=== PATIENT | male | born 1935 | race Caucasian/White ===

== ENCOUNTER 2016-09-21 16:00 | Inpatient (IN) | payer MEDICARE, OTHER ==
[~2016-09-21] VITALS: Ht 172.7 cm; Wt 87.0 kg
[~2016-09-21 16:00] MED LIST: AMIO100T4 PO; APIX5TAB PO; BENA20TA48 PO; CLON-379 PO; CYAN500T46 PO; DOCU-159 PO; ERGO500014 PO; FER325 PO; GLIM1TAB PO; GLIM1TAB2 PO; ISOS120T15 PO; LEVO50TA71 PO; LORA0.5T PO; ROSU20TA PO; TAMS0.4C2 PO
[2016-09-21] MEDS ORDERED: CLON-412 PO (16:37)
[2016-09-21] MEDS ORDERED: TRAM-40 PO (16:37)
[2016-09-21] MEDS ORDERED: CARV6.25 PO (16:38)
[2016-09-21] MEDS ORDERED: AMLO5TAB4 PO (16:38)
[2016-09-21] MEDS ORDERED: NIT4 SL (16:38)
[2016-09-21] MEDS ORDERED: APR50 PO (16:39)
[2016-09-21] MEDS ORDERED: ALBU18HF INHALATION (16:39)
[2016-09-21] MEDS ORDERED: LIPA1CAP6 PO (16:40)
[2016-09-21] MEDS ORDERED: SERT25TA PO (16:40)
[2016-09-21] MEDS ORDERED: FLUT9.9S NASAL (16:40)
[2016-09-21] MEDS ORDERED: MEMA10TA16 PO (16:41)
[2016-09-21] MEDS ORDERED: DEXL60CA2 PO (16:41)
--- NOTE | 2016-09-21 16:47 | RADRPT ---
PROCEDURE: XR Chest. CLINICAL INDICATION: Cough. Sepsis. TECHNIQUE: Single frontal view. COMPARISON: 06/22/2016. FINDINGS: The lungs are clear. The heart is enlarged. There is calcification in the aorta consistent with atherosclerosis. There is no pleural effusion. There is no pneumothorax. IMPRESSION: 1. Cardiomegaly and atherosclerosis. 2. Otherwise unremarkable chest radiograph. RPTAT: QQ .Bradford Morse MD, MD Date Time Electronically viewed and signed by .Bradford Morse MD, on 09/21/2016 16:46 .R/
[2016-09-21 17:00] LABS: BASOPHILS % 0.4 % (0.0-2.0); EOSINOPHILS # 0.1 10^3/ul (0.0-0.5); EOSINOPHILS % 0.9 % (0.0-7.0); HEMATOCRIT 31.1 % (42.0-52.0); HEMOGLOBIN 10.3 g/dl (14.0-18.0); LYMPHOCYTES # 1.6 10^3/ul (0.8-2.9); LYMPHOCYTES % 29.5 % (15.0-51.0); MEAN CORPUSCULAR HEMOGLOBIN 29.2 pg (29.0-33.0); MEAN CORPUSCULAR VOLUME 88.4 fl (82.0-101.0); MEAN PLATELET VOLUME 7.1 fl (7.4-10.4); MONOCYTE # 0.6 10^3/ul (0.3-0.9); MONOCYTES % 11.9 % (0.0-11.0); NEUTROPHIL # 3.1 10^3/ul (1.6-7.5); NEUTROPHILS % 57.3 % (39.0-77.0); PLATELET COUNT 272 10^3/UL (140-440); RED BLOOD COUNT 3.52 10^6/ul (4.70-6.10); RED CELL DISTRIBUTION WIDTH 14.7 % (11.5-14.5); UNCORRECTED WBC 5.4 10^3/ul (4.8-10.8); WHITE BLOOD COUNT 5.4 10^3/ul (4.8-10.8)
[2016-09-21 17:01] LABS: CONDITION 1; LH ANALYZER COMMENTS 1
[2016-09-21 17:15] LABS: ALBUMIN 3.6 g/dl (3.3-4.9)
[2016-09-21 17:16] LABS: CHLORIDE 109 mmol/L (97-110); POTASSIUM 3.5 mmol/L (3.5-5.1); SODIUM 145 mmol/L (135-144)
[2016-09-21 17:18] LABS: ALBUMIN/GLOBULIN RATIO 1.05; ANION GAP 15 (8-16); ASPARTATE AMINO TRANSFERASE 26 IU/L (15-46); BILIRUBIN,INDIRECT 0.5 mg/dl (0-1.1); BILIRUBIN,TOTAL 0.5 mg/dl (0.2-1.3); CARBON DIOXIDE 25 mmol/L (21-31); CREATININE 1.57 mg/dl (0.61-1.24); INR 1.16; PROTIME 14.8 Sec (12.2-14.2); PT RATIO 1.2
[2016-09-21 17:19] LABS: ALANINE AMINOTRANSFERASE 46 IU/L (13-69); ALKALINE PHOSPHATASE 55 IU/L (42-121); BLOOD UREA NITROGEN 18 mg/dl (7-20); CALCIUM 8.6 mg/dl (8.4-10.2); GLUCOSE 104 mg/dl (70-220); PARTIAL THROMBOPLASTIN TIME 32.7 Sec (25.0-35.0)
[2016-09-21 17:27] LABS: B-TYPE NATRIURETIC PEPTIDE 3580 PG/ML (0-450)
[2016-09-21 17:34] LABS: TROPONIN-I < 0.010 ng/ml (0.00-0.12)
[2016-09-21] MEDS ORDERED: FUROSEMIDE 40 MG INJ IV ONE (18:00)
--- NOTE | 2016-09-21 18:19 | HP ---
Date/Time of Note Date/Time of Note DATE: 09/21/16 TIME: 18:17 Assessment/Plan VTE Prophylaxis VTE Prophylaxis Intervention: ambulation, anti-embolic stocking VTE Contraindication Reason: peripheral vascular disease Lines/Catheters IV Catheter Type (from Nrsg): Peripheral IV Central line still needed: No Urinary Cath still in place: No Reason Cath still needed: urinary retention Assessment/Plan Chief Complaint/Hosp Course 1. CHF exacerbation. Problems: HPI/ROS Admit Date/Time Admit Date/Time PMH/Family/Social Social History Smoking Status: Never smoker Exam/Review of Systems Vital Signs Vitals Vital Signs Date Time Temp Pulse Resp B/P Pulse Ox O2 Delivery O2 Flow Rate FiO2 09/21/16 17:28 65 18 150/72 96 Room Air 09/21/16 16:13 98.2 Labs Result Diagram: 09/21/16 1636 09/21/16 1636 ANA LAI MD Sep 21, 2016 18:19
[2016-09-21] MEDS ORDERED: POTASSIUM CHLORIDE 20 MEQ in SOD CHLORIDE 0.9% 100 ML IVPB ONE (18:30)
[2016-09-21] MEDS ORDERED: ONDANSETRON 4 MG INJ IV PRN ×2 (18:30)
[2016-09-21] MEDS ORDERED: ACETAMINOPHEN 325 MG TAB PO PRN ×2 (18:30)
--- NOTE | 2016-09-21 18:33 | ERA ---
ER Documentation Chief Complaint Date/Time DATE: 09/21/16 TIME: 18:27 Chief Complaint BROUGHT IN VIA EMS FROM HOME DUE TO FLU LIKE SYMPTOMS HPI 81-year-old male who presents with cough and congestion. Fruit Stuffer use. He reports flulike symptoms however he states that the symptoms are consistent with cough that is dry nonproductive, shortness of breath and lower extremity swelling. He denies any chest pain. He denies nausea vomiting or diarrhea, subjective fevers at home. Symptoms for approximately 1 week. ROS All systems reviewed and are negative except as per history of present illness. Medications Home Meds Reported Medications Memantine* (Namenda*) 10 Mg Tablet, 10 MG PO BID, #60 TAB 09/21/16 Dexlansoprazole (Dexilant) 60 Mg Cap.mp, 60 MG PO DAILY, #30 CAP 09/21/16 Fluticasone Propionate (Flonase Allergy Relief) 9.9 Ml [place].susp, 1 SPRAY NASAL DAILY, #1 BOTTLE TO EACH NOSTRIL 09/21/16 Gwlggz-Vyttkpbf-Faxjihd* (Joanna GONZÁLES* 24,000) 24,000 L-76,000-120,000 Unit Capsule.dr, 1 CAP PO WITH MEALS, CAP 09/21/16 Sertraline Hcl* (Zoloft*) 25 Mg Tablet, 25 MG PO DAILY, #30 TAB 09/21/16 Albuterol Sulfate* (Ventolin HFA*) 18 Gm Hfa.aer.ad, 2 PUFF INHALATION Q6H, #1 INHALER 09/21/16 Hydralazine Hcl* (Hydralazine Hcl*) 50 Mg Tab, 50 MG PO BID, #120 TAB 09/21/16 Amlodipine Besylate* (Norvasc*) 5 Mg Tablet, 5 MG PO BID, TAB 09/21/16 Carvedilol* (Coreg*) 6.25 Mg Tablet, 6.25 MG PO BID, #60 TAB 09/21/16 Nitroglycerin* (Nitrostat*) 0.4 Mg Tab.subl, 0.4 MG SL Q5MIN Y for CHEST PAIN, BOTTLE 09/21/16 Clonazepam* (Klonopin*) 1 Mg Tablet, 1 MG PO QHS Y for SLEEP, TAB 09/21/16 Tramadol Hcl* (Ultram*) 50 Mg Tablet, 50 MG PO QHS Y for PAIN, TAB 1/4/17 Cyanocobalamin* (Vitamin B12*) 500 Mcg Tab, 2500 MG PO DAILY, TAB 06/22/16 Docusate Sodium* (Docusate Sodium*) 100 Mg Capsule, 100 MG PO BID, #60 CAP 06/22/16 Ergocalciferol* (Drisdol* (Vitamin D2)) 50,000 Unit Capsule, 77438 UNIT PO Q7D, CAP ON Mondays06/22/16 Levothyroxine Sodium* (Levoxyl*) 50 Mcg Tablet, 50 MCG PO BEFORE BREAKFAST, #30 TAB 06/22/16 Tamsulosin Hcl* (Tamsulosin Hcl*) 0.4 Mg Cap.er.24h, 0.4 MG PO HS, CAP 06/22/16 Apixaban* (Eliquis*) 5 Mg Tablet, 5 MG PO BID, TAB 06/22/16 Glimepiride* (Glimepiride*) 1 Mg Tablet, 1 MG PO BID WITH MEALS, TAB 06/22/16 Benazepril Hcl* (Benazepril Hcl*) 20 Mg Tablet, 20 MG PO DAILY, #30 TAB 06/22/16 Ferrous Sulfate* (Ferrous Sulfate*) 325 Mg Tabec, 325 MG PO DAILY, TAB 06/22/16 Amiodarone Hcl* (Amiodarone Hcl*) 100 Mg Tablet, 100 MG PO BID, #30 TAB 06/22/16 Isosorbide Mononitrate* (Isosorbide Mononitrate*) 120 Mg Tab.sr.24h, 120 MG PO DAILY, TAB.SA 06/22/16 Rosuvastatin Calcium* (Crestor*) 20 Mg Tablet, 20 MG PO QHS, #30 TAB 06/22/16 Clonidine Hcl* (Clonidine Hcl*) 0.1 Mg Tab, 1 TAB PO DAILY, #30 06/22/16 Discontinued Reported Medications Glimepiride* (Amaryl*) 1 Mg Tablet, 1 MG PO WITH BREAKFAST, TAB 06/22/16 Lorazepam* (Lorazepam*) 0.5 Mg Tablet, 0.5 MG PO HS Y for SLEEP, TAB 06/22/16 Allergies Allergies: Coded Allergies: No Known Allergy (Unverified , 09/21/16) PMhx/Soc History of Surgery: No Anesthesia Reaction: No Hx Neurological Disorder: No Hx Respiratory Disorders: No Hx Cardiac Disorders: Yes (CAD,HTN,HYPERCHOLESTEROLEMIA,AFIB) Hx Psychiatric Problems: No Hx Miscellaneous Medical Probl: Yes (DM,BPH) Hx Alcohol Use: Yes (OCCASIONAL) Hx Substance Use: No Hx Tobacco Use: No Smoking Status: Never smoker FmHx Family History: No diabetes Physical Exam Vitals Vital Signs Date Time Temp Pulse Resp B/P Pulse Ox O2 Delivery O2 Flow Rate FiO2 09/21/16 17:28 65 18 150/72 96 Room Air 09/21/16 16:13 98.2 75 18 103/66 95 Physical Exam General: Well developed, well nourished, no acute distress Head: Normocephalic, atraumatic. Eyes: Pupils equally reactive, EOM intact ENT: Moist mucous membranes Neck: Supple, no lymphadenopathy Respiratory: Rales at the bases bilaterally Cardiovascular: RRR, no murmurs, rubs, or gallops Abdominal: Soft, non-tender, non-distended, no peritoneal signs : Deferred MSK: Bilateral lower extremity pitting edema, no unilateral swelling, 5/5 strength Neurologic: Alert and oriented, moving all extremities, normal speech, no focal weakness, no cerebellar signs Skin: No rash Psych: Normal mood Result Diagram: 09/21/16 1636 09/21/16 1636 Results 24 hrs Laboratory Tests Test 09/21/16 16:36 Activated Partial Thromboplast Time 32.7Sec Alanine Aminotransferase (ALT/SGPT) 46IU/L Albumin 3.6g/dl Albumin/Globulin Ratio 1.05 Alkaline Phosphatase 55IU/L Anion Gap 15 Aspartate Amino Transf (AST/SGOT) 26IU/L B-Type Natriuretic Peptide 3580PG/ML Basophils # 0.010^3/ul Basophils % 0.4% Blood Morphology Comment Blood Urea Nitrogen 18mg/dl Calcium Level 8.6mg/dl Carbon Dioxide Level 25mmol/L Chloride Level 109mmol/L Creatinine 1.57mg/dl Direct Bilirubin 0.00mg/dl Eosinophils # 0.110^3/ul Eosinophils % 0.9% Globulin 3.40g/dl Glucose Level 104mg/dl Hematocrit 31.1% Hemoglobin 10.3g/dl INR International Normalized Ratio 1.16 Indirect Bilirubin 0.5mg/dl Lactic Acid Level 0.9mmol/L Lymphocytes # 1.610^3/ul Lymphocytes % 29.5% Mean Corpuscular Hemoglobin 29.2pg Mean Corpuscular Hemoglobin Concent 33.0g/dl Mean Corpuscular Volume 88.4fl Mean Platelet Volume 7.1fl Monocytes # 0.610^3/ul Monocytes % 11.9% Neutrophils # 3.110^3/ul Neutrophils % 57.3% Nucleated Red Blood Cells # 0.010^3/ul Nucleated Red Blood Cells % 0.0/100WBC Platelet Count 70798^3/UL Potassium Level 3.5mmol/L Prothrombin Time 14.8Sec Prothrombin Time Ratio 1.2 Red Blood Count 3.5210^6/ul Red Cell Distribution Width 14.7% Sodium Level 145mmol/L Total Bilirubin 0.5mg/dl Total Protein 7.0g/dl Troponin I < 0.010ng/ml White Blood Count 5.410^3/ul Current Medications Medications (Trade) Dose Ordered Sig/Carole Route PRN Reason Start Time Stop Time Status Last Admin Dose Admin Furosemide (Lasix) 40 mg ONCE ONCE IV 09/21/16 18:00 09/21/16 18:01 DC 09/21/16 17:43 Ondansetron HCl (Zofran Inj) 4 mg ER BRIDGE PRN IV NAUSEA AND/OR VOMITING 09/21/16 18:30 09/22/16 18:29 Acetaminophen (Tylenol Tab) 650 mg ER BRIDGE PRN PO MILD PAIN/FEVER 09/21/16 18:30 09/22/16 18:29 Amlodipine Besylate (Norvasc) 5 mg BID PO 09/21/16 21:00 UNV Hydralazine HCl (Apresoline) 50 mg BID PO 09/21/16 21:00 UNV Levothyroxine Sodium (Synthroid) 50 mcg BEFORE BREAKFAST PO 09/22/16 07:00 UNV Albuterol (Proventil 0.083% (Neb)) 2.5 mg Q8HWA RESP THERAPY [facility] 09/22/16 08:00 UNV Ipratropium [place] (Atrovent 0.02% (Neb)) 0.5 mg Q8H RESP THERAPY [facility] 09/22/16 00:00 UNV Ondansetron HCl (Zofran Inj) 4 mg Q8 PRN IV NAUSEA 09/21/16 18:30 UNV Acetaminophen 650 mg 650 mg Q6 PRN PO PAIN LEVEL 4-6 09/21/16 18:30 UNV Potassium Chloride/Sodium Chloride (KCl/NS) 110 ml @ 55 mls/hr ONCE ONCE IVPB 09/21/16 18:30 09/21/16 20:29 UNV Pantoprazole (Protonix Iv) 40 mg DAILY IV 09/21/16 18:30 UNV Aspirin (Aspirin) 81 mg DAILY PO 09/21/16 18:30 UNV Procedures/MDM EKG, MONITORS, & DIAGNOSTIC IMAGING: EKG: I reviewed and interpreted a 12-lead EKG. Rhythm: Normal sinus rhythm Ectopy: None Intervals: No abnormalities ST segments: No elevations or depressions T waves: No contiguous inversions Chest x-ray: I reviewed and interpreted a 1 view of the chest Mediastinum: No enlargement Cardiac silhouette: cardiomegaly Airspace: Pulmonary edema Bones: No evidence of fracture LAB INTERPRETATION: Elevated BNP, normal white count MEDICAL DECISION MAKING: I believe that the patient's symptoms are more consistent with heart failure rather than flulike symptoms. He has no fever, no white count. The patient has cough and lower extremity swelling. This is consistent with pulmonary edema and likely CHF that is a new diagnosis. The patient has had a left heart catheter showed no evidence of cardiac disease but he has hypertension hyperlipidemia and diabetes. ER COURSE: The patient was given Lasix with improved symptoms. No indication for BiPAP. The patient has greater than 72 hours of symptoms, low concern for influenza, no indication for Tamiflu. No indication for antibiotics. I kept the patient and/or family informed of laboratory and diagnostic imaging results throughout the emergency room course. DISPOSITION PLAN: Telemetry admission for management of CHF CONSULTATION: Accepting care team and consultations: I discussed the current laboratory data, diagnostic imaging and emergency care provided. Admitting team: Dr. Roldan Admitting team indication: Insurance directed Departure Diagnosis: Primary Impression: CHF (congestive heart failure) Qualified Code: I50.9 - Acute congestive heart failure, unspecified congestive heart failure type Additional Impressions: Pulmonary edema Qualified Code: J81.0 - Acute pulmonary edema Acute renal insufficiency Condition: Stable MARY SANTANA MD Sep 21, 2016 18:33
[2016-09-21 18:46] LABS: IRON 33 ug/dl (35-150)
[2016-09-21 18:49] LABS: ADD UMIC YES; URINE BILIRUBIN (Dip) NEGATIVE (NEGATIVE); URINE BLOOD (Dip) NEGATIVE (NEGATIVE); URINE COLOR LT. YELLOW (YELLOW); URINE GLUCOSE (Dip) NEGATIVE (NEGATIVE); URINE KETONES (Dip) NEGATIVE (NEGATIVE); URINE LEUKOCYTE ESTERASE (Dip) NEGATIVE (NEGATIVE); URINE NITRITE (Dip) NEGATIVE (NEGATIVE); URINE TOTAL PROTEIN (Dip) TRACE (NEGATIVE); URINE UROBILINOGEN (Dip) 0.2 E.U./dL (0.1-1.0)
[2016-09-21 18:55] LABS: TOTAL IRON BINDING CAPACITY 261 ug/dl (241-421)
[2016-09-21] MEDS: PANTOPRAZOLE 40 MG INJ IV SCH (19:02)
[2016-09-21] MEDS: ASPIRIN 81 MG TAB PO SCH (19:02)
[2016-09-21 19:10] LABS: MUCUS,URINE RARE
[2016-09-21 19:11] LABS: URINE RBCS NONE SEEN /HPF (0)
[2016-09-21] MEDS: SPIRONOLACTONE 25 MG TAB PO SCH (19:19)
[2016-09-21 19:28] LABS: CHOL/HDL RATIO 3.2 RATIO; MAGNESIUM 1.7 mg/dl (1.7-2.5)
[2016-09-21 20:00] LABS: THYROID STIMULATING HORMONE 3.2 MIU/L (0.465-4.680)
[2016-09-21 20:35] LABS: FOLATE 18.2 ng/ml (2.8-20.0)
[2016-09-21] MEDS: ENALAPRIL 5 MG TAB PO SCH (20:57)
[2016-09-21] MEDS: METOPROLOL 25 MG TAB PO SCH (20:57)
[2016-09-21] MEDS ORDERED: AMLODIPINE 5 MG TAB PO SCH (21:00)
[2016-09-21] MEDS: FUROSEMIDE 20 MG INJ IV SCH (22:24)
[2016-09-21 23:15] VITALS: TEMP 98.1
[2016-09-21 23:47] VITALS: PULSE 62
[2016-09-22] VITALS (12 sets, daily range): BP systolic 112–155; BP diastolic 58–76; PULSE 64–70; RESP 15–21; Ht 172.7 cm; Wt 87.0 kg
[2016-09-22] MEDS: IPRATROPIUM (NEB) 0.5 MG/2.5 ML AMP HHN SCH ×3 (00:46→16:09)
[2016-09-22] MEDS ORDERED: METHYLPREDNISOLONE 125 MG INJ IV ONE ×2 (00:52→14:30)
[2016-09-22] MEDS ORDERED: DEXTROSE 50% 50 ML SYRINGE IV PRN ×2 (01:00)
[2016-09-22] MEDS ORDERED: GLUCAGON 1 MG INJ IM PRN (01:00)
[2016-09-22] MEDS ORDERED: GLUCOSE GEL 15 GRAM TUBE BUCCAL PRN (01:00)
[2016-09-22] MEDS ORDERED: GLUCOSE GEL 15 GRAM TUBE PO PRN ×2 (01:00)
[2016-09-22] MEDS: GUAIFENESIN/CODEINE 5ML CUP PO PRN ×2 (01:16→10:46)
[2016-09-22] MEDS: ACCUCHECK XX SCH (02:00)
[2016-09-22] MEDS: LEVOTHYROXINE 50 MCG TAB PO SCH (06:05)
[2016-09-22] MEDS: FUROSEMIDE 20 MG INJ IV SCH ×3 (06:07→21:30)
[2016-09-22] MEDS: INSULIN ASPART [NOVOLOG] 3 ML PEN SC SCH ×4 (08:34→21:31)
[2016-09-22] MEDS: ALBUTEROL 0.083% (NEB) 2.5 MG/3 ML AMP HHN SCH ×2 (09:11→16:09)
[2016-09-22] MEDS: SPIRONOLACTONE 25 MG TAB PO SCH (09:38)
[2016-09-22] MEDS: ENALAPRIL 5 MG TAB PO SCH (09:38)
[2016-09-22] MEDS: PANTOPRAZOLE 40 MG INJ IV SCH (09:38)
[2016-09-22] MEDS: METOPROLOL 25 MG TAB PO SCH ×2 (09:39→21:29)
[2016-09-22] MEDS: ASPIRIN 81 MG TAB PO SCH (09:39)
--- NOTE | 2016-09-22 12:03 | CONS ---
Date/Time of Note Date/Time of Note DATE: 09/22/16 TIME: 12:02 Consultation Date/Type/Reason Admit Date/Time Sep 21, 2016 at 18:04 Initial Consult Date Exam/Review of Systems Vital Signs Vitals Vital Signs Date Time Temp Pulse Resp B/P Pulse Ox O2 Delivery O2 Flow Rate FiO2 09/22/16 11:44 98.0 68 18 132/70 96 09/22/16 08:55 21 09/21/16 23:15 Room Air Intake and Output 09/21/16 09/21/16 09/22/16 15:00 23:00 07:00 Intake Total 400 ml Output Total 1660 ml 1425 ml Balance -1660 ml -1025 ml Results Result Diagram: 09/21/16 1636 09/21/16 1636 Results 24 hrs Laboratory Tests Test 09/21/16 16:36 09/21/16 18:15 09/21/16 18:25 09/21/16 20:00 Activated Partial Thromboplast Time 32.7 Alanine Aminotransferase (ALT/SGPT) 46 Albumin 3.6 Albumin/Globulin Ratio 1.05 Alkaline Phosphatase 55 Anion Gap 15 Aspartate Amino Transf (AST/SGOT) 26 B-Type Natriuretic Peptide 3580 H Basophils # 0.0 Basophils % 0.4 Blood Morphology Comment Blood Urea Nitrogen 18 Calcium Level 8.6 Carbon Dioxide Level 25 Chloride Level 109 Creatinine 1.57 H Direct Bilirubin 0.00 Eosinophils # 0.1 Eosinophils % 0.9 Globulin 3.40 H Glucose Level 104 Hematocrit 31.1 L Hemoglobin 10.3 L INR International Normalized Ratio 1.16 Indirect Bilirubin 0.5 Lactic Acid Level 0.9 0.6 0.8 Lymphocytes # 1.6 Lymphocytes % 29.5 Mean Corpuscular Hemoglobin 29.2 Mean Corpuscular Hemoglobin Concent 33.0 Mean Corpuscular Volume 88.4 Mean Platelet Volume 7.1 L Monocytes # 0.6 Monocytes % 11.9 H Neutrophils # 3.1 Neutrophils % 57.3 Nucleated Red Blood Cells # 0.0 Nucleated Red Blood Cells % 0.0 Platelet Count 272 Potassium Level 3.5 Prothrombin Time 14.8 H Prothrombin Time Ratio 1.2 Red Blood Count 3.52 L Red Cell Distribution Width 14.7 H Sodium Level 145 H Total Bilirubin 0.5 Total Protein 7.0 Troponin I < 0.010 White Blood Count 5.4 # Cholesterol Level 81 L Cholesterol/HDL Ratio 3.2 Folate 18.2 HDL Cholesterol 25 L LDL Cholesterol, Calculated 38 Magnesium Level 1.7 Thyroid Stimulating Hormone (TSH) 3.200 Triglycerides Level 91 Vitamin B12 Level 991 H Iron Level 33 L Percent Iron Saturation 13 L Total Iron Binding Capacity 261 Urine Bilirubin NEGATIVE Urine Clarity CLEAR Urine Color LT. YELLOW Urine Glucose NEGATIVE Urine Hemoglobin NEGATIVE Urine Ketones NEGATIVE Urine Leukocyte Esterase NEGATIVE Urine Microscopic RBC NONE SEEN Urine Microscopic WBC 0-2 Urine Mucus RARE Urine Nitrite NEGATIVE Urine Specific [place] >=1.030 H Urine Total Protein TRACE Urine Urobilinogen 0.2 E.U./dL Urine pH 5.5 Test 09/21/16 23:44 09/22/16 08:18 Bedside Glucose 116 187 Medications Medications Current Medications Hydralazine HCl (Apresoline) 50 mg BID PO Last administered on 09/22/16 09:39; Admin Dose 50 MG; Start 09/21/16 at 21:00 Ondansetron HCl (Zofran Inj) 4 mg Q8 PRN IV NAUSEA; Start 09/21/16 at 18:30 Acetaminophen (Tylenol Tab) 650 mg Q6 PRN PO PAIN LEVEL 4-6; Start 09/21/16 at 18:30 Pantoprazole (Protonix Iv) 40 mg DAILY IV Last administered on 09/22/16 09:38; Admin Dose 40 MG; Start 09/21/16 at 18:30 Aspirin (Aspirin) 81 mg DAILY PO Last administered on 09/22/16 09:39; Admin Dose 81 MG; Start 09/21/16 at 18:30 Furosemide (Lasix) 20 mg Q8 IV Last administered on 09/22/16 06:07; Admin Dose 20 MG; Start 09/21/16 at 22:00 Spironolactone (Aldactone) 25 mg DAILY PO Last administered on 09/22/16 09:38; Admin Dose 25 MG; Start 09/21/16 at 18:30 Metoprolol Tartrate (Lopressor) 25 mg BID PO Last administered on 09/22/16 09: 39; Admin Dose 25 MG; Start 09/21/16 at 21:00 Enalapril Maleate (Vasotec) 5 mg BID PO Last administered on 09/22/16 09:38; Admin Dose 5 MG; Start 09/21/16 at 21:00 Diagnostic Test (Pha) (Accucheck) 1 ea 02 XX ; Start 09/22/16 at 02:00 Guaifenesin/ Codeine Phosphate (Robitussin Ac Liquid Cup) 10 ml Q8H PRN PO COUGH Last administered on 09/22/16t 10:46; Admin Dose 10 ML; Start 09/22/16 at 00 :30 Clonidine (Catapres) 0.1 mg Q8H PRN PO ELEVATED SYSTOLIC BP; Start 09/22/16 at 00:30 Methylprednisolone Sodium Succinate (Solu-Medrol) 60 mg ONCE ONCE IV ; Start at 09:00; Stop 09/23/16 at 09:01 Methylprednisolone Sodium Succinate (Solu-Medrol) 30 mg ONCE ONCE IV ; Start at 09:00; Stop 09/24/16 at 09:01 Miscellaneous Information 1 ea NOTE XX ; Start 09/22/16 at 01:00 Glucose (Glutose) 15 gm Q15M PRN PO DECREASED GLUCOSE; Start 09/22/16 at 01:00 Glucose (Glutose) 22.5 gm Q15M PRN PO DECREASED GLUCOSE; Start 09/22/16 at 01:00 Dextrose (D50w Syringe) 25 ml Q15M PRN IV DECREASED GLUCOSE; Start 09/22/16 at 01:00 Dextrose (D50w Syringe) 50 ml Q15M PRN IV DECREASED GLUCOSE; Start 09/22/16 at 01:00 Glucagon (Glucagen) 1 mg Q15M PRN IM DECREASED GLUCOSE; Start 09/22/16 at 01:00 Glucose (Glutose) 15 gm Q15M PRN BUCCAL DECREASED GLUCOSE; Start 09/22/16 at 01: 00 GRETEL GARCIA MD Sep 22, 2016 12:02
--- NOTE | 2016-09-22 12:11 | HP ---
Date/Time of Note Date/Time of Note DATE: 09/22/16 TIME: 11:49 Assessment/Plan VTE Prophylaxis VTE Prophylaxis Intervention: ambulation, anti-embolic stocking VTE Contraindication Reason: peripheral vascular disease Lines/Catheters IV Catheter Type (from Nrsg): [place] Lock Central line still needed: No Urinary Cath still in place: No Assessment/Plan Chief Complaint/Hosp Course 1. CHF exacerbation. 2.Chrinic cough without control more than one month 3.IHD angina s/p catheterization by dr. Alonzo without significant narrowing of the vessels. 4.COPD exacerbation 5.PTSD 6.DM type 2-with complications 7.HTN with chf 8.LBP 9.RAVI of knees and hips and shoulders. 10.Anemia of chronic disease 11.Obesity with snoring and apnea 12.BPH with episodes of overflow incontinens 13.dyslipidemia 14.GERD Problems: Assessment/Plan HEM-onc GI Pulm. Cardiology consult Cont'd Hospitalization Reason: sob,chf,htn,dm,PTSD and intractable cough. HPI/ROS Admit Date/Time Admit Date/Time Persistent cough more than month now with worsening of sob and chills. Took too many medications for cough and sod without help. Now severe weakness with feelings of hotness. ROS Subjective hx not possible: pt critical (seen in er. Poor communication skills due to of hearing impairment, memory impairment and sob mainly.) Constitutional: chills, diaphoresis, fatigue, nausea, poor po, weight change, No disoriented, No febrile, No improved, No no complaints, No other Eyes: discharge, visual change, No no complaints, No other, No pain, No redness ENT: congestion, dysphagia, pain, sore throat (occasional mild amont of sputum production.), No bleeding, No discharge, No no complaints, No other Respiratory: cough, pain, pleuritic pain, shortness of breath, wheezing, No no complaints, No other, No sputum Cardiovascular: chest pain, edema, lightheadedness, orthopenea, palpitations, paroxysmal nocturnal dyspnea, No no complaints, No other Gastrointestinal: constipation, decreased appetite, flatus, nausea, passing stool, No blood, No diarrhea, No no complaints, No other, No pain, No vomiting Genitourinary: dysuria, No bleeding, No discharge, No flank pain, No hematuria, No no complaints, No other Musculoskeletal: back pain, bone/joint pain, neck pain, restricted range of motion, No no complaints, No other, No swelling Skin: pruritis, rash, skin lesions Neurologic: confusion, dizziness, headache, No focal-weakness, No no complaints, No other, No seizure, No syncope Endocrine: polydypsia, polyuria, temp intolerance, weight change (gained 3-4 lb during last 2 weeks.), No dry skin, No no complaints, No other Lymphatic: No adenopathy, No lymphadema, No no complaints, No other, No tender nodes Psychological: anxiety, depression, other (ptsd ; refugee from [place]; Close his home in [place], keeps kees with him..) Immunologic: pruritis, urticaria PMH/Family/Social Past Medical History Medical History: angina, colitis, congestive heart failure, coronary artery disease, diabetes, diverticulitis, GERD, GI bleed, high cholesterol, hypertension, hypothyroid, irritable bowel syndrome, urinary tract infection Past Surgical History Past Surgical Hx: no surgical history Family History Significant Family History: no pertinent family hx, heart disease, COPD, diabetes, hypertension Social History Alcohol Use: none Smoking Status: Never smoker Drug Use: none Exam/Review of Systems Vital Signs Vitals Vital Signs Date Time Temp Pulse Resp B/P Pulse Ox O2 Delivery O2 Flow Rate FiO2 09/22/16 11:44 98.0 68 18 132/70 96 09/22/16 08:55 21 09/21/16 23:15 Room Air Intake and Output 09/21/16 09/21/16 09/22/16 15:00 23:00 07:00 Intake Total 400 ml Output Total 1660 ml 1425 ml Balance -1660 ml -1025 ml Exam Constitutional: alert, distress, oriented (not in time.), well developed, No frail, No non-verbal, No other Psych: anxiety, depression, No confusion, No nl mood/affect, No no complaints, No other, No suicidal Head: atraumatic, No hematomas, No lacerations, No normocephalic, No other Eyes: EOMI, PERRL (s/p cataractectomy changes.), nl lids, nl sclera ( paleness.) ENMT: mucosa pink and moist, nl external ears & nose, nl lips & teeth (dendures , not feeting well.), tympanic membranes Neck: bruits, jvd, nuchal rigidity Respiratory: congested cough, crackles/rales, diminished breath sounds Cardiovascular: bruits, edema, jugular venous distention (JVD), systolic murmur Gastrointestinal: bowel sounds, distended, non-tender, soft Genitourinary - Male: CVA tenderness, nl penis, nl scrotum Neurological: BALLET PROFESSOR II-XII intact (valery and visual impairment.), DTR's symmetric, confused (forgetfull, tense, emotional, exhausted.), lethargic, numbness Skin: ecchymosis, rash or lesions Lymph: nl lymph nodes Labs Result Diagram: 09/21/16 1636 09/21/16 1636 Medications Medications Current Medications Hydralazine HCl (Apresoline) 50 mg BID PO Last administered on 09/22/16 09:39; Admin Dose 50 MG; Start 09/21/16 at 21:00 Ondansetron HCl (Zofran Inj) 4 mg Q8 PRN IV NAUSEA; Start 09/21/16 at 18:30 Acetaminophen (Tylenol Tab) 650 mg Q6 PRN PO PAIN LEVEL 4-6; Start 09/21/16 at 18:30 Pantoprazole (Protonix Iv) 40 mg DAILY IV Last administered on 09/22/16 09:38; Admin Dose 40 MG; Start 09/21/16 at 18:30 Aspirin (Aspirin) 81 mg DAILY PO Last administered on 09/22/16 09:39; Admin Dose 81 MG; Start 09/21/16 at 18:30 Furosemide (Lasix) 20 mg Q8 IV Last administered on 09/22/16 06:07; Admin Dose 20 MG; Start 09/21/16 at 22:00 Spironolactone (Aldactone) 25 mg DAILY PO Last administered on 09/22/16 09:38; Admin Dose 25 MG; Start 09/21/16 at 18:30 Metoprolol Tartrate (Lopressor) 25 mg BID PO Last administered on 09/22/16 09: 39; Admin Dose 25 MG; Start 09/21/16 at 21:00 Enalapril Maleate (Vasotec) 5 mg BID PO Last administered on 09/22/16 09:38; Admin Dose 5 MG; Start 09/21/16 at 21:00 Diagnostic Test (Pha) (Accucheck) 1 ea 02 XX ; Start 09/22/16 at 02:00 Guaifenesin/ Codeine Phosphate (Robitussin Ac Liquid Cup) 10 ml Q8H PRN PO COUGH Last administered on 09/22/16t 10:46; Admin Dose 10 ML; Start 09/22/16 at 00 :30 Clonidine (Catapres) 0.1 mg Q8H PRN PO ELEVATED SYSTOLIC BP; Start 09/22/16 at 00:30 Methylprednisolone Sodium Succinate (Solu-Medrol) 60 mg ONCE ONCE IV ; Start at 09:00; Stop 09/23/16 at 09:01 Methylprednisolone Sodium Succinate (Solu-Medrol) 30 mg ONCE ONCE IV ; Start at 09:00; Stop 09/24/16 at 09:01 Miscellaneous Information 1 ea NOTE XX ; Start 09/22/16 at 01:00 Glucose (Glutose) 15 gm Q15M PRN PO DECREASED GLUCOSE; Start 09/22/16 at 01:00 Glucose (Glutose) 22.5 gm Q15M PRN PO DECREASED GLUCOSE; Start 09/22/16 at 01:00 Dextrose (D50w Syringe) 25 ml Q15M PRN IV DECREASED GLUCOSE; Start 09/22/16 at 01:00 Dextrose (D50w Syringe) 50 ml Q15M PRN IV DECREASED GLUCOSE; Start 09/22/16 at 01:00 Glucagon (Glucagen) 1 mg Q15M PRN IM DECREASED GLUCOSE; Start 09/22/16 at 01:00 Glucose (Glutose) 15 gm Q15M PRN BUCCAL DECREASED GLUCOSE; Start 09/22/16 at 01: 00 ANA LAI MD Sep 22, 2016 12:00
[2016-09-22] MEDS ORDERED: BENA20TA48 PO (12:14)
[2016-09-22 13:12] LABS: IRON 33 ug/dl (35-150)
[2016-09-22 13:21] LABS: TOTAL IRON BINDING CAPACITY 264 ug/dl (241-421)
[2016-09-22] MEDS ORDERED: METOPROLOL 5 MG INJ IV PRN (13:30)
[2016-09-22 14:06] LABS: THYROID STIMULATING HORMONE 1.34 MIU/L (0.465-4.680)
--- NOTE | 2016-09-22 14:09 | CONS ---
DATE OF ADMISSION: 09/21/2016 DATE OF CONSULTATION: 09/22/2016 REASON FOR CONSULTATION: Congestive heart failure, shortness of breath. REQUESTING PHYSICIAN: Dr. Lai. HISTORY OF PRESENT ILLNESS: Mr. Santillan is an 81-year-old male with history of hypertension, dysli pidemia, diabetes mellitus, nonobstructive coronary artery disease by left heart catheterization in June 2016, who presents with cough and shortness of breath. Upon arrival in the emergency depart ment, temperature 98.2, blood pressure 103/66, pulse 75, respiratory rate 18, saturating 95%. [facility] a white count of 5.4, hemoglobin 10.3, platelet count 272, a sodium of 145, potassium 3.5, creatinine 1.57, BUN 18. BNP of 3580. TSH of 3.2, LDL 38, HDL 25. INR 1.1. UA neg ative. The patient underwent a chest x-ray revealing cardiomegaly, atherosclerosis, otherwise unrem arkable chest x-ray. PAST MEDICAL HISTORY: As above in HPI. MEDICATIONS CURRENTLY IN HOSPITAL: 1. Solu-Medrol. 2. IV ____. 3. Lasix 20 mg IV q.8h. 4. Hydralazine 50 mg p.o. b.i.d. 5. Metoprolol 25 mg b.i.d. 6. Enalapril 5 mg p.o. b.i.d. 7. Zofran p.r.n. 8. Tylenol p.r.n. 9. Protonix 40 mg IV daily. 10. Aspirin 81 mg daily. 11. Aldactone 25 mg daily. ALLERGIES: NO KNOWN DRUG ALLERGIES. SOCIAL HISTORY: No current tobacco, social ETOH, no illicit drug use. FAMILY HISTORY: No history of sudden cardiac or early CAD. REVIEW OF SYSTEMS: As above in HPI. CONSTITUTIONAL: No fevers, chills. PULMONARY: Shortness of breath, cough. CARDIOVASCULAR: No current chest pain. GASTROINTESTINAL: No vomiting. GENITOURINARY: No hematuria. MUSCULOSKELETAL: Degenerative joint disease. PSYCHIATRIC: The patient denies depression. NEUROLOGIC: No documented history of CVA. PHYSICAL EXAMINATION VITAL SIGNS: Temperature 98.1, blood pressure 132/70, pulse 68, respirations 18, saturating 93%. GENERAL: The patient is alert, awake, complaining of cough, shortness of breath. NECK: JVP approximately 9 cm water. CHEST: Fair movement throughout, with mild decreased breath sounds at bases bilaterally. HEART: Regular rate and rhythm. Normal S1, S2, I/ systolic murmur, nondisplaced PMI. ABDOMEN: Positive bowel sounds, soft. EXTREMITIES: There is pitting edema, 1+ pulses bilaterally, posterior tibial. LABORATORIES: As above in HPI, with most recent on 09/21/2016 LDL 38, HDL 25. TSH 3.2 within layla l limits. IMAGING STUDIES: As above in HPI. No further imaging studies for my review at this time. ECG: Reveals atrial fibrillation, rate of 72, right axis deviation, anteroseptal Q's. IMPRESSION: 1. Congestive heart failure exacerbation, question systolic versus diastolic, but acute on chronic likely. 2. Atrial fibrillation by EKG, on baseline apixaban and home amiodarone. 3. Hypertension, under reasonable control. 4. Possible upper respiratory infection/cough. 5. Dyslipidemia. 6. Renal failure. 7. Anemia. RECOMMENDATIONS: 1. At this time, would maintain the patient on telemetry monitoring to follow rhythm and rate contr ol closely. 2. Would continue the patient's afterload reduction at this time with hydralazine with up titration as necessary to improve overall systolic blood pressure control, as you have talked about holding p atient's AMANDA inhibitors as possible cause of the patient's cough. 3. Continue the patient's Lasix diuresis, following strict I's and O's to grade diuresis closely. 4. Continue the patient's baseline beta stefan, beta 1 selective. 5. Continue the patient's steroids and bronchodilators. 6. Follow the patient's volume status closely. We will consider additional troponins, although the patient had a recent catheterization without any significant obstructive disease. 7. Will additionally check a fasting lipid panel for general risk stratification and initiate lipid -lowering medication as necessary. 8. Continue the patient's aspirin and will likely resume the patient's apixaban for prevention of t hrombolic complications in the setting of atrial fibrillation. Thank you for allowing me to take part in the care of this patient. I will continue to follow along very closely with you. Further recommendations will be made as the patient progresses through his inpatient hospital clinical course. Dictated By: XIMENA BARNES/JOCELINE Conf#: [id number] DID#: [id number] CC: ANA LAI MD;*EndCC*
[2016-09-22 15:14] LABS: CARCINOEMBRYONIC ANTIGEN 0.7 ng/ml (0.0-5.0)
[2016-09-22] MEDS: AZITHROMYCIN 500 MG in SOD CHLORIDE 0.9% 250 ML IVPB SCH (15:36)
[2016-09-22 20:32] LABS: CREATINE KINASE 89 IU/L (23-200)
[2016-09-22 20:39] LABS: CK-MB 1.43 ng/ml (0.0-2.4)
[2016-09-22 20:43] LABS: TROPONIN-I < 0.010 ng/ml (0.00-0.12)
[2016-09-22] MEDS: SALMETEROL/FLUTICASONE 250/50 INHA INH SCH (21:30)
[2016-09-23] VITALS (14 sets, daily range): BP systolic 110–141; BP diastolic 57–70; PULSE 60–75; RESP 15–20
[2016-09-23] MEDS: IPRATROPIUM (NEB) 0.5 MG/2.5 ML AMP HHN SCH ×3 (00:35→16:12)
[2016-09-23 01:33] LABS: TROPONIN-I < 0.012 ng/ml (0.00-0.12)
[2016-09-23] MEDS: ACCUCHECK XX SCH (02:00)
[2016-09-23 02:09] LABS: CREATINE KINASE 82 IU/L (23-200)
[2016-09-23] MEDS: FUROSEMIDE 20 MG INJ IV SCH ×3 (05:53→21:10)
[2016-09-23 06:19] LABS: CHOL/HDL RATIO 3.3 RATIO
[2016-09-23] MEDS: LEVOTHYROXINE 50 MCG TAB PO SCH (07:20)
[2016-09-23] MEDS: INSULIN ASPART [NOVOLOG] 3 ML PEN SC SCH ×4 (07:30→21:12)
[2016-09-23] MEDS: ALBUTEROL 0.083% (NEB) 2.5 MG/3 ML AMP HHN SCH ×2 (08:06→16:13)
[2016-09-23] MEDS: PANTOPRAZOLE 40 MG INJ IV SCH (08:22)
[2016-09-23] MEDS: SPIRONOLACTONE 25 MG TAB PO SCH (08:23)
[2016-09-23] MEDS: SALMETEROL/FLUTICASONE 250/50 INHA INH SCH ×2 (08:23→21:09)
[2016-09-23] MEDS: METOPROLOL 25 MG TAB PO SCH ×2 (08:23→21:08)
[2016-09-23] MEDS: ASPIRIN 81 MG TAB PO SCH (08:23)
[2016-09-23] MEDS: ENOXAPARIN 80 MG/0.8 ML SYG SC SCH (08:28)
[2016-09-23] MEDS ORDERED: METHYLPREDNISOLONE 40 MG INJ IV ONE (09:00)
[2016-09-23] MEDS ORDERED: METHYLPREDNISOLONE 125 MG INJ IV ONE (09:00)
--- NOTE | 2016-09-23 09:47 | CONS ---
Date/Time of Note Date/Time of Note DATE: 09/23/16 TIME: 09:47 Consultation Date/Type/Reason Admit Date/Time Sep 21, 2016 at 18:04 Exam/Review of Systems Vital Signs Vitals Vital Signs Date Time Temp Pulse Resp B/P Pulse Ox O2 Delivery O2 Flow Rate FiO2 09/23/16 08:24 60 09/23/16 08:08 20 97 21 09/23/16 07:28 97.5 117/61 09/23/16 00:00 Nasal Cannula 2.0 Intake and Output 09/22/16 09/22/16 09/23/16 15:00 23:00 07:00 Intake Total 700 ml 650 ml Output Total 1000 ml Balance 700 ml -350 ml Results Result Diagram: 09/21/16 1636 09/21/16 1636 Results 24 hrs Laboratory Tests Test 09/22/16 12:33 09/22/16 12:40 09/22/16 17:30 09/22/16 19:35 Bedside Glucose 223 H 154 Absolute Reticulocyte Count 0.037 Carcinoembryonic Antigen 0.7 Erythrocyte Sedimentation Rate 46 H Ferritin 215.0 Iron Level 33 L Lactate Dehydrogenase 485 Percent Iron Saturation 13 L Percent Reticulocyte Count 1.0 Thyroid Stimulating Hormone (TSH) 1.340 Total Iron Binding Capacity 264 Vitamin B12 Level 928 Creatine Kinase 89 Creatine Kinase Index 1.6 Creatinine Kinase MB (Mass) 1.43 Troponin I < 0.010 Test 09/22/16 20:58 09/23/16 00:20 09/23/16 01:32 09/23/16 05:27 Bedside Glucose 238 H 218 Creatine Kinase 82 Creatine Kinase Index 1.6 Creatinine Kinase MB (Mass) 1.30 Troponin I < 0.012 Cholesterol Level 96 L Cholesterol/HDL Ratio 3.3 HDL Cholesterol 29 L LDL Cholesterol, Calculated 48 Triglycerides Level 96 Test 09/23/16 07:22 Bedside Glucose 183 Medications Medications Current Medications Ondansetron HCl (Zofran Inj) 4 mg Q8 PRN IV NAUSEA; Start 09/21/16 at 18:30 Acetaminophen (Tylenol Tab) 650 mg Q6 PRN PO PAIN LEVEL 4-6; Start 09/21/16 at 18:30 Pantoprazole (Protonix Iv) 40 mg DAILY IV Last administered on 09/23/16t 08:22; Admin Dose 40 MG; Start 09/21/16 at 18:30 Aspirin (Aspirin) 81 mg DAILY PO Last administered on 09/23/16 08:23; Admin Dose 81 MG; Start 09/21/16 at 18:30 Furosemide (Lasix) 20 mg Q8 IV Last administered on 09/23/16 05:53; Admin Dose 20 MG; Start 09/21/16 at 22:00 Spironolactone (Aldactone) 25 mg DAILY PO Last administered on 09/23/16 08:23; Admin Dose 25 MG; Start 09/21/16 at 18:30 Metoprolol Tartrate (Lopressor) 25 mg BID PO Last administered on 09/23/16 08: 23; Admin Dose 25 MG; Start 09/21/16 at 21:00 Enalapril Maleate (Vasotec) 5 mg BID PO Last administered on 09/22/16 09:38; Admin Dose 5 MG; Start 09/21/16 at 21:00; Status Future Hold Diagnostic Test (Pha) (Accucheck) 1 ea 02 XX ; Start 09/22/16 at 02:00 Guaifenesin/ Codeine Phosphate (Robitussin Ac Liquid Cup) 10 ml Q8H PRN PO COUGH Last administered on 09/22/16 10:46; Admin Dose 10 ML; Start 09/22/16 at 00 :30 Clonidine (Catapres) 0.1 mg Q8H PRN PO ELEVATED SYSTOLIC BP; Start 09/22/16 at 00:30 Miscellaneous Information 1 ea NOTE XX ; Start 09/22/16 at 01:00 Glucose (Glutose) 15 gm Q15M PRN PO DECREASED GLUCOSE; Start 09/22/16 at 01:00 Glucose (Glutose) 22.5 gm Q15M PRN PO DECREASED GLUCOSE; Start 09/22/16 at 01:00 Dextrose (D50w Syringe) 25 ml Q15M PRN IV DECREASED GLUCOSE; Start 09/22/16 at 01:00 Dextrose (D50w Syringe) 50 ml Q15M PRN IV DECREASED GLUCOSE; Start 09/22/16 at 01:00 Glucagon (Glucagen) 1 mg Q15M PRN IM DECREASED GLUCOSE; Start 09/22/16 at 01:00 Glucose (Glutose) 15 gm Q15M PRN BUCCAL DECREASED GLUCOSE; Start 09/22/16 at 01: 00 Hydralazine HCl (Apresoline) 50 mg Q8 PO Last administered on 09/23/16 05:53; Admin Dose 50 MG; Start 09/22/16 at 14:00 Metoprolol Tartrate (Lopressor) 5 mg Q4H PRN IV HR>110 Hold SBP<100; Start 09/22 at 13:30 Enoxaparin Sodium (Lovenox) 70 mg DAILY SC Last administered on 09/23/16 08:28 ; Admin Dose 70 MG; Start 09/23/16 at 09:00 Salmeterol Xinafoate/ Fluticasone 1 inh 1 inh BID INH Last administered on 08:23; Admin Dose 1 INH; Start 09/22/16 at 21:00 Azithromycin/ Sodium Chloride (Zithromax/NS) 250 ml @ 250 mls/hr Q24H IVPB Last administered on 09/22/16 15:36; Admin Dose 250 MLS/HR; Start 09/22/16 at 15: 00; Stop 09/23/16 at 15:59 GRETEL GARCIA MD Sep 23, 2016 09:47
--- NOTE | 2016-09-23 11:25 | CONS ---
Date/Time of Note Date/Time of Note DATE: 09/23/16 TIME: 11:18 Assessment/Plan Assessment/Plan Chief Complaint/Hosp Course IMPRESSION: 1. Congestive heart failure exacerbation, question systolic versus diastolic, but acute on chronic likely.-negative troponin x 3 2. Atrial fibrillation by EKG, on baseline apixaban and home amiodarone. 3. Hypertension, under reasonable control. 4. Possible upper respiratory infection/cough. 5. Dyslipidemia. 6. Renal failure. 7. Anemia. Rec: -tele -serial ecg's -Continue hydralazine/BB -Continue lovenox with transition back maricel eliquis at D/C -Will f/u echo -Continue abx's/bronchodilators Problems: Consultation Date/Type/Reason Admit Date/Time Sep 21, 2016 at 18:04 Initial Consult Date 09/22/16 Type of Consultation: Cardiology Reason for Consultation CHF Referring Provider: ANA LAI MD Exam/Review of Systems Vital Signs Vitals Vital Signs Date Time Temp Pulse Resp B/P Pulse Ox O2 Delivery O2 Flow Rate FiO2 09/23/16 08:24 60 09/23/16 08:08 20 97 21 09/23/16 07:28 97.5 117/61 09/23/16 00:00 Nasal Cannula 2.0 Intake and Output 09/22/16 09/22/16 09/23/16 15:00 23:00 07:00 Intake Total 700 ml 650 ml Output Total 1000 ml Balance 700 ml -350 ml Exam Review of Systems: CONSTITUTIONAL: No fevers, chills. PULMONARY: Mild sob-improving CARDIOVASCULAR: No chest pain/palpitations GASTROINTESTINAL: No nausea/vomiting. GENITOURINARY: No hematuria/dysuria. MUSCULOSKELETAL: No myagias/arthalgias. PSYCHIATRIC: The patient denies depression. NEUROLOGIC: No weakness Constitutional: alert, well developed Psych: no complaints Head: normocephalic ENMT: mucosa pink and moist Neck: jvd (9 cm water), supple Respiratory: diminished breath sounds (at bases/B) Cardiovascular: regular rate and rhythm Gastrointestinal: non-tender, soft Musculoskeletal: muscle tone (normal) Extremities: edema (none) Neurological: other (No focal deficits) Results Result Diagram: 09/21/16 1636 09/21/16 1636 Results 24 hrs Laboratory Tests Test 09/22/16 12:33 1/5/17 12:40 09/22/16 17:30 09/22/16 19:35 Bedside Glucose 223 H 154 Absolute Reticulocyte Count 0.037 Carcinoembryonic Antigen 0.7 Erythrocyte Sedimentation Rate 46 H Ferritin 215.0 Iron Level 33 L Lactate Dehydrogenase 485 Percent Iron Saturation 13 L Percent Reticulocyte Count 1.0 Thyroid Stimulating Hormone (TSH) 1.340 Total Iron Binding Capacity 264 Vitamin B12 Level 928 Creatine Kinase 89 Creatine Kinase Index 1.6 Creatinine Kinase MB (Mass) 1.43 Troponin I < 0.010 Test 09/22/16 20:58 09/23/16 00:20 09/23/16 01:32 09/23/16 05:27 Bedside Glucose 238 H 218 Creatine Kinase 82 Creatine Kinase Index 1.6 Creatinine Kinase MB (Mass) 1.30 Troponin I < 0.012 Cholesterol Level 96 L Cholesterol/HDL Ratio 3.3 HDL Cholesterol 29 L LDL Cholesterol, Calculated 48 Triglycerides Level 96 Test 09/23/16 07:22 Bedside Glucose 183 Medications Medications Current Medications Ondansetron HCl (Zofran Inj) 4 mg Q8 PRN IV NAUSEA; Start 09/21/16 at 18:30 Acetaminophen (Tylenol Tab) 650 mg Q6 PRN PO PAIN LEVEL 4-6; Start 09/21/16 at 18:30 Pantoprazole (Protonix Iv) 40 mg DAILY IV Last administered on 09/23/16 08:22; Admin Dose 40 MG; Start 09/21/16 at 18:30 Aspirin (Aspirin) 81 mg DAILY PO Last administered on 09/23/16 08:23; Admin Dose 81 MG; Start 09/21/16 at 18:30 Furosemide (Lasix) 20 mg Q8 IV Last administered on 09/23/16 05:53; Admin Dose 20 MG; Start 09/21/16 at 22:00 Spironolactone (Aldactone) 25 mg DAILY PO Last administered on 09/23/16 08:23; Admin Dose 25 MG; Start 09/21/16 at 18:30 Metoprolol Tartrate (Lopressor) 25 mg BID PO Last administered on 09/23/16 08: 23; Admin Dose 25 MG; Start 09/21/16 at 21:00 Enalapril Maleate (Vasotec) 5 mg BID PO Last administered on 09/22/16 09:38; Admin Dose 5 MG; Start 09/21/16 at 21:00; Status Future Hold Diagnostic Test (Pha) (Accucheck) 1 ea 02 XX ; Start 09/22/16 at 02:00 Guaifenesin/ Codeine Phosphate (Robitussin Ac Liquid Cup) 10 ml Q8H PRN PO COUGH Last administered on 09/22/16 10:46; Admin Dose 10 ML; Start 09/22/16 at 00 :30 Clonidine (Catapres) 0.1 mg Q8H PRN PO ELEVATED SYSTOLIC BP; Start 09/22/16 at 00:30 Miscellaneous Information 1 ea NOTE XX ; Start 09/22/16 at 01:00 Glucose (Glutose) 15 gm Q15M PRN PO DECREASED GLUCOSE; Start 09/22/16 at 01:00 Glucose (Glutose) 22.5 gm Q15M PRN PO DECREASED GLUCOSE; Start 09/22/16 at 01:00 Dextrose (D50w Syringe) 25 ml Q15M PRN IV DECREASED GLUCOSE; Start 09/22/16 at 01:00 Dextrose (D50w Syringe) 50 ml Q15M PRN IV DECREASED GLUCOSE; Start 09/22/16 at 01:00 Glucagon (Glucagen) 1 mg Q15M PRN IM DECREASED GLUCOSE; Start 09/22/16 at 01:00 Glucose (Glutose) 15 gm Q15M PRN BUCCAL DECREASED GLUCOSE; Start 09/22/16 at 01: 00 Hydralazine HCl (Apresoline) 50 mg Q8 PO Last administered on 09/23/16 05:53; Admin Dose 50 MG; Start 09/22/16 at 14:00 Metoprolol Tartrate (Lopressor) 5 mg Q4H PRN IV HR>110 Hold SBP<100; Start 09/22 at 13:30 Enoxaparin Sodium (Lovenox) 70 mg DAILY SC Last administered on 09/23/16 08:28 ; Admin Dose 70 MG; Start 09/23/16 at 09:00 Salmeterol Xinafoate/ Fluticasone 1 inh 1 inh BID INH Last administered on 08:23; Admin Dose 1 INH; Start 09/22/16 at 21:00 Azithromycin/ Sodium Chloride (Zithromax/NS) 250 ml @ 250 mls/hr Q24H IVPB Last administered on 09/22/16t 15:36; Admin Dose 250 MLS/HR; Start 09/22/16 at 15: 00; Stop 09/23/16 at 15:59 XIMENA PATINO Sep 23, 2016 11:25
[2016-09-23] MEDS: GUAIFENESIN/CODEINE 5ML CUP PO PRN (11:43)
--- NOTE | 2016-09-23 12:11 | RADRPT ---
Echocardiogram Report Patient Name: TORIN EUGENE Gender: Male Date: 1935 Study Date: 22-Sep-2016 African Studies Professor: Melanie Navarro [facility] Location: [id number] Ref. Physician: XIMENA PATINO Quality: Good Procedures: Transthoracic echocardiogram with complete 2D, M-Mode, and doppler examination. Indications: Congestive Heart Failure. 2D/M Mode Doppler Measurement Value Normal Ranges Measurement Value Normal Ranges LVIDd 2D 5.6 3.5 - 5.6 cm CAMERON Vmax 1.1 cm2 LVIDs 2D 2.9 2.1 - 4.1 cm CAMERON VTI 1.1 cm2 LVPWd 2D 0.9 0.6 - 1.1 cm AV Mean Jarad 2.3 m/sec IVSd 2D 0.8 0.6 - 1.1 cm AV Mean PG 23.9 mmHg AoR Diam 2D 3.1 2.0 - 3.7 cm AV Peak Jarad 3.2 m/sec EDV 2D 153.7 cm3 AV Peak PG 42.1 mmHg ESV 2D 23.2 cm3 AV VTI 69.6 cm LA Dimen 2D 4.9 2.3 - 4.0 cm LVOT Mean Jarad 0.8 m/sec LVOT Diam 2.0 cm LVOT Mean PG 2.8 mmHg LVOT Peak Jarad 1.1 m/sec LVOT Peak PG 5.1 mmHg LVOT VTI 22.8 cm TR Peak Jarad 2.7 m/sec TR Peak PG 29.3 mmHg RVSP 37.0 mmHg Findings Left Ventricle: Normal left ventricular systolic function. Normal left ventricular cavity size. Normal left ventricular wall thickness. Ejection fraction is visually estimated at 5560 %. Right Ventricle: Normal right ventricular size. Normal right ventricular systolic function. Left Atrium: There is moderate enlargement of left atrium. Right Atrium: There is mild enlargement of right atrium. Mitral Valve: Mitral valve leaflets appear mildly thickened. Mild mitral annular calcification. Mild mitral valve regurgitation. Aortic Valve: Moderate aortic stenosis. Aortic valve Max velocity 3.24 m/sec. Max PG 42.10 mmHg. Mean PG 23.90 mmHg. Aortic valve area 1.10 cm2. Aortic cusps appear moderately calcified. Tricuspid Valve: Normal appearance of the tricuspid valve. Estimated peak PA systolic pressure 37 mmHg. There is mild tricuspid regurgitation. Pulmonic Valve: There is mild pulmonic regurgitation. Pericardium: Normal pericardium with no significant pericardial effusion. Aorta: Normal aortic root. IVC: Dilated IVC with respiratory collapse consistent with elevated right atrial pressure. Conclusions 1.Normal left ventricular systolic function. Normal left ventricular cavity size. Normal left ventricular wall thickness. Ejection fraction is visually estimated at 55-60 %. 2.There is moderate enlargement of left atrium. 3.There is mild enlargement of right atrium. 4.Mitral valve leaflets appear mildly thickened. Mild mitral annular calcification. Mild mitral valve regurgitation. 5.Moderate aortic stenosis. Mean PG 23.90 mmHg. Aortic valve area 1.10 cm2. Aortic cusps appear moderately calcified. 6.Estimated peak PA systolic pressure 37 mmHg. 7.There is mild tricuspid regurgitation. 8.There is mild pulmonic regurgitation. Electronically Signed By: Ximena Patino 23-Sep-2016 12:10: Patient Name: TORIN EUGENE Study Date: 22-Sep-2016 [id number]
[2016-09-23] MEDS: AZITHROMYCIN 500 MG in SOD CHLORIDE 0.9% 250 ML IVPB SCH (15:52)
--- NOTE | 2016-09-23 20:29 | PN ---
Date/Time of Note Date/Time of Note DATE: 09/23/16 TIME: 20:25 Assessment/Plan VTE Prophylaxis VTE Prophylaxis Intervention: ambulation, anti-embolic stocking VTE Contraindication Reason: peripheral vascular disease Lines/Catheters IV Catheter Type (from Nrsg): Sal[place] [employer] line still needed: No Urinary Cath still in place: No Assessment/Plan Chief Complaint/Hosp Course 1. CHF exacerbation. 2.Chrinic cough without control more than one month 3.IHD angina s/p catheterization by dr. Alonzo without significant narrowing of the vessels. 4.COPD exacerbation 5.PTSD 6.DM type 2-with complications 7.HTN with chf 8.LBP 9.RAVI of knees and hips and shoulders. 10.Anemia of chronic disease 11.Obesity with snoring and apnea 12.BPH with episodes of overflow incontinens 13.dyslipidemia 14.GERD Problems: Cont'd Hospitalization Reason: still with cough and chills. Subjective 24 Hr Interval Summary Free Text/Dictation Persistent cough with loss of voice. Constitutional: chills, diaphoresis, disoriented, poor po, requiring O2, No febrile, No improved, No no complaints, No other, No requiring IVF Eyes: redness, No discharge, No no complaints, No other, No pain, No visual change ENT: discharge, dysphagia, pain, sore throat, No bleeding, No congestion, No no complaints, No other Respiratory: cough, pain, shortness of breath, No no complaints, No other, No pleuritic pain, No sputum, No wheezing Cardiovascular: chest pain, lightheadedness, paroxysmal nocturnal dyspnea Gastrointestinal: constipation, pain, passing stool, No blood, No decreased appetite, No diarrhea, No flatus, No nausea, No no complaints, No other, No vomiting Genitourinary: flank pain, No bleeding, No discharge, No dysuria, No hematuria, No no complaints, No other Musculoskeletal: back pain, bone/joint pain, No neck pain, No no complaints, No other, No restricted range of motion, No swelling Psychological: anxiety, confusion, depression, other (impaired memory.) Exam/Review of Systems Vital Signs Vitals Vital Signs Date Time Temp Pulse Resp B/P Pulse Ox O2 Delivery O2 Flow Rate FiO2 09/23/16 20:10 72 09/23/16 18:53 98.0 15 122/64 94 09/23/16 16:16 21 09/23/16 00:00 Nasal Cannula 2.0 Intake and Output 09/22/16 09/22/16 09/23/16 15:00 23:00 07:00 Intake Total 700 ml 650 ml Output Total 1000 ml Balance 700 ml -350 ml Exam Constitutional: alert, distress, frail, oriented, well developed, No non-verbal, No obese, No other Psych: anxiety, No confusion, No depression, No nl mood/affect, No no complaints, No other, No suicidal Head: atraumatic, No hematomas, No lacerations, No normocephalic, No other Eyes: EOMI, PERRL, nl lids, No fundi, disc, No icteric, No nl conjunctiva, No nl sclera, No other ENMT: mucosa pink and moist, nl lips & teeth, No intubated, No nl external ears & nose, No nl nasal mucosa & septum, No other, No tympanic membranes Neck: bruits, jvd, nuchal rigidity Respiratory: congested cough, crackles/rales, diminished breath sounds, labored breathing, No clear to auscultation, No intercostal retraction, No normal air movement, No other, No respirations, No tactile fremitus, No wheezing Cardiovascular: bruits, jugular venous distention (JVD), systolic murmur, No S3, No S4, No diastolic murmur, No edema, No gallop, No irregular rhythm, No murmurs/extra sounds, No nl pulses, No other, No regular rate and rhythm, No rub Gastrointestinal: bowel sounds, distended, tender, No ascites, No firm, No hepatomegaly, No mass, No nl liver, spleen, No non- tender, No other, No rebound or guarding, No soft, No splenomegaly, No surgical scars Musculoskeletal: joint tenderness, muscle tone, muscle weakness, No nl extremities to inspection, No nl gait and stance, No other, No range of motion, No spine non-tender, No swelling Extremities: No calf tenderness, No clubbing, No cyanosis, No edema, No normal pulses, No other, No palpable cord, No pitting pedal edema, No tenderness Neurological: nl strength Skin: diaphoresis Results Result Diagram: 09/21/16 1636 09/21/16 1636 Results 24 hrs Laboratory Tests Test 09/22/16 20:58 09/23/16 00:20 09/23/16 01:32 09/23/16 05:27 Bedside Glucose 238 H 218 Creatine Kinase 82 Creatine Kinase Index 1.6 Creatinine Kinase MB (Mass) 1.30 Troponin I < 0.012 Cholesterol Level 96 L Cholesterol/HDL Ratio 3.3 HDL Cholesterol 29 L LDL Cholesterol, Calculated 48 Triglycerides Level 96 Test 09/23/16 07:22 09/23/16 11:56 09/23/16 17:08 09/23/16 20:18 Bedside Glucose 183 280 H 192 277 H Medications Medications Current Medications Ondansetron HCl (Zofran Inj) 4 mg Q8 PRN IV NAUSEA; Start 09/21/16 at 18:30 Acetaminophen (Tylenol Tab) 650 mg Q6 PRN PO PAIN LEVEL 4-6; Start 09/21/16 at 18:30 Pantoprazole (Protonix Iv) 40 mg DAILY IV Last administered on 09/23/16 08:22; Admin Dose 40 MG; Start 09/21/16 at 18:30 Aspirin (Aspirin) 81 mg DAILY PO Last administered on 09/23/16 08:23; Admin Dose 81 MG; Start 09/21/16 at 18:30 Furosemide (Lasix) 20 mg Q8 IV Last administered on 09/23/16 13:49; Admin Dose 20 MG; Start 09/21/16 at 22:00 Spironolactone (Aldactone) 25 mg DAILY PO Last administered on 09/23/16 08:23; Admin Dose 25 MG; Start 09/21/16 at 18:30 Metoprolol Tartrate (Lopressor) 25 mg BID PO Last administered on 09/23/16 08: 23; Admin Dose 25 MG; Start 09/21/16 at 21:00 Enalapril Maleate (Vasotec) 5 mg BID PO Last administered on 09/22/16 09:38; Admin Dose 5 MG; Start 09/21/16 at 21:00; Status Future Hold Diagnostic Test (Pha) (Accucheck) ea XX ; Start 09/22/16 at 02:00 Guaifenesin/ Codeine Phosphate (Robitussin Ac Liquid Cup) 10 ml Q8H PRN PO COUGH Last administered on 09/23/16 11:43; Admin Dose 10 ML; Start 09/22/16 at 00 :30 Clonidine (Catapres) 0.1 mg Q8H PRN PO ELEVATED SYSTOLIC BP; Start 09/22/16 at 00:30 Miscellaneous Information 1 ea NOTE XX ; Start 09/22/16 at 01:00 Glucose (Glutose) 15 gm Q15M PRN PO DECREASED GLUCOSE; Start 09/22/16 at 01:00 Glucose (Glutose) 22.5 gm Q15M PRN PO DECREASED GLUCOSE; Start 09/22/16 at 01:00 Dextrose (D50w Syringe) 25 ml Q15M PRN IV DECREASED GLUCOSE; Start 09/22/16 at 01:00 Dextrose (D50w Syringe) 50 ml Q15M PRN IV DECREASED GLUCOSE; Start 09/22/16 at 01:00 Glucagon (Glucagen) 1 mg Q15M PRN IM DECREASED GLUCOSE; Start 09/22/16 at 01:00 Glucose (Glutose) 15 gm Q15M PRN BUCCAL DECREASED GLUCOSE; Start 09/22/16 at 01: 00 Hydralazine HCl (Apresoline) 50 mg Q8 PO Last administered on 09/23/16 13:48; Admin Dose 50 MG; Start 09/22/16 at 14:00 Metoprolol Tartrate (Lopressor) 5 mg Q4H PRN IV HR>110 Hold SBP<100; Start 09/22 at 13:30 Enoxaparin Sodium (Lovenox) 70 mg DAILY SC Last administered on 09/23/16 08:28 ; Admin Dose 70 MG; Start 09/23/16 at 09:00 Salmeterol Xinafoate/ Fluticasone 1 inh 1 inh BID INH Last administered on 08:23; Admin Dose 1 INH; Start 09/22/16 at 21:00 Ferric Sodium Gluconate Complex/ Sodium Chloride (Ferrlecit/NS) 110 ml @ 100 mls/hr Q24H IVPB ; Start 09/23/16 at 20:30; Stop 09/25/16 at 21:35; Status UNV Ascorbic Acid (Vitamin C) 500 mg BID PO ; Start 09/23/16 at 21:00; Status UNV Polyethylene Glycol (Miralax) 17 gm BID NGT ; Start 09/23/16 at 21:00; Status UNV Methylprednisolone Sodium Succinate (Solu-Medrol) 30 mg Q12 IV ; Start 09/23/16 at 21:00; Stop 09/26/16 at 09:00; Status UNV ANA LAI MD Sep 23, 2016 20:29
[2016-09-23] MEDS: METHYLPREDNISOLONE 40 MG INJ IV SCH (21:09)
[2016-09-23] MEDS: ASCORBIC ACID 500 MG TAB PO SCH (21:09)
[2016-09-23] MEDS: POLYETHYLENE GLYCOL 17 GM PACKET NGT SCH (21:10)
[2016-09-23] MEDS: SOD FERRIC GLUC COMPLX 125 MG in SOD CHLORIDE 0.9% 100 ML IVPB SCH (21:37)
[2016-09-24] VITALS (11 sets, daily range): BP systolic 126–166; BP diastolic 59–88; PULSE 62–69; RESP 15–20
[2016-09-24] MEDS: ACCUCHECK XX SCH (02:00)
[2016-09-24] MEDS: FUROSEMIDE 20 MG INJ IV SCH ×3 (06:02→21:25)
[2016-09-24 06:56] LABS: ALBUMIN 3.8 g/dl (3.3-4.9); POTASSIUM 3.6 mmol/L (3.5-5.1)
[2016-09-24 06:58] LABS: BILIRUBIN,INDIRECT 0.2 mg/dl (0-1.1); BILIRUBIN,TOTAL 0.2 mg/dl (0.2-1.3); CREATININE 2.17 mg/dl (0.61-1.24); HEMATOCRIT 32.4 % (42.0-52.0); HEMOGLOBIN 10.9 g/dl (14.0-18.0); LYMPHOCYTES # 1.5 10^3/ul (0.8-2.9); LYMPHOCYTES % 12.8 % (15.0-51.0); MEAN CORPUSCULAR HEMOGLOBIN 29.4 pg (29.0-33.0); MEAN CORPUSCULAR HGB CONC 33.5 g/dl (32.0-37.0); MEAN CORPUSCULAR VOLUME 87.8 fl (82.0-101.0); MEAN PLATELET VOLUME 7.4 fl (7.4-10.4); MONOCYTE # 0.2 10^3/ul (0.3-0.9); MONOCYTES % 1.8 % (0.0-11.0); NEUTROPHIL # 9.7 10^3/ul (1.6-7.5); NEUTROPHILS % 85.4 % (39.0-77.0); PLATELET COUNT 357 10^3/UL (140-440); RED BLOOD COUNT 3.69 10^6/ul (4.70-6.10); RED CELL DISTRIBUTION WIDTH 14.4 % (11.5-14.5); UNCORRECTED WBC 11.4 10^3/ul (4.8-10.8); WHITE BLOOD COUNT 11.4 10^3/ul (4.8-10.8)
[2016-09-24 06:59] LABS: ALBUMIN/GLOBULIN RATIO 1.18; CALCIUM 8.3 mg/dl (8.4-10.2); CONDITION 1; MAGNESIUM 1.7 mg/dl (1.7-2.5)
[2016-09-24] MEDS: INSULIN ASPART [NOVOLOG] 3 ML PEN SC SCH ×4 (07:55→21:46)
[2016-09-24 08:24] LABS: PROTEIN, TOTAL 6.5 g/dL (6.1-8.1)
[2016-09-24] MEDS ORDERED: METHYLPREDNISOLONE 40 MG INJ IV ONE (09:00)
[2016-09-24] MEDS: PANTOPRAZOLE 40 MG INJ IV SCH (09:23)
[2016-09-24] MEDS: POLYETHYLENE GLYCOL 17 GM PACKET NGT SCH ×2 (09:23→21:25)
[2016-09-24] MEDS: ASCORBIC ACID 500 MG TAB PO SCH ×2 (09:24→21:24)
[2016-09-24] MEDS: LEVOTHYROXINE 50 MCG TAB PO SCH (09:24)
[2016-09-24] MEDS: METHYLPREDNISOLONE 40 MG INJ IV SCH ×2 (09:24→21:25)
[2016-09-24] MEDS: ASPIRIN 81 MG TAB PO SCH (09:24)
[2016-09-24] MEDS: METOPROLOL 25 MG TAB PO SCH ×2 (09:25→21:24)
[2016-09-24] MEDS: SPIRONOLACTONE 25 MG TAB PO SCH (09:25)
[2016-09-24] MEDS: SALMETEROL/FLUTICASONE 250/50 INHA INH SCH ×2 (09:26→21:24)
[2016-09-24] MEDS: ENOXAPARIN 80 MG/0.8 ML SYG SC SCH (09:28)
[2016-09-24] MEDS: ALBUTEROL 0.083% (NEB) 2.5 MG/3 ML AMP HHN SCH ×2 (09:31→15:09)
[2016-09-24] MEDS: IPRATROPIUM (NEB) 0.5 MG/2.5 ML AMP HHN SCH ×3 (09:31→15:08)
--- NOTE | 2016-09-24 13:10 | CONS ---
Date/Time of Note Date/Time of Note DATE: 09/24/16 TIME: 13:09 Consultation Date/Type/Reason Admit Date/Time Sep 23, 2016 at 11:46 Type of Consultation: [facility] Referring Provider: ANA LAI MD Exam/Review of Systems Vital Signs Vitals Vital Signs Date Time Temp Pulse Resp B/P Pulse Ox O2 Delivery O2 Flow Rate FiO2 09/24/16 12:05 63 09/24/16 11:54 97.8 18 147/67 93 09/24/16 09:32 21 09/23/16 00:00 Nasal Cannula 2.0 Intake and Output 09/23/16 09/23/16 09/24/16 15:00 23:00 07:00 Intake Total 1150 ml 700 ml Output Total 450 ml 800 ml Balance 700 ml -100 ml Results Result Diagram: 09/24/16 0534 09/24/16 0534 Results 24 hrs Laboratory Tests Test 09/23/16 17:08 09/23/16 20:18 09/24/16 02:12 09/24/16 05:34 Bedside Glucose 192 277 H 237 H Alanine Aminotransferase (ALT/SGPT) 36 Albumin 3.8 Albumin/Globulin Ratio 1.18 Alkaline Phosphatase 49 Anion Gap 22 H Aspartate Amino Transf (AST/SGOT) 20 Basophils # 0.0 Basophils % 0.0 Blood Urea Nitrogen 53 H Calcium Level 8.3 L Carbon Dioxide Level 27 Chloride Level 98 Creatinine 2.17 H Direct Bilirubin 0.00 Eosinophils # 0.0 Eosinophils % 0.0 Globulin 3.20 Glucose Level 213 Hematocrit 32.4 L Hemoglobin 10.9 L Indirect Bilirubin 0.2 Lymphocytes # 1.5 Lymphocytes % 12.8 L Magnesium Level 1.7 Mean Corpuscular Hemoglobin 29.4 Mean Corpuscular Hemoglobin Concent 33.5 Mean Corpuscular Volume 87.8 Mean Platelet Volume 7.4 Monocytes # 0.2 L Monocytes % 1.8 Neutrophils # 9.7 H Neutrophils % 85.4 H Nucleated Red Blood Cells # 0.0 Nucleated Red Blood Cells % 0.0 Platelet Count 357 # Potassium Level 3.6 Red Blood Count 3.69 L Red Cell Distribution Width 14.4 Sodium Level 143 Total Bilirubin 0.2 Total Protein 7.0 White Blood Count 11.4 #H Test 09/24/16 08:46 Bedside Glucose 248 H Medications Medications Current Medications Ondansetron HCl (Zofran Inj) 4 mg Q8 PRN IV NAUSEA; Start 09/21/16 at 18:30 Acetaminophen (Tylenol Tab) 650 mg Q6 PRN PO PAIN LEVEL 4-6; Start 09/21/16 at 18:30 Pantoprazole (Protonix Iv) 40 mg DAILY IV Last administered on 09/24/16 09:23; Admin Dose 40 MG; Start 09/21/16 at 18:30 Aspirin (Aspirin) 81 mg DAILY PO Last administered on 09/24/16 09:24; Admin Dose 81 MG; Start 09/21/16 at 18:30 Furosemide (Lasix) 20 mg Q8 IV Last administered on 09/24/16 06:02; Admin Dose 20 MG; Start 09/21/16 at 22:00 Spironolactone (Aldactone) 25 mg DAILY PO Last administered on 09/24/16 09:25; Admin Dose 25 MG; Start 09/21/16 at 18:30 Metoprolol Tartrate (Lopressor) 25 mg BID PO Last administered on 09/24/16 09: 25; Admin Dose 25 MG; Start 09/21/16 at 21:00 Enalapril Maleate (Vasotec) 5 mg BID PO Last administered on 09/22/16 09:38; Admin Dose 5 MG; Start 09/21/16 at 21:00; Status Future Hold Diagnostic Test (Pha) (Accucheck) 1 ea 02 XX ; Start 09/22/16 at 02:00 Guaifenesin/ Codeine Phosphate (Robitussin Ac Liquid Cup) 10 ml Q8H PRN PO COUGH Last administered on 09/23/16 11:43; Admin Dose 10 ML; Start 09/22/16 at 00 :30 Clonidine (Catapres) 0.1 mg Q8H PRN PO ELEVATED SYSTOLIC BP; Start 09/22/16 at 00:30 Miscellaneous Information 1 ea NOTE XX ; Start 09/22/16 at 01:00 Glucose (Glutose) 15 gm Q15M PRN PO DECREASED GLUCOSE; Start 09/22/16 at 01:00 Glucose (Glutose) 22.5 gm Q15M PRN PO DECREASED GLUCOSE; Start 09/22/16 at 01:00 Dextrose (D50w Syringe) 25 ml Q15M PRN IV DECREASED GLUCOSE; Start 09/22/16 at 01:00 Dextrose (D50w Syringe) 50 ml Q15M PRN IV DECREASED GLUCOSE; Start 09/22/16 at 01:00 Glucagon (Glucagen) 1 mg Q15M PRN IM DECREASED GLUCOSE; Start 09/22/16 at 01:00 Glucose (Glutose) 15 gm Q15M PRN BUCCAL DECREASED GLUCOSE; Start 09/22/16 at 01: 00 Hydralazine HCl (Apresoline) 50 mg Q8 PO Last administered on 09/24/16 06:01; Admin Dose 50 MG; Start 09/22/16 at 14:00 Metoprolol Tartrate (Lopressor) 5 mg Q4H PRN IV HR>110 Hold SBP<100; Start 09/22 at 13:30 Enoxaparin Sodium (Lovenox) 70 mg DAILY SC Last administered on 09/24/16 09:28 ; Admin Dose 70 MG; Start 09/23/16 at 09:00 Salmeterol Xinafoate/ Fluticasone 1 inh 1 inh BID INH Last administered on 09:26; Admin Dose 1 INH; Start 09/22/16 at 21:00 Ferric Sodium Gluconate Complex/ Sodium Chloride (Ferrlecit/NS) 110 ml @ 100 mls/hr Q24H IVPB Last administered on 09/23/16 21:37; Admin Dose 100 MLS/HR; Start 09/23/16 at 22:00; Stop 09/25/16 at 23:05 Ascorbic Acid (Vitamin C) 500 mg BID PO Last administered on 09/24/16 09:24; Admin Dose 500 MG; Start 09/23/16 at 21:00 Polyethylene Glycol (Miralax) 17 gm BID NGT Last administered on 09/24/16 09:23 ; Admin Dose 17 GM; Start 09/23/16 at 21:00 Methylprednisolone Sodium Succinate (Solu-Medrol) 30 mg Q12 IV Last administered on 09/24/16 09:24; Admin Dose 30 MG; Start 09/23/16 at 21:00; Stop 09/26/16 at 09:00 GRETEL GARCIA MD Sep 24, 2016 13:10
--- NOTE | 2016-09-24 13:58 | CONS ---
Date/Time of Note Date/Time of Note DATE: 09/24/16 TIME: 13:55 Assessment/Plan Assessment/Plan Additional Assessment/Plan 1. Congestive heart failure exacerbation, question systolic versus diastolic, but acute on chronic likely.-negative troponin x 3- no CP now 2. Atrial fibrillation by EKG, on baseline apixaban and home amiodarone- rate controlled. Will monitor clinically. 3. Hypertension, under reasonable control- well Rx, con't to adjust Rx. 4. Possible upper respiratory infection/cough- on anti-bx, will monitor closely. 5. Dyslipidemia. 6. Renal failure- good urine output now. 7. Anemia. Consultation Date/Type/Reason Admit Date/Time Sep 23, 2016 at 11:46 Initial Consult Date Type of Consultation: [facility] Referring Provider: ANA LAI MD 24 HR Interval Summary Free Text/Dictation NO acute events. BP in good range - feels better today. Mediations reviewed. ROS: No fever, no chills, no nausea, no vomiting, no diarrhea/constipation No recent weight changes No chest pain, no PND, no orthopnea No dizziness, blurred vision No thirst, no heat or cold intolerance Exam/Review of Systems Vital Signs Vitals Vital Signs Date Time Temp Pulse Resp B/P Pulse Ox O2 Delivery O2 Flow Rate FiO2 09/24/16 12:05 63 09/24/16 11:54 97.8 18 147/67 93 09/24/16 09:32 21 09/23/16 00:00 Nasal Cannula 2.0 Intake and Output 09/23/16 09/23/16 09/24/16 15:00 23:00 07:00 Intake Total 1150 ml 700 ml Output Total 450 ml 800 ml Balance 700 ml -100 ml Exam General: WN/WD/NAD, AOx 3 HEENT: Unicetric/atraumatic/EOMI (follows commands) NECK: JVD elevated, no thyromegaly Lymph: no lymphadenopathy HEART: regular with no S3, II/ systolic murmur at apex LUNGS: Coarse sounds ABD: soft, NT, ND, +BS : Intact Neuro: non focal SKIN: chronic changes EXT: trace edema Results Result Diagram: 09/24/16 0534 09/24/16 0534 Results 24 hrs Laboratory Tests Test 09/23/16 17:08 09/23/16 20:18 09/24/16 02:12 09/24/16 05:34 Bedside Glucose 192 277 H 237 H Alanine Aminotransferase (ALT/SGPT) 36 Albumin 3.8 Albumin/Globulin Ratio 1.18 Alkaline Phosphatase 49 Anion Gap 22 H Aspartate Amino Transf (AST/SGOT) 20 Basophils # 0.0 Basophils % 0.0 Blood Urea Nitrogen 53 H Calcium Level 8.3 L Carbon Dioxide Level 27 Chloride Level 98 Creatinine 2.17 H Direct Bilirubin 0.00 Eosinophils # 0.0 Eosinophils % 0.0 Globulin 3.20 Glucose Level 213 Hematocrit 32.4 L Hemoglobin 10.9 L Indirect Bilirubin 0.2 Lymphocytes # 1.5 Lymphocytes % 12.8 L Magnesium Level 1.7 Mean Corpuscular Hemoglobin 29.4 Mean Corpuscular Hemoglobin Concent 33.5 Mean Corpuscular Volume 87.8 Mean Platelet Volume 7.4 Monocytes # 0.2 L Monocytes % 1.8 Neutrophils # 9.7 H Neutrophils % 85.4 H Nucleated Red Blood Cells # 0.0 Nucleated Red Blood Cells % 0.0 Platelet Count 357 # Potassium Level 3.6 Red Blood Count 3.69 L Red Cell Distribution Width 14.4 Sodium Level 143 Total Bilirubin 0.2 Total Protein 7.0 White Blood Count 11.4 #H Test 09/24/16 08:46 09/24/16 12:56 Bedside Glucose 248 H 266 H Medications Medications Current Medications Ondansetron HCl (Zofran Inj) 4 mg Q8 PRN IV NAUSEA; Start 09/21/16 at 18:30 Acetaminophen (Tylenol Tab) 650 mg Q6 PRN PO PAIN LEVEL 4-6; Start 09/21/16 at 18:30 Pantoprazole (Protonix Iv) 40 mg DAILY IV Last administered on 09/24/16 09:23; Admin Dose 40 MG; Start 09/21/16 at 18:30 Aspirin (Aspirin) 81 mg DAILY PO Last administered on 09/24/16 09:24; Admin Dose 81 MG; Start 09/21/16 at 18:30 Furosemide (Lasix) 20 mg Q8 IV Last administered on 09/24/16 06:02; Admin Dose 20 MG; Start 09/21/16 at 22:00 Spironolactone (Aldactone) 25 mg DAILY PO Last administered on 09/24/16 09:25; Admin Dose 25 MG; Start 09/21/16 at 18:30 Metoprolol Tartrate (Lopressor) 25 mg BID PO Last administered on 09/24/16 09: 25; Admin Dose 25 MG; Start 09/21/16 at 21:00 Enalapril Maleate (Vasotec) 5 mg BID PO Last administered on 09/22/16 09:38; Admin Dose 5 MG; Start 09/21/16 at 21:00; Status Future Hold Diagnostic Test (Pha) (Accucheck) 1 ea 02 XX ; Start 09/22/16 at 02:00 Guaifenesin/ Codeine Phosphate (Robitussin Ac Liquid Cup) 10 ml Q8H PRN PO COUGH Last administered on 09/23/16 11:43; Admin Dose 10 ML; Start 09/22/16 at 00 :30 Clonidine (Catapres) 0.1 mg Q8H PRN PO ELEVATED SYSTOLIC BP; Start 09/22/16 at 00:30 Miscellaneous Information 1 ea NOTE XX ; Start 09/22/16 at 01:00 Glucose (Glutose) 15 gm Q15M PRN PO DECREASED GLUCOSE; Start 09/22/16 at 01:00 Glucose (Glutose) 22.5 gm Q15M PRN PO DECREASED GLUCOSE; Start 09/22/16 at 01:00 Dextrose (D50w Syringe) 25 ml Q15M PRN IV DECREASED GLUCOSE; Start 09/22/16 at 01:00 Dextrose (D50w Syringe) 50 ml Q15M PRN IV DECREASED GLUCOSE; Start 09/22/16 at 01:00 Glucagon (Glucagen) 1 mg Q15M PRN IM DECREASED GLUCOSE; Start 09/22/16 at 01:00 Glucose (Glutose) 15 gm Q15M PRN BUCCAL DECREASED GLUCOSE; Start 09/22/16 at 01: 00 Hydralazine HCl (Apresoline) 50 mg Q8 PO Last administered on 09/24/16 06:01; Admin Dose 50 MG; Start 09/22/16 at 14:00 Metoprolol Tartrate (Lopressor) 5 mg Q4H PRN IV HR>110 Hold SBP<100; Start 09/22 at 13:30 Enoxaparin Sodium (Lovenox) 70 mg DAILY SC Last administered on 09/24/16 09:28 ; Admin Dose 70 MG; Start 09/23/16 at 09:00 Salmeterol Xinafoate/ Fluticasone 1 inh 1 inh BID INH Last administered on 09:26; Admin Dose 1 INH; Start 09/22/16 at 21:00 Ferric Sodium Gluconate Complex/ Sodium Chloride (Ferrlecit/NS) 110 ml @ 100 mls/hr Q24H IVPB Last administered on 09/23/16 21:37; Admin Dose 100 MLS/HR; Start 09/23/16 at 22:00; Stop 09/25/16 at 23:05 Ascorbic Acid (Vitamin C) 500 mg BID PO Last administered on 09/24/16 09:24; Admin Dose 500 MG; Start 09/23/16 at 21:00 Polyethylene Glycol (Miralax) 17 gm BID NGT Last administered on 09/24/16 09:23 ; Admin Dose 17 GM; Start 09/23/16 at 21:00 Methylprednisolone Sodium Succinate (Solu-Medrol) 30 mg Q12 IV Last administered on 09/24/16 09:24; Admin Dose 30 MG; Start 09/23/16 at 21:00; Stop 09/26/16 at 09:00 BRETT ESTEBAN MD Sep 24, 2016 13:58
--- NOTE | 2016-09-24 18:44 | PN ---
Date/Time of Note Date/Time of Note DATE: 09/24/16 TIME: 18:39 Assessment/Plan VTE Prophylaxis VTE Prophylaxis Intervention: ambulation, anti-embolic stocking VTE Contraindication Reason: peripheral vascular disease Lines/Catheters IV Catheter Type (from Nrsg): [place] [employer] Central line still needed: No Urinary Cath still in place: No Assessment/Plan Chief Complaint/Hosp Course 1. CHF exacerbation. 2.Chrinic cough without control more than one month 3.IHD angina s/p catheterization by dr. Alonzo without significant narrowing of the vessels. 4.COPD exacerbation 5.PTSD 6.DM type 2-with complications 7.HTN with chf 8.LBP 9.RAVI of knees and hips and shoulders. 10.Anemia of chronic disease 11.Obesity with snoring and apnea 12.BPH with episodes of overflow incontinens 13.dyslipidemia 14.GERD 15.Low magnesium. 16.UTI-u/a Problems: Subjective 24 Hr Interval Summary Free Text/Dictation Change of a VOICE. mILD DECREASEof the inensity of cough. Today I had a chills. Burning sensation during urination. Constitutional: chills, diaphoresis, disoriented, poor po, requiring O2, No febrile, No improved, No no complaints, No other, No requiring IVF Eyes: discharge, No no complaints, No other, No pain, No redness, No visual change ENT: congestion, discharge, dysphagia, other, pain, No bleeding, No no complaints, No sore throat Respiratory: cough, pleuritic pain, shortness of breath, No no complaints, No other, No pain, No sputum, No wheezing Cardiovascular: chest pain, lightheadedness, paroxysmal nocturnal dyspnea, No edema, No no complaints, No orthopenea, No other, No palpitations Gastrointestinal: nausea, pain, vomiting, No blood, No constipation, No decreased appetite, No diarrhea, No flatus, No no complaints, No other, No passing stool Genitourinary: dysuria, No bleeding, No discharge, No flank pain, No hematuria, No no complaints, No other Musculoskeletal: back pain, bone/joint pain, neck pain, No no complaints, No other, No restricted range of motion, No swelling Skin: pruritis, No bruising, No erythema, No laceration, No no complaints, No other, No rash , No skin lesions Neurologic: dizziness Exam/Review of Systems Vital Signs Vitals Vital Signs Date Time Temp Pulse Resp B/P Pulse Ox O2 Delivery O2 Flow Rate FiO2 09/24/16 16:04 67 09/24/16 15:42 97.9 20 144/88 94 09/24/16 15:10 21 09/23/16 00:00 Nasal Cannula 2.0 Intake and Output 09/23/16 09/23/16 09/24/16 15:00 23:00 07:00 Intake Total 1150 ml 700 ml Output Total 450 ml 800 ml Balance 700 ml -100 ml Exam Constitutional: alert, frail, oriented, No distress, No non-verbal, No obese, No other, No well developed Psych: anxiety, depression, No confusion, No nl mood/affect, No no complaints, No other, No suicidal Head: No atraumatic, No hematomas, No lacerations, No normocephalic, No other Eyes: EOMI, PERRL, No fundi, disc, No icteric, No nl conjunctiva, No nl lids, No nl sclera, No other ENMT: mucosa pink and moist, nl nasal mucosa & septum, No intubated, No nl external ears & nose, No nl lips & teeth, No other, No tympanic membranes Neck: bruits, nuchal rigidity, supple Respiratory: congested cough, diminished breath sounds, intercostal retraction , normal air movement, wheezing (lll zone.), No clear to auscultation, No crackles/rales, No labored breathing, No other, No respirations, No tactile fremitus Cardiovascular: bruits, systolic murmur, No S3, No S4, No diastolic murmur, No edema, No gallop, No irregular rhythm, No jugular venous distention (JVD), No murmurs/extra sounds, No nl pulses, No other, No regular rate and rhythm, No rub Gastrointestinal: nl liver, spleen Genitourinary - Male: nl penis Musculoskeletal: joint tenderness, muscle tone, muscle weakness Results Result Diagram: 09/24/16 0534 09/24/16 0534 Results 24 hrs Laboratory Tests Test 09/23/16 20:18 09/24/16 02:12 09/24/16 05:34 09/24/16 08:46 Bedside Glucose 277 H 237 H 248 H Alanine Aminotransferase (ALT/SGPT) 36 Albumin 3.8 Albumin/Globulin Ratio 1.18 Alkaline Phosphatase 49 Anion Gap 22 H Aspartate Amino Transf (AST/SGOT) 20 Basophils # 0.0 Basophils % 0.0 Blood Urea Nitrogen 53 H Calcium Level 8.3 L Carbon Dioxide Level 27 Chloride Level 98 Creatinine 2.17 H Direct Bilirubin 0.00 Eosinophils # 0.0 Eosinophils % 0.0 Globulin 3.20 Glucose Level 213 Hematocrit 32.4 L Hemoglobin 10.9 L Indirect Bilirubin 0.2 Lymphocytes # 1.5 Lymphocytes % 12.8 L Magnesium Level 1.7 Mean Corpuscular Hemoglobin 29.4 Mean Corpuscular Hemoglobin Concent 33.5 Mean Corpuscular Volume 87.8 Mean Platelet Volume 7.4 Monocytes # 0.2 L Monocytes % 1.8 Neutrophils # 9.7 H Neutrophils % 85.4 H Nucleated Red Blood Cells # 0.0 Nucleated Red Blood Cells % 0.0 Platelet Count 357 # Potassium Level 3.6 Red Blood Count 3.69 L Red Cell Distribution Width 14.4 Sodium Level 143 Total Bilirubin 0.2 Total Protein 7.0 White Blood Count 11.4 #H Test 09/24/16 12:56 09/24/16 17:57 Bedside Glucose 266 H 255 H Medications Medications Current Medications Ondansetron HCl (Zofran Inj) 4 mg Q8 PRN IV NAUSEA; Start 09/21/16 at 18:30 Acetaminophen (Tylenol Tab) 650 mg Q6 PRN PO PAIN LEVEL 4-6; Start 09/21/16 at 18:30 Pantoprazole (Protonix Iv) 40 mg DAILY IV Last administered on 09/24/16 09:23; Admin Dose 40 MG; Start 09/21/16 at 18:30 Aspirin (Aspirin) 81 mg DAILY PO Last administered on 09/24/16 09:24; Admin Dose 81 MG; Start 09/21/16 at 18:30 Furosemide (Lasix) 20 mg Q8 IV Last administered on 09/24/16 14:42; Admin Dose 20 MG; Start 09/21/16 at 22:00 Spironolactone (Aldactone) 25 mg DAILY PO Last administered on 09/24/16 09:25; Admin Dose 25 MG; Start 09/21/16 at 18:30 Metoprolol Tartrate (Lopressor) 25 mg BID PO Last administered on 09/24/16 09: 25; Admin Dose 25 MG; Start 09/21/16 at 21:00 Enalapril Maleate (Vasotec) 5 mg BID PO Last administered on 09/22/16 09:38; Admin Dose 5 MG; Start 09/21/16 at 21:00; Status Future Hold Diagnostic Test (Pha) (Accucheck) 1 ea 02 XX ; Start 09/22/16 at 02:00 Guaifenesin/ Codeine Phosphate (Robitussin Ac Liquid Cup) 10 ml Q8H PRN PO COUGH Last administered on 09/23/16 11:43; Admin Dose 10 ML; Start 09/22/16 at 00 :30 Clonidine (Catapres) 0.1 mg Q8H PRN PO ELEVATED SYSTOLIC BP; Start 09/22/16 at 00:30 Miscellaneous Information 1 ea NOTE XX ; Start 09/22/16 at 01:00 Glucose (Glutose) 15 gm Q15M PRN PO DECREASED GLUCOSE; Start 09/22/16 at 01:00 Glucose (Glutose) 22.5 gm Q15M PRN PO DECREASED GLUCOSE; Start 09/22/16 at 01:00 Dextrose (D50w Syringe) 25 ml Q15M PRN IV DECREASED GLUCOSE; Start 09/22/16 at 01:00 Dextrose (D50w Syringe) 50 ml Q15M PRN IV DECREASED GLUCOSE; Start 09/22/16 at 01:00 Glucagon (Glucagen) 1 mg Q15M PRN IM DECREASED GLUCOSE; Start 09/22/16 at 01:00 Glucose (Glutose) 15 gm Q15M PRN BUCCAL DECREASED GLUCOSE; Start 09/22/16 at 01: 00 Hydralazine HCl (Apresoline) 50 mg Q8 PO Last administered on 09/24/16 14:42; Admin Dose 50 MG; Start 09/22/16 at 14:00 Metoprolol Tartrate (Lopressor) 5 mg Q4H PRN IV HR>110 Hold SBP<100; Start 09/22 at 13:30 Enoxaparin Sodium (Lovenox) 70 mg DAILY SC Last administered on 09/24/16 09:28 ; Admin Dose 70 MG; Start 09/23/16 at 09:00 Salmeterol Xinafoate/ Fluticasone 1 inh 1 inh BID INH Last administered on 09:26; Admin Dose 1 INH; Start 09/22/16 at 21:00 Ferric Sodium Gluconate Complex/ Sodium Chloride (Ferrlecit/NS) 110 ml @ 100 mls/hr Q24H IVPB Last administered on 09/23/16 21:37; Admin Dose 100 MLS/HR; Start 09/23/16 at 22:00; Stop 09/25/16 at 23:05 Ascorbic Acid (Vitamin C) 500 mg BID PO Last administered on 09/24/16 09:24; Admin Dose 500 MG; Start 09/23/16 at 21:00 Polyethylene Glycol (Miralax) 17 gm BID NGT Last administered on 09/24/16 09:23 ; Admin Dose 17 GM; Start 09/23/16 at 21:00 Methylprednisolone Sodium Succinate (Solu-Medrol) 30 mg Q12 IV Last administered on 09/24/16 09:24; Admin Dose 30 MG; Start 09/23/16 at 21:00; Stop 09/26/16 at 09:00 ANA LAI MD Sep 24, 2016 18:44
[2016-09-24] MEDS ORDERED: LEVOFLOXACIN 750MG/D5W (PMX) 150 ML IVPB SCH ×2 (19:00)
[2016-09-24] MEDS: SOD FERRIC GLUC COMPLX 125 MG in SOD CHLORIDE 0.9% 100 ML IVPB SCH (21:36)
[2016-09-24 22:44] LABS: ALBUMIN 3.5 g/dL (3.8-4.8)
[2016-09-25] VITALS (9 sets, daily range): BP systolic 139–148; BP diastolic 67–73; PULSE 56–79; RESP 16–20
[2016-09-25] MEDS: MAGNESIUM SULFATE 2 GM/50 ML 50 ML IVPB SCH ×2 (02:07→10:22)
[2016-09-25] MEDS: ACCUCHECK XX SCH (02:12)
[2016-09-25] MEDS: FUROSEMIDE 20 MG INJ IV SCH ×3 (05:48→22:39)
[2016-09-25] MEDS: ALBUTEROL 0.083% (NEB) 2.5 MG/3 ML AMP HHN SCH ×2 (07:27→16:00)
[2016-09-25] MEDS: IPRATROPIUM (NEB) 0.5 MG/2.5 ML AMP HHN SCH ×3 (07:27→16:00)
[2016-09-25] MEDS: INSULIN ASPART [NOVOLOG] 3 ML PEN SC SCH ×4 (08:32→21:00)
[2016-09-25] MEDS: POLYETHYLENE GLYCOL 17 GM PACKET NGT SCH ×2 (09:37→21:36)
[2016-09-25] MEDS: METHYLPREDNISOLONE 40 MG INJ IV SCH ×2 (09:38→21:35)
[2016-09-25] MEDS: SPIRONOLACTONE 25 MG TAB PO SCH (09:38)
[2016-09-25] MEDS: PANTOPRAZOLE 40 MG INJ IV SCH (09:38)
[2016-09-25] MEDS: LEVOTHYROXINE 50 MCG TAB PO SCH (09:38)
[2016-09-25] MEDS: METOPROLOL 25 MG TAB PO SCH ×2 (09:39→21:35)
[2016-09-25] MEDS: ASPIRIN 81 MG TAB PO SCH (09:40)
[2016-09-25] MEDS: ASCORBIC ACID 500 MG TAB PO SCH ×2 (09:40→21:35)
[2016-09-25] MEDS: SALMETEROL/FLUTICASONE 250/50 INHA INH SCH ×2 (09:40→21:37)
[2016-09-25] MEDS: ENOXAPARIN 80 MG/0.8 ML SYG SC SCH (09:43)
[2016-09-25] MEDS: GUAIFENESIN/CODEINE 5ML CUP PO PRN (12:50)
--- NOTE | 2016-09-25 13:13 | CONS ---
Date/Time of Note Date/Time of Note DATE: 09/25/16 TIME: 13:13 Consultation Date/Type/Reason Admit Date/Time Sep 23, 2016 at 11:46 Type of Consultation: [facility] Referring Provider: ANA LAI MD Exam/Review of Systems Vital Signs Vitals Vital Signs Date Time Temp Pulse Resp B/P Pulse Ox O2 Delivery O2 Flow Rate FiO2 09/25/16 12:24 65 09/25/16 07:27 16 96 21 09/25/16 03:48 97.9 143/70 09/23/16 00:00 Nasal Cannula 2.0 Intake and Output 09/24/16 09/24/16 09/25/16 15:00 23:00 07:00 Intake Total 800 ml Balance 800 ml Results Result Diagram: 09/24/16 0534 09/24/16 0534 Results 24 hrs Laboratory Tests Test 09/24/16 17:57 09/24/16 21:42 09/25/16 02:05 09/25/16 08:25 Bedside Glucose 255 H 231 H 270 H 158 Test 09/25/16 12:12 Bedside Glucose 196 Medications Medications Current Medications Ondansetron HCl (Zofran Inj) 4 mg Q8 PRN IV NAUSEA; Start 09/21/16 at 18:30 Acetaminophen (Tylenol Tab) 650 mg Q6 PRN PO PAIN LEVEL 4-6 Last administered on 09/25/16 07:00; Admin Dose 650 MG; Start 09/21/16 at 18:30 Pantoprazole (Protonix Iv) 40 mg DAILY IV Last administered on 09/25/16 09:38; Admin Dose 40 MG; Start 09/21/16 at 18:30 Aspirin (Aspirin) 81 mg DAILY PO Last administered on 09/25/16 09:40; Admin Dose 81 MG; Start 09/21/16 at 18:30 Furosemide (Lasix) 20 mg Q8 IV Last administered on 09/25/16 05:48; Admin Dose 20 MG; Start 09/21/16 at 22:00 Spironolactone (Aldactone) 25 mg DAILY PO Last administered on 09/25/16 09:38; Admin Dose 25 MG; Start 09/21/16 at 18:30 Metoprolol Tartrate (Lopressor) 25 mg BID PO Last administered on 09/25/16 09: 39; Admin Dose 25 MG; Start 09/21/16 at 21:00 Enalapril Maleate (Vasotec) 5 mg BID PO Last administered on 09/22/16 09:38; Admin Dose 5 MG; Start 09/21/16 at 21:00; Status Future Hold Diagnostic Test (Pha) (Accucheck) 1 ea 02 XX Last administered on 09/25/16 02: 12; Admin Dose 1 EA; Start 09/22/16 at 02:00 Guaifenesin/ Codeine Phosphate (Robitussin Ac Liquid Cup) 10 ml Q8H PRN PO COUGH Last administered on 09/25/16 12:50; Admin Dose 10 ML; Start 09/22/16 at 00 :30 Clonidine (Catapres) 0.1 mg Q8H PRN PO ELEVATED SYSTOLIC BP; Start 09/22/16 at 00:30 Miscellaneous Information 1 ea NOTE XX ; Start 09/22/16 at 01:00 Glucose (Glutose) 15 gm Q15M PRN PO DECREASED GLUCOSE; Start 09/22/16 at 01:00 Glucose (Glutose) 22.5 gm Q15M PRN PO DECREASED GLUCOSE; Start 09/22/16 at 01:00 Dextrose (D50w Syringe) 25 ml Q15M PRN IV DECREASED GLUCOSE; Start 09/22/16 at 01:00 Dextrose (D50w Syringe) 50 ml Q15M PRN IV DECREASED GLUCOSE; Start 09/22/16 at 01:00 Glucagon (Glucagen) 1 mg Q15M PRN IM DECREASED GLUCOSE; Start 09/22/16 at 01:00 Glucose (Glutose) 15 gm Q15M PRN BUCCAL DECREASED GLUCOSE; Start 09/22/16 at 01: 00 Hydralazine HCl (Apresoline) 50 mg Q8 PO Last administered on 09/25/16 05:49; Admin Dose 50 MG; Start 09/22/16 at 14:00 Metoprolol Tartrate (Lopressor) 5 mg Q4H PRN IV HR>110 Hold SBP<100; Start 09/22 at 13:30 Enoxaparin Sodium (Lovenox) 70 mg DAILY SC Last administered on 09/25/16 09:43 ; Admin Dose 70 MG; Start 09/23/16 at 09:00 Salmeterol Xinafoate/ Fluticasone 1 inh 1 inh BID INH Last administered on 09:40; Admin Dose 1 INH; Start 09/22/16 at 21:00 Ferric Sodium Gluconate Complex/ Sodium Chloride (Ferrlecit/NS) 110 ml @ 100 mls/hr Q24H IVPB Last administered on 09/24/16 21:36; Admin Dose 100 MLS/HR; Start 09/23/16 at 22:00; Stop 09/25/16 at 23:05 Ascorbic Acid (Vitamin C) 500 mg BID PO Last administered on 09/25/16 09:40; Admin Dose 500 MG; Start 09/23/16 at 21:00 Polyethylene Glycol (Miralax) 17 gm BID NGT Last administered on 09/25/16 09:37 ; Admin Dose 17 GM; Start 09/23/16 at 21:00 Methylprednisolone Sodium Succinate 30 mg 30 mg Q12 IV Last administered on 09/25 09:38; Admin Dose 30 MG; Start 09/23/16 at 21:00; Stop 09/26/16 at 09:00 Magnesium Sulfate 50 ml @ 25 mls/hr DAILY IVPB Last administered on 09/25/16 10 :22; Admin Dose 25 MLS/HR; Start 09/24/16 at 19:00; Stop 09/26/16 at 09:00 Levofloxacin/ Dextrose (Levaquin 750 Mg/ D5W 150 ml (Pmx)) 150 ml @ 100 mls/hr Q48H IVPB Last administered on 09/24/16 23:42; Admin Dose 100 MLS/HR; Start 09/24/16 at 19:00 GRETEL GARCIA MD Sep 25, 2016 13:13
--- NOTE | 2016-09-25 14:06 | CONS ---
Date/Time of Note Date/Time of Note DATE: 09/25/16 TIME: 14:04 Assessment/Plan Assessment/Plan Additional Assessment/Plan 1. Congestive heart failure exacerbation, question systolic versus diastolic, but acute on chronic likely.-negative troponin x 3- no CP now - BETTER NOW. 2. Atrial fibrillation by EKG, on baseline apixaban and home amiodarone- rate controlled. Will monitor clinically. RATE CONTROLLED in 60s 3. Hypertension, under reasonable control- well Rx, con't to adjust Rx. BETTER now. 4. Possible upper respiratory infection/cough- on anti-bx, will monitor closely. 5. Dyslipidemia. 6. Renal failure- good urine output now. Stable. 7. Anemia- Dr. Sanz follows. Consultation Date/Type/Reason Admit Date/Time Sep 23, 2016 at 11:46 Type of Consultation: [facility] Referring Provider: ANA LAI MD 24 HR Interval Summary Free Text/Dictation No acute change - feels well now. ROS: No fever, no chills, no nausea, no vomiting, no diarrhea/constipation No recent weight changes No chest pain, no PND, no orthopnea No dizziness, blurred vision No thirst, no heat or cold intolerance Exam/Review of Systems Vital Signs Vitals Vital Signs Date Time Temp Pulse Resp B/P Pulse Ox O2 Delivery O2 Flow Rate FiO2 09/25/16 12:24 65 09/25/16 07:27 16 96 21 09/25/16 03:48 97.9 143/70 09/23/16 00:00 Nasal Cannula 2.0 Intake and Output 09/24/16 09/24/16 09/25/16 15:00 23:00 07:00 Intake Total 800 ml Balance 800 ml Exam General: WN/WD/NAD, AOx 3 HEENT: Unicetric/atraumatic/EOMI (follow commands) NECK: JVD elevated, no thyromegaly Lymph: no lymphadenopathy HEART: regular with no S3, II/ systolic murmur at apex LUNGS: Coarse sounds ABD: soft, NT, ND, +BS : Intact Neuro: non focal SKIN: chronic changes EXT: trace edema Results Result Diagram: 09/24/16 0534 09/24/16 0534 Results 24 hrs Laboratory Tests Test 09/24/16 17:57 09/24/16 21:42 09/25/16 02:05 09/25/16 08:25 Bedside Glucose 255 H 231 H 270 H 158 Test 09/25/16 12:12 Bedside Glucose 196 Medications Medications Current Medications Ondansetron HCl (Zofran Inj) 4 mg Q8 PRN IV NAUSEA; Start 09/21/16 at 18:30 Acetaminophen (Tylenol Tab) 650 mg Q6 PRN PO PAIN LEVEL 4-6 Last administered on 09/25/16 07:00; Admin Dose 650 MG; Start 09/21/16 at 18:30 Pantoprazole (Protonix Iv) 40 mg DAILY IV Last administered on 09/25/16 09:38; Admin Dose 40 MG; Start 09/21/16 at 18:30 Aspirin (Aspirin) 81 mg DAILY PO Last administered on 09/25/16 09:40; Admin Dose 81 MG; Start 09/21/16 at 18:30 Furosemide (Lasix) 20 mg Q8 IV Last administered on 09/25/16 05:48; Admin Dose 20 MG; Start 09/21/16 at 22:00 Spironolactone (Aldactone) 25 mg DAILY PO Last administered on 09/25/16 09:38; Admin Dose 25 MG; Start 09/21/16 at 18:30 Metoprolol Tartrate (Lopressor) 25 mg BID PO Last administered on 09/25/16 09: 39; Admin Dose 25 MG; Start 09/21/16 at 21:00 Enalapril Maleate (Vasotec) 5 mg BID PO Last administered on 09/22/16 09:38; Admin Dose 5 MG; Start 09/21/16 at 21:00; Status Future Hold Diagnostic Test (Pha) (Accucheck) 1 ea 02 XX Last administered on 09/25/16 02: 12; Admin Dose 1 EA; Start 09/22/16 at 02:00 Guaifenesin/ Codeine Phosphate (Robitussin Ac Liquid Cup) 10 ml Q8H PRN PO COUGH Last administered on 09/25/16 12:50; Admin Dose 10 ML; Start 09/22/16 at 00 :30 Clonidine (Catapres) 0.1 mg Q8H PRN PO ELEVATED SYSTOLIC BP; Start 09/22/16 at 00:30 Miscellaneous Information 1 ea NOTE XX ; Start 09/22/16 at 01:00 Glucose (Glutose) 15 gm Q15M PRN PO DECREASED GLUCOSE; Start 09/22/16 at 01:00 Glucose (Glutose) 22.5 gm Q15M PRN PO DECREASED GLUCOSE; Start 09/22/16 at 01:00 Dextrose (D50w Syringe) 25 ml Q15M PRN IV DECREASED GLUCOSE; Start 09/22/16 at 01:00 Dextrose (D50w Syringe) 50 ml Q15M PRN IV DECREASED GLUCOSE; Start 09/22/16 at 01:00 Glucagon (Glucagen) 1 mg Q15M PRN IM DECREASED GLUCOSE; Start 09/22/16 at 01:00 Glucose (Glutose) 15 gm Q15M PRN BUCCAL DECREASED GLUCOSE; Start 09/22/16 at 01: 00 Hydralazine HCl (Apresoline) 50 mg Q8 PO Last administered on 09/25/16 05:49; Admin Dose 50 MG; Start 09/22/16 at 14:00 Metoprolol Tartrate (Lopressor) 5 mg Q4H PRN IV HR>110 Hold SBP<100; Start 09/22 at 13:30 Enoxaparin Sodium (Lovenox) 70 mg DAILY SC Last administered on 09/25/16 09:43 ; Admin Dose 70 MG; Start 09/23/16 at 09:00 Salmeterol Xinafoate/ Fluticasone 1 inh 1 inh BID INH Last administered on 09:40; Admin Dose 1 INH; Start 09/22/16 at 21:00 Ferric Sodium Gluconate Complex/ Sodium Chloride (Ferrlecit/NS) 110 ml @ 100 mls/hr Q24H IVPB Last administered on 09/24/16 21:36; Admin Dose 100 MLS/HR; Start 09/23/16 at 22:00; Stop 09/25/16 at 23:05 Ascorbic Acid (Vitamin C) 500 mg BID PO Last administered on 09/25/16 09:40; Admin Dose 500 MG; Start 09/23/16 at 21:00 Polyethylene Glycol (Miralax) 17 gm BID NGT Last administered on 09/25/16 09:37 ; Admin Dose 17 GM; Start 09/23/16 at 21:00 Methylprednisolone Sodium Succinate 30 mg 30 mg Q12 IV Last administered on 09/25 09:38; Admin Dose 30 MG; Start 09/23/16 at 21:00; Stop 09/26/16 at 09:00 Magnesium Sulfate 50 ml @ 25 mls/hr DAILY IVPB Last administered on 09/25/16 10 :22; Admin Dose 25 MLS/HR; Start 09/24/16 at 19:00; Stop 09/26/16 at 09:00 Levofloxacin/ Dextrose (Levaquin 750 Mg/ D5W 150 ml (Pmx)) 150 ml @ 100 mls/hr Q48H IVPB Last administered on 09/24/16 23:42; Admin Dose 100 MLS/HR; Start 09/24/16 at 19:00 BRETT ESTEBAN MD Sep 25, 2016 14:06
--- NOTE | 2016-09-25 21:07 | PN ---
Date/Time of Note Date/Time of Note DATE: 09/25/16 TIME: 21:02 Assessment/Plan VTE Prophylaxis VTE Prophylaxis Intervention: ambulation, anti-embolic stocking VTE Contraindication Reason: peripheral vascular disease Lines/Catheters IV Catheter Type (from Nrsg): [place] [employer] line still needed: No Urinary Cath still in place: No Reason Cath still needed: urinary retention Assessment/Plan Chief Complaint/Hosp Course 1. CHF exacerbation. 2.Chrinic cough without control more than one month 3.IHD angina s/p catheterization by dr. Alonzo without significant narrowing of the vessels. 4.COPD exacerbation 5.PTSD 6.DM type 2-with complications 7.HTN with chf 8.LBP 9.RAVI of knees and hips and shoulders. 10.Anemia of chronic disease 11.Obesity with snoring and apnea 12.BPH with episodes of overflow incontinens 13.dyslipidemia 14.GERD 15.Low magnesium. 16.UTI-u/a Problems: Subjective 24 Hr Interval Summary Free Text/Dictation Decreased cough, decreased frequency and burning sensation during urination. Constitutional: disoriented, poor po, requiring O2, No chills, No diaphoresis, No febrile, No improved, No no complaints, No other, No requiring IVF Eyes: No discharge, No no complaints, No other, No pain, No redness, No visual change ENT: congestion, other (decreased hearing.), sore throat, No bleeding, No discharge, No dysphagia, No no complaints, No pain Respiratory: cough, shortness of breath, wheezing, No no complaints, No other, No pain, No pleuritic pain, No sputum Cardiovascular: chest pain, lightheadedness, orthopenea, palpitations, No edema, No no complaints, No other, No paroxysmal nocturnal dyspnea Gastrointestinal: constipation, flatus, nausea, pain, passing stool, No blood, No decreased appetite, No diarrhea, No no complaints, No other, No vomiting Genitourinary: dysuria, flank pain, No bleeding, No discharge, No hematuria, No no complaints, No other Musculoskeletal: back pain, neck pain, No bone/joint pain, No no complaints, No other, No restricted range of motion , No swelling Skin: erythema, No bruising, No laceration, No no complaints, No other, No pruritis, No rash , No skin lesions Neurologic: dizziness, headache Psychological: anxiety, other (neuroseness. Feels sad when remembrs the days in [place] where he lost his home.) Exam/Review of Systems Vital Signs Vitals Vital Signs Date Time Temp Pulse Resp B/P Pulse Ox O2 Delivery O2 Flow Rate FiO2 09/25/16 20:33 79 09/25/16 18:43 98.2 18 139/73 96 09/25/16 07:27 21 09/23/16 00:00 Nasal Cannula 2.0 Intake and Output 09/24/16 09/24/16 09/25/16 15:00 23:00 07:00 Intake Total 800 ml Balance 800 ml Exam Constitutional: distress, frail, obese, oriented, well developed, No alert, No non-verbal, No other Psych: anxiety, depression, No confusion, No nl mood/affect, No no complaints, No other, No suicidal Head: atraumatic, No hematomas, No lacerations, No normocephalic, No other Eyes: EOMI, PERRL, nl lids, No fundi, disc, No icteric, No nl conjunctiva, No nl sclera, No other ENMT: nl nasal mucosa & septum, tympanic membranes, No intubated, No mucosa pink and moist, No nl external ears & nose, No nl lips & teeth, No other Neck: bruits, jvd, nuchal rigidity, No masses, No non-tender, No other, No supple, No thyromegaly Respiratory: congested cough, diminished breath sounds, No clear to auscultation, No crackles/rales, No intercostal retraction, No labored breathing, No normal air movement, No other, No respirations, No tactile fremitus, No wheezing Cardiovascular: bruits, jugular venous distention (JVD), nl pulses, regular rate and rhythm, systolic murmur, No S3, No S4, No diastolic murmur, No edema, No gallop, No irregular rhythm, No murmurs/extra sounds, No other, No rub Gastrointestinal: distended, non-tender, soft, No ascites, No bowel sounds, No firm, No hepatomegaly, No mass, No nl liver, spleen, No other, No rebound or guarding, No splenomegaly, No surgical scars, No tender Musculoskeletal: joint tenderness, muscle tone, muscle weakness, No nl extremities to inspection, No nl gait and stance, No other, No range of motion, No spine non-tender, No swelling Extremities: No calf tenderness, No clubbing, No cyanosis, No edema, No normal pulses, No other, No palpable cord, No pitting pedal edema, No tenderness Neurological: LEVEL DESIGNER II-XII intact (except cn 8;), confused, lethargic, other ( memory impairment.), reflexes Skin: rash or lesions Results Result Diagram: 09/24/16 0534 09/24/16 0534 Results 24 hrs Laboratory Tests Test 09/24/16 21:42 09/25/16 02:05 09/25/16 08:25 09/25/16 12:12 Bedside Glucose 231 H 270 H 158 196 Test 09/25/16 17:42 Bedside Glucose 351 H Medications Medications Current Medications Ondansetron HCl (Zofran Inj) 4 mg Q8 PRN IV NAUSEA; Start 09/21/16 at 18:30 Acetaminophen (Tylenol Tab) 650 mg Q6 PRN PO PAIN LEVEL 4-6 Last administered on 09/25/16 07:00; Admin Dose 650 MG; Start 09/21/16 at 18:30 Pantoprazole (Protonix Iv) 40 mg DAILY IV Last administered on 09/25/16 09:38; Admin Dose 40 MG; Start 09/21/16 at 18:30 Aspirin (Aspirin) 81 mg DAILY PO Last administered on 09/25/16 09:40; Admin Dose 81 MG; Start 09/21/16 at 18:30 Furosemide (Lasix) 20 mg Q8 IV Last administered on 09/25/16 14:46; Admin Dose 20 MG; Start 09/21/16 at 22:00 Spironolactone (Aldactone) 25 mg DAILY PO Last administered on 09/25/16 09:38; Admin Dose 25 MG; Start 09/21/16 at 18:30 Metoprolol Tartrate (Lopressor) 25 mg BID PO Last administered on 09/25/16 09: 39; Admin Dose 25 MG; Start 09/21/16 at 21:00 Enalapril Maleate (Vasotec) 5 mg BID PO Last administered on 09/22/16 09:38; Admin Dose 5 MG; Start 09/21/16 at 21:00; Status Future Hold Diagnostic Test (Pha) (Accucheck) XX Last administered on 09/25/16 02: 12; Admin Dose 1 EA; Start 09/22/16 at 02:00 Guaifenesin/ Codeine Phosphate (Robitussin Ac Liquid Cup) 10 ml Q8H PRN PO COUGH Last administered on 09/25/16 12:50; Admin Dose 10 ML; Start 09/22/16 at 00 :30 Clonidine (Catapres) 0.1 mg Q8H PRN PO ELEVATED SYSTOLIC BP; Start 09/22/16 at 00:30 Miscellaneous Information 1 ea NOTE XX ; Start 09/22/16 at 01:00 Glucose (Glutose) 15 gm Q15M PRN PO DECREASED GLUCOSE; Start 09/22/16 at 01:00 Glucose (Glutose) 22.5 gm Q15M PRN PO DECREASED GLUCOSE; Start 09/22/16 at 01:00 Dextrose (D50w Syringe) 25 ml Q15M PRN IV DECREASED GLUCOSE; Start 09/22/16 at 01:00 Dextrose (D50w Syringe) 50 ml Q15M PRN IV DECREASED GLUCOSE; Start 09/22/16 at 01:00 Glucagon (Glucagen) 1 mg Q15M PRN IM DECREASED GLUCOSE; Start 09/22/16 at 01:00 Glucose (Glutose) 15 gm Q15M PRN BUCCAL DECREASED GLUCOSE; Start 09/22/16 at 01: 00 Hydralazine HCl (Apresoline) 50 mg Q8 PO Last administered on 09/25/16 14:47; Admin Dose 50 MG; Start 09/22/16 at 14:00 Metoprolol Tartrate (Lopressor) 5 mg Q4H PRN IV HR>110 Hold SBP<100; Start 09/22 at 13:30 Enoxaparin Sodium (Lovenox) 70 mg DAILY SC Last administered on 09/25/16 09:43 ; Admin Dose 70 MG; Start 09/23/16 at 09:00 Salmeterol Xinafoate/ Fluticasone 1 inh 1 inh BID INH Last administered on 09:40; Admin Dose 1 INH; Start 09/22/16 at 21:00 Ferric Sodium Gluconate Complex/ Sodium Chloride (Ferrlecit/NS) 110 ml @ 100 mls/hr Q24H IVPB Last administered on 09/24/16 21:36; Admin Dose 100 MLS/HR; Start 09/23/16 at 22:00; Stop 09/25/16 at 23:05 Ascorbic Acid (Vitamin C) 500 mg BID PO Last administered on 09/25/16 09:40; Admin Dose 500 MG; Start 09/23/16 at 21:00 Polyethylene Glycol (Miralax) 17 gm BID NGT Last administered on 09/25/16 09:37 ; Admin Dose 17 GM; Start 09/23/16 at 21:00 Methylprednisolone Sodium Succinate 30 mg 30 mg Q12 IV Last administered on 09/25 09:38; Admin Dose 30 MG; Start 09/23/16 at 21:00; Stop 09/26/16 at 09:00 Magnesium Sulfate 50 ml @ 25 mls/hr DAILY IVPB Last administered on 09/25/16 10 :22; Admin Dose 25 MLS/HR; Start 09/24/16 at 19:00; Stop 09/26/16 at 09:00 Levofloxacin/ Dextrose (Levaquin 750 Mg/ D5W 150 ml (Pmx)) 150 ml @ 100 mls/hr Q48H IVPB Last administered on 09/24/16 23:42; Admin Dose 100 MLS/HR; Start 09/24/16 at 19:00 ANA LAI MD Sep 25, 2016 21:07
[2016-09-25] MEDS: SOD FERRIC GLUC COMPLX 125 MG in SOD CHLORIDE 0.9% 100 ML IVPB SCH (22:39)
[2016-09-26] VITALS (7 sets, daily range): BP systolic 121–143; BP diastolic 64–70; PULSE 62–79; RESP 16–17
[2016-09-26] MEDS: IPRATROPIUM (NEB) 0.5 MG/2.5 ML AMP HHN SCH ×2 (00:37→07:40)
[2016-09-26] MEDS: ACCUCHECK XX SCH (02:00)
[2016-09-26] MEDS: FUROSEMIDE 20 MG INJ IV SCH ×2 (05:44→14:00)
[2016-09-26] MEDS: ALBUTEROL 0.083% (NEB) 2.5 MG/3 ML AMP HHN SCH (07:40)
[2016-09-26] MEDS: POLYETHYLENE GLYCOL 17 GM PACKET NGT SCH (08:07)
[2016-09-26] MEDS: PANTOPRAZOLE 40 MG INJ IV SCH (08:08)
[2016-09-26] MEDS: METHYLPREDNISOLONE 40 MG INJ IV SCH (08:08)
[2016-09-26] MEDS: LEVOTHYROXINE 50 MCG TAB PO SCH (08:09)
[2016-09-26] MEDS: METOPROLOL 25 MG TAB PO SCH (08:09)
[2016-09-26] MEDS: SPIRONOLACTONE 25 MG TAB PO SCH (08:10)
[2016-09-26] MEDS: ASCORBIC ACID 500 MG TAB PO SCH (08:10)
[2016-09-26] MEDS: ASPIRIN 81 MG TAB PO SCH (08:10)
[2016-09-26] MEDS: SALMETEROL/FLUTICASONE 250/50 INHA INH SCH (08:10)
[2016-09-26] MEDS: INSULIN ASPART [NOVOLOG] 3 ML PEN SC SCH ×2 (08:12→11:42)
[2016-09-26] MEDS: MAGNESIUM SULFATE 2 GM/50 ML 50 ML IVPB SCH (08:19)
[2016-09-26] MEDS: ENOXAPARIN 80 MG/0.8 ML SYG SC SCH (08:26)
--- NOTE | 2016-09-26 10:25 | PDOCDIS ---
Discharge Instructions CONDITION Patient Condition: Fair HOME CARE INSTRUCTIONS: Diet Instructions: Reduced SodiumSpecial Diet: 2000 CAROLYN ADA ACTIVITY: Activity Restrictions: Slowly Increase Activity Avoid heavy lifting Avoid Heavy Housework No Weight Bearing Bathing Restrictions: Tub Bath FOLLOW UP/APPOINTMENTS Appointments F/U to Dr. Lai in 5 days. ANA LAI MD Sep 26, 2016 10:25
[2016-09-26] MEDS ORDERED: LOSA50TA6 PO (10:28)
[2016-09-26] MEDS ORDERED: ASC500 PO (10:28)
[2016-09-26] MEDS ORDERED: METHYLPREDNISOLONE 40 MG INJ IV ONE (10:30)
--- NOTE | 2016-09-26 10:31 | DS ---
Date/Time of Note Date/Time of Note DATE: 09/26/16 TIME: 10:31 Discharge Summary Admission/Discharge Info Admit Date/Time Sep 23, 2016 at 11:46 Discharge Date/Time Final Diagnosis 1. CHF exacerbation. 2.Chronic cough without control more than one month 3.IHD angina s/p catheterization by dr. Alonzo without significant narrowing of the vessels. 4.COPD exacerbation 5.PTSD 6.DM type 2-with complications 7.HTN with chf 8.LBP 9.RAVI of knees and hips and shoulders. 10.Anemia of chronic disease 11.Obesity with snoring and apnea 12.BPH with episodes of overflow incontinence 13.dyslipidemia 14.GERD 15.Low magnesium. 16.UTI-u/a Patient Condition: Fair Hospital Course 1. CHF exacerbation. 2.Chrinic cough without control more than one month 3.IHD angina s/p catheterization by dr. Alonzo without significant narrowing of the vessels. 4.COPD exacerbation 5.PTSD 6.DM type 2-with complications 7.HTN with chf 8.LBP 9.RAVI of knees and hips and shoulders. 10.Anemia of chronic disease 11.Obesity with snoring and apnea 12.BPH with episodes of overflow incontinens 13.dyslipidemia 14.GERD 15.Low magnesium. 16.UTI-u/a Home Meds Active Scripts Benazepril Hcl* (Benazepril Hcl*) 20 Mg Tablet, 20 MG PO DAILY, #30 TAB Prov:ANA LAI MD 09/22/16 Reported Medications Memantine* (Namenda*) 10 Mg Tablet, 10 MG PO BID, #60 TAB 09/21/16 Dexlansoprazole (Dexilant) 60 Mg Cap.mp, 60 MG PO DAILY, #30 CAP 09/21/16 Fluticasone Propionate (Flonase Allergy Relief) 9.9 Ml [employer].susp, 1 SPRAY NASAL DAILY, #1 BOTTLE TO EACH NOSTRIL 09/21/16 Qymirt-Obhglbko-Fwbbpyx* (Joanna GONZÁLES* 24,000) 24,000 L-76,000-120,000 Unit Capsule.dr, 1 CAP PO WITH MEALS, CAP 09/21/16 Sertraline Hcl* (Zoloft*) 25 Mg Tablet, 25 MG PO DAILY, #30 TAB 09/21/16 Albuterol Sulfate* (Ventolin HFA*) 18 Gm Hfa.aer.ad, 2 PUFF INHALATION Q6H, #1 INHALER 09/21/16 Hydralazine Hcl* (Hydralazine Hcl*) 50 Mg Tab, 50 MG PO BID, #120 TAB 09/21/16 Amlodipine Besylate* (Norvasc*) 5 Mg Tablet, 5 MG PO BID, TAB 09/21/16 Carvedilol* (Coreg*) 6.25 Mg Tablet, 6.25 MG PO BID, #60 TAB 09/21/16 Nitroglycerin* (Nitrostat*) 0.4 Mg Tab.subl, 0.4 MG SL Q5MIN Y for CHEST PAIN, BOTTLE 09/21/16 Clonazepam* (Klonopin*) 1 Mg Tablet, 1 MG PO QHS Y for SLEEP, TAB 09/21/16 Tramadol Hcl* (Ultram*) 50 Mg Tablet, 50 MG PO QHS Y for PAIN, TAB 09/21/16 Cyanocobalamin* (Vitamin B12*) 500 Mcg Tab, 2500 MG PO DAILY, TAB 06/22/16 Docusate Sodium* (Docusate Sodium*) 100 Mg Capsule, 100 MG PO BID, #60 CAP 06/22/16 Ergocalciferol* (Drisdol* (Vitamin D2)) 50,000 Unit Capsule, 67854 UNIT PO Q7D, CAP ON Mondays06/22/16 Levothyroxine Sodium* (Levoxyl*) 50 Mcg Tablet, 50 MCG PO BEFORE BREAKFAST, #30 TAB 06/22/16 Tamsulosin Hcl* (Tamsulosin Hcl*) 0.4 Mg Cap.er.24h, 0.4 MG PO HS, CAP 06/22/16 Apixaban* (Eliquis*) 5 Mg Tablet, 5 MG PO BID, TAB 06/22/16 Glimepiride* (Glimepiride*) 1 Mg Tablet, 1 MG PO BID WITH MEALS, TAB 06/22/16 Ferrous Sulfate* (Ferrous Sulfate*) 325 Mg Tabec, 325 MG PO DAILY, TAB 06/22/16 Amiodarone Hcl* (Amiodarone Hcl*) 100 Mg Tablet, 100 MG PO BID, #30 TAB 06/22/16 Isosorbide Mononitrate* (Isosorbide Mononitrate*) 120 Mg Tab.sr.24h, 120 MG PO DAILY, TAB.SA 06/22/16 Rosuvastatin Calcium* (Crestor*) 20 Mg Tablet, 20 MG PO QHS, #30 TAB 06/22/16 Clonidine Hcl* (Clonidine Hcl*) 0.1 Mg Tab, 1 TAB PO DAILY, #30 06/22/16 Discontinued Reported Medications Glimepiride* (Amaryl*) 1 Mg Tablet, 1 MG PO WITH BREAKFAST, TAB 06/22/16 Lorazepam* (Lorazepam*) 0.5 Mg Tablet, 0.5 MG PO HS Y for SLEEP, TAB 06/22/16 Follow-up Plan Discharge after infusion of solumedrol, magnesium and iron. F/U to in 5 days. Pending Labs Laboratory Tests Test 09/25/16 12:12 09/25/16 17:42 09/25/16 21:43 09/26/16 07:28 Bedside Glucose 196mg/dL (70-220) 351mg/dL (70-220) 88mg/dL (70-220) 260mg/dL (70-220) ANA LAI MD Sep 26, 2016 10:31
--- NOTE | 2016-09-26 10:44 | CONS ---
Date/Time of Note Date/Time of Note DATE: 09/26/16 TIME: 10:44 Consultation Date/Type/Reason Admit Date/Time Sep 23, 2016 at 11:46 Type of Consultation: [facility] Referring Provider: ANA LAI MD Exam/Review of Systems Vital Signs Vitals Vital Signs Date Time Temp Pulse Resp B/P Pulse Ox O2 Delivery O2 Flow Rate FiO2 09/26/16 08:16 66 09/26/16 07:42 16 99 21 09/26/16 07:38 98.2 121/64 09/23/16 00:00 Nasal Cannula 2.0 Intake and Output 09/25/16 09/25/16 09/26/16 15:00 23:00 07:00 Intake Total 800 ml Balance 800 ml Results Result Diagram: 09/24/16 0534 09/24/16 0534 Results 24 hrs Laboratory Tests Test 09/25/16 12:12 09/25/16 17:42 09/25/16 21:43 09/26/16 07:28 Bedside Glucose 196 351 H 88 260 H Medications Medications Current Medications Ondansetron HCl (Zofran Inj) 4 mg Q8 PRN IV NAUSEA; Start 09/21/16 at 18:30 Acetaminophen (Tylenol Tab) 650 mg Q6 PRN PO PAIN LEVEL 4-6 Last administered on 09/25/16 07:00; Admin Dose 650 MG; Start 09/21/16 at 18:30 Pantoprazole (Protonix Iv) 40 mg DAILY IV Last administered on 09/26/16 08:08; Admin Dose 40 MG; Start 09/21/16 at 18:30 Aspirin (Aspirin) 81 mg DAILY PO Last administered on 09/26/16 08:10; Admin Dose 81 MG; Start 09/21/16 at 18:30 Furosemide (Lasix) 20 mg Q8 IV Last administered on 09/26/16 05:44; Admin Dose 20 MG; Start 09/21/16 at 22:00 Spironolactone (Aldactone) 25 mg DAILY PO Last administered on 09/26/16 08:10; Admin Dose 25 MG; Start 09/21/16 at 18:30 Metoprolol Tartrate (Lopressor) 25 mg BID PO Last administered on 09/26/16 08: 09; Admin Dose 25 MG; Start 09/21/16 at 21:00 Enalapril Maleate (Vasotec) 5 mg BID PO Last administered on 09/22/16 09:38; Admin Dose 5 MG; Start 09/21/16 at 21:00; Status Future Hold Diagnostic Test (Pha) (Accucheck) 1 ea 02 XX Last administered on 09/25/16 02: 12; Admin Dose 1 EA; Start 09/22/16 at 02:00 Guaifenesin/ Codeine Phosphate (Robitussin Ac Liquid Cup) 10 ml Q8H PRN PO COUGH Last administered on 09/25/16 12:50; Admin Dose 10 ML; Start 09/22/16 at 00 :30 Clonidine (Catapres) 0.1 mg Q8H PRN PO ELEVATED SYSTOLIC BP; Start 09/22/16 at 00:30 Miscellaneous Information 1 ea NOTE XX ; Start 09/22/16 at 01:00 Glucose (Glutose) 15 gm Q15M PRN PO DECREASED GLUCOSE; Start 09/22/16 at 01:00 Glucose (Glutose) 22.5 gm Q15M PRN PO DECREASED GLUCOSE; Start 09/22/16 at 01:00 Dextrose (D50w Syringe) 25 ml Q15M PRN IV DECREASED GLUCOSE; Start 09/22/16 at 01:00 Dextrose (D50w Syringe) 50 ml Q15M PRN IV DECREASED GLUCOSE; Start 09/22/16 at 01:00 Glucagon (Glucagen) 1 mg Q15M PRN IM DECREASED GLUCOSE; Start 09/22/16 at 01:00 Glucose (Glutose) 15 gm Q15M PRN BUCCAL DECREASED GLUCOSE; Start 09/22/16 at 01: 00 Hydralazine HCl (Apresoline) 50 mg Q8 PO Last administered on 09/26/16 05:44; Admin Dose 50 MG; Start 09/22/16 at 14:00 Metoprolol Tartrate (Lopressor) 5 mg Q4H PRN IV HR>110 Hold SBP<100; Start 09/22 at 13:30 Enoxaparin Sodium (Lovenox) 70 mg DAILY SC Last administered on 09/26/16 08:26 ; Admin Dose 70 MG; Start 09/23/16 at 09:00 Salmeterol Xinafoate/ Fluticasone (Advair 250/50 Diskus) 1 inh BID INH Last administered on 09/26/16 08:10; Admin Dose 1 INH; Start 09/22/16 at 21:00 Ascorbic Acid (Vitamin C) 500 mg BID PO Last administered on 09/26/16 08:10; Admin Dose 500 MG; Start 09/23/16 at 21:00 Polyethylene Glycol 17 gm 17 gm BID NGT Last administered on 09/26/16 08:07; Admin Dose 17 GM; Start 09/23/16 at 21:00 Levofloxacin/ Dextrose (Levaquin 750 Mg/ D5W 150 ml (Pmx)) 150 ml @ 100 mls/hr Q48H IVPB Last administered on 09/24/16 23:42; Admin Dose 100 MLS/HR; Start 09/24/16 at 19:00 Methylprednisolone Sodium Succinate (Solu-Medrol) 30 mg ONCE ONCE IV ; Start at 10:30; Stop 09/26/16 at 10:31; Status UNGRETEL ROSS MD Sep 26, 2016 10:44
--- NOTE | 2016-09-26 12:01 | CONS ---
Date/Time of Note Date/Time of Note DATE: 09/26/16 TIME: 11:59 Assessment/Plan Assessment/Plan Chief Complaint/Hosp Course IMPRESSION: 1. Congestive heart failure exacerbation, question systolic versus diastolic, but acute on chronic likely.-negative troponin x 3 2. Atrial fibrillation by EKG, on baseline apixaban and home amiodarone.-well controlled 3. Hypertension, under reasonable control. 4. Possible upper respiratory infection/cough. 5. Dyslipidemia. 6. Renal failure. 7. Anemia. Rec: -tele -serial ecg's -Continue hydralazine/BB -Continue lovenox with transition back to eliquis at D/C -Continue abx's/bronchodilators -D/C planning Problems: Consultation Date/Type/Reason Admit Date/Time Sep 23, 2016 at 11:46 Initial Consult Date 09/22/16 Type of Consultation: Cardiology Reason for Consultation CHF/AF Referring Provider: ANA LAI MD Exam/Review of Systems Vital Signs Vitals Vital Signs Date Time Temp Pulse Resp B/P Pulse Ox O2 Delivery O2 Flow Rate FiO2 09/26/16 11:54 97.9 78 17 143/70 96 09/26/16 07:42 21 09/23/16 00:00 Nasal Cannula 2.0 Intake and Output 09/25/16 09/25/16 09/26/16 15:00 23:00 07:00 Intake Total 800 ml Balance 800 ml Exam Review of Systems: CONSTITUTIONAL: No fevers, chills. PULMONARY: No sob CARDIOVASCULAR: No chest pain/palpitations GASTROINTESTINAL: No nausea/vomiting. GENITOURINARY: No hematuria/dysuria. MUSCULOSKELETAL: No myagias/arthalgias. PSYCHIATRIC: The patient denies depression. NEUROLOGIC: No weakness Constitutional: alert, oriented Psych: no complaints Head: normocephalic ENMT: mucosa pink and moist Neck: jvd, supple Respiratory: clear to auscultation Cardiovascular: irregular rhythm Gastrointestinal: non-tender, soft Musculoskeletal: muscle tone (normal) Extremities: edema (none) Neurological: other (No focal deficits) Results Result Diagram: 09/24/16 0534 09/24/16 0534 Results 24 hrs Laboratory Tests Test 09/25/16 12:12 09/25/16 17:42 09/25/16 21:43 09/26/16 07:28 Bedside Glucose 196 351 H 88 260 H Test 09/26/16 11:40 Bedside Glucose 258 H Medications Medications Current Medications Ondansetron HCl (Zofran Inj) 4 mg Q8 PRN IV NAUSEA; Start 09/21/16 at 18:30 Acetaminophen (Tylenol Tab) 650 mg Q6 PRN PO PAIN LEVEL 4-6 Last administered on 09/25/16 07:00; Admin Dose 650 MG; Start 09/21/16 at 18:30 Pantoprazole (Protonix Iv) 40 mg DAILY IV Last administered on 09/26/16 08:08; Admin Dose 40 MG; Start 09/21/16 at 18:30 Aspirin (Aspirin) 81 mg DAILY PO Last administered on 09/26/16 08:10; Admin Dose 81 MG; Start 09/21/16 at 18:30 Furosemide (Lasix) 20 mg Q8 IV Last administered on 09/26/16 05:44; Admin Dose 20 MG; Start 09/21/16 at 22:00 Spironolactone (Aldactone) 25 mg DAILY PO Last administered on 09/26/16 08:10; Admin Dose 25 MG; Start 09/21/16 at 18:30 Metoprolol Tartrate (Lopressor) 25 mg BID PO Last administered on 09/26/16 08: 09; Admin Dose 25 MG; Start 09/21/16 at 21:00 Enalapril Maleate (Vasotec) 5 mg BID PO Last administered on 09/22/16 09:38; Admin Dose 5 MG; Start 09/21/16 at 21:00; Status Future Hold Diagnostic Test (Pha) (Accucheck) 1 ea 02 XX Last administered on 09/25/16 02: 12; Admin Dose 1 EA; Start 09/22/16 at 02:00 Guaifenesin/ Codeine Phosphate (Robitussin Ac Liquid Cup) 10 ml Q8H PRN PO COUGH Last administered on 09/25/16 12:50; Admin Dose 10 ML; Start 09/22/16 at 00 :30 Clonidine (Catapres) 0.1 mg Q8H PRN PO ELEVATED SYSTOLIC BP; Start 09/22/16 at 00:30 Miscellaneous Information 1 ea NOTE XX ; Start 09/22/16 at 01:00 Glucose (Glutose) 15 gm Q15M PRN PO DECREASED GLUCOSE; Start 09/22/16 at 01:00 Glucose (Glutose) 22.5 gm Q15M PRN PO DECREASED GLUCOSE; Start 09/22/16 at 01:00 Dextrose (D50w Syringe) 25 ml Q15M PRN IV DECREASED GLUCOSE; Start 09/22/16 at 01:00 Dextrose (D50w Syringe) 50 ml Q15M PRN IV DECREASED GLUCOSE; Start 09/22/16 at 01:00 Glucagon (Glucagen) 1 mg Q15M PRN IM DECREASED GLUCOSE; Start 09/22/16 at 01:00 Glucose (Glutose) 15 gm Q15M PRN BUCCAL DECREASED GLUCOSE; Start 09/22/16 at 01: 00 Hydralazine HCl (Apresoline) 50 mg Q8 PO Last administered on 09/26/16 05:44; Admin Dose 50 MG; Start 09/22/16 at 14:00 Metoprolol Tartrate (Lopressor) 5 mg Q4H PRN IV HR>110 Hold SBP<100; Start 09/22 at 13:30 Enoxaparin Sodium (Lovenox) 70 mg DAILY SC Last administered on 09/26/16 08:26 ; Admin Dose 70 MG; Start 09/23/16 at 09:00 Salmeterol Xinafoate/ Fluticasone (Advair 250/50 Diskus) 1 inh BID INH Last administered on 09/26/16 08:10; Admin Dose 1 INH; Start 09/22/16 at 21:00 Ascorbic Acid (Vitamin C) 500 mg BID PO Last administered on 09/26/16 08:10; Admin Dose 500 MG; Start 09/23/16 at 21:00 Polyethylene Glycol 17 gm 17 gm BID NGT Last administered on 09/26/16 08:07; Admin Dose 17 GM; Start 09/23/16 at 21:00 Levofloxacin/ Dextrose (Levaquin 750 Mg/ D5W 150 ml (Pmx)) 150 ml @ 100 mls/hr Q48H IVPB Last administered on 09/24/16 23:42; Admin Dose 100 MLS/HR; Start 09/24/16 at 19:00 XIMENA PATINO Sep 26, 2016 12:01
[2016-09-26 19:35] LABS: PSA, FREE 0.1 ng/mL
--- NOTE | 2016-09-30 12:40 | PQ ---
Date/Time of Note Date/Time of Note DATE: 09/30/16 TIME: 12:30 Physician Query Documentation Clarification Dear Dr. Waggoner, A review of the medical record found a need for documentation clarification. progress note - "Congestive heart failure exacerbation, question systolic versus diastolic, but acute on chronic likely." ECHO -Conclusions 1. Normal left ventricular systolic function. Normal left ventricular cavity size. Normal left ventricular wall thickness. Ejection fraction is visually estimated at 55-60 %. BNP = 3580. Tx : Furosemide 20 mg IV "Renal failure" Creatinine = 1.57---> 2.17 Please clarify the specificity of the above diagnosis ( if known) being treated. To facilitate accurate and complete coding, please bucky ( x ) the suspected diagnosis that apply: 1 ( ) Acute Systolic (Reduced EF) Heart Failure ( ICD10 I50.21 ) ( ) Acute Diastolic (Preserved EF) Heart Failure ( ICD10 I50.31 ) ( )Acute Combined Systolic & Diastolic Heart Failure ( ICD10 I50.41 ) ( ) Chronic Systolic (Reduced EF) Heart Failure ( ICD10 I50.22 ) ( ) Chronic Diastolic (Preserved EF) Heart Failure ( ICD10 I50.32 ) ( ) Chronic Combined Systolic & Diastolic Heart Failure ( ICD10 I50.42 ) ( ) Acute on Chronic Systolic (Reduced EF) Heart Failure ( ICD10 I50.23 ) ( ) Acute on Chronic Diastolic (Preserved EF) Heart Failure ( ICD10 I50.33 ) ( ) Acute on Chronic Combined Systolic & Diastolic Heart Failure ( ICD10 I50.43 ) ( ) Clinically undetermined ------- 2 ------ ( ) Acute renal failure ( ) Chronic renal failure ( ) Clinically undetermined Please provide your response by clicking edit document, making your choice ( x ), click ok and finally click sign. You may also document your response on your progress notes. We do appreciate your response. Thank you for your time. Richmond Tovar RN, BSN, CCS, CCDS [facility], [facility] and Coding Services [phone] Room # [id number] - [address]~ [id number] RICHMOND TOVAR Sep 30, 2016 12:40
== END 2016-09-26 14:00 | disposition home or self-care (01) | DRG 190 ==
LOC: E/R 16:00 → INTOOBSV 18:04 → TEL 18:04 → OBSVTOIN 09-23 11:46
PROVIDERS: ADMIT Family Medicine; ATTEND Family Medicine
DX: J44.1 Chronic obstructive pulmonary disease with (acute) exacerbation (principal); I50.33 Acute on chronic diastolic (congestive) heart failure; N39.0 Urinary tract infection, site not specified; N19 Unspecified kidney failure; E83.42 Hypomagnesemia; R06.81 Apnea, not elsewhere classified; E11.9 Type 2 diabetes mellitus without complications; D63.8 Anemia in other chronic diseases classified elsewhere; I11.0 Hypertensive heart disease with heart failure; F43.10 Post-traumatic stress disorder, unspecified; E66.9 Obesity, unspecified; N40.1 Benign prostatic hyperplasia with lower urinary tract symptoms; N39.490 Overflow incontinence; K21.9 Gastro-esophageal reflux disease without esophagitis; E78.5 Hyperlipidemia, unspecified; R06.83 Snoring; M17.0 Bilateral primary osteoarthritis of knee; M16.0 Bilateral primary osteoarthritis of hip; M19.012 Primary osteoarthritis, left shoulder; M19.011 Primary osteoarthritis, right shoulder; Z68.29 Body mass index [BMI] 29.0-29.9, adult
CPT/HCPCS: 36415; 71010; 80053; 80061; 81001; 81003; 82378; 82550; 82553; 82607; 82668; 82728; 82746; 82962; 83010; 83540; 83605; 83615; 83735; 83880; 84153; 84154; 84155; 84165; 84443; 84484; 85025; 85045; 85610; 85651; 85730; 87040; 87086; 93005; 93306; 94640; 94664; 96374; 96375; 96376; 99217; G0378; J1940; C9113; J0456; J1815; J1956; J2916; J2920; J2930; J3475; J3480; J7050

== ENCOUNTER 2018-05-04 16:07 | Inpatient (IN) | END 2018-05-06 15:53 | disposition home or self-care (01) | DRG 305 ==

== ENCOUNTER 2018-12-10 07:44 | Inpatient (IN) | payer MEDICARE, OTHER ==
[~2018-12-10] VITALS: Ht 170.2 cm; Wt 86.3 kg
[~2018-12-10 07:44] MED LIST changes: +ALBU18HF INHALATION; +AMLO5TAB4 PO; +ASC500 PO; -BENA20TA48 PO; +CARV6.25 PO; +CLON-412 PO; -CYAN500T46 PO; -ERGO500014 PO; -GLIM1TAB PO; -GLIM1TAB2 PO; +HYDR-3671 PO; +LEVO75TA5 PO; -LORA0.5T PO; +LOSA50TA14 PO; +NITR0.4T39 SL; -ROSU20TA PO; +SERT25TA PO
--- NOTE | 2018-12-10 07:51 | ERD ---
ER Documentation Chief Complaint Chief Complaint Weakness HPI 83-year-old male history of hypertension, diabetes, atrial fibrillation anticoagulated on apixaban, hypothyroidism, BPH, COPD, CKD and anxiety presents to the ED via rescue ambulance complaining of awakening this morning with generalized weakness and difficulty walking. Symptoms are worse with standing but there are no relieving factors. Denies chest pain, palpitations or shortness of breath. No headache, visual changes, focal weakness or numbness. Denies abdominal pain, nausea, vomiting, diarrhea or constipation. No URI symptoms, cough or hemoptysis. No leg pain or swelling. No skin rash. No fevers or chills. ROS All systems reviewed and are negative except as per history of present illness. Medications Home Meds Active Scripts Losartan Potassium* (Losartan Potassium*) 50 Mg Tablet, 50 MG PO DAILY for 30 Days, TAB Prov:ANA LAI MD 09/26/16 Reported Medications Carvedilol* (Coreg*) 3.125 Mg Tablet, 3.125 MG PO BID, #60 TAB 12/10/18 Atorvastatin* (Atorvastatin*) 80 Mg Tablet, 80 MG PO QHS, #30 TAB 12/10/18 Ergocalciferol (Vitamin D2) (VITAMIN D2) 50,000 Unit Capsule, 1 CAP ORAL WEEKLY 12/10/18 Amiodarone Hcl* (Amiodarone Hcl*) 200 Mg Tablet, 200 MG PO BID, #60 TAB 12/10/18 Apixaban* (Eliquis*) 2.5 Mg Tablet, 2.5 MG PO BID, TAB 12/10/18 Glimepiride* (Glimepiride*) 1 Mg Tablet, 1 MG PO WITH BREAKFAST DINNE, TAB 12/10/18 Amlodipine Besylate* (Amlodipine Besylate*) 2.5 Mg Tablet, 1 TAB ORAL BID 12/10/18 Benazepril Hcl* (Benazepril Hcl*) 20 Mg Tablet, 1 TAB ORAL BID 12/10/18 Memantine* (Namenda*) 10 Mg Tablet, 1 TAB ORAL DAILY 12/10/18 Ranolazine* (Ranexa*) 1,000 Mg Tab.sr.12h, 1 TAB ORAL Q12H 12/10/18 Levothyroxine Sodium* (Levothyroxine Sodium*) 75 Mcg Tablet, 75 MCG PO BEFORE BREAKFAST, #30 TAB 05/03/18 Hydralazine Hcl* (Hydralazine Hcl*) 25 Mg Tab, 25 MG PO Q6, #120 TAB 05/03/18 Nitroglycerin* (Nitrostat*) 0.4 Mg Tab.subl, 0.4 MG SL Q5MIN PRN for CHEST PAIN, BOTTLE 09/21/16 Clonazepam* (Klonopin*) 1 Mg Tablet, 1 MG PO QHS PRN for SLEEP, TAB 09/21/16 Docusate Sodium* (Docusate Sodium*) 100 Mg Capsule, 100 MG PO DAILY, #60 CAP 06/22/16 Levothyroxine Sodium* (Levoxyl*) 50 Mcg Tablet, 50 MCG PO BEFORE BREAKFAST, #30 TAB 06/22/16 Tamsulosin Hcl* (Tamsulosin Hcl*) 0.4 Mg Cap.er.24h, 0.4 MG PO HS, CAP 06/22/16 Ferrous Sulfate* (Ferrous Sulfate*) 325 Mg Tabec, 325 MG PO DAILY, TAB 06/22/16 Isosorbide Mononitrate* (Isosorbide Mononitrate*) 120 Mg Tab.sr.24h, 120 MG PO DAILY, TAB.SA 06/22/16 Allergies Allergies: Coded Allergies: No Known Allergy (Unverified , 12/10/18) PMhx/Soc Reviewed in chart. As per HPI. History of Surgery: Yes (Cataract surgery) Anesthesia Reaction: No Hx Neurological Disorder: No Hx Respiratory Disorders: No Hx Cardiac Disorders: Yes (HTN) Hx Psychiatric Problems: No Hx Miscellaneous Medical Probl: No Hx Alcohol Use: No Hx Substance Use: No Hx Tobacco Use: No FmHx No cancer or stroke Physical Exam Vitals Temperature: 98.9. Pulse: 66. Respirations: 18. Blood pressure 216/100. O2 saturation 100%. Physical Exam Const: Alert, anxious but in no acute distress Head: Right parietal ecchymosis, swelling and tenderness. Eyes: Normal Conjunctiva. Pupils equal reactive to light, extraocular movements are intact. No subconjunctival hemorrhage. No periorbital ecchymosis . ENT: Normal External Ears, Nose and Mouth. Negative glynn sign. No hemotympanum. Neck: Full range of motion. No midline bony tenderness or paraspinal muscle spasm. No JVD. Carotids are 2+ bilaterally without bruits. Resp: Breath sounds decreased at the right greater than left base but no rales, rhonchi or wheezes. Cardio: Irregular rate and rhythm, 3/6 systolic murmur. Abd: Soft, non tender, non distended. No masses or abnormal pulsations. No rebound or guarding. Normal bowel sounds Skin: No petechiae or rashes Back: No midline or flank tenderness Ext: No cyanosis, or edema. Pulses 4+ in all extremities. Neur: Awake and alert. Cranial nerves II through XII are grossly intact. Motor and sensory equal bilaterally. DTRs are symmetrical. Plantar reflexes are downgoing. Patient is unable to ambulate even a few steps without assistance. Psych: Anxious but not depressed. Result Diagram: 12/17/18 0710 12/17/18 0710 Results 24 hrs Laboratory Tests Test 12/10/18 08:03 White Blood Count 8.5 10^3/ul Red Blood Count 3.73 10^6/ul Hemoglobin 11.4 g/dl Hematocrit 34.8 % Mean Corpuscular Volume 93.3 fl Mean Corpuscular Hemoglobin 30.6 pg Mean Corpuscular Hemoglobin Concent 32.8 g/dl Red Cell Distribution Width 13.2 % Platelet Count 214 10^3/UL Mean Platelet Volume 9.2 fl Immature Granulocytes % 0.200 % Neutrophils % 54.1 % Lymphocytes % 36.3 % Monocytes % 7.8 % Eosinophils % 1.2 % Basophils % 0.4 % Nucleated Red Blood Cells % 0.0 /100WBC Immature Granulocytes # 0.020 10^3/ul Neutrophils # 4.6 10^3/ul Lymphocytes # 3.1 10^3/ul Monocytes # 0.7 10^3/ul Eosinophils # 0.1 10^3/ul Basophils # 0.0 10^3/ul Nucleated Red Blood Cells # 0.0 10^3/ul Prothrombin Time 16.3 Sec Prothrombin Time Ratio 1.3 INR International Normalized Ratio 1.30 Activated Partial Thromboplast Time 35.6 Sec Sodium Level 142 mmol/L Potassium Level 4.1 mmol/L Chloride Level 103 mmol/L Carbon Dioxide Level 25 mmol/L Anion Gap 14 Blood Urea Nitrogen 36 mg/dl Creatinine 1.85 mg/dl Est Glomerular Filtrat Rate mL/min mL/min Glucose Level 125 mg/dl Calcium Level 9.6 mg/dl Total Bilirubin 0.5 mg/dl Direct Bilirubin 0.00 mg/dl Indirect Bilirubin 0.5 mg/dl Aspartate Amino Transf (AST/SGOT) 17 IU/L Alanine Aminotransferase (ALT/SGPT) 23 IU/L Alkaline Phosphatase 45 IU/L Troponin I 0.024 ng/ml Total Protein 7.0 g/dl Albumin 4.1 g/dl Globulin 2.90 g/dl Albumin/Globulin Ratio 1.41 Triglycerides Level 108 mg/dl Cholesterol Level 150 mg/dl LDL Cholesterol, Calculated 85 mg/dl HDL Cholesterol 43 mg/dl Cholesterol/HDL Ratio 3.4 RATIO Thyroid Stimulating Hormone (TSH) 1.740 MIU/L Free Thyroxine Index 3.66 ug/ml Thyroxine (T4) 9.5 ug/dl Triiodothyronine (T3) Uptake 38.5 % Current Medications Medications Dose Sig/Carole Start Time Status Last (Trade) Ordered Route PRN Stop Time Admin Dose Reason Admin Benazepril 20 mg ONCE ONCE 12/10/18 DC 12/10/18 HCl PO 10:00 10:17 (Lotensin) 12/10/18 10:01 Carvedilol 3.125 mg ONCE ONCE 12/10/18 DC 12/10/18 (Coreg) PO 10:00 10:18 12/10/18 10:01 Amlodipine 2.5 mg ONCE ONCE 12/10/18 DC 12/10/18 Besylate PO 10:00 10:17 (Norvasc) 12/10/18 10:01 Apixaban 2.5 mg ONCE ONCE 12/10/18 DC 12/10/18 (Eliquis) PO 10:00 10:18 12/10/18 10:01 Hydralazine 25 mg ONCE ONCE 12/10/18 DC 12/10/18 HCl PO 10:00 10:18 (Apresoline) 12/10/18 10:01 Losartan 50 mg ONCE ONCE 12/10/18 DC 12/10/18 Potassium PO 10:00 10:19 (Cozaar) 12/10/18 10:01 Procedures/MDM DOCUMENTS REVIEWED: ED nurse, prior ED, prior records EKG: Time: 08:06. Atrial fibrillation. Ventricular rate 62. Normal QRS. Septal Q waves. No acute ST segment elevation or depression. My Interpretation IMAGING: PROCEDURE: XR Chest CLINICAL INDICATION: Weakness . TECHNIQUE: Frontal view of the chest COMPARISON: CR CHEST 05/24/2018; CR CHEST 09/21/2016; CR CHEST 06/22/2016 FINDINGS: There are low lung volumes, which accentuates the cardiac silhouette and crowding of the pulmonary vascular markings. The cardiomediastinal silhouette remains enlarged. There are atherosclerotic calcifications of the aorta. Mild increased opacity in the medial right lung base. There is no evidence of significant pleural effusion or pneumothorax. There are degenerative changes of the spine. IMPRESSION: Right lung base opacity may represent atelectasis versus pulmonary infiltrate. RPTAT: JJ Physician Perfecto Date Time Electronically viewed and signed by David Hunt Physician on 12/10/2018 08:54 HtN/ PROCEDURE: CT Brain without contrast. CLINICAL INDICATION: Fall, weakness, injury. TECHNIQUE: A CT of the brain without contrast was performed utilizing axial sections from the skull base through the vertex. One or more the following does reduction techniques were utilized: Automated exposure control, adjustment of the mA/ or kV according to patient's size, or use of iterative reconstruction technique. Total exam CTDIvol is 39 MGy and DLP is 555 mGy-cm. DICOM images are available. COMPARISON: Brain CT 05/24/2018. Brain MRI 05/25/2018. FINDINGS: The ventricles and sulci are mildly prominent indicative of volume loss. There is no intracranial hemorrhage, mass effect or midline shift. No abnormal intra- axial or extra-axial fluid collections are seen. The machado/white matter di fferentiation is preserved. 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 There are mild foci of hypoattenuation in the white matter, which are nons pecific in etiology but likely reflect chronic small vessel ischemic changes. There are mild intracranial vascular calcifications consistent with atherosclerosis. The visualized paranasal sinuses are essentially clear. IMPRESSION: 1. No acute intracranial hemorrhage, transcortical infarction or mass effect. 2. Mild intracranial atherosclerosis and chronic small vessel ischemic changes. 3. 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 4. Mild generalized cerebral volume loss. RPTAT: HFN .Augusto Archuleta MD, MD Date Time Electronically viewed and signed by .Augusto Archuleta MD, MD on 12/10/2018 08:53 .N/ MEDICAL DECISION MAKIN-year-old male history of hypertension, diabetes, atrial fibrillation anticoagulated on apixaban, hypothyroidism, BPH, COPD, CKD and anxiety presents to the ED via rescue ambulance complaining of generalized weakness and difficulty walking since this morning. CBC to evaluate for anemia, leukocytosis and thrombocytopenia reveals borderline anemia. Chemistry to ev aluate for electrolyte abnormalities, hyper/hypoglycemia and renal insufficiency is significant for elevated BUN/creatinine consistent with previously diagnosed chronic kidney disease. Troponin is 0.024 which is in the reference range and not elevated. EKG reveals atrial fibrillation with a controlled ventricular rate but no acute ischemic changes. Chest x-ray significant for right basilar atelectasis versus infiltrate; patient has no fever, cough, leukocytosis or other signs of any acute infectious process or pneumonia. CT of the brain to evaluate for acute bleed, stroke, mass or hydrocephalus reveals chronic changes but is otherwise negative patient presents with acute generalized weakness and difficulty ambulating but no focal deficit or signs of acute CVA or TIA. No syncope. Closed head injury with scalp hematoma but no evidence of intracranial injury. Thyroid function tests are unremarkable. Normal reflexes and other etiologies including Guillain-Enriquez are unlikely. Transverse myelitis is unlikely. Patient require further evaluation by neurology, neurosurgery and imaging including MRI of the brain and spine. Hypertension poorly controlled and patient is given his regular morning medications and repeat BP is 186/96. Admit to telemetry for further evaluation and management. PATIENT CARE TRANSITIONED: Time: 10:08, Dr. Laurent. Counseled patient and family regarding diagnosis, diagnostic results and plan for admission. Departure Diagnosis: Primary Impression: Acute weakness Additional Impressions: Accelerated hypertension Chronic atrial fibrillation Anticoagulated by anticoagulation treatment Closed head injury Encounter type: initial encounter Qualified Codes: S09.90XA - Unspecified injury of head, initial encounter Condition: Serious MELANY,TAMMY B. MD Dec 10, 2018 07:51
[2018-12-10] MEDS ORDERED: MEMA10TA ORAL (08:17)
[2018-12-10] MEDS ORDERED: RANO10002 ORAL (08:17)
[2018-12-10] MEDS ORDERED: BENA20TA4 ORAL (09:03)
[2018-12-10] MEDS ORDERED: GLIM1TAB2 PO (09:05)
[2018-12-10] MEDS ORDERED: AMLO2.5T78 ORAL (09:05)
[2018-12-10] MEDS ORDERED: APIX2.5T PO (09:06)
[2018-12-10] MEDS ORDERED: AMIO200T4 PO (09:09)
[2018-12-10] MEDS ORDERED: ERGO500013 ORAL (09:11)
[2018-12-10] MEDS ORDERED: ATOR-2 PO (09:11)
[2018-12-10] MEDS ORDERED: CARV3.12 PO (09:13)
[2018-12-10] MEDS ORDERED: BENAZEPRIL 20 MG TAB PO ONE (10:00)
[2018-12-10] MEDS ORDERED: AMLODIPINE 2.5 MG TAB PO ONE (10:00)
[2018-12-10] MEDS ORDERED: APIXABAN 5 MG TABLET PO ONE (10:00)
[2018-12-10] MEDS ORDERED: LOSARTAN 50 MG TAB PO ONE (10:00)
[2018-12-10] MEDS ORDERED: LABETALOL HCL 20MG INJ IV PRN (10:30)
[2018-12-10] MEDS ORDERED: DEXTROSE 50% 50 ML SYRINGE IV PRN ×2 (10:30)
[2018-12-10] MEDS ORDERED: ACETAMINOPHEN 325 MG TAB PO PRN ×2 (10:30)
[2018-12-10] MEDS ORDERED: GLUCOSE GEL 15 GRAM TUBE BUCCAL PRN (10:30)
[2018-12-10] MEDS ORDERED: NACL 0.9% 3 ML SYG IV SCH (10:30)
[2018-12-10] MEDS ORDERED: ONDANSETRON 4 MG INJ IV PRN (10:30)
[2018-12-10] MEDS ORDERED: GLUCAGON 1 MG INJ IM PRN (10:30)
[2018-12-10] MEDS ORDERED: GLUCOSE GEL 15 GRAM TUBE PO PRN ×2 (10:30)
[2018-12-10] MEDS ORDERED: HYDROCODONE/APAP (5/325) TAB PO PRN (10:30)
--- NOTE | 2018-12-10 10:59 | HP ---
Date/Time of Note Date/Time of Note DATE: 12/10/18 TIME: 10:59 Assessment/Plan VTE Prophylaxis Pharmacological prophylaxis: other Lines/Catheters IV Catheter Type (from Nrsg): Saline Lock Assessment/Plan Hospital Course Patient is a elderly male with past medical history significant for hypertension, COPD, anxiety, CKD, diabetes mellitus, hypothyroidism, A. fib on Eliquis who presents to [facility] for sudden onset lower extremity weakness subsequently having a fall on his head. Currently patient has minimal to no complaints except for inability to stand and ambulate well. Patient denies any chest pain, shortness of breath, headache, abdominal pain, issues with bowel or bladder. He also denies any nausea, vomiting, leg pain, denies any sensory or muscle disturbances in his upper extremity and also denies any sensory disturbances in his lower extremity. Patient states that he has some mild discomfort in the area of his head where he hit his head but denies headache. Patient has a history of cataract surgery and neck surgery with no metal implanted per patient and patient's son. Objective Physical exam General: Patient is laying in bed and answers questions appropriately Mentation: Patient is alert and oriented 4, Head: Normocephalic atraumatic Eyes: EOMI, pupils reactive to light Neck: Supple, nontender, midline Respiratory: Clear to auscultation bilaterally Cardiovascular: regular rate, no obvious murmurs Gastrointestinal: non-tender to palpation, bowel sounds heard. Neurological: Moves all extremities spontaneously, upper extremity has full sensation and muscle strength, lower extremity has 4-5 muscle strength, full sensation Skin: No new skin lesions Assessment and plan Hypertensive emergency -Patient has a history of hypertension and hypertensive emergency admission, patient's medications were reviewed at bedside were very confusing as patient has multiple bottles of the same medication as well as medications that were not consistent with the current med reconciliation. After speaking to son it is possible that patient may have been taking too much or too little of his medication leading to this issue -Will need to restart patient's medication that are more appropriate dose and ad just as needed, it will be very important for patient and patient's family to do a proper med reconciliation at discharge in order to make sure he is on the right medications Bilateral mild lower extremity weakness and gait deficiency -May be secondary to hypertensive emergency at this time, patient has no symptoms to suggest CVA as the very mild weakness in his lower extremity has bilateral, no complaints of focal neuro logical issues in the upper extremity or face. 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 -We will hold off on Eliquis for now given his acute hematoma, will restart once patient's hematoma begins to resolve Chronic kidney disease -Likely stable, nephrology consulted Diabetes mellitus -Insulin 1 house Hypothyroidism -Patient's medication bottles were duplicated at different doses, upon further deduction it can be assumed patient was on increased dose, restart as able, TSH pending Atrial fibrillation -Continue amiodarone and beta-stefan -Holding Eliquis for now as the risks of acute bleed due to acute superficial hematoma is fairly high risk given the acuity, will restart as soon as possible once hematoma is ensured stability. 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 Disposition -We will await nephrology and neurology consultation, will need to control patient's blood pressure before other etiologies of leg weakness are pursued, MRI pending Result Diagram: 12/10/18 0803 12/10/18 0803 Results 24hrs Laboratory Tests Test 12/10/18 08:03 White Blood Count 8.5 # Red Blood Count 3.73 L Hemoglobin 11.4 L Hematocrit 34.8 L Mean Corpuscular Volume 93.3 Mean Corpuscular Hemoglobin 30.6 Mean Corpuscular Hemoglobin Concent 32.8 Red Cell Distribution Width 13.2 Platelet Count 214 Mean Platelet Volume 9.2 Immature Granulocytes % 0.200 Neutrophils % 54.1 Lymphocytes % 36.3 Monocytes % 7.8 Eosinophils % 1.2 Basophils % 0.4 Nucleated Red Blood Cells % 0.0 Immature Granulocytes # 0.020 Neutrophils # 4.6 Lymphocytes # 3.1 H Monocytes # 0.7 Eosinophils # 0.1 Basophils # 0.0 Nucleated Red Blood Cells # 0.0 Prothrombin Time 16.3 H Prothrombin Time Ratio 1.3 INR International Normalized Ratio 1.30 Activated Partial Thromboplast Time 35.6 H Sodium Level 142 Potassium Level 4.1 Chloride Level 103 Carbon Dioxide Level 25 Anion Gap 14 H Blood Urea Nitrogen 36 H Creatinine 1.85 H Est Glomerular Filtrat Rate mL/min Glucose Level 125 Calcium Level 9.6 Total Bilirubin 0.5 Direct Bilirubin 0.00 Indirect Bilirubin 0.5 Aspartate Amino Transf (AST/SGOT) 17 Alanine Aminotransferase (ALT/SGPT) 23 Alkaline Phosphatase 45 Troponin I 0.024 Total Protein 7.0 Albumin 4.1 Globulin 2.90 Albumin/Globulin Ratio 1.41 Free Thyroxine Index 3.66 Thyroxine (T4) 9.5 Triiodothyronine (T3) Uptake 38.5 HPI/ROS Admit Date/Time Admit Date/Time PMH/Family/Social Past Medical History Medications Current Medications Ondansetron HCl (Zofran Inj) 4 mg ER BRIDGE PRN IV NAUSEA/VOMITING; Start 12/10/18 at 10:30; Stop 12/11/18 at 10:29 Acetaminophen (Tylenol Tab) 650 mg ER BRIDGE PRN PO .MILD PAIN 1-3 OR TEMP; Start 12/10/18 at 10:30; Stop 12/11/18 at 10:29 IV Flush (NS 3 ml) 3 ml PER PROTOCOL IV ; Start 12/10/18 at 10:30 Ondansetron HCl (Zofran Inj) 4 mg Q6H PRN IV NAUSEA/VOMITING; Start 12/10/18 at 10:30 Acetaminophen (Tylenol Tab) 650 mg Q6H PRN PO .PAIN 1-3 OR TEMP; Start 12/10/18 at 10:30 Acetaminophen/ Hydrocodone Bitart ([place] (5/325)) 1 tab Q6H PRN PO .PAIN 4-6; Start 12/10/18 at 10:30 Hydralazine HCl (Apresoline) 10 mg Q4H PRN IV sbp >160; Start 12/10/18 at 10:30 Labetalol HCl (Labetalol) 10 mg Q4H PRN IV sbp >160; Start 12/10/18 at 10:30 Diagnostic Test (Pha) (Accu-Chek) 1 ea 02 XX ; Start 12/11/18 at 02:00 Insulin Aspart (Novolog Insulin Pen) NOVOLOG *MILD* ALGORITHM WITH MEALS BEDTIME SC ; Start 12/10/18 at 12:00 Miscellaneous Information 1 ea NOTE XX ; Start 12/10/18 at 10:30 Glucose (Glutose) 15 gm Q15M PRN PO DECREASED GLUCOSE; Start 12/10/18 at 10:30 Glucose (Glutose) 22.5 gm Q15M PRN PO DECREASED GLUCOSE; Start 12/10/18 at 10:30 Dextrose (D50w Syringe) 25 ml Q15M PRN IV DECREASED GLUCOSE; Start 12/10/18 at 10:30 Dextrose (D50w Syringe) 50 ml Q15M PRN IV DECREASED GLUCOSE; Start 12/10/18 at 10:30 Glucagon (Glucagen) 1 mg Q15M PRN IM DECREASED GLUCOSE; Start 12/10/18 at 10:30 Glucose (Glutose) 15 gm Q15M PRN BUCCAL DECREASED GLUCOSE; Start 12/10/18 at 10:30 Amiodarone HCl (Cordarone) 200 mg BID PO ; Start 12/10/18 at 21:00; Status UNV Atorvastatin Calcium (Lipitor) 80 mg QHS PO ; Start 12/10/18 at 21:00; Status UNV Benazepril HCl (Lotensin) 20 mg BID PO ; Start 12/10/18 at 21:00; Status UNV Carvedilol (Coreg) 3.125 mg BID PO ; Start 12/10/18 at 21:00; Status UNV Clonazepam (Klonopin) 1 mg QHS PRN PO SLEEP; Start 12/10/18 at 11:00; Status UNV Docusate Sodium (Colace) 100 mg DAILY PO ; Start 12/11/18 at 09:00; Status UNV Ferrous Sulfate (Ferrous Sulfate (Ec)) 325 mg DAILY PO ; Start 12/11/18 at 09:00; Status UNV Levothyroxine Sodium (Synthroid) 75 mcg BEFORE BREAKFAST PO ; Start 12/11/18 at 07:00; Status UNV Tamsulosin HCl (Flomax) 0.4 mg HS PO ; Start 12/10/18 at 21:00; Status UNV Hydralazine HCl (Apresoline) 25 mg TID PO ; Start 12/10/18 at 12:00; Status UNV Ranolazine (Ranexa) 1,000 mg Q12H PO ; Start 12/10/18 at 11:00; Status UNV Coded Allergies: No Known Allergy (Unverified , 12/10/18) Past Surgical History Past Surgical Hx: no surgical history Family History Significant Family History: no pertinent family hx Social History Smoking Status: Never smoker Exam/Review of Systems Vital Signs Vitals Vital Signs Date Temp Pulse Resp B/P (MAP) Pulse Ox O2 O2 Flow FiO2 Time Delivery Rate 12/10/18 65 20 204/94 100 Room Air 08:33 (130) 12/10/18 98.9 08:12 ABEBA CASTANEDA Dec 10, 2018 10:59
[2018-12-10] MEDS ORDERED: RANOLAZINE (SR) 500 MG TAB PO SCH (11:00)
--- NOTE | 2018-12-10 12:24 | CONS ---
Assessment/Plan Assessment/Plan Hospital Course 83 yo M c/ multiple comorbidities, who presents for evaluation of bilateral lower limb weakness c/b falls. Notable is renal insufficiency, which could exacerbate gait instability.. As well, he has severely elevated blood pressures, which raises concern for an acute cerebrovascular process.. Head CT is notable for chronic lacunes...but is without obvious acute intracranial pathology. LDL 85 P: Await MRI brain to exclude acute ischemia OK to continue eliquis for now Continue lipitor daily for stroke prevention for now Await UA, Add UDS PT/OT/ST as necessary [place] OK Other management per primary Will follow clinically Consultation Date/Type/Reason Admit Date/Time Type of Consult Neurology Reason for Consultation weakness, falls Requesting Provider: ABEBA CASTANEDA Date/Time of Note DATE: 12/10/18 TIME: 12:24 Hx of Present Illness 83 yo M with hx of HTN, anxiety, afib, and other comorbidities who presents for evaluation of BLE weakness, fall, and head injury. History was obtained from pt and chart review. The pt did not lose consciousness. He also denies dizziness, lightheadedness, numbness/tingling, vision/speech changes, recent illness. He endorses compliance with all medications. He confirms the story below: Patient is a elderly male with past medical history significant for hypertension, COPD, anxiety, CKD, diabetes mellitus, hypothyroidism, A. fib on Eliquis who presents to [facility] for sudden onset lower extr emity weakness subsequently having a fall on his head. Currently patient has minimal to no complaints except for inability to stand and ambulate well. Patient denies any chest pain, shortness of breath, headache, abdominal pain, issues with bowel or bladder. He also denies any nausea, vomiting, leg pain, denies any sensory or muscle disturbances in his upper extremity and also denies any sensory disturbances in his lower extremity. Patient states that he has some mild discomfort in the area of his head where he hit his head but denies headache. Patient has a history of cataract surgery and neck surgery with no metal implanted per patient and patient's son. negative unless noted otherwise in HPI Exam/Review of Systems Exam Vitals Vital Signs Date Temp Pulse Resp B/P (MAP) Pulse Ox O2 O2 Flow FiO2 Time Delivery Rate 12/10/18 63 17 177/88 99 Room Air 11:52 (117) 12/10/18 98.9 08:12 Exam PE: Gen Appearance: No Apparent Distress HEENT: Normocephalic Cardiovascular: Regular rate Lungs: Clear bilaterally Abdomen: Soft Extremities: Dry NE: The patient was alert and oriented. Language was normal. Fund of knowledge was normal. Pupils were equal and reactive to light. There was no afferent pupillary defect. Visual murphy were normal. Funduscopic examination was limited. Extra-ocular movements were full. Ptosis was absent. There was no nystagmus. Facial sensation was normal. Face was symmetric with normal strength. Hearing was intact. Palate movements were normal. Neck strength was normal. There was normal tongue bulk and speed of movement. Tone was normal. Muscle bulk was normal. I did not see fasciculations. Arms and legs were strong to confrontation. Vibration sensation was normal. Temperature and pinprick sensation was normal. Rapid alternating movements were normal. There was no dysmetria. There was no intention tremor. Gait was deferred due to bedrest. Arm and leg reflexes were 2+ and symmetric. Saldana's sign was absent. Plantar responses were flexor. Results Result Diagram: 12/10/18 0803 12/10/18 0803 Results 24hrs Laboratory Tests Test 12/10/18 08:03 White Blood Count 8.5 # Red Blood Count 3.73 L Hemoglobin 11.4 L Hematocrit 34.8 L Mean Corpuscular Volume 93.3 Mean Corpuscular Hemoglobin 30.6 Mean Corpuscular Hemoglobin Concent 32.8 Red Cell Distribution Width 13.2 Platelet Count 214 Mean Platelet Volume 9.2 Immature Granulocytes % 0.200 Neutrophils % 54.1 Lymphocytes % 36.3 Monocytes % 7.8 Eosinophils % 1.2 Basophils % 0.4 Nucleated Red Blood Cells % 0.0 Immature Granulocytes # 0.020 Neutrophils # 4.6 Lymphocytes # 3.1 H Monocytes # 0.7 Eosinophils # 0.1 Basophils # 0.0 Nucleated Red Blood Cells # 0.0 Prothrombin Time 16.3 H Prothrombin Time Ratio 1.3 INR International Normalized Ratio 1.30 Activated Partial Thromboplast Time 35.6 H Sodium Level 142 Potassium Level 4.1 Chloride Level 103 Carbon Dioxide Level 25 Anion Gap 14 H Blood Urea Nitrogen 36 H Creatinine 1.85 H Est Glomerular Filtrat Rate mL/min Glucose Level 125 Calcium Level 9.6 Total Bilirubin 0.5 Direct Bilirubin 0.00 Indirect Bilirubin 0.5 Aspartate Amino Transf (AST/SGOT) 17 Alanine Aminotransferase (ALT/SGPT) 23 Alkaline Phosphatase 45 Troponin I 0.024 Total Protein 7.0 Albumin 4.1 Globulin 2.90 Albumin/Globulin Ratio 1.41 Triglycerides Level 108 Cholesterol Level 150 LDL Cholesterol, Calculated 85 HDL Cholesterol 43 Cholesterol/HDL Ratio 3.4 Free Thyroxine Index 3.66 Thyroxine (T4) 9.5 Triiodothyronine (T3) Uptake 38.5 Medications Medication Current Medications Ondansetron HCl (Zofran Inj) 4 mg ER BRIDGE PRN IV NAUSEA/VOMITING; Start 12/10/18 at 10:30; Stop 12/11/18 at 10:29 Acetaminophen (Tylenol Tab) 650 mg ER BRIDGE PRN PO .MILD PAIN 1-3 OR TEMP; Start 12/10/18 at 10:30; Stop 12/11/18 at 10:29 IV Flush (NS 3 ml) 3 ml PER PROTOCOL IV ; Start 12/10/18 at 10:30 Ondansetron HCl (Zofran Inj) 4 mg Q6H PRN IV NAUSEA/VOMITING; Start 12/10/18 at 10:30 Acetaminophen (Tylenol Tab) 650 mg Q6H PRN PO .PAIN 1-3 OR TEMP; Start 12/10/18 at 10:30 Acetaminophen/ Hydrocodone Bitart ([place] (5/325)) 1 tab Q6H PRN PO .PAIN 4-6; Start 12/10/18 at 10:30 Hydralazine HCl (Apresoline) 10 mg Q4H PRN IV sbp >160; Start 12/10/18 at 10:30 Labetalol HCl (Labetalol) 10 mg Q4H PRN IV sbp >160; Start 12/10/18 at 10:30 Diagnostic Test (Pha) (Accu-Chek) 1 ea 02 XX ; Start 12/11/18 at 02:00 Insulin Aspart (Novolog Insulin Pen) NOVOLOG *MILD* ALGORITHM WITH MEALS BEDTIME SC ; Start 12/10/18 at 12:00 Miscellaneous Information 1 ea NOTE XX ; Start 12/10/18 at 10:30 Glucose (Glutose) 15 gm Q15M PRN PO DECREASED GLUCOSE; Start 12/10/18 at 10:30 Glucose (Glutose) 22.5 gm Q15M PRN PO DECREASED GLUCOSE; Start 12/10/18 at 10:30 Dextrose (D50w Syringe) 25 ml Q15M PRN IV DECREASED GLUCOSE; Start 12/10/18 at 10:30 Dextrose (D50w Syringe) 50 ml Q15M PRN IV DECREASED GLUCOSE; Start 12/10/18 at 10:30 Glucagon (Glucagen) 1 mg Q15M PRN IM DECREASED GLUCOSE; Start 12/10/18 at 10:30 Glucose (Glutose) 15 gm Q15M PRN BUCCAL DECREASED GLUCOSE; Start 12/10/18 at 10:30 Amiodarone HCl (Cordarone) 200 mg BID PO ; Start 12/10/18 at 21:00 Atorvastatin Calcium (Lipitor) 80 mg QHS PO ; Start 12/10/18 at 21:00 Benazepril HCl (Lotensin) 20 mg BID PO ; Start 12/10/18 at 21:00 Carvedilol (Coreg) 3.125 mg BID PO ; Start 12/10/18 at 21:00 Clonazepam (Klonopin) 1 mg QHS PRN PO SLEEP; Start 12/10/18 at 11:00 Docusate Sodium (Colace) 100 mg DAILY PO ; Start 12/11/18 at 09:00 Ferrous Sulfate (Ferrous Sulfate (Ec)) 325 mg DAILY PO ; Start 12/11/18 at 09:00 Levothyroxine Sodium (Synthroid) 75 mcg BEFORE BREAKFAST PO ; Start 12/11/18 at 07:00 Tamsulosin HCl (Flomax) 0.4 mg HS PO ; Start 12/10/18 at 21:00 Hydralazine HCl (Apresoline) 25 mg TID PO ; Start 12/10/18 at 12:00 Ranolazine (Ranexa) 1,000 mg Q12H PO ; Start 12/10/18 at 11:00 Past Medical History reviewed Home Meds Active Scripts Losartan Potassium* (Losartan Potassium*) 50 Mg Tablet, 50 MG PO DAILY for 30 Days, TAB Prov:ANA LAI MD 09/26/16 Reported Medications Carvedilol* (Coreg*) 3.125 Mg Tablet, 3.125 MG PO BID, #60 TAB 12/10/18 Atorvastatin* (Atorvastatin*) 80 Mg Tablet, 80 MG PO QHS, #30 TAB 12/10/18 Ergocalciferol (Vitamin D2) (VITAMIN D2) 50,000 Unit Capsule, 1 CAP ORAL WEEKLY 12/10/18 Amiodarone Hcl* (Amiodarone Hcl*) 200 Mg Tablet, 200 MG PO BID, #60 TAB 12/10/18 Apixaban* (Eliquis*) 2.5 Mg Tablet, 2.5 MG PO BID, TAB 12/10/18 Glimepiride* (Glimepiride*) 1 Mg Tablet, 1 MG PO WITH BREAKFAST DINNE, TAB 12/10/18 Amlodipine Besylate* (Amlodipine Besylate*) 2.5 Mg Tablet, 1 TAB ORAL BID 12/10/18 Benazepril Hcl* (Benazepril Hcl*) 20 Mg Tablet, 1 TAB ORAL BID 12/10/18 Memantine* (Namenda*) 10 Mg Tablet, 1 TAB ORAL DAILY 12/10/18 Ranolazine* (Ranexa*) 1,000 Mg Tab.sr.12h, 1 TAB ORAL Q12H 12/10/18 Levothyroxine Sodium* (Levothyroxine Sodium*) 75 Mcg Tablet, 75 MCG PO BEFORE BREAKFAST, #30 TAB 05/03/18 Hydralazine Hcl* (Hydralazine Hcl*) 25 Mg Tab, 25 MG PO Q6, #120 TAB 05/03/18 Nitroglycerin* (Nitrostat*) 0.4 Mg Tab.subl, 0.4 MG SL Q5MIN PRN for CHEST PAIN, BOTTLE 09/21/16 Clonazepam* (Klonopin*) 1 Mg Tablet, 1 MG PO QHS PRN for SLEEP, TAB 09/21/16 Docusate Sodium* (Docusate Sodium*) 100 Mg Capsule, 100 MG PO DAILY, #60 CAP 06/22/16 Levothyroxine Sodium* (Levoxyl*) 50 Mcg Tablet, 50 MCG PO BEFORE BREAKFAST, #30 TAB 06/22/16 Tamsulosin Hcl* (Tamsulosin Hcl*) 0.4 Mg Cap.er.24h, 0.4 MG PO HS, CAP 06/22/16 Ferrous Sulfate* (Ferrous Sulfate*) 325 Mg Tabec, 325 MG PO DAILY, TAB 06/22/16 Isosorbide Mononitrate* (Isosorbide Mononitrate*) 120 Mg Tab.sr.24h, 120 MG PO DAILY, TAB.SA 06/22/16 Discontinued Reported Medications Sertraline Hcl* (Zoloft*) 25 Mg Tablet, 25 MG PO DAILY, #30 TAB 09/21/16 Albuterol Sulfate* (Ventolin HFA*) 18 Gm Hfa.aer.ad, 2 PUFF INHALATION Q6H, #1 INHALER 09/21/16 Amlodipine Besylate* (Norvasc*) 5 Mg Tablet, 5 MG PO BID, TAB 09/21/16 Carvedilol* (Coreg*) 6.25 Mg Tablet, 6.25 MG PO BID, #60 TAB 09/21/16 Apixaban* (Eliquis*) 5 Mg Tablet, 5 MG PO BID, TAB 06/22/16 Amiodarone Hcl* (Amiodarone Hcl*) 100 Mg Tablet, 100 MG PO BID, #30 TAB 06/22/16 Discontinued Scripts Clonidine Hcl* (Clonidine Hcl*) 0.1 Mg Tab, 1 TAB PO BID, #30 TAB Prov:TOOTIE MORFIN MD 05/06/18 Ascorbic Acid (Vitamin C) 500 Mg Tab, 500 MG PO BID for 30 Days, #60 TAB Prov:ANA LAI MD 09/26/16 Medications Current Medications Ondansetron HCl (Zofran Inj) 4 mg ER BRIDGE PRN IV NAUSEA/VOMITING; Start 12/10/18 at 10:30; Stop 12/11/18 at 10:29 Acetaminophen (Tylenol Tab) 650 mg ER BRIDGE PRN PO .MILD PAIN 1-3 OR TEMP; Start 12/10/18 at 10:30; Stop 12/11/18 at 10:29 IV Flush (NS 3 ml) 3 ml PER PROTOCOL IV ; Start 12/10/18 at 10:30 Ondansetron HCl (Zofran Inj) 4 mg Q6H PRN IV NAUSEA/VOMITING; Start 12/10/18 at 10:30 Acetaminophen (Tylenol Tab) 650 mg Q6H PRN PO .PAIN 1-3 OR TEMP; Start 12/10/18 at 10:30 Acetaminophen/ Hydrocodone Bitart ([place] (5/325)) 1 tab Q6H PRN PO .PAIN 4-6; Start 12/10/18 at 10:30 Hydralazine HCl (Apresoline) 10 mg Q4H PRN IV sbp >160; Start 12/10/18 at 10:30 Labetalol HCl (Labetalol) 10 mg Q4H PRN IV sbp >160; Start 12/10/18 at 10:30 Diagnostic Test (Pha) (Accu-Chek) 1 ea 02 XX ; Start 12/11/18 at 02:00 Insulin Aspart (Novolog Insulin Pen) NOVOLOG *MILD* ALGORITHM WITH MEALS BEDTIME SC ; Start 12/10/18 at 12:00 Miscellaneous Information 1 ea NOTE XX ; Start 12/10/18 at 10:30 Glucose (Glutose) 15 gm Q15M PRN PO DECREASED GLUCOSE; Start 12/10/18 at 10:30 Glucose (Glutose) 22.5 gm Q15M PRN PO DECREASED GLUCOSE; Start 12/10/18 at 10:30 Dextrose (D50w Syringe) 25 ml Q15M PRN IV DECREASED GLUCOSE; Start 12/10/18 at 10:30 Dextrose (D50w Syringe) 50 ml Q15M PRN IV DECREASED GLUCOSE; Start 12/10/18 at 10:30 Glucagon (Glucagen) 1 mg Q15M PRN IM DECREASED GLUCOSE; Start 12/10/18 at 10:30 Glucose (Glutose) 15 gm Q15M PRN BUCCAL DECREASED GLUCOSE; Start 12/10/18 at 10:30 Amiodarone HCl (Cordarone) 200 mg BID PO ; Start 12/10/18 at 21:00 Atorvastatin Calcium (Lipitor) 80 mg QHS PO ; Start 12/10/18 at 21:00 Benazepril HCl (Lotensin) 20 mg BID PO ; Start 12/10/18 at 21:00 Carvedilol (Coreg) 3.125 mg BID PO ; Start 12/10/18 at 21:00 Clonazepam (Klonopin) 1 mg QHS PRN PO SLEEP; Start 12/10/18 at 11:00 Docusate Sodium (Colace) 100 mg DAILY PO ; Start 12/11/18 at 09:00 Ferrous Sulfate (Ferrous Sulfate (Ec)) 325 mg DAILY PO ; Start 12/11/18 at 09:00 Levothyroxine Sodium (Synthroid) 75 mcg BEFORE BREAKFAST PO ; Start 12/11/18 at 07:00 Tamsulosin HCl (Flomax) 0.4 mg HS PO ; Start 12/10/18 at 21:00 Hydralazine HCl (Apresoline) 25 mg TID PO ; Start 12/10/18 at 12:00 Ranolazine (Ranexa) 1,000 mg Q12H PO ; Start 12/10/18 at 11:00 Allergies: Coded Allergies: No Known Allergy (Unverified , 12/10/18) Past Surgical History reviewed Past Surgical Hx: no surgical history Social History reviewed Smoking Status: Never smoker KEVIN MATHEWS NP Dec 10, 2018 12:24 ROMI ISAAC Dec 10, 2018 14:30
[2018-12-10] MEDS: RANOLAZINE (SR) 500 MG TAB PO SCH (14:10)
[2018-12-10] MEDS: INSULIN ASPART [NOVOLOG] 3 ML PEN SC SCH ×3 (14:11→21:00)
[2018-12-10 14:58] VITALS: Ht 170.2 cm; Wt 86.3 kg
[2018-12-10 15:30] VITALS: BP 190/92; PULSE 75; RESP 16
[2018-12-10] MEDS: ASPIRIN 81 MG TAB PO SCH (15:40)
[2018-12-10 16:02] VITALS: PULSE 79
--- NOTE | 2018-12-10 16:33 | CONS ---
DATE OF ADMISSION: 12/10/2018 DATE OF CONSULTATION: TYPE OF CONSULTATION: Nephrology. REASON FOR CONSULTATION: Acute kidney injury, chronic kidney disease. PHYSICIAN REQUESTING CONSULT: Abeba Laurent MD HISTORY OF PRESENT ILLNESS: This is an 83-year-old male with a past medical history of CKD with a ba seline creatinine of 1.4 to 1.6 mg/dL, history of hypertension, COPD, anxiety, diabetes, hypothyroidi sm, AFib, who presented to [facility] for sudden lower extremity weakness. The pat ient upon arrival to the emergency room was noted to be hypertensive with systolic pressures in the 2 00s. The patient was given antihypertensive medications and admitted to telemetry for evaluation. In terms of patient's renal history, the patient has underlying CKD. The patient states that he has a problem previously with his left kidney. The patient denies any hemoptysis, hematemesis. Denies a ny frothy urine, any rashes. PAST MEDICAL HISTORY: As stated above, history of hypertension, history of CKD, history of hypothyro idism, history of dementia, history of AFib, history of coronary artery disease, history of BPH. PAST SURGICAL HISTORY: None. FAMILY HISTORY: No family history of kidney disease. SOCIAL HISTORY: Does not drink, smoke or do drugs. MEDICATIONS: Have been reviewed. REVIEW OF SYSTEMS: A 14-point review of systems conducted. Pertinent positives stated in HPI, other clifford negative. PHYSICAL EXAMINATION: VITAL SIGNS: Blood pressure is 174/73, respirations 17, pulse 56, temperature 98.6. HEENT: Head is normocephalic. NECK: Supple. HEART: Regular rate. LUNGS: Show diminished breath sounds at the base. ABDOMEN: Soft, nontender to palpation. No rebound or guarding. EXTREMITIES: Negative for clubbing, cyanosis. No edema. DERMATOLOGIC: No rashes. MUSCULOSKELETAL: No joint effusion. NEUROLOGIC: No change in exam. LABORATORY DATA: From 12/10/2018 show sodium 142, potassium 4.1, BUN 36, creatinine 1.84. White cou nt 8.5, hemoglobin 11.4, platelet count is 214. IMAGING STUDIES: Reviewed. ASSESSMENT AND PLAN: This is an 83-year-old male who presents with: 1. Nonoliguric acute kidney injury with top of chronic kidney disease with previous baseline creatin ine around 1.4 to 1.6 mg/dL. Etiology of current acute kidney injury is likely due to hemodynamics, possible progression of chronic kidney disease. The possibility of tubular injury is consideration g iven patient's significant hypertension. Lower suspicion for acute glomerulonephritis or vasculitis. Plan is to do a full evaluation. We will check UA with microanalysis. We will check urine electro lytes, check a renal ultrasound. We would continue current blood pressure regimen and monitor closel y for any significant hemodynamic fluctuations. The patient currently is on AMANDA inhibitor. We will continue at this time; however, if renal function should further decline, we will consider holding or discontinuing AMANDA inhibitor. Otherwise, continue current treatment plan and renally dose all meds. 2. Anemia. Monitor hemoglobin and hematocrit levels. 3. Mineral bone disorder. Monitor calcium and phosphorus levels. 4. Hypertensive urgency, improving. Continue current blood pressure regimen. Avoid dropping blood pressure more than 25% in the first 24 hours. Monitor closely. 5. Bilateral lower extremity weakness. The patient's CT scan was negative for acute cerebrovascular accident. Continue to monitor. Follow up with neurology. MRI is pending. 6. Head hematoma. Continue to monitor. 7. Diabetes. Continue current insulin regimen. 8. Hypothyroidism. Continue Synthroid. 9. Atrial fibrillation. Continue medical management. 10. Dyslipidemia. Continue statin therapy. Thank you, Dr. Laurent, for this interesting consult. It will be a pleasure to follow the patient with césar hollingsworth throughout the hospital course. Dictated By: JULIETTE CHEEMA DO NR/NTS Conf#: [id number] DID#: [id number] CC: ABEBA LAURENT MD;*End*
[2018-12-10 20:00] VITALS: PULSE 76
[2018-12-10 20:13] VITALS: BP 151/70; PULSE 65; RESP 17
[2018-12-10] MEDS: AMIODARONE 200 MG TAB PO SCH (21:17)
[2018-12-10] MEDS: TAMSULOSIN (SR) 0.4 MG CAP PO SCH (21:18)
[2018-12-10] MEDS: BENAZEPRIL 20 MG TAB PO SCH (21:18)
[2018-12-11] VITALS (14 sets, daily range): BP systolic 69–202; BP diastolic 41–94; PULSE 56–97; RESP 16–19
[2018-12-11] MEDS: ATORVASTATIN 80 MG TAB PO SCH ×2 (00:29→20:00)
[2018-12-11] MEDS: RANOLAZINE (SR) 500 MG TAB PO SCH ×3 (00:49→22:44)
[2018-12-11] MEDS: ACCU-CHEK XX SCH (02:00)
[2018-12-11] MEDS: LEVOTHYROXINE 75 MCG TAB PO SCH (06:49)
[2018-12-11] MEDS: DOCUSATE SODIUM 100 MG CAP PO SCH (08:20)
[2018-12-11] MEDS: ASPIRIN 81 MG TAB PO SCH (08:20)
[2018-12-11] MEDS: FERROUS SULFATE (EC) 325 MG TAB PO SCH (08:21)
[2018-12-11] MEDS: BENAZEPRIL 20 MG TAB PO SCH ×2 (08:21→20:02)
[2018-12-11] MEDS: AMIODARONE 200 MG TAB PO SCH ×2 (08:21→20:02)
[2018-12-11] MEDS: INSULIN ASPART [NOVOLOG] 3 ML PEN SC SCH ×4 (08:29→20:02)
--- NOTE | 2018-12-11 10:43 | PN ---
DATE: 12/11/2018 SUBJECTIVE: The patient remains hypertensive, although slowly improving. No other events noted. No hemoptysis, hematemesis or hematochezia. OBJECTIVE: VITAL SIGNS: Blood pressure is 132/75, pulse 63, respirations 16, temperature 97.2. HEENT: Head is normocephalic. NECK: Supple. HEART: Regular rate. LUNGS: Show diminished breath sounds at the base. ABDOMEN: Soft, nontender to palpation without rebound or guarding. EXTREMITIES: Negative for clubbing, cyanosis, no edema. DERMATOLOGIC: No rashes. MUSCULOSKELETAL: No joint effusion. NEUROLOGIC: No change in exam. MEDICATIONS: Reviewed. LABORATORY DATA: Reviewed. IMAGING STUDIES: The patient's renal ultrasound has been reviewed, showed increased bilateral echoge nicity suggesting medical renal disease and mild bilateral renal cortical thinning, no obstructive ur opathy noted. ASSESSMENT AND PLAN: 1. Nonoliguric acute kidney injury on top of chronic kidney disease with previous baseline creatinin e of 1.4 to 1.6 mg/dL. Etiology of acute kidney injury is secondary to hemodynamics. The patient's renal ultrasound showed no evidence of obstruction. Increased echogenicity. The patient's urinalysi s is pending. Renal function has been fluctuating but overall stable. At this point, continue [facility] nt treatment plan, supportive care, and renally dose all medicines. 2. Chronic kidney disease etiology may be multifactorial secondary to age related nephron loss, long standing hypertension. Continue to treat acute kidney injury as stated above. Otherwise continue di sease factor modification. 3. Hypertension. Continue current blood pressure regimen. Defer any AMANDA inhibitor or ARB at this t mana, may be introduced once renal function is stable. 4. Anemia. Continue to monitor hemoglobin and hematocrit levels. 5. Mineral bone disorder, monitor calcium and phosphorus levels. 6. Lower extremity weakness, questionable TIA. Continue medical management. Follow up with neurolo gy. 7. Diabetes. Continue current insulin regimen. 8. Hypothyroidism. Continue Synthroid. 9. Atrial fibrillation. Continue medical management. 10. Dyslipidemia. Continue statin therapy. Dictated By: JULIETTE CHEEMA DO NR/NTS Conf#: [id number] DID#: [id number] CC: ABEBA CASTANEDA MD;*End*
--- NOTE | 2018-12-11 11:40 | CONS ---
Assessment/Plan Assessment/Plan Hospital Course 83 yo M c/ multiple comorbidities, who presents for evaluation of bilateral lower limb weakness c/b falls. Notable is renal insufficiency, which could exacerbate gait instability.. As well, he has severely elevated blood pressures, which raised concern for an acute cerebrovascular process..However, MRI brain is reassuringly negative for the same. UA/UDS neg P: PT/OT evaluations OK to resume angus [place] Other management per primary Will follow clinically Consultation Date/Type/Reason Admit Date/Time Dec 11, 2018 at 10:14 Type of Consult Neurology Reason for Consultation gait imbalance Requesting Provider: ABEBA CASTANEDA Date/Time of Note DATE: 12/11/18 TIME: 11:40 24 HR Interval Summary Free Text/Dictation Continues acute care. Pt continues to endorse weakness upon standing. Exam Vital Signs Vitals Vital Signs Date Temp Pulse Resp B/P (MAP) Pulse Ox O2 O2 Flow FiO2 Time Delivery Rate 12/11/18 74 08:01 12/11/18 97.2 16 132/75 96 07:21 (94) 12/10/18 Room Air 13:18 Intake and Output 12/10/18 12/10/18 12/11/18 1515:00 23:00 07:00 IntakeIntake Total 300 ml 200 ml OutputOutput Total 200 ml 400 ml BalanceBalance 100 ml -200 ml Exam PE: Gen Appearance: No Apparent Distress HEENT: Normocephalic Cardiovascular: Regular rate Lungs: Clear bilaterally Abdomen: Soft Extremities: Dry NE: The patient was alert and oriented. Language was normal. Fund of knowledge was normal. Pupils were equal and reactive to light. There was no afferent pupillary defect. Visual murphy were normal. Funduscopic examination was limited. Extra-ocular movements were full. Ptosis was absent. There was no nystagmus. Facial sensation was normal. Face was symmetric with normal strength. Hearing was intact. Palate movements were normal. Neck strength was normal. There was normal tongue bulk and speed of movement. Tone was normal. Muscle bulk was normal. I did not see fasciculations. Arms were strong to confrontation; Hip flexors, BLE flexion/extension, ankle flexion/dorsiflexion was strong and symmetric. Vibration sensation was normal. Temperature and pinprick sensation was normal. Rapid alternating movements were normal. There was no dysmetria. There was no intention tremor. Gait was deferred due to bedrest. Arm and leg reflexes were 2+ and symmetric. Saldana's sign was absent. Plantar responses were flexor. KEVIN MATHEWS NP Dec 11, 2018 11:40 ROMI ISAAC Dec 11, 2018 14:37
--- NOTE | 2018-12-11 14:38 | PN ---
Date/Time of Note Date/Time of Note DATE: 12/11/18 TIME: 14:35 Objective Vitals Vital Signs Date Temp Pulse Resp B/P (MAP) Pulse Ox O2 O2 Flow FiO2 Time Delivery Rate 12/11/18 66 12:01 12/11/18 97.5 16 127/67 95 11:55 (87) 12/10/18 Room Air 13:18 Intake and Output 12/10/18 12/10/18 12/11/18 1515:00 23:00 07:00 IntakeIntake Total 300 ml 200 ml OutputOutput Total 200 ml 400 ml BalanceBalance 100 ml -200 ml Results Result Diagram: 12/11/18 0550 12/11/18 0550 Medications Medications Current Medications IV Flush (NS 3 ml) 3 ml PER PROTOCOL IV ; Start 12/10/18 at 10:30 Ondansetron HCl (Zofran Inj) 4 mg Q6H PRN IV NAUSEA/VOMITING; Start 12/10/18 at 10:30 Acetaminophen (Tylenol Tab) 650 mg Q6H PRN PO .PAIN 1-3 OR TEMP; Start 12/10/18 at 10:30 Acetaminophen/ Hydrocodone Bitart (Odell (5/325)) 1 tab Q6H PRN PO .PAIN 4-6; Start 12/10/18 at 10:30 Hydralazine HCl (Apresoline) 10 mg Q4H PRN IV sbp >160; Start 12/10/18 at 10:30 Labetalol HCl (Labetalol) 10 mg Q4H PRN IV sbp >160; Start 12/10/18 at 10:30 Diagnostic Test (Pha) (Accu-Chek) 1 ea 02 XX ; Start 12/11/18 at 02:00 Insulin Aspart (Novolog Insulin Pen) NOVOLOG *MILD* ALGORITHM WITH MEALS BEDTIME SC Last administered on 12/11/18at 08:29; Admin Dose 1 UNIT; Start 12/10/18 at 12:00 Miscellaneous Information 1 ea NOTE XX ; Start 12/10/18 at 10:30 Glucose (Glutose) 15 gm Q15M PRN PO DECREASED GLUCOSE; Start 12/10/18 at 10:30 Glucose (Glutose) 22.5 gm Q15M PRN PO DECREASED GLUCOSE; Start 12/10/18 at 10:30 Dextrose (D50w Syringe) 25 ml Q15M PRN IV DECREASED GLUCOSE; Start 12/10/18 at 10:30 Dextrose (D50w Syringe) 50 ml Q15M PRN IV DECREASED GLUCOSE; Start 12/10/18 at 10:30 Glucagon (Glucagen) 1 mg Q15M PRN IM DECREASED GLUCOSE; Start 12/10/18 at 10:30 Glucose (Glutose) 15 gm Q15M PRN BUCCAL DECREASED GLUCOSE; Start 12/10/18 at 10:30 Amiodarone HCl (Cordarone) 200 mg BID PO Last administered on 12/11/18 08:21; Admin Dose 200 MG; Start 12/10/18 at 21:00 Atorvastatin Calcium (Lipitor) 80 mg QHS PO Last administered on 12/11/18 00:29; Admin Dose 80 MG; Start 12/10/18 at 21:00 Benazepril HCl (Lotensin) 20 mg BID PO Last administered on 12/11/18 08:21; Admin Dose 20 MG; Start 12/10/18 at 21:00 Carvedilol (Coreg) 3.125 mg BID PO Last administered on 12/11/18 08:21; Admin Dose 3.125 MG; Start 12/10/18 at 21:00 Clonazepam (Klonopin) 1 mg QHS PRN PO SLEEP; Start 12/10/18 at 11:00 Docusate Sodium (Colace) 100 mg DAILY PO Last administered on 12/11/18 08:20; Admin Dose 100 MG; Start 12/11/18 at 09:00 Ferrous Sulfate (Ferrous Sulfate (Ec)) 325 mg DAILY PO Last administered on 12/11/18 08:21; Admin Dose 325 MG; Start 12/11/18 at 09:00 Levothyroxine Sodium (Synthroid) 75 mcg BEFORE BREAKFAST PO Last administered on 12/11/18 06:49; Admin Dose 75 MCG; Start 12/11/18 at 07:00 Tamsulosin HCl (Flomax) 0.4 mg HS PO Last administered on 12/10/18 21:18; Admin Dose 0.4 MG; Start 12/10/18 at 21:00 Hydralazine HCl (Apresoline) 25 mg TID PO Last administered on 12/11/18 12:25; Admin Dose 25 MG; Start 12/10/18 at 12:00 Ranolazine (Ranexa) 1,000 mg Q12H PO Last administered on 12/11/18at 12:25; Admin Dose 1,000 MG; Start 12/10/18 at 11:00 Apixaban (Eliquis) 2.5 mg BID PO ; Start 12/12/18 at 09:00 VTE Prophylaxis Risk score (from Ns)>0 risk: 7 SCD applied (from [facility] [place]): Yes Lines/Catheters IV Catheter Type: Hdz in Place: No Assessment/Plan Hospital Course Subjective Patient has no new complaints still says that his legs are still weak but may be a little better. Objective Physical exam General: Patient is laying in bed and answers questions appropriately Mentation: Patient is alert and oriented 4, Head: Normocephalic atraumatic Eyes: EOMI, pupils reactive to light Neck: Supple, nontender, midline Respiratory: Clear to auscultation bilaterally Cardiovascular: regular rate, no obvious murmurs Gastrointestinal: non-tender to palpation, bowel sounds heard. Neurological: Moves all extremities spontaneously, upper extremity has full sensation and muscle strength, lower extremity has 4-5 muscle strength, full sensation Skin: No new skin lesions Assessment and plan Hypertensive emergency -Patient has a history of hypertension and hypertensive emergency admission, patient's medications were reviewed at bedside were very confusing as patient has multiple bottles of the same medication as well as medications that were not consistent with the current med reconciliation. After speaking to son it is possible that patient may have been taking too much or too little of his medication leading to this issue -Will need to restart patient's medication that are more appropriate dose and adjust as needed, it will be very important for patient and patient's family to do a proper med reconciliation at discharge in order to make sure he is on the right medications Bilateral mild lower extremity weakness and gait deficiency -Seems to be improving mildly, PT ordered -Neurology consulted, does not appear to be acute CVA after MRI returned -Neurology recommendations appreciated -MRI lumbar spine done, showing some severe stenosis, neurosurgeon has also been consulted to evaluate for possible surgery versus conservative treatment, will see patient later today -No emergency neurological symptoms of bowel or bladder dysfunction at this time, Head hematoma -Secondary to generalized lower extremity weakness and subsequent fall, CT negative for intracranial hemorrhage, however patient does have a palpable hematoma with no headache at this time. -Per neurology, okay to restart Eliquis, will restart tomorrow as patient received dose of aspirin today. 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 Disposition -PT OT, awaiting neurosurgical consultation. ABEBA CASTANEDA Dec 11, 2018 14:38
--- NOTE | 2018-12-11 17:58 | CONS ---
DATE OF ADMISSION: 12/11/2018 DATE OF CONSULTATION: 12/11/2018 TYPE OF CONSULTATION: Neurosurgical. REQUESTING PHYSICIAN: Nilesh Laurent MD INDICATION FOR CONSULTATION: Inability to walk and lumbar stenosis. HISTORY OF PRESENT ILLNESS: The patient is an 83-year-old right-handed male with history of hypertension, COPD, anxiety, chronic kidney disease, diabetes, hypothyroidism as well as atrial fibrillation on Eliquis, who came to [facility] with reports of sudden onset of weakness after falling on his head. The patient states that he has difficulty standing and walking since his fall. However, he does not report any radiating lower extremity pain, numbness, tingling or weakness. Denies any bowel or bladder issues and denies any saddle anesthesia. Also, denies any neck pain, upper extremity radiating pain, numbness, tingling or weakness. Again, he does not report any actual discomfort and states he can stand but feels difficulty in doing so. PAST MEDICAL HISTORY: Per HPI. PAST SURGICAL HISTORY: Significant for lipoma removed from his neck as well as cataract surgery. ALLERGIES: NO KNOWN DRUG ALLERGIES. PREADMISSION MEDICATIONS: Include: 1. Eliquis. 2. Lipitor. 3. Lotensin. 4. Coreg. 5. Synthroid. 6. . FAMILY HISTORY: No reported history of easy bruising or bleeding. SOCIAL HISTORY: The patient is a nonsmoker. PHYSICAL EXAMINATION: VITAL SIGNS: The patient's temperature is 98.1, pulse 66, respirations 16, blood pressure 152/73, saturating 99% on room air. GENERAL: The patient is an elderly, mildly obese male lying in the hospital bed in no acute distress. HEAD AND NECK: The patient is normocephalic and atraumatic. He has no Pitts sign, periorbital ecchymoses, otorrhea or rhinorrhea. NECK: Supple with no Spurling or Lhermitte's sign. MUSCULOSKELETAL: The patient has normal tone and bulk. He has no atrophy. Motor exam is 5/5 bilaterally in his upper and lower extremities including his biceps, triceps, wrist extension and shafting cleaner and in his lower extremity, iliopsoas, quadriceps, anterior tibialis, extensor hallucis longus and gastrocnemius. The patient has no palpable tenderness paraspinally or the midline from the base of the skull down to the sacrum. NEUROLOGIC: The patient is awake, alert and oriented x3, fluent speech, follows commands readily and appropriately. He has normal attention and concentration. Cranial nerves II through XII are serially tested and are intact. His deep tendon reflexes were 1+ throughout with no clonus, Babinski or Saldana sign. Sensation was grossly intact to light touch and proprioception. The patient was able to stand with assistance, appears to have poor balance. Although he is able to stand up on his own, he seemed so unsteady when attempting to take a step that he had to sit down again, though the patient did not express or endorse any significant weakness upon standing. He has a negative straight leg raise test bilaterally. LABORATORY DATA: The patient's white count is 7.3, hemoglobin 11.2, platelets were 219. His PT was 16.3, INR of 1.3, APTT of 35.6. The patient's sodium is 140, BUN and creatinine is 31 and 1.71 with a glucose of 111. REVIEW OF RADIOGRAPHIC RESULTS: I reviewed the patient's CT scan of the brain which showed no evidence of acute hemorrhage, transcortical infarction or mass effect and there are old lacunar infarcts and small vessel ischemic disease with mild cerebral volume loss. The patient's MRI of the brain showed similar findings of the CT scan with no acute compressive masses or lesions, no hydrocephalus or bleeding or brain edema. The patient's MRI of the lumbar spine shows age-related degenerative changes. There is a mild degenerative spondylolisthesis at L3 and L4 of 2 mm, a 6 mm anterolisthesis of L4 and L5 and 3 mm on L5 and S1. There are degenerative Modic type 2 changes of L3 to L4 through L5 to S1 with the most severe at L4 to L5. There is central canal stenosis and lateral recesses at L4 to L5 with the canal measuring approximately 6.8 mm. At L3 to L4 and L4 to L5, there is mild central and lateral recess stenosis and at L5 to S1, there is no central canal stenosis. There is facet arthropathy at all levels and neural foraminal stenosis, moderate at L3 to L4 and severe on the right at L4 to L5. ASSESSMENT AND PLAN: An 83-year-old male status post fall with difficulty walking. I discussed patient's signs, symptoms, physical examination and radiographic findings with him. It is not clear to me the etiology of the patient's complaints. He appears to have normal lower extremity strength on manual testing, though he appears to have significant difficulty with standing and maintaining balance. I do not see any weakness. The patient does not endorse any bowel or bladder issues or saddle anesthesia. The patient states that he 2 years ago he had some radiating pain down his left lower extremity, but received an epidural and his symptoms resolved and he has not had any symptoms since. Overall, he does not report any radicular symptoms nor does he had symptoms consistent with neurogenic claudication and does not report any back pain. I believe the patient's lumbar stenosis is likely asymptomatic and his presentation would not generally correspond with stenosis of this nature. It is possible the patient has some other etiology of his imbalance. He does not have any localizing thoracic signs nor signs of myelopathy on examination. I would not recommend surgical decompression of the patient's lumbar spine at this point in time. It is not clear to me that it would necessarily help in his unsteadiness. Again, the patient can clearly stand and appears to have normal lower extremity strength, but his balance appears to be the issue. One may consider an MRI of the cervical and thoracic spine, but in the absence of any signs of myelopathy and long tract signs, it will be difficult to explain the patient's difficulties purely based upon any stenosis seen. However, the patient is on Eliquis and it is possible the patient may be prone to bleeding and therefore, an MRI of the thoracic and cervical spine may be of benefit to rule out any cord signal change or compression. Therefore, this study should be performed, but in the absence of any significant findings, I do not see a target for any surgical intervention that may benefit the patient's current symptoms. Thank you for allowing me to participate in the care of this patient. Dictated By: SOLEDAD SIMPSON MD, LG/JOCELINE Conf#: [id number] DID#: [id number] CC: NILESH LAURENT MD;*EndCC* MTDD
[2018-12-11] MEDS: hydrALAzine 20 MG INJ IV PRN (19:57)
[2018-12-11] MEDS: TAMSULOSIN (SR) 0.4 MG CAP PO SCH (20:00)
[2018-12-12] VITALS (12 sets, daily range): BP systolic 99–178; BP diastolic 54–86; PULSE 57–71; RESP 16–18
[2018-12-12] MEDS: ACCU-CHEK XX SCH (02:00)
[2018-12-12] MEDS: LEVOTHYROXINE 75 MCG TAB PO SCH (06:02)
[2018-12-12] MEDS: ONDANSETRON 4 MG INJ IV PRN ×2 (06:33→10:51)
[2018-12-12] MEDS: INSULIN ASPART [NOVOLOG] 3 ML PEN SC SCH ×4 (07:41→20:15)
[2018-12-12] MEDS: BENAZEPRIL 20 MG TAB PO SCH ×2 (08:59→20:10)
[2018-12-12] MEDS: FERROUS SULFATE (EC) 325 MG TAB PO SCH (08:59)
[2018-12-12] MEDS: DOCUSATE SODIUM 100 MG CAP PO SCH (08:59)
[2018-12-12] MEDS: AMIODARONE 200 MG TAB PO SCH (09:00)
[2018-12-12] MEDS ORDERED: APIXABAN 5 MG TABLET PO SCH (09:00)
--- NOTE | 2018-12-12 09:43 | PN ---
DATE: 12/12/2018 SUBJECTIVE: The patient is stable. The patient continues to have orthostatic hypotension. No other acute events noted. OBJECTIVE: VITAL SIGNS: Blood pressure is 114/62, respirations 18, pulse 60, temperature 98.3. HEENT: Head is normocephalic. NECK: Supple. HEART: Regular rate. LUNGS: Show diminished breath sounds at the base. ABDOMEN: Soft, nontender to palpation. No rebound or guarding. EXTREMITIES: Negative for clubbing, cyanosis, no edema. DERMATOLOGIC: No rashes. MUSCULOSKELETAL: No joint effusion. NEUROLOGIC: No change in exam. MEDICATIONS: Reviewed. LABORATORY DATA: Reviewed. Creatinine 1.7, white count 7.4, hemoglobin 9.7. ASSESSMENT AND PLAN: 1. Nonoliguric acute kidney injury with previous baseline creatinine of around 1.4 to 1.6 mg/dL. Et iology of acute kidney injury is secondary to hemodynamics, possible AMANDA inhibitor effect. The patie nt's renal function has declined in the last 24 hours. At this point, we will continue to monitor cl osely. Continue AMANDA inhibitor for now. If renal function should further decline, consider discontin uing AMANDA inhibitor. Additionally, we would possibly consider obtaining a renal arterial ultrasound t o evaluate for renal artery stenosis. 2. Chronic kidney disease, etiology is multifactorial secondary to hypertensive nephrosclerosis and age-related nephron loss. The patient is currently in acute kidney injury as stated above. We would otherwise continue disease factor modification. 3. Hypertension. Blood pressure continues to fluctuate. Continue current blood pressure regimen. Monitor closely. 4. Anemia. Continue to monitor hemoglobin and hematocrit levels. 5. Mineral bone disorder, monitor calcium and phosphorus levels. 6. Lower extremity, questionable TIA. The patient is status post MRI, no evidence of acute cerebrov ascular accident. Continue to monitor. 7. Diabetes. Continue current insulin regimen. 8. Atrial fibrillation. Continue medical management. 9. Dyslipidemia. Continue statin therapy. 10. Lumbar spinal stenosis. The patient is evaluated by neurosurgery. No plan for intervention. Dictated By: JULIETTE MALDONADO/JOCELINE Conf#: [id number] DID#: [id number] CC: ABEBA CASTANEDA MD;*EndCC*
[2018-12-12] MEDS: RANOLAZINE (SR) 500 MG TAB PO SCH ×2 (10:51→23:31)
--- NOTE | 2018-12-12 11:39 | CONS ---
Assessment/Plan Assessment/Plan Hospital Course 83 yo M c/ multiple comorbidities, who presents for evaluation of bilateral lower limb weakness c/b falls. Notable is renal insufficiency, which could exacerbate gait instability.. Orthostatic vitals ++, a likely contributor.. MRI brain is reassuringly negative for acute ischemia.. UA/UDS neg P: PT/OT as necessary OK to resume eliquis for now; but may need to reconsider if PT is unable to rectify frequent falls.. Namenda OK Other management per primary Will follow clinically Consultation Date/Type/Reason Admit Date/Time Dec 11, 2018 at 10:14 Type of Consult Neurology Requesting Provider: ABEBA CASTANEDA Date/Time of Note DATE: 12/12/18 TIME: 11:39 24 HR Interval Summary Free Text/Dictation Continues acute care. Pt still endorses weakness. Seen by physical therapy yesterday. Exam Vital Signs Vitals Vital Signs Date Temp Pulse Resp B/P (MAP) Pulse Ox O2 O2 Flow FiO2 Time Delivery Rate 12/12/18 63 08:01 12/12/18 98.3 18 114/62 98 07:19 (79) 12/10/18 Room Air 13:18 Intake and Output 12/11/18 12/11/18 12/12/18 1515:00 23:00 07:00 IntakeIntake Total 850 ml 480 ml OutputOutput Total 500 ml BalanceBalance 850 ml -20 ml Exam PE: Gen Appearance: No Apparent Distress HEENT: Normocephalic Cardiovascular: Regular rate Lungs: Clear bilaterally Abdomen: Soft Extremities: Dry NE: The patient was alert and oriented. Language was normal. Impulsive. Fund of knowledge was normal. Pupils were equal and reactive to light. There was no afferent pupillary defect. Visual murphy were normal. Funduscopic examination was limited. Extra-ocular movements were full. Ptosis was absent. There was no nystagmus. Facial sensation was normal. Face was symmetric with normal strength. Hearing was intact. Palate movements were normal. Neck strength was normal. There was normal tongue bulk and speed of movement. Tone was normal. Muscle bulk was normal. I did not see fasciculations. Arms were strong to confrontation; Hip flexors, BLE flexion/extension, ankle flexion/dorsiflexion was strong and symmetric. Vibration sensation was normal. Temperature and pinprick sensation was normal. Rapid alternating movements were normal. There was no dysmetria. There was no intention tremor. Slight postural instability noted upon standing; gait was unsteady when ambulating with a 2 person assist. Arm and leg reflexes were 2+ and symmetric. Saldana's sign was absent. Plantar responses were flexor. KEVIN MATHEWS NP Dec 12, 2018 11:39 ROMI ISAAC Dec 12, 2018 14:28
--- NOTE | 2018-12-12 13:27 | CONS ---
Assessment/Plan Assessment/Plan Hospital Course (Demo Recall) Dizziness Hypertension with labile blood pressure Lower extremity weakness Atrial fibrillation on anticoagulation Preserved ejection fraction echocardiogram 2017 Diabetes Acute kidney injury -Patient presented with feeling dizzy and falling after getting up in the night to use the restroom. He also complains of lower extremity weakness. He is currently undergoing neurologic evaluation given the findings of his spinal MR imaging -Patient in atrial fibrillation on telemetry with heart rates currently in the upper 50s to low 60s. Patient also with labile blood pressure with episodes of hypertension and appears also episodes of hypotension with standing. -I would DC his hydralazine and continue his as needed medications. -Given his worsening creatinine, I will order IV fluids -Check echocardiogram -Patient is on amiodarone, he remains in atrial fibrillation, I would decrease the dose to daily. -If possible, consider DC Flomax Consultation Date/Type/Reason Admit Date/Time Dec 11, 2018 at 10:14 Type of Consult Cardiology Reason for Consultation Dizziness Date/Time of Note DATE: 12/12/18 TIME: 13:20 Hx of Present Illness This is an 83-year-old male with past medical history of atrial fibrillation, hypertension who presents with complaints of lower extremity weakness and fall. In discussion with son over the phone, patient got up in the morning to use the restroom. At that time, he became very weak in his legs and fell. It appears there was 2 episodes and there was head trauma. Unclear if any loss of consciousness. Patient was admitted for further evaluation and care. He was progressively feeling better with improved strength but did feel dizzy today. He tells me the symptoms of dizziness began after his MRI yesterday. He thinks possibly related to his insulin or his sugar. He tells me once he was given an injection today, he felt much better. Denies any current dizziness or lightheadedness, chest pain or shortness of breath. He denies exertional shortness of breath. He denies exertional chest pain. 12 point review of systems was performed with all pertinent positives and negatives mentioned above and all else is negative Past Medical History Atrial fibrillation Medical History: congestive heart failure, diabetes, hypertension Home Meds Active Scripts Losartan Potassium* (Losartan Potassium*) 50 Mg Tablet, 50 MG PO DAILY for 30 Days, TAB Prov:ANA LAI MD 09/26/16 Reported Medications Carvedilol* (Coreg*) 3.125 Mg Tablet, 3.125 MG PO BID, #60 TAB 12/10/18 Atorvastatin* (Atorvastatin*) 80 Mg Tablet, 80 MG PO QHS, #30 TAB 12/10/18 Ergocalciferol (Vitamin D2) (VITAMIN D2) 50,000 Unit Capsule, 1 CAP ORAL WEEKLY 12/10/18 Amiodarone Hcl* (Amiodarone Hcl*) 200 Mg Tablet, 200 MG PO BID, #60 TAB 12/10/18 Apixaban* (Eliquis*) 2.5 Mg Tablet, 2.5 MG PO BID, TAB 12/10/18 Glimepiride* (Glimepiride*) 1 Mg Tablet, 1 MG PO WITH BREAKFAST DINNE, TAB 12/10/18 Amlodipine Besylate* (Amlodipine Besylate*) 2.5 Mg Tablet, 1 TAB ORAL BID 12/10/18 Benazepril Hcl* (Benazepril Hcl*) 20 Mg Tablet, 1 TAB ORAL BID 12/10/18 Memantine* (Namenda*) 10 Mg Tablet, 1 TAB ORAL DAILY 12/10/18 Ranolazine* (Ranexa*) 1,000 Mg Tab.sr.12h, 1 TAB ORAL Q12H 12/10/18 Levothyroxine Sodium* (Levothyroxine Sodium*) 75 Mcg Tablet, 75 MCG PO BEFORE BREAKFAST, #30 TAB 05/03/18 Hydralazine Hcl* (Hydralazine Hcl*) 25 Mg Tab, 25 MG PO Q6, #120 TAB 05/03/18 Nitroglycerin* (Nitrostat*) 0.4 Mg Tab.subl, 0.4 MG SL Q5MIN PRN for CHEST PAIN, BOTTLE 09/21/16 Clonazepam* (Klonopin*) 1 Mg Tablet, 1 MG PO QHS PRN for SLEEP, TAB 09/21/16 Docusate Sodium* (Docusate Sodium*) 100 Mg Capsule, 100 MG PO DAILY, #60 CAP 06/22/16 Levothyroxine Sodium* (Levoxyl*) 50 Mcg Tablet, 50 MCG PO BEFORE BREAKFAST, #30 TAB 06/22/16 Tamsulosin Hcl* (Tamsulosin Hcl*) 0.4 Mg Cap.er.24h, 0.4 MG PO HS, CAP 06/22/16 Ferrous Sulfate* (Ferrous Sulfate*) 325 Mg Tabec, 325 MG PO DAILY, TAB 06/22/16 Isosorbide Mononitrate* (Isosorbide Mononitrate*) 120 Mg Tab.sr.24h, 120 MG PO DAILY, TAB.SA 06/22/16 Discontinued Reported Medications Sertraline Hcl* (Zoloft*) 25 Mg Tablet, 25 MG PO DAILY, #30 TAB 09/21/16 Albuterol Sulfate* (Ventolin HFA*) 18 Gm Hfa.aer.ad, 2 PUFF INHALATION Q6H, #1 INHALER 09/21/16 Amlodipine Besylate* (Norvasc*) 5 Mg Tablet, 5 MG PO BID, TAB 09/21/16 Carvedilol* (Coreg*) 6.25 Mg Tablet, 6.25 MG PO BID, #60 TAB 09/21/16 Apixaban* (Eliquis*) 5 Mg Tablet, 5 MG PO BID, TAB 06/22/16 Amiodarone Hcl* (Amiodarone Hcl*) 100 Mg Tablet, 100 MG PO BID, #30 TAB 06/22/16 Discontinued Scripts Clonidine Hcl* (Clonidine Hcl*) 0.1 Mg Tab, 1 TAB PO BID, #30 TAB Prov:TOOTIE MORFIN MD 05/06/18 Ascorbic Acid (Vitamin C) 500 Mg Tab, 500 MG PO BID for 30 Days, #60 TAB Prov:ANA LAI MD 09/26/16 Medications Current Medications IV Flush (NS 3 ml) 3 ml PER PROTOCOL IV ; Start 12/10/18 at 10:30 Ondansetron HCl (Zofran Inj) 4 mg Q6H PRN IV NAUSEA/VOMITING Last administered on 12/12/18at 10:51; Admin Dose 4 MG; Start 12/10/18 at 10:30 Acetaminophen (Tylenol Tab) 650 mg Q6H PRN PO .PAIN 1-3 OR TEMP; Start 12/10/18 at 10:30 Acetaminophen/ Hydrocodone Bitart ([place] (5/325)) 1 tab Q6H PRN PO .PAIN 4-6; Start 12/10/18 at 10:30 Hydralazine HCl (Apresoline) 10 mg Q4H PRN IV sbp >160 Last administered on 12/11/18at 19:57; Admin Dose 10 MG; Start 12/10/18 at 10:30 Labetalol HCl (Labetalol) 10 mg Q4H PRN IV sbp >160; Start 12/10/18 at 10:30 Diagnostic Test (Pha) (Accu-Chek) 1 ea 02 XX ; Start 12/11/18 at 02:00 Insulin Aspart (Novolog Insulin Pen) NOVOLOG *MILD* ALGORITHM WITH MEALS BEDTIME SC Last administered on 12/12/18at 11:04; Admin Dose 1 UNIT; Start 12/10/18 at 12:00 Miscellaneous Information 1 ea NOTE XX ; Start 12/10/18 at 10:30 Glucose (Glutose) 15 gm Q15M PRN PO DECREASED GLUCOSE; Start 12/10/18 at 10:30 Glucose (Glutose) 22.5 gm Q15M PRN PO DECREASED GLUCOSE; Start 12/10/18 at 10:30 Dextrose (D50w Syringe) 25 ml Q15M PRN IV DECREASED GLUCOSE; Start 12/10/18 at 10:30 Dextrose (D50w Syringe) 50 ml Q15M PRN IV DECREASED GLUCOSE; Start 12/10/18 at 10:30 Glucagon (Glucagen) 1 mg Q15M PRN IM DECREASED GLUCOSE; Start 12/10/18 at 10:30 Glucose (Glutose) 15 gm Q15M PRN BUCCAL DECREASED GLUCOSE; Start 12/10/18 at 10:30 Amiodarone HCl (Cordarone) 200 mg BID PO Last administered on 12/12/18at 09:00; Admin Dose 200 MG; Start 12/10/18 at 21:00 Atorvastatin Calcium (Lipitor) 80 mg QHS PO Last administered on 12/11/18at 20:00; Admin Dose 80 MG; Start 12/10/18 at 21:00 Benazepril HCl (Lotensin) 20 mg BID PO Last administered on 12/12/18at 08:59; Admin Dose 20 MG; Start 12/10/18 at 21:00 Carvedilol (Coreg) 3.125 mg BID PO Last administered on 12/12/18at 09:00; Admin Dose 3.125 MG; Start 12/10/18 at 21:00 Clonazepam (Klonopin) 1 mg QHS PRN PO SLEEP; Start 12/10/18 at 11:00 Docusate Sodium (Colace) 100 mg DAILY PO Last administered on 12/12/18 08:59; Admin Dose 100 MG; Start 12/11/18 at 09:00 Ferrous Sulfate (Ferrous Sulfate (Ec)) 325 mg DAILY PO Last administered on 12/12/18 08:59; Admin Dose 325 MG; Start 12/11/18 at 09:00 Levothyroxine Sodium (Synthroid) 75 mcg BEFORE BREAKFAST PO Last administered on 12/12/18 06:02; Admin Dose 75 MCG; Start 12/11/18 at 07:00 Tamsulosin HCl (Flomax) 0.4 mg HS PO Last administered on 12/11/18 20:00; Admin Dose 0.4 MG; Start 12/10/18 at 21:00 Ranolazine (Ranexa) 1,000 mg Q12H PO Last administered on 12/12/18 10:51; Admin Dose 1,000 MG; Start 12/10/18 at 11:00 Apixaban (Eliquis) 2.5 mg BID PO Last administered on 12/12/18 09:00; Admin Dose 2.5 MG; Start 12/12/18 at 09:00; Status Hold Hydralazine HCl (Apresoline) 10 mg TID PO ; Start 12/12/18 at 13:00 Allergies: Coded Allergies: No Known Allergy (Unverified , 12/10/18) Past Surgical History Past Surgical Hx: no surgical history Social History Smoking Status: Former smoker Exam/Review of Systems Vital Signs Vitals Vital Signs Date Temp Pulse Resp B/P (MAP) Pulse Ox O2 O2 Flow FiO2 Time Delivery Rate 12/12/18 62 12:01 12/12/18 98.1 18 99/54 (69) 100 11:58 12/10/18 Room Air 13:18 Intake and Output 12/11/18 12/11/18 12/12/18 1414:59 22:59 06:59 IntakeIntake Total 850 ml 480 ml OutputOutput Total 500 ml BalanceBalance 850 ml -20 ml Exam Constitutional: alert, oriented (No apparent distress) Neck: supple Respiratory: clear to auscultation, normal air movement Cardiovascular: irregular rhythm (S1-S2 heard) Gastrointestinal: soft, non-tender, bowel sounds Extremities: other (No significant edema) Labs Result Diagram: 12/12/18 0628 12/12/18 0628 Results 24hrs Laboratory Tests Test 12/11/18 17:41 12/11/18 19:50 12/12/18 06:28 12/12/18 07:38 Bedside Glucose 134 149 144 White Blood Count 7.4 Red Blood Count 3.87 L Hemoglobin 11.7 L Hematocrit 36.1 L Mean Corpuscular 93.3 Volume Mean Corpuscular 30.2 Hemoglobin Mean Corpuscular 32.4 Hemoglobin Concent Red Cell 13.3 Distribution Width Platelet Count 237 Mean Platelet Volume 9.6 Immature 0.300 Granulocytes % Neutrophils % 48.1 Lymphocytes % 44.2 Monocytes % 6.2 Eosinophils % 0.8 Basophils % 0.4 Nucleated Red Blood 0.0 Cells % Immature 0.020 Granulocytes # Neutrophils # 3.6 Lymphocytes # 3.3 H Monocytes # 0.5 Eosinophils # 0.1 Basophils # 0.0 Nucleated Red Blood 0.0 Cells # Sodium Level 139 Potassium Level 4.2 Chloride Level 100 Carbon Dioxide Level 26 Anion Gap 13 Blood Urea Nitrogen 36 H Creatinine 1.97 H Est Glomerular Filtrat Rate mL/min Glucose Level 139 Calcium Level 9.3 Phosphorus Level 4.4 Magnesium Level 1.8 Test 12/12/18 10:56 Bedside Glucose 145 Imaging Imaging ECG performed on the with atrial fibrillation at 62 bpm, anterior Q waves, QRS 116 ms, no significant ischemic ST abnormalities Medications Medications Current Medications IV Flush (NS 3 ml) 3 ml PER PROTOCOL IV ; Start 12/10/18 at 10:30 Ondansetron HCl (Zofran Inj) 4 mg Q6H PRN IV NAUSEA/VOMITING Last administered on 12/12/18at 10:51; Admin Dose 4 MG; Start 12/10/18 at 10:30 Acetaminophen (Tylenol Tab) 650 mg Q6H PRN PO .PAIN 1-3 OR TEMP; Start 12/10/18 at 10:30 Acetaminophen/ Hydrocodone Bitart ([place] (5/325)) 1 tab Q6H PRN PO .PAIN 4-6; Start 12/10/18 at 10:30 Hydralazine HCl (Apresoline) 10 mg Q4H PRN IV sbp >160 Last administered on 12/11/18at 19:57; Admin Dose 10 MG; Start 12/10/18 at 10:30 Labetalol HCl (Labetalol) 10 mg Q4H PRN IV sbp >160; Start 12/10/18 at 10:30 Diagnostic Test (Pha) (Accu-Chek) 1 ea 02 XX ; Start 12/11/18 at 02:00 Insulin Aspart (Novolog Insulin Pen) NOVOLOG *MILD* ALGORITHM WITH MEALS BEDTIME SC Last administered on 12/12/18at 11:04; Admin Dose 1 UNIT; Start 12/10/18 at 12:00 Miscellaneous Information 1 ea NOTE XX ; Start 12/10/18 at 10:30 Glucose (Glutose) 15 gm Q15M PRN PO DECREASED GLUCOSE; Start 12/10/18 at 10:30 Glucose (Glutose) 22.5 gm Q15M PRN PO DECREASED GLUCOSE; Start 12/10/18 at 10:30 Dextrose (D50w Syringe) 25 ml Q15M PRN IV DECREASED GLUCOSE; Start 12/10/18 at 10:30 Dextrose (D50w Syringe) 50 ml Q15M PRN IV DECREASED GLUCOSE; Start 12/10/18 at 10:30 Glucagon (Glucagen) 1 mg Q15M PRN IM DECREASED GLUCOSE; Start 12/10/18 at 10:30 Glucose (Glutose) 15 gm Q15M PRN BUCCAL DECREASED GLUCOSE; Start 12/10/18 at 10:30 Amiodarone HCl (Cordarone) 200 mg BID PO Last administered on 12/12/18at 09:00; Admin Dose 200 MG; Start 12/10/18 at 21:00 Atorvastatin Calcium (Lipitor) 80 mg QHS PO Last administered on 12/11/18at 20:00; Admin Dose 80 MG; Start 12/10/18 at 21:00 Benazepril HCl (Lotensin) 20 mg BID PO Last administered on 12/12/18at 08:59; Admin Dose 20 MG; Start 12/10/18 at 21:00 Carvedilol (Coreg) 3.125 mg BID PO Last administered on 12/12/18at 09:00; Admin Dose 3.125 MG; Start 12/10/18 at 21:00 Clonazepam (Klonopin) 1 mg QHS PRN PO SLEEP; Start 12/10/18 at 11:00 Docusate Sodium (Colace) 100 mg DAILY PO Last administered on 12/12/18at 08:59; Admin Dose 100 MG; Start 12/11/18 at 09:00 Ferrous Sulfate (Ferrous Sulfate (Ec)) 325 mg DAILY PO Last administered on 12/12/18 08:59; Admin Dose 325 MG; Start 12/11/18 at 09:00 Levothyroxine Sodium (Synthroid) 75 mcg BEFORE BREAKFAST PO Last administered on 12/12/18 06:02; Admin Dose 75 MCG; Start 12/11/18 at 07:00 Tamsulosin HCl (Flomax) 0.4 mg HS PO Last administered on 12/11/18at 20:00; Admin Dose 0.4 MG; Start 12/10/18 at 21:00 Ranolazine (Ranexa) 1,000 mg Q12H PO Last administered on 12/12/18at 10:51; Admin Dose 1,000 MG; Start 12/10/18 at 11:00 Apixaban (Eliquis) 2.5 mg BID PO Last administered on 12/12/18 09:00; Admin Dose 2.5 MG; Start 12/12/18 at 09:00; Status Hold Hydralazine HCl (Apresoline) 10 mg TID PO ; Start 12/12/18 at 13:00 Kody Morillo DO Dec 12, 2018 13:27
[2018-12-12] MEDS ORDERED: SOD CHLORIDE 0.9% 1,000 ML IV SCH (13:30)
--- NOTE | 2018-12-12 15:05 | PN ---
Date/Time of Note Date/Time of Note DATE: 12/12/18 TIME: 14:46 Objective Vitals Vital Signs Date Temp Pulse Resp B/P (MAP) Pulse Ox O2 O2 Flow FiO2 Time Delivery Rate 12/12/18 62 12:01 12/12/18 98.1 18 99/54 (69) 100 11:58 12/10/18 Room Air 13:18 Intake and Output 12/11/18 12/11/18 12/12/18 1515:00 23:00 07:00 IntakeIntake Total 850 ml 480 ml OutputOutput Total 500 ml BalanceBalance 850 ml -20 ml Results Result Diagram: 12/12/1828 12/12/18627 Medications Medications Current Medications IV Flush (NS 3 ml) 3 ml PER PROTOCOL IV ; Start 12/10/18 at 10:30 Ondansetron HCl (Zofran Inj) 4 mg Q6H PRN IV NAUSEA/VOMITING Last administered on 12/12/18at 10:51; Admin Dose 4 MG; Start 12/10/18 at 10:30 Acetaminophen (Tylenol Tab) 650 mg Q6H PRN PO .PAIN 1-3 OR TEMP; Start 12/10/18 at 10:30 Acetaminophen/ Hydrocodone Bitart ([place] (5/325)) 1 tab Q6H PRN PO .PAIN 4-6; Start 12/10/18 at 10:30 Hydralazine HCl (Apresoline) 10 mg Q4H PRN IV sbp >160 Last administered on 12/11/18at 19:57; Admin Dose 10 MG; Start 12/10/18 at 10:30 Labetalol HCl (Labetalol) 10 mg Q4H PRN IV sbp >160; Start 12/10/18 at 10:30 Diagnostic Test (Pha) (Accu-Chek) 1 ea 02 XX ; Start 12/11/18 at 02:00 Insulin Aspart (Novolog Insulin Pen) NOVOLOG *MILD* ALGORITHM WITH MEALS BEDTIME SC Last administered on 12/12/18at 11:04; Admin Dose 1 UNIT; Start 12/10/18 at 12:00 Miscellaneous Information 1 ea NOTE XX ; Start 12/10/18 at 10:30 Glucose (Glutose) 15 gm Q15M PRN PO DECREASED GLUCOSE; Start 12/10/18 at 10:30 Glucose (Glutose) 22.5 gm Q15M PRN PO DECREASED GLUCOSE; Start 12/10/18 at 10:30 Dextrose (D50w Syringe) 25 ml Q15M PRN IV DECREASED GLUCOSE; Start 12/10/18 at 10:30 Dextrose (D50w Syringe) 50 ml Q15M PRN IV DECREASED GLUCOSE; Start 12/10/18 at 10:30 Glucagon (Glucagen) 1 mg Q15M PRN IM DECREASED GLUCOSE; Start 12/10/18 at 10:30 Glucose (Glutose) 15 gm Q15M PRN BUCCAL DECREASED GLUCOSE; Start 12/10/18 at 10:30 Atorvastatin Calcium (Lipitor) 80 mg QHS PO Last administered on 12/11/18 20:00; Admin Dose 80 MG; Start 12/10/18 at 21:00 Benazepril HCl (Lotensin) 20 mg BID PO Last administered on 12/12/18 08:59; Admin Dose 20 MG; Start 12/10/18 at 21:00 Carvedilol (Coreg) 3.125 mg BID PO Last administered on 12/12/18 09:00; Admin Dose 3.125 MG; Start 12/10/18 at 21:00 Clonazepam (Klonopin) 1 mg QHS PRN PO SLEEP; Start 12/10/18 at 11:00 Docusate Sodium (Colace) 100 mg DAILY PO Last administered on 12/12/18 08:59; Admin Dose 100 MG; Start 12/11/18 at 09:00 Ferrous Sulfate (Ferrous Sulfate (Ec)) 325 mg DAILY PO Last administered on 12/12/18 08:59; Admin Dose 325 MG; Start 12/11/18 at 09:00 Levothyroxine Sodium (Synthroid) 75 mcg BEFORE BREAKFAST PO Last administered on 12/12/18 06:02; Admin Dose 75 MCG; Start 12/11/18 at 07:00 Tamsulosin HCl (Flomax) 0.4 mg HS PO Last administered on 12/11/18 20:00; Admin Dose 0.4 MG; Start 12/10/18 at 21:00 Ranolazine (Ranexa) 1,000 mg Q12H PO Last administered on 12/12/18 10:51; Admin Dose 1,000 MG; Start 12/10/18 at 11:00 Apixaban (Eliquis) 2.5 mg BID PO Last administered on 12/12/18at 09:00; Admin Dose 2.5 MG; Start 12/12/18 at 09:00; Status Hold Sodium Chloride 1,000 ml @ 50 mls/hr Q20H IV Last administered on 12/12/18at 14:34; Admin Dose 50 MLS/HR; Start 12/12/18 at 13:30; Stop 12/13/18 at 09:29 Amiodarone HCl (Cordarone) 200 mg DAILY PO ; Start 12/13/18 at 09:00 Sodium Chloride 1,000 ml @ 70 mls/hr [id number] IV ; Start 12/12/18 at 13:30; Stop 12/13/18 at 10:55 VTE Prophylaxis Risk score (from Ns)>0 risk: 4 [place] [facility] [place] Lines/Catheters IV Catheter Type: Hdz in Place: No Assessment/Plan Hospital Course Subjective Patient had episode of nausea and vomiting was standing up, orthostatic hypotension was observed. Objective Physical exam General: Patient is laying in bed and answers questions appropriately Mentation: Patient is alert and oriented 4, Head: Normocephalic atraumatic Eyes: EOMI, pupils reactive to light Neck: Supple, nontender, midline Respiratory: Clear to auscultation bilaterally Cardiovascular: regular rate, no obvious murmurs Gastrointestinal: non-tender to palpation, bowel sounds heard. Neurological: Moves all extremities spontaneously, upper extremity has full sensation and muscle strength, lower extremity has 4-5 muscle strength, full sensation Skin: No new skin lesions Assessment and plan Hypertensive emergency -Patient has a history of hypertension and hypertensive emergency admission, patient's medications were reviewed at bedside were very confusing as patient has multiple bottles of the same medication as well as medications that were not consistent with the current med reconciliation. After speaking to son it is po ssible that patient may have been taking too much or too little of his medication leading to this issue -Will need to restart patient's medication that are more appropriate dose and adjust as needed, it will be very important for patient and patient's family to do a proper med reconciliation at discharge in order to make sure he is on the right medications Orthostatic hypotension -This may be related to above hypertensive emergency as patient may have been taking more or less of his medications causing a rebound blood pressure issue. Will need to closely monitor and adjust medications as needed -Cardiology consulted, will stop hydralazine for now -Neurology also on board, -hopefully this is not a issue of chronic venous issues and resolves as patient was ambulatory before admission -PT to continue working with patient, patient is also very compulsive and is not following directions to take some time between transferring from supine, to sitting, to standing. Bilateral mild lower extremity gait deficiency -Appears to be more of a balancing issue more so than weakness, patient diagno sed with hypotensive orthostasis -Neurology consulted, does not appear to be acute CVA after MRI returned -Neurology recommendations appreciated -MRI lumbar spine done, showing some severe stenosis, neurosurgeon has also been consulted, also ordered MRI thoracic spine and cervical, I doubt there is any surgical correction needed however will defer to neurosurgeon recommendations with the multiple findings on the MRI of the spine. -No emergency neurological symptoms of bowel or bladder dysfunction at this time, Head hematoma -Secondary to generalized lower extremity weakness and subsequent fall, CT negative for intracranial hemorrhage, however patient does have a palpable hematoma with no headache at this time. -Per neurology, okay to restart Eliquis, however due to his acute gait instabil ity as well as his orthostatic hypotension, will hold off on Eliquis for now Chronic kidney disease -Likely stable, nephrology consulted, recommendations appreciated, will continue AMANDA inhibitor for now, with close monitoring Diabetes mellitus -Insulin while in house Hypothyroidism -Patient's medication bottles were duplicated at different doses, upon further deduction it can be assumed patient was on increased dose, restart as able Atrial fibrillation -Continue amiodarone and beta-stefan, adjust doses according to brooch and bracelet maker -Continue Eliquis once gait instability has been corrected Dyslipidemia -Continue atorvastatin Questionable history of TIA -Spoke to son, patient's may have had a symptoms of TIA versus another hypertensive emergency recently at another hospital, it is not confirmed patient had TIA, however 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 Questionable adrenal nodule -Likely incidental will need to workup, pheochromocytoma/adrenal insufficiency is a distant unlikely cause of orthostatic hypotension for this particular patient however with this finding will follow up with MRI if repeat abdominal MRI is appropriate, or if MRI thoracic would be the same picture, CT with adrenal protocol cannot be done due to patient's renal function. Patient's questionable liver and spleen pathologies found on MRI as well but will need to follow-up with the radiologist to see which scans are appropriate Disposition -workup for orthostatic hypotension and gait imbalances, medication non-co mpliance (associated with abrupt restart of some home medications he was taken off may be responsible), patient's unreliable history as he does have some dementia so cannot confirm nor deny appropriate medications. We will need to continue to observe and titrate medications as tolerated. ABEBA CASTANEDA Dec 12, 2018 15:00
--- NOTE | 2018-12-12 15:51 | RADRPT ---
Echocardiogram Report Patient Name: Karthik EUGENE ID: [id number] : 1935 (83y 9m)Study Date: 12/12/2018 2:07:09 PM Gender: MAccession #: [id number] Tech: Jimbo [facility] Location: [facility] Ref.Physician: KODY MORILLO Height(Cm): BSA: Weight(Kg): Quality: AdequateAccount #: Procedures: Echocardiographic Report: Transthoracic echocardiogram with complete 2D, M-Mode, and doppler examination. Indications: Hypertension, A.S. Measurements: 2D/M Mode Doppler Measurement Value Normal Range Measurement Value Normal Range LVIDd 2D 4.8 [ 4.2 - 5.8 ] cm CAMERON Vmax 0.8 [ 2.0 - 4.0 ] cm2 LVIDs 2D 3.0 [ 2.5 - 4.0 ] cm CAMERON VTI 0.9 [ 2.0 - 4.0 ] cm2 LVPWd 2D 1.3 [ 0.6 - 1.0 ] cm AV Mean Jarad 2.5 [ 70.0 - 90.0 ] cm/sec IVSd 2D 1.3 [ 0.6 - 1.0 ] cm AV Mean PG 30.0 [ 2.0 - 4.0 ] mmHg IVS/LVPW 2D 1.0 ratio AV Peak Jarad 3.6 [ 100.0 - 170.0 ] cm/sec AoR Diam 2D 3.3 [ 2.6 - 3.4 ] cm AV Peak PG 52.0 [ 2.0 - 9.0 ] mmHg LA/Ao 2D 1 ratio AV VTI 78.9 cm LA Dimen 2D 4.8 [ 3.0 - 4.0 ] cm LVOT Peak Jarad 0.9 [ 70.0 - 110.0 ] cm/sec LVOT Area 3.1 cm2 LVOT Peak PG 3.0 [ 2.0 - 6.0 ] mmHg MV E Peak Jarad 0.9 [ 60.0 - 130.0 ] cm/sec MV A Peak Jarad 0.3 [ 100.0 - 120.0 ] cm/sec MV E/A 3.4 [ 0.8 - 1.5 ] ratio MV Decel Time 250 [ 104 - 258 ] msec Lat E` Jarad 0.1 [ 10.0 - 15.0 ] cm/sec MV E/A 3.4 [ 0.8 - 1.5 ] ratio TR Peak Jarad 2.8 [ 100.0 - 280.0 ] cm/sec TR Peak PG 31.0 mmHg RVSP 34.0 [ 10.0 - 36.0 ] mmHg Findings: Left Ventricle: Normal left ventricular systolic function. Normal left ventricular cavity size. Mild concentric left ventricular hypertrophy. Ejection fraction is visually estimated at 65 %. Abnormal Diastolic Function. Right Ventricle: Normal right ventricular systolic function. Mild enlargement of right ventricle. Left Atrium: There is moderate enlargement of left atrium. Right Atrium: There is mild enlargement of right atrium. Mitral Valve: Mild mitral leaflet calcification. Mild mitral annular calcification. Mild mitral valve regurgitation. Aortic Valve: Moderate to severe aortic stenosis. Mean PG 29.00 mmHg. Aortic cusps appear moderately calcified. Mild aortic valve regurgitation. Tricuspid Valve: Normal appearance of the tricuspid valve. Estimated peak PA systolic pressure 34 mmHg. There is mild tricuspid regurgitation. Pulmonic Valve: Normal pulmonic valve appearance. There is mild pulmonic regurgitation. Pericardium: Normal pericardium with no significant pericardial effusion. Aorta: Normal aortic root. IVC: Normal size and normal respiratory collapse consistent with normal right atrial pressure. Conclusions: Normal left ventricular systolic function. Normal left ventricular cavity size. Mild concentric left ventricular hypertrophy. Ejection fraction is visually estimated at 65 %. Abnormal Diastolic Function. Normal right ventricular systolic function. Mild enlargement of right ventricle. There is moderate enlargement of left atrium. There is mild enlargement of right atrium. Moderate to severe aortic stenosis. Mild aortic valve regurgitation. Mild mitral valve regurgitation. There is mild tricuspid regurgitation. Normal pericardium with no significant pericardial effusion. Electronically Signed By: Kody Morillo 2018-12-12 15:50:13 PDT
[2018-12-12] MEDS: SOD CHLORIDE 0.9% 1,000 ML IV SCH (18:24)
[2018-12-12] MEDS: TAMSULOSIN (SR) 0.4 MG CAP PO SCH (20:08)
[2018-12-12] MEDS: ATORVASTATIN 80 MG TAB PO SCH (20:10)
--- NOTE | 2018-12-12 22:19 | CONS ---
DATE OF ADMISSION: 12/11/2018 DATE OF CONSULTATION: 12/12/2018 SUBJECTIVE: The patient remained stable. He denies any neck pain, numbness, tingling, bowel or bladder issues or low back pain or radiating pain down his upper or lower extremities. He still reports some generalized unsteadiness when standing and trying to walk. OBJECTIVE: VITAL SIGNS: The patient's temperature is 98.6, pulse 60, respirations 18, blood pressure 125/62, saturating 98% on room air. NEUROLOGIC: The patient's neurologic exam is unchanged. His lower extremity motor strength is grossly 5/5. Bimanual testing does not appear to have any long tract signs or hyperreflexia. REVIEW OF RADIOGRAPHIC RESULTS: The patient had an MRI of the cervical, thoracic spine present. I do not see any cord signal change or compression or significant stenosis of the thoracic spine, no evidence of any acute fracture or subluxation. The patient's MRI of the cervical spine shows degenerative changes appropriate for his age. There is some stenosis at the C4-C5, C6-C7, and C7-T1 levels, though I would characterize this stenosis as mild and not severe. The stenosis, appears to be between 8 and 9 mm. The radiologist reports he may see some cord signal change at the C7-T1 level, though I did not appreciate this and it appears difficult to state as there was some motion artifact from the patient. There is also slight subluxation that appears to be degenerative. I do not see evidence of any edema, swelling or blood to suggest ligamentous injury. ASSESSMENT AND PLAN: An 83-year-old male with lower extremity perceived weakness and imbalance. I discussed with the patient's signs, symptoms, physical examination and radiographic findings. I had a discussion with the patient's son explaining the nature of patient's symptoms and workup. I explained that it may be possible the patient did have a slight spinal cord injury or an irritated spinal cord with this fall, though I believe this probably did not happen is not the case with the patient's symptoms. He did not appear to have any long tract signs or other signs or symptoms of myelopathy. I do not have any neck pain to suggest ligamentous instability, nor does he have any radicular symptoms. Overall, he has mild stenosis. I do not believe the patient had a preexisting myelopathy. Given the multiple medical problems with fairly specific symptomatology without evidence or other symptoms that would generally be associated with myelopathy, I do not believe there is an indication for surgical decompression. Should the patient's symptoms progressed, and is not another alternative etiology then perhaps surgical decompression could be considered, but for the most part, I believe with such a clinical mild injury that occurred this should also improve with time. Again, I did not perceive any instability or ligamentous injury, though there is a slight spondylolisthesis. Flexion and extension x-rays could be performed at that level, though this level was very difficult to visualize, and the utility of such imaging is likely to be minimal though this will be ordered. I do not believe the patient's lumbar stenosis is likely the source of his acute difficulty with walking, but again should the patient's symptoms progress over time or develop other symptoms consistent with neurogenic claudication or radiculopathy then, a surgical decompression could be a consideration for treatment of such symptoms. In summary, I believe the etiology of the patient's symptoms is likely not related to his neck or his lumbar spine as an alternative etiology. Nevertheless, should the patient's symptoms progress or develop new symptoms that suggest myelopathy or neurogenic claudication or radiculopathy, then reevaluation for a surgical decompression may be reasonable. The patient's son expressed understanding and agreement with these recommendations. Dictated By: SOLEDAD SIMPSON MD, LG/JOCELINE Conf#: [id number] DID#: [id number] CC: ABEBA CASTANEDA MD;*EndCC* MTDD
[2018-12-12] MEDS: hydrALAzine 20 MG INJ IV PRN (23:25)
[2018-12-13] VITALS (13 sets, daily range): BP systolic 115–186; BP diastolic 65–86; PULSE 57–70; RESP 18–20
[2018-12-13] MEDS: ACCU-CHEK XX SCH (02:00)
[2018-12-13] MEDS: SOD CHLORIDE 0.9% 1,000 ML IV SCH (03:48)
[2018-12-13] MEDS: LEVOTHYROXINE 75 MCG TAB PO SCH (06:21)
[2018-12-13] MEDS: INSULIN ASPART [NOVOLOG] 3 ML PEN SC SCH ×4 (07:55→21:00)
[2018-12-13] MEDS: DOCUSATE SODIUM 100 MG CAP PO SCH (09:00)
--- NOTE | 2018-12-13 09:33 | PN ---
DATE: 12/13/2018 SUBJECTIVE: The patient continues to have hypotension with blood pressure fluctuations. No other ev ents noted. OBJECTIVE: VITAL SIGNS: Blood pressure is 175/81, respirations 20, pulse 60, temperature 98.8. HEENT: Head is normocephalic. NECK: Supple. HEART: Regular rate. LUNGS: Show diminished breath sounds at the base. ABDOMEN: Soft, nontender to palpation without rebound or guarding. EXTREMITIES: Negative for clubbing, cyanosis, no edema. DERMATOLOGIC: No rashes. MUSCULOSKELETAL: No joint effusion. NEUROLOGIC: No change in exam. MEDICATIONS: Reviewed. LABORATORY DATA: Shows sodium 140, BUN 36, creatinine 1.83. White count 8.3, hemoglobin 10.7, plate let count is 222. ASSESSMENT AND PLAN: 1. Nonoliguric acute kidney injury with previous baseline creatinine of 1.4 to 1.6 mg/dL. Etiology of acute kidney injury is multifactorial secondary to hemodynamics. The patient's renal function sanchez s improved in last 24 hours. The patient did receive a course of IV fluids. At this point, we would continue current treatment plan. Continue on AMANDA inhibitor for now, monitor renal function closely. Attempt to avoid significant hemodynamic fluctuations. 2. 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 The patient is currently in acute kidney injury as stated above. We would otherwise continue disease factor modification. 3. Hypertension. Blood pressure continues to be labile and fluctuate. Blood pressure regimen has b een adjusted per primary team and cardiology. We will continue to monitor. 4. Anemia. Continue to monitor hemoglobin and hematocrit levels. 5. Mineral bone disorder, monitor calcium and phosphorus levels. 6. Lower extremity weakness, questionable TIA. The patient is status post MRI, no evidence of acute CVA. Neurosurgery evaluated the patient. Wee will continue to monitor. 7. Diabetes. Continue current insulin regimen. 8. Atrial fibrillation. Continue medical management. 9. Dyslipidemia. Continue statin therapy. 10. Lumbar spinal stenosis. Continue to monitor. Dictated By: JULIETTE CHEEMA DO NR/NTS Conf#: [id number] DID#: [id number] CC: ABEBA CASTANEDA MD;*EndCC*
[2018-12-13] MEDS: FERROUS SULFATE (EC) 325 MG TAB PO SCH (09:45)
[2018-12-13] MEDS: BENAZEPRIL 20 MG TAB PO SCH ×2 (09:45→20:24)
[2018-12-13] MEDS: AMIODARONE 200 MG TAB PO SCH (09:45)
[2018-12-13] MEDS ORDERED: NIFEdipine (XL) 30 MG TAB PO SCH (12:00)
[2018-12-13] MEDS: RANOLAZINE (SR) 500 MG TAB PO SCH ×2 (12:04→21:33)
[2018-12-13] MEDS: ONDANSETRON 4 MG INJ IV PRN ×2 (12:04→20:27)
[2018-12-13] MEDS: PANTOPRAZOLE (EC) 40 MG TAB PO SCH (13:19)
[2018-12-13] MEDS: SUCRALFATE (100 MG/ML) 10ML CUP PO SCH ×3 (13:20→20:24)
--- NOTE | 2018-12-13 13:33 | PN ---
Date/Time of Note Date/Time of Note DATE: 12/13/18 TIME: 13:31 Objective Vitals Vital Signs Date Temp Pulse Resp B/P (MAP) Pulse Ox O2 O2 Flow FiO2 Time Delivery Rate 12/13/18 58 12:23 12/13/18 97.9 20 152/70 95 Room Air 10:53 (97) Intake and Output 12/12/18 12/12/18 12/13/18 1515:00 23:00 07:00 IntakeIntake Total 800 ml 300 ml OutputOutput Total 600 ml BalanceBalance 800 ml -300 ml Results Result Diagram: 12/13/18 0659 12/13/18 0659 Medications Medications Current Medications IV Flush (NS 3 ml) 3 ml PER PROTOCOL IV ; Start 12/10/18 at 10:30 Ondansetron HCl (Zofran Inj) 4 mg Q6H PRN IV NAUSEA/VOMITING Last administered on 12/13/18at 12:04; Admin Dose 4 MG; Start 12/10/18 at 10:30 Acetaminophen (Tylenol Tab) 650 mg Q6H PRN PO .PAIN 1-3 OR TEMP; Start 12/10/18 at 10:30 Acetaminophen/ Hydrocodone Bitart ([place] (5/325)) 1 tab Q6H PRN PO .PAIN 4-6; Start 12/10/18 at 10:30 Hydralazine HCl (Apresoline) 10 mg Q4H PRN IV sbp >160 Last administered on 12/12/18at 23:25; Admin Dose 10 MG; Start 12/10/18 at 10:30 Labetalol HCl (Labetalol) 10 mg Q4H PRN IV sbp >160; Start 12/10/18 at 10:30 Diagnostic Test (Pha) (Accu-Chek) 1 ea 02 XX ; Start 12/11/18 at 02:00 Insulin Aspart (Novolog Insulin Pen) NOVOLOG *MILD* ALGORITHM WITH MEALS BEDTIME SC Last administered on 12/12/18at 18:30; Admin Dose 1 UNIT; Start 12/10/18 at 12:00 Miscellaneous Information 1 ea NOTE XX ; Start 12/10/18 at 10:30 Glucose (Glutose) 15 gm Q15M PRN PO DECREASED GLUCOSE; Start 12/10/18 at 10:30 Glucose (Glutose) 22.5 gm Q15M PRN PO DECREASED GLUCOSE; Start 12/10/18 at 10:30 Dextrose (D50w Syringe) 25 ml Q15M PRN IV DECREASED GLUCOSE; Start 12/10/18 at 10:30 Dextrose (D50w Syringe) 50 ml Q15M PRN IV DECREASED GLUCOSE; Start 12/10/18 at 10:30 Glucagon (Glucagen) 1 mg Q15M PRN IM DECREASED GLUCOSE; Start 12/10/18 at 10:30 Glucose (Glutose) 15 gm Q15M PRN BUCCAL DECREASED GLUCOSE; Start 12/10/18 at 10:30 Atorvastatin Calcium (Lipitor) 80 mg QHS PO Last administered on 12/12/18 20:10; Admin Dose 80 MG; Start 12/10/18 at 21:00 Benazepril HCl (Lotensin) 20 mg BID PO Last administered on 12/13/18 09:45; Admin Dose 20 MG; Start 12/10/18 at 21:00 Carvedilol (Coreg) 3.125 mg BID PO Last administered on 12/13/18 09:46; Admin Dose 3.125 MG; Start 12/10/18 at 21:00 Clonazepam (Klonopin) 1 mg QHS PRN PO SLEEP; Start 12/10/18 at 11:00 Docusate Sodium (Colace) 100 mg DAILY PO Last administered on 12/12/18 08:59; Admin Dose 100 MG; Start 12/11/18 at 09:00 Ferrous Sulfate (Ferrous Sulfate (Ec)) 325 mg DAILY PO Last administered on 12/13/18 09:45; Admin Dose 325 MG; Start 12/11/18 at 09:00 Levothyroxine Sodium (Synthroid) 75 mcg BEFORE BREAKFAST PO Last administered on 12/13/18 06:21; Admin Dose 75 MCG; Start 12/11/18 at 07:00 Tamsulosin HCl (Flomax) 0.4 mg HS PO Last administered on 12/12/18 20:08; Admin Dose 0.4 MG; Start 12/10/18 at 21:00 Ranolazine (Ranexa) 1,000 mg Q12H PO Last administered on 12/13/18 12:04; Admin Dose 1,000 MG; Start 12/10/18 at 11:00 Apixaban (Eliquis) 2.5 mg BID PO Last administered on 12/12/18at 09:00; Admin Dose 2.5 MG; Start 12/12/18 at 09:00; Status Hold Amiodarone HCl (Cordarone) 200 mg DAILY PO Last administered on 12/13/18at 09:45; Admin Dose 200 MG; Start 12/13/18 at 09:00 Nifedipine (Procardia Xl) 30 mg DAILY PO ; Start 12/13/18 at 12:00 Pantoprazole (Protonix Tab) 40 mg DAILY@06 PO Last administered on 12/13/18at 13:19; Admin Dose 40 MG; Start 12/13/18 at 13:00 Sucralfate (Carafate Susp) 1 gm QID PO Last administered on 12/13/18at 13:20; Admin Dose 1 GM; Start 12/13/18 at 13:00 VTE Prophylaxis Risk score (from [facility] [place] risk: 7 SCD applied (from [facility]): Yes Lines/Catheters IV Catheter Type: Hdz in Place: No Assessment/Plan Hospital Course Subjective Patient doing much better with physical therapy, however patient still has orthostatic hypotension however significantly improved compared to yesterday, some reports of nausea vomiting overnight Objective Physical exam General: Patient is laying in bed and answers questions appropriately Mentation: Patient is alert and oriented 4, Head: Normocephalic atraumatic Eyes: EOMI, pupils reactive to light Neck: Supple, nontender, midline Respiratory: Clear to auscultation bilaterally Cardiovascular: regular rate, no obvious murmurs Gastrointestinal: non-tender to palpation, bowel sounds heard. Neurological: Moves all extremities spontaneously, upper extremity has full sensation and muscle strength, lower extremity has 4-5 muscle strength, full sensation Skin: No new skin lesions Assessment and plan Hypertensive emergency -Patient has a history of hypertension and hypertensive emergency admission, patient's medications were reviewed at bedside were very confusing as patient has multiple bottles of the same medication as well as medications that were not consistent with the current med reconciliation. After speaking to son it is possible that patient may have been taking too much or too little of his medication leading to this issue -Will need to restart patient's medication that are more appropriate dose and adjust as needed, it will be very important for patient and patient's family to do a proper med reconciliation at discharge in order to make sure he is on the right medications Orthostatic hypotension -This may be related to above hypertensive emergency as patient may have been taking more or less of his medications causing a rebound blood pressure issue. Will need to closely monitor and adjust medications as needed -Cardiology consulted, will stop hydralazine for now -Neurology also on board, -hopefully this is not a issue of chronic venous issues and resolves as patient was ambulatory before admission -PT to continue working with patient, patient is also very compulsive and is not following directions to take some time between transferring from supine, to sitting, to standing. Nausea vomiting -New onset, very mild may be secondary to new medications or orthostatic hypotension as above -We will attempt stomach relieving medications of Carafate and Protonix for now and will consult GI if this continues. Bilateral mild lower extremity gait deficiency -Appears to be more of a balancing issue more so than weakness, patient diagnosed with hypotensive orthostasis -Neurology consulted, does not appear to be acute CVA after MRI returned -Neurology recommendations appreciated -MRI lumbar spine done, showing some severe stenosis, neurosurgeon has also been consulted, also ordered MRI thoracic spine and cervical, I doubt there is any surgical correction needed however will defer to neurosurgeon recommendations with the multiple findings on the MRI of the spine. -Neurosurgery cannot rule out very small spinal cord injury however will get a flexed xray, unlikely surgery needed, findings relayed to patient and patient's son. -No emergency neurological symptoms of bowel or bladder dysfunction at this time, Head hematoma -Secondary to generalized lower extremity weakness and subsequent fall, CT negative for intracranial hemorrhage, however patient does have a palpable hematoma with no headache at this time. -Per neurology, okay to restart Eliquis, however due to his acute gait instability as well as his orthostatic hypotension, will hold off on Eliquis for now Chronic kidney disease -Likely stable, nephrology consulted, recommendations appreciated, will continue AMANDA inhibitor for now, with close monitoring Diabetes mellitus -Insulin while in house Hypothyroidism -Patient's medication bottles were duplicated at different doses, upon further deduction it can be assumed patient was on increased dose, restart as able Atrial fibrillation -Continue amiodarone and beta-stefan, adjust doses according to stone banker -Continue Eliquis once gait instability has been corrected Dyslipidemia -Continue atorvastatin Questionable history of TIA -Spoke to son, patient's may have had a symptoms of TIA versus another hypertensive emergency recently at another hospital, it is not confirmed patient had TIA, however 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 Questionable adrenal nodule -Likely incidental will need to workup, pheochromocytoma/adrenal insufficiency is a distant unlikely cause of orthostatic hypotension for this particular patient however with this finding will follow up with MRI abdomen as MRI of the lumbar spine is not complete. Disposition -workup for orthostatic hypotension and gait imbalances, medication non- compliance (associated with abrupt restart of some home medications he was taken off may be responsible), patient's unreliable history as he does have some dementia so cannot confirm nor deny appropriate medications. We will need to continue to observe and titrate medications as tolerated. ABEBA CASTANEDA Dec 13, 2018 13:33
--- NOTE | 2018-12-13 17:01 | CONS ---
Assessment/Plan Assessment/Plan Hospital Course 83 yo M c/ multiple comorbidities, who presents for evaluation of bilateral lower limb weakness c/b falls. Notable is renal insufficiency, which could exacerbate gait instability.. Orthostatic vitals ++, a likely contributor.. MRI brain is reassuringly negative for acute ischemia.. UA/UDS neg P: PT/OT as necessary OK to resume eliquis for now; but may need to reconsider if PT is unable to rectify frequent falls.. Namenda OK Other management per primary Will follow clinically Consultation Date/Type/Reason Admit Date/Time Dec 11, 2018 at 10:14 Type of Consult Neurology Requesting Provider: ABEBA CASTANEDA Date/Time of Note DATE: 12/13/18 TIME: 17:00 24 HR Interval Summary Free Text/Dictation Continues acute care. Pt reportedly worked with physical therapy. Nurse reports that his BP has improved today. Pt denies any sx currently. Exam Vital Signs Vitals Vital Signs Date Temp Pulse Resp B/P (MAP) Pulse Ox O2 O2 Flow FiO2 Time Delivery Rate 12/13/18 61 16:13 12/13/18 99.1 20 139/65 94 Room Air 15:06 (89) Intake and Output 12/12/18 12/12/18 12/13/18 1515:00 23:00 07:00 IntakeIntake Total 800 ml 300 ml OutputOutput Total 600 ml BalanceBalance 800 ml -300 ml Exam PE: Gen Appearance: No Apparent Distress HEENT: Normocephalic Cardiovascular: Regular rate Lungs: Clear bilaterally Abdomen: Soft Extremities: Dry NE: The patient was alert and oriented. Language was normal. Fund of knowledge was normal. Pupils were equal and reactive to light. There was no afferent pupillary defect. Visual murphy were normal. Funduscopic examination was limited. Extra-ocular movements were full. Ptosis was absent. There was no nystagmus. Facial sensation was normal. Face was symmetric with normal strength. Hearing was intact. Palate movements were normal. Neck strength was normal. There was normal tongue bulk and speed of movement. Tone was normal. Muscle bulk was normal. I did not see fasciculations. Arms were strong to confrontation; Hip flexors, BLE flexion/extension, ankle flexion/dorsiflexion was strong and symmetric. Vibration sensation was normal. Temperature and pinprick sensation was normal. Rapid alternating movements were normal. There was no dysmetria. There was no intention tremor. Gait was steady when ambulating with a walker. Arm and leg reflexes were 2+ and symmetric. Saldana's sign was absent. Plantar responses were flexor. KEVIN MATHEWS NP Dec 13, 2018 17:01
--- NOTE | 2018-12-13 17:40 | CONS ---
Assessment/Plan Assessment/Plan Hospital Course (Demo Recall) Dizziness Hypertension with labile blood pressure Orthostatic hypotension Lower extremity weakness Atrial fibrillation on anticoagulation Preserved ejection fraction echocardiogram Moderate to severe aortic valve stenosis Diabetes Acute kidney injury -Echocardiogram with preserved ejection fraction, aortic valve with moderate to severe stenosis. Gradients do not appear severe enough to cause his symptoms of dizziness. -Patient with orthostatic vitals today with standing. Creatinine has improved, would continue gentle IV hydration. I will DC his Flomax. Consultation Date/Type/Reason Admit Date/Time Dec 11, 2018 at 10:14 Initial Consult Date Type of Consult Cardiology Requesting Provider: BAEBA CASTANEDA Date/Time of Note DATE: 12/13/18 TIME: 17:37 24 HR Interval Summary Free Text/Dictation Overall feeling better. Less dizziness. Denies chest pain or shortness of breath Exam/Review of Systems Vital Signs Vitals Vital Signs Date Temp Pulse Resp B/P (MAP) Pulse Ox O2 O2 Flow FiO2 Time Delivery Rate 12/13/18 61 16:13 12/13/18 99.1 20 139/65 94 Room Air 15:06 (89) Intake and Output 12/12/18 12/12/18 12/13/18 1515:00 23:00 07:00 IntakeIntake Total 800 ml 300 ml OutputOutput Total 600 ml BalanceBalance 800 ml -300 ml Exam Constitutional: alert, oriented Head: normocephalic Respiratory: other (Coarse breath sounds bilaterally, no wheezing) Cardiovascular: irregular rhythm, systolic murmur Gastrointestinal: soft, non-tender, bowel sounds Extremities: edema (Trace) Labs Result Diagram: 12/13/18 0659 12/13/18 0659 Results 24hrs Laboratory Tests Test 12/12/18 18:22 12/12/18 20:14 12/13/18 06:59 12/13/18 08:27 Bedside Glucose 152 148 138 White Blood Count 8.3 Red Blood Count 3.54 L Hemoglobin 10.7 L Hematocrit 33.1 L Mean Corpuscular 93.5 Volume Mean Corpuscular 30.2 Hemoglobin Mean Corpuscular 32.3 Hemoglobin Concent Red Cell 13.1 Distribution Width Platelet Count 222 Mean Platelet Volume 9.6 Immature 0.200 Granulocytes % Neutrophils % 51.6 Lymphocytes % 38.5 Monocytes % 8.4 Eosinophils % 1.1 Basophils % 0.2 Nucleated Red Blood 0.0 Cells % Immature 0.020 Granulocytes # Neutrophils # 4.3 Lymphocytes # 3.2 H Monocytes # 0.7 Eosinophils # 0.1 Basophils # 0.0 Nucleated Red Blood 0.0 Cells # Sodium Level 140 Potassium Level 4.2 Chloride Level 103 Carbon Dioxide Level 26 Anion Gap 11 Blood Urea Nitrogen 36 H Creatinine 1.83 H Est Glomerular Filtrat Rate mL/min Glucose Level 125 Calcium Level 8.3 L Phosphorus Level 3.9 Magnesium Level 1.7 Test 12/13/18 12:14 Bedside Glucose 121 Medications Medications Current Medications IV Flush (NS 3 ml) 3 ml PER PROTOCOL IV ; Start 12/10/18 at 10:30 Ondansetron HCl (Zofran Inj) 4 mg Q6H PRN IV NAUSEA/VOMITING Last administered on 12/13/18at 12:04; Admin Dose 4 MG; Start 12/10/18 at 10:30 Acetaminophen (Tylenol Tab) 650 mg Q6H PRN PO .PAIN 1-3 OR TEMP; Start 12/10/18 at 10:30 Acetaminophen/ Hydrocodone Bitart ([place] (5/325)) 1 tab Q6H PRN PO .PAIN 4-6; Start 12/10/18 at 10:30 Hydralazine HCl (Apresoline) 10 mg Q4H PRN IV sbp >160 Last administered on 12/12/18at 23:25; Admin Dose 10 MG; Start 12/10/18 at 10:30 Labetalol HCl (Labetalol) 10 mg Q4H PRN IV sbp >160; Start 12/10/18 at 10:30 Diagnostic Test (Pha) (Accu-Chek) 1 ea 02 XX ; Start 12/11/18 at 02:00 Insulin Aspart (Novolog Insulin Pen) NOVOLOG *MILD* ALGORITHM WITH MEALS BEDTIME SC Last administered on 12/12/18at 18:30; Admin Dose 1 UNIT; Start 12/10/18 at 12:00 Miscellaneous Information 1 ea NOTE XX ; Start 12/10/18 at 10:30 Glucose (Glutose) 15 gm Q15M PRN PO DECREASED GLUCOSE; Start 12/10/18 at 10:30 Glucose (Glutose) 22.5 gm Q15M PRN PO DECREASED GLUCOSE; Start 12/10/18 at 10:30 Dextrose (D50w Syringe) 25 ml Q15M PRN IV DECREASED GLUCOSE; Start 12/10/18 at 10:30 Dextrose (D50w Syringe) 50 ml Q15M PRN IV DECREASED GLUCOSE; Start 12/10/18 at 10:30 Glucagon (Glucagen) 1 mg Q15M PRN IM DECREASED GLUCOSE; Start 12/10/18 at 10:30 Glucose (Glutose) 15 gm Q15M PRN BUCCAL DECREASED GLUCOSE; Start 12/10/18 at 10:30 Atorvastatin Calcium (Lipitor) 80 mg QHS PO Last administered on 12/12/18 20:10; Admin Dose 80 MG; Start 12/10/18 at 21:00 Benazepril HCl (Lotensin) 20 mg BID PO Last administered on 12/13/18 09:45; Admin Dose 20 MG; Start 12/10/18 at 21:00 Carvedilol (Coreg) 3.125 mg BID PO Last administered on 12/13/18 09:46; Admin Dose 3.125 MG; Start 12/10/18 at 21:00 Clonazepam (Klonopin) 1 mg QHS PRN PO SLEEP; Start 12/10/18 at 11:00 Docusate Sodium (Colace) 100 mg DAILY PO Last administered on 12/12/18 08:59; Admin Dose 100 MG; Start 12/11/18 at 09:00 Ferrous Sulfate (Ferrous Sulfate (Ec)) 325 mg DAILY PO Last administered on 12/13/18 09:45; Admin Dose 325 MG; Start 12/11/18 at 09:00 Levothyroxine Sodium (Synthroid) 75 mcg BEFORE BREAKFAST PO Last administered on 12/13/18 06:21; Admin Dose 75 MCG; Start 12/11/18 at 07:00 Tamsulosin HCl (Flomax) 0.4 mg HS PO Last administered on 12/12/18 20:08; Admin Dose 0.4 MG; Start 12/10/18 at 21:00 Ranolazine (Ranexa) 1,000 mg Q12H PO Last administered on 12/13/18 12:04; Admin Dose 1,000 MG; Start 12/10/18 at 11:00 Apixaban (Eliquis) 2.5 mg BID PO Last administered on 12/12/18 09:00; Admin Dose 2.5 MG; Start 3/27/19 at 09:00; Status Hold Amiodarone HCl (Cordarone) 200 mg DAILY PO Last administered on 12/13/18 09:45; Admin Dose 200 MG; Start 12/13/18 at 09:00 Nifedipine (Procardia Xl) 30 mg DAILY PO Last administered on 12/13/18at 12:00; Admin Dose 30 MG; Start 12/13/18 at 12:00 Pantoprazole (Protonix Tab) 40 mg DAILY@06 PO Last administered on 12/13/18 13:19; Admin Dose 40 MG; Start 12/13/18 at 13:00 Sucralfate (Carafate Susp) 1 gm QID PO Last administered on 12/13/18 13:20; Admin Dose 1 GM; Start 12/13/18 at 13:00 Kody Morillo DO Dec 13, 2018 17:40
[2018-12-13] MEDS ORDERED: SOD CHLORIDE 0.9% 1,000 ML IV SCH (18:00)
[2018-12-13] MEDS: ATORVASTATIN 80 MG TAB PO SCH (20:23)
[2018-12-13] MEDS: hydrALAzine 20 MG INJ IV PRN (22:59)
[2018-12-14] VITALS (13 sets, daily range): BP systolic 101–184; BP diastolic 54–80; PULSE 53–75; RESP 18–20
[2018-12-14] MEDS: ACCU-CHEK XX SCH (02:00)
[2018-12-14] MEDS: LEVOTHYROXINE 75 MCG TAB PO SCH (05:56)
[2018-12-14] MEDS: PANTOPRAZOLE (EC) 40 MG TAB PO SCH (05:56)
[2018-12-14] MEDS: hydrALAzine 20 MG INJ IV PRN (06:04)
[2018-12-14] MEDS: INSULIN ASPART [NOVOLOG] 3 ML PEN SC SCH ×4 (07:55→21:05)
[2018-12-14] MEDS: SUCRALFATE (100 MG/ML) 10ML CUP PO SCH ×4 (08:53→20:00)
[2018-12-14] MEDS: DOCUSATE SODIUM 100 MG CAP PO SCH (08:53)
[2018-12-14] MEDS: AMIODARONE 200 MG TAB PO SCH (08:54)
[2018-12-14] MEDS: BENAZEPRIL 20 MG TAB PO SCH ×2 (08:54→20:00)
[2018-12-14] MEDS: FERROUS SULFATE (EC) 325 MG TAB PO SCH (08:54)
[2018-12-14] MEDS: NIFEdipine (XL) 30 MG TAB PO SCH ×2 (08:55→20:01)
--- NOTE | 2018-12-14 09:23 | PN ---
DATE: 12/14/2018 SUBJECTIVE: The patient remains hypertensive, blood pressure is 177/80. No other events noted. No hemoptysis, hematemesis or hematochezia. Pt given fluid challenge for orthostatic hypotension OBJECTIVE: VITAL SIGNS: Blood pressure is 177/80, respirations 20, pulse 61, temperature 97.9. HEENT: Head is normocephalic. HEART: Regular rate. LUNGS: Show diminished breath sounds at the base. ABDOMEN: Soft, nontender to palpation without rebound or guarding. EXTREMITIES: Negative for clubbing, cyanosis, no edema. DERMATOLOGIC: No rashes. MUSCULOSKELETAL: No joint effusion. NEUROLOGIC: No change in exam. MEDICATIONS: The patient's medications have been reviewed. LABORATORY DATA: From 12/13/2018 was reviewed. Laboratory data from 12/14/2018 is pending. ASSESSMENT AND PLAN: 1. Nonoliguric acute kidney injury with previous baseline creatinine of 1.4 to 1.6 mg/dL. Etiology of acute kidney injury is secondary to hemodynamics, possible AMANDA inhibitor effect. The patient's renal function has been fluctuating, but improved within the previous 24 hours. We would continue current medical management. Continue AMANDA inhibitor. Follow up renal panel. 2. Hypertensive urgency. The patient's blood pressure remains markedly elevated despite multiple medications. Secondary workup will be initiated. We will check a renin aldosterone level, check a urine for metanephrines. Will order renal arterial ultrasound to evaluate for renal artery stenosis. Consider starting the patient on Aldactone. Up titrate Procardia to 30 mg b.i.d. Continue Coreg, Lisinopril. We will monitor closely. 3. Chronic kidney disease, etiology is multifactorial secondary to hypertensive nephrosclerosis, age-related nephron loss. The patient is currently in acute kidney injury as stated above. Continue disease factor modification. 4. Anemia. Monitor hemoglobin and hematocrit levels. 5. Mineral bone disorder. Monitor calcium and phosphorus levels. 6. Lower extremity weakness. The patient's MRI was reviewed. No evidence of cerebrovascular accident. The patient was seen by neurosurgery for possible lumbar stenosis. No plan for intervention. Continue physical therapy. 7. Diabetes. Continue current insulin regimen. 8. Atrial fibrillation. Continue medical management. 9. Dyslipidemia. Continue statin therapy. Dictated By: JULIETTE MALDONADO/JOCELINE Conf#: [id number] DID#: [id number] CC: ABEBA CASTANEDA MD;*EndCC* MTDD
[2018-12-14] MEDS: RANOLAZINE (SR) 500 MG TAB PO SCH ×2 (11:10→22:43)
--- NOTE | 2018-12-14 12:02 | CONS ---
Assessment/Plan Assessment/Plan Hospital Course 83 yo M c/ multiple comorbidities, who presents for evaluation of bilateral lower limb weakness c/b falls. Notable is renal insufficiency, which could exacerbate gait instability.. Orthostatic vitals ++, a likely contributor.. MRI brain is reassuringly negative for acute ischemia.. UA/UDS neg P: PT/OT as necessary OK to resume eliquis for now; but may need to reconsider if PT is unable to rectify frequent falls.. Namenda OK Other management per primary Will follow clinically Consultation Date/Type/Reason Admit Date/Time Dec 11, 2018 at 10:14 Type of Consult Neurology Requesting Provider: ABEBA CASTANEDA Date/Time of Note DATE: 12/14/18 TIME: 12:02 24 HR Interval Summary Free Text/Dictation Continues acute care. Pt reportedly still experiencing orthostatic hypotension. Exam Vital Signs Vitals Vital Signs Date Temp Pulse Resp B/P (MAP) Pulse Ox O2 O2 Flow FiO2 Time Delivery Rate 12/14/18 98.3 63 20 155/73 97 Room Air 11:10 (100) Intake and Output 12/13/18 12/13/18 12/14/18 1515:00 23:00 07:00 IntakeIntake Total 400 ml 400 ml OutputOutput Total 800 ml BalanceBalance 400 ml -400 ml Exam PE: Gen Appearance: No Apparent Distress HEENT: Normocephalic Cardiovascular: Regular rate Lungs: Clear bilaterally Abdomen: Soft Extremities: Dry NE: The patient was alert and oriented. Language was normal. Fund of knowledge was normal. Pupils were equal and reactive to light. There was no afferent pupillary defect. Visual murphy were normal. Funduscopic examination was limited. Extra-ocular movements were full. Ptosis was absent. There was no nystagmus. Facial sensation was normal. Face was symmetric with normal strength. Hearing was intact. Palate movements were normal. Neck strength was normal. There was normal tongue bulk and speed of movement. Tone was normal. Muscle bulk was normal. I did not see fasciculations. Arms were strong to confrontation; Hip flexors, BLE flexion/extension, ankle flexion/dorsiflexion was strong and symmetric. Vibration sensation was normal. Temperature and pinprick sensation was normal. Rapid alternating movements were normal. There was no dysmetria. There was no intention tremor. Gait was steady when ambulating with a walker. Arm and leg reflexes were 2+ and symmetric. Saldana's sign was absent. Plantar responses were flexor. KEVIN MATHEWS NP Dec 14, 2018 12:02
--- NOTE | 2018-12-14 14:03 | PN ---
Date/Time of Note Date/Time of Note DATE: 12/14/18 TIME: 14:01 Objective Vitals Vital Signs Date Temp Pulse Resp B/P (MAP) Pulse Ox O2 O2 Flow FiO2 Time Delivery Rate 12/14/18 57 13:41 12/14/18 98.3 20 155/73 97 Room Air 11:10 (100) Intake and Output 12/13/18 12/13/18 12/14/18 1515:00 23:00 07:00 IntakeIntake Total 400 ml 400 ml OutputOutput Total 800 ml BalanceBalance 400 ml -400 ml Results Result Diagram: 12/14/18 0751 12/14/18 0750 Medications Medications Current Medications IV Flush (NS 3 ml) 3 ml PER PROTOCOL IV ; Start 12/10/18 at 10:30 Ondansetron HCl (Zofran Inj) 4 mg Q6H PRN IV NAUSEA/VOMITING Last administered on 12/13/18at 20:27; Admin Dose 4 MG; Start 12/10/18 at 10:30 Acetaminophen (Tylenol Tab) 650 mg Q6H PRN PO .PAIN 1-3 OR TEMP; Start 12/10/18 at 10:30 Acetaminophen/ Hydrocodone Bitart ([place] (5/325)) 1 tab Q6H PRN PO .PAIN 4-6; Start 12/10/18 at 10:30 Hydralazine HCl (Apresoline) 10 mg Q4H PRN IV sbp >160 Last administered on 12/14/18at 06:04; Admin Dose 10 MG; Start 12/10/18 at 10:30 Labetalol HCl (Labetalol) 10 mg Q4H PRN IV sbp >160 Last administered on 11/17 05/06at 23:58; Admin Dose 10 MG; Start 12/10/18 at 10:30 Diagnostic Test (Pha) (Accu-Chek) 1 ea 02 XX ; Start 12/11/18 at 02:00 Insulin Aspart (Novolog Insulin Pen) NOVOLOG *MILD* ALGORITHM WITH MEALS BEDTIME SC Last administered on 12/14/18at 11:14; Admin Dose 1 UNIT; Start 12/10/18 at 12:00 Miscellaneous Information 1 ea NOTE XX ; Start 12/10/18 at 10:30 Glucose (Glutose) 15 gm Q15M PRN PO DECREASED GLUCOSE; Start 12/10/18 at 10:30 Glucose (Glutose) 22.5 gm Q15M PRN PO DECREASED GLUCOSE; Start 12/10/18 at 10:30 Dextrose (D50w Syringe) 25 ml Q15M PRN IV DECREASED GLUCOSE; Start 12/10/18 at 10:30 Dextrose (D50w Syringe) 50 ml Q15M PRN IV DECREASED GLUCOSE; Start 12/10/18 at 10:30 Glucagon (Glucagen) 1 mg Q15M PRN IM DECREASED GLUCOSE; Start 12/10/18 at 10:30 Glucose (Glutose) 15 gm Q15M PRN BUCCAL DECREASED GLUCOSE; Start 12/10/18 at 10:30 Atorvastatin Calcium (Lipitor) 80 mg QHS PO Last administered on 12/13/18 20:23; Admin Dose 80 MG; Start 12/10/18 at 21:00 Benazepril HCl (Lotensin) 20 mg BID PO Last administered on 12/14/18 08:54; Admin Dose 20 MG; Start 12/10/18 at 21:00 Carvedilol (Coreg) 3.125 mg BID PO Last administered on 12/14/18 08:54; Admin Dose 3.125 MG; Start 12/10/18 at 21:00 Clonazepam (Klonopin) 1 mg QHS PRN PO SLEEP; Start 12/10/18 at 11:00 Docusate Sodium (Colace) 100 mg DAILY PO Last administered on 12/14/18 08:53; Admin Dose 100 MG; Start 12/11/18 at 09:00 Ferrous Sulfate (Ferrous Sulfate (Ec)) 325 mg DAILY PO Last administered on 12/14/18 08:54; Admin Dose 325 MG; Start 12/11/18 at 09:00 Levothyroxine Sodium (Synthroid) 75 mcg BEFORE BREAKFAST PO Last administered on 12/14/18 05:56; Admin Dose 75 MCG; Start 12/11/18 at 07:00 Ranolazine (Ranexa) 1,000 mg Q12H PO Last administered on 12/14/18 11:10; Admin Dose 1,000 MG; Start 12/10/18 at 11:00 Apixaban (Eliquis) 2.5 mg BID PO Last administered on 12/12/18 09:00; Admin Dose 2.5 MG; Start 12/12/18 at 09:00; Status Hold Amiodarone HCl (Cordarone) 200 mg DAILY PO Last administered on 12/14/18at 08:54; Admin Dose 200 MG; Start 12/13/18 at 09:00 Pantoprazole (Protonix Tab) 40 mg DAILY@06 PO Last administered on 12/14/18at 05:56; Admin Dose 40 MG; Start 12/13/18 at 13:00 Sucralfate (Carafate Susp) 1 gm QID PO Last administered on 12/14/18at 13:15; Admin Dose 1 GM; Start 12/13/18 at 13:00 Nifedipine (Procardia Xl) 60 mg BID PO Last administered on 12/14/18 08:55; Admin Dose 60 MG; Start 12/14/18 at 09:00 VTE Prophylaxis [place] [facility] [place]: 5 SCD applied [place] [facility] Yes Lines/Catheters IV Catheter Type: Hdz in Place: No Assessment/Plan Hospital Course Subjective Patient overall feels a little better with improved dizziness however still has orthostatic hypotension per nursing staff. Objective Physical exam General: Patient is laying in bed and answers questions appropriately Mentation: Patient is alert and oriented 4, Head: Normocephalic atraumatic Eyes: EOMI, pupils reactive to light Neck: Supple, nontender, midline Respiratory: Clear to auscultation bilaterally Cardiovascular: regular rate, no obvious murmurs Gastrointestinal: non-tender to palpation, bowel sounds heard. Neurological: Moves all extremities spontaneously, upper extremity has full sensation and muscle strength, lower extremity has 4-5 muscle strength, full sensation Skin: No new skin lesions Assessment and plan Hypertensive emergency -Patient has a history of hypertension and hypertensive emergency admission, patient's medications were reviewed at bedside were very confusing as patient has multiple bottles of the same medication as well as medications that were not consistent with the current med reconciliation. After speaking to son it is possible that patient may have been taking too much or too little of his medication leading to this issue -Will need to restart patient's medication that are more appropriate dose and adjust as needed, it will be very important for patient and patient's family to do a proper med reconciliation at discharge in order to make sure he is on the right medications Orthostatic hypotension -This may be related to above hypertensive emergency as patient may have been taking more or less of his medications causing a rebound blood pressure issue. Will need to closely monitor and adjust medications as needed -Cardiology consulted, will stop hydralazine for now as well as Flomax -Neurology also on board, -hopefully this is not a issue of chronic venous issues and resolves as patient was ambulatory before admission -PT to continue working with patient, patient is also very compulsive and is not following directions to take some time between transferring from supine, to sitting, to standing. Nausea vomiting -New onset, very mild may be secondary to new medications or orthostatic hypotension as above -Patient doing well on Carafate and Protonix, nausea and vomiting has subsided significantly, will monitor, however if gets worse we will consult GI. Bilateral mild lower extremity gait deficiency-resolving or nearly resolved. -Appears to be more of a balancing issue more so than weakness, patient diagnosed with hypotensive orthostasis -Neurology consulted, does not appear to be acute CVA after MRI returned -Neurology recommendations appreciated -MRI lumbar spine done, showing some severe stenosis, neurosurgeon has also been consulted, also ordered MRI thoracic spine and cervical, I doubt there is any surgical correction needed however will defer to neurosurgeon recommendations wi th the multiple findings on the MRI of the spine. -Neurosurgery cannot rule out very small spinal cord injury however will get a flexed xray, unlikely surgery needed, findings relayed to patient and patient's son. -No emergency neurological symptoms of bowel or bladder dysfunction at this time, Head hematoma, stable -Secondary to generalized lower extremity weakness and subsequent fall, CT negative for intracranial hemorrhage, however patient does have a palpable hematoma with no headache at this time. -Per neurology, okay to restart Eliquis, however due to his acute gait instability as well as his orthostatic hypotension, will hold off on Eliquis for now Chronic kidney disease -Likely stable, nephrology consulted, recommendations appreciated, will continue AMANDA inhibitor for now, with close monitoring -Workup for renal issues causing hypertension. Diabetes mellitus -Insulin while in house Hypothyroidism -Patient's medication bottles were duplicated at different doses, upon further deduction it can be assumed patient was on increased dose, restart as able Atrial fibrillation -Continue amiodarone and beta-stefan, adjust doses according to merchandising execution manager -Continue Eliquis once gait instability has been corrected Dyslipidemia -Continue atorvastatin Questionable history of TIA -Spoke to son, patient's may have had a symptoms of TIA versus another hypertensive emergency recently at another hospital, it is not confirmed patient had TIA, however 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 Questionable adrenal nodule -Likely incidental will need to workup, pheochromocytoma/adrenal insufficiency i s a distant unlikely cause of orthostatic hypotension for this particular patient however with this finding will follow up with MRI abdomen as MRI of the lumbar spine is not a complete image of the abdomen. Disposition -workup for orthostatic hypotension and gait imbalances, medication non-complian ce (associated with abrupt restart of some home medications he was taken off may be responsible), patient's unreliable history as he does have some dementia so cannot confirm nor deny appropriate medications. We will need to continue to observe and titrate medications as tolerated. ABEBA CASTANEDA Dec 14, 2018 14:03
--- NOTE | 2018-12-14 15:05 | CONS ---
Assessment/Plan Assessment/Plan Hospital Course (Demo Recall) IMP: 1.Atrial fibrillation-rate controlled 2.orthostatic hypotension 3.-mod-sev by echo this admit 4.HTN 5.s/p fall 6. Renal failure 7. anemia 8. Lumbar stenosis Recc: -Tele -serial ecg's -Continue procardia/benazepril/coreg at current doses for now and will likely need to allow some permissive HTN -Not on syetemic anticoag due to fall risk -PT -Contineu statin -Continue PPI/sucralfate Consultation Date/Type/Reason Admit Date/Time Dec 11, 2018 at 10:14 Initial Consult Date 12/14/18 Type of Consult Cardiology Reason for Consultation AF/orthostasis Requesting Provider: ABEBA CASTANEDA Date/Time of Note DATE: 12/14/18 TIME: 14:50 Exam/Review of Systems Vital Signs Vitals Vital Signs Date Temp Pulse Resp B/P (MAP) Pulse Ox O2 O2 Flow FiO2 Time Delivery Rate 12/14/18 57 13:41 12/14/18 98.3 20 155/73 97 Room Air 11:10 (100) Intake and Output 12/13/18 12/13/18 12/14/18 1515:00 23:00 07:00 IntakeIntake Total 400 ml 400 ml OutputOutput Total 800 ml BalanceBalance 400 ml -400 ml Exam Exam Review of Systems: CONSTITUTIONAL: No fevers, chills. PULMONARY: No sob CARDIOVASCULAR: No chest pain/palpitations GASTROINTESTINAL: No nausea/vomiting. GENITOURINARY: No hematuria/dysuria. MUSCULOSKELETAL: No myagias/arthalgias. PSYCHIATRIC: The patient denies depression. NEUROLOGIC: mild generalized weakness Constitutional: alert Psych: no complaints Head: normocephalic ENMT: mucosa pink and moist Neck: supple, jvd (9 cm water) Respiratory: clear to auscultation Cardiovascular: irregular rhythm Gastrointestinal: soft, non-tender Musculoskeletal: muscle tone (normal) Extremities: edema (none) Neurological: other (No focal deficits) Labs Result Diagram: 12/14/18 0751 12/14/18 0750 Results 24hrs Laboratory Tests Test 12/13/18 17:46 12/13/18 20:22 12/14/18 07:50 12/14/18 07:51 Bedside Glucose 142 151 Sodium Level 141 Potassium Level 3.8 Chloride Level 102 Carbon Dioxide Level 26 Anion Gap 13 Blood Urea Nitrogen 25 #H Creatinine 1.55 H Est Glomerular Filtrat Rate mL/min Glucose Level 122 Calcium Level 8.6 Phosphorus Level 3.4 Magnesium Level 1.7 White Blood Count 7.1 Red Blood Count 3.51 L Hemoglobin 10.7 L Hematocrit 32.9 L Mean Corpuscular 93.7 Volume Mean Corpuscular 30.5 Hemoglobin Mean Corpuscular 32.5 Hemoglobin Concent Red Cell 13.2 Distribution Width Platelet Count 234 Mean Platelet Volume 9.8 Immature 0.300 Granulocytes % Neutrophils % 41.2 Lymphocytes % 47.9 Monocytes % 8.8 Eosinophils % 1.4 Basophils % 0.4 Nucleated Red Blood 0.0 Cells % Immature 0.020 Granulocytes # Neutrophils # 2.9 Lymphocytes # 3.4 H Monocytes # 0.6 Eosinophils # 0.1 Basophils # 0.0 Nucleated Red Blood 0.0 Cells # Test 12/14/18 08:03 12/14/18 11:09 Bedside Glucose 125 151 Medications Medications Current Medications IV Flush (NS 3 ml) 3 ml PER PROTOCOL IV ; Start 12/10/18 at 10:30 Ondansetron HCl (Zofran Inj) 4 mg Q6H PRN IV NAUSEA/VOMITING Last administered on 12/13/18at 20:27; Admin Dose 4 MG; Start 12/10/18 at 10:30 Acetaminophen (Tylenol Tab) 650 mg Q6H PRN PO .PAIN 1-3 OR TEMP; Start 12/10/18 at 10:30 Acetaminophen/ Hydrocodone Bitart ([place] (5/325)) 1 tab Q6H PRN PO .PAIN 4-6; Start 12/10/18 at 10:30 Hydralazine HCl (Apresoline) 10 mg Q4H PRN IV sbp >160 Last administered on 12/14/18at 06:04; Admin Dose 10 MG; Start 12/10/18 at 10:30 Labetalol HCl (Labetalol) 10 mg Q4H PRN IV sbp >160 Last administered on 12/13/18at 23:58; Admin Dose 10 MG; Start 12/10/18 at 10:30 Diagnostic Test (Pha) (Accu-Chek) 1 ea 02 XX ; Start 12/11/18 at 02:00 Insulin Aspart (Novolog Insulin Pen) NOVOLOG *MILD* ALGORITHM WITH MEALS BEDTIME SC Last administered on 12/14/18at 11:14; Admin Dose 1 UNIT; Start 12/10/18 at 12:00 Miscellaneous Information 1 ea NOTE XX ; Start 12/10/18 at 10:30 Glucose (Glutose) 15 gm Q15M PRN PO DECREASED GLUCOSE; Start 12/10/18 at 10:30 Glucose (Glutose) 22.5 gm Q15M PRN PO DECREASED GLUCOSE; Start 12/10/18 at 10:30 Dextrose (D50w Syringe) 25 ml Q15M PRN IV DECREASED GLUCOSE; Start 12/10/18 at 10:30 Dextrose (D50w Syringe) 50 ml Q15M PRN IV DECREASED GLUCOSE; Start 12/10/18 at 10:30 Glucagon (Glucagen) 1 mg Q15M PRN IM DECREASED GLUCOSE; Start 12/10/18 at 10:30 Glucose (Glutose) 15 gm Q15M PRN BUCCAL DECREASED GLUCOSE; Start 12/10/18 at 10:30 Atorvastatin Calcium (Lipitor) 80 mg QHS PO Last administered on 12/13/18at 20:23; Admin Dose 80 MG; Start 12/10/18 at 21:00 Benazepril HCl (Lotensin) 20 mg BID PO Last administered on 12/14/18at 08:54; Admin Dose 20 MG; Start 12/10/18 at 21:00 Carvedilol (Coreg) 3.125 mg BID PO Last administered on 12/14/18 08:54; Admin Dose 3.125 MG; Start 12/10/18 at 21:00 Clonazepam (Klonopin) 1 mg QHS PRN PO SLEEP; Start 12/10/18 at 11:00 Docusate Sodium (Colace) 100 mg DAILY PO Last administered on 12/14/18 08:53; Admin Dose 100 MG; Start 12/11/18 at 09:00 Ferrous Sulfate (Ferrous Sulfate (Ec)) 325 mg DAILY PO Last administered on 12/14/18 08:54; Admin Dose 325 MG; Start 12/11/18 at 09:00 Levothyroxine Sodium (Synthroid) 75 mcg BEFORE BREAKFAST PO Last administered on 12/14/18at 05:56; Admin Dose 75 MCG; Start 12/11/18 at 07:00 Ranolazine (Ranexa) 1,000 mg Q12H PO Last administered on 12/14/18 11:10; Admin Dose 1,000 MG; Start 12/10/18 at 11:00 Apixaban (Eliquis) 2.5 mg BID PO Last administered on 12/12/18 09:00; Admin Dose 2.5 MG; Start 12/12/18 at 09:00; Status Hold Amiodarone HCl (Cordarone) 200 mg DAILY PO Last administered on 12/14/18 08:54; Admin Dose 200 MG; Start 12/13/18 at 09:00 Pantoprazole (Protonix Tab) 40 mg DAILY@06 PO Last administered on 12/14/18 05:56; Admin Dose 40 MG; Start 12/13/18 at 13:00 Sucralfate (Carafate Susp) 1 gm QID PO Last administered on 12/14/18 13:15; Admin Dose 1 GM; Start 12/13/18 at 13:00 Nifedipine (Procardia Xl) 60 mg BID PO Last administered on 12/14/18 08:55; Admin Dose 60 MG; Start 12/14/18 at 09:00 XIMENA PATINO Dec 14, 2018 15:00
[2018-12-14] MEDS: ONDANSETRON 4 MG INJ IV PRN (17:52)
[2018-12-14] MEDS: ATORVASTATIN 80 MG TAB PO SCH (20:01)
[2018-12-14] MEDS ORDERED: ZOLPIDEM 5 MG TAB PO ONE (23:00)
[2018-12-15] VITALS (15 sets, daily range): BP systolic 18–139; BP diastolic 56–67; PULSE 51–74; RESP 16–18
[2018-12-15] MEDS: ACCU-CHEK XX SCH (02:00)
[2018-12-15] MEDS: LEVOTHYROXINE 75 MCG TAB PO SCH (06:18)
[2018-12-15] MEDS: PANTOPRAZOLE (EC) 40 MG TAB PO SCH (06:18)
--- NOTE | 2018-12-15 08:21 | PN ---
Date/Time of Note Date/Time of Note DATE: 12/15/18 TIME: 08:19 Assessment/Plan VTE Prophylaxis Risk score (from Nsg)>0 risk: 7 SCD applied (from Nsg): Yes Pharmacological prophylaxis: other Lines/Catheters IV Catheter Type (from Nrsg): Peripheral IV Urinary Cath still in place: No Assessment/Plan Hospital Course renal follow up SUBJECTIVE: no significant events noted. No hemoptysis, hematemesis or hematochezia. d/w Dr Cifuentes BP is at target with current meds OBJECTIVE: HEENT: Head is normocephalic. HEART: Regular rate. LUNGS: Show diminished breath sounds at the base. ABDOMEN: Soft, nontender to palpation without rebound or guarding. EXTREMITIES: Negative for clubbing, cyanosis, no edema. DERMATOLOGIC: No rashes. MUSCULOSKELETAL: No joint effusion. NEUROLOGIC: No change in exam. MEDICATIONS: The patient's medications have been reviewed. ASSESSMENT AND PLAN: 1. Nonoliguric acute kidney injury with previous baseline creatinine of 1.4 to 1.6 mg/dL. Etiology of acute kidney injury is secondary to hemodynamics, possible AMANDA inhibitor effect. The patient's renal function has been fluctuating, but improved within the previous 24 hours. We would continue current medical management. Continue AMANDA inhibitor. Follow up renal panel. 2. Hypertensive urgency. bp is now at target. meds were reviewed 3. Chronic kidney disease, etiology is multifactorial secondary to hypertensive nephrosclerosis, age-related nephron loss. The patient is currently in acute kidney injury as stated above. Continue disease factor modification. 4. Anemia. Monitor hemoglobin and hematocrit levels. 5. Mineral bone disorder. Monitor calcium and phosphorus levels. 6. Lower extremity weakness. The patient's MRI was reviewed. No evidence of cerebrovascular accident. The patient was seen by neurosurgery for possible lumbar stenosis. No plan for intervention. Continue physical therapy. 7. Diabetes. Continue current insulin regimen. 8. Atrial fibrillation. Continue medical management. 9. Dyslipidemia. Continue statin therapy. Result Diagram: 12/15/18 0543 12/15/18 0543 Results 24hrs Laboratory Tests Test 12/14/18 11:09 12/14/18 17:39 12/14/18 19:58 12/15/18 02:14 Bedside Glucose 151 129 206 113 Test 12/15/18 05:43 12/15/18 08:04 White Blood Count 7.9 Red Blood Count 3.36 L Hemoglobin 10.3 L Hematocrit 31.7 L Mean Corpuscular 94.3 Volume Mean Corpuscular 30.7 Hemoglobin Mean Corpuscular 32.5 Hemoglobin Concent Red Cell 13.1 Distribution Width Platelet Count 213 Mean Platelet Volume 9.5 Immature 0.400 Granulocytes % Neutrophils % 46.8 Lymphocytes % 41.6 Monocytes % 9.3 Eosinophils % 1.5 Basophils % 0.4 Nucleated Red Blood 0.0 Cells % Immature 0.030 Granulocytes # Neutrophils # 3.7 Lymphocytes # 3.3 H Monocytes # 0.7 Eosinophils # 0.1 Basophils # 0.0 Nucleated Red Blood 0.0 Cells # Sodium Level 138 Potassium Level 4.0 Chloride Level 102 Carbon Dioxide Level 27 Anion Gap 9 Blood Urea Nitrogen 25 H Creatinine 1.66 H Est Glomerular Filtrat Rate mL/min Glucose Level 128 Calcium Level 8.7 Phosphorus Level 3.4 Magnesium Level 1.7 Bedside Glucose 129 Exam/Review of Systems Exam Vitals Vital Signs Date Temp Pulse Resp B/P (MAP) Pulse Ox O2 O2 Flow FiO2 Time Delivery Rate 12/15/18 98.3 53 16 133/65 96 Room Air 07:36 (87) Intake and Output 12/14/18 12/14/18 12/15/18 1515:00 23:00 07:00 IntakeIntake Total 100 ml 720 ml 300 ml OutputOutput Total 700 ml 600 ml BalanceBalance 100 ml 20 ml -300 ml Results Results 24hrs Laboratory Tests Test 12/14/18 11:09 12/14/18 17:39 12/14/18 19:58 12/15/18 02:14 Bedside Glucose 151 129 206 113 Test 12/15/18 05:43 12/15/18 08:04 White Blood Count 7.9 Red Blood Count 3.36 L Hemoglobin 10.3 L Hematocrit 31.7 L Mean Corpuscular 94.3 Volume Mean Corpuscular 30.7 Hemoglobin Mean Corpuscular 32.5 Hemoglobin Concent Red Cell 13.1 Distribution Width Platelet Count 213 Mean Platelet Volume 9.5 Immature 0.400 Granulocytes % Neutrophils % 46.8 Lymphocytes % 41.6 Monocytes % 9.3 Eosinophils % 1.5 Basophils % 0.4 Nucleated Red Blood 0.0 Cells % Immature 0.030 Granulocytes # Neutrophils # 3.7 Lymphocytes # 3.3 H Monocytes # 0.7 Eosinophils # 0.1 Basophils # 0.0 Nucleated Red Blood 0.0 Cells # Sodium Level 138 Potassium Level 4.0 Chloride Level 102 Carbon Dioxide Level 27 Anion Gap 9 Blood Urea Nitrogen 25 H Creatinine 1.66 H Est Glomerular Filtrat Rate mL/min Glucose Level 128 Calcium Level 8.7 Phosphorus Level 3.4 Magnesium Level 1.7 Bedside Glucose 129 Medications Medication Current Medications IV Flush (NS 3 ml) 3 ml PER PROTOCOL IV ; Start 12/10/18 at 10:30 Ondansetron HCl (Zofran Inj) 4 mg Q6H PRN IV NAUSEA/VOMITING Last administered on 12/14/18at 17:52; Admin Dose 4 MG; Start 12/10/18 at 10:30 Acetaminophen (Tylenol Tab) 650 mg Q6H PRN PO .PAIN 1-3 OR TEMP; Start 12/10/18 at 10:30 Acetaminophen/ Hydrocodone Bitart ([place] (5/325)) 1 tab Q6H PRN PO .PAIN 4-6; Start 12/10/18 at 10:30 Hydralazine HCl (Apresoline) 10 mg Q4H PRN IV sbp >160 Last administered on 12/14/18at 06:04; Admin Dose 10 MG; Start 12/10/18 at 10:30 Labetalol HCl (Labetalol) 10 mg Q4H PRN IV sbp >160 Last administered on 12/13/18at 23:58; Admin Dose 10 MG; Start 12/10/18 at 10:30 Diagnostic Test (Pha) (Accu-Chek) 1 ea 02 XX Last administered on 12/15/18at 02:00; Admin Dose 1 EA; Start 12/11/18 at 02:00 Insulin Aspart (Novolog Insulin Pen) NOVOLOG *MILD* ALGORITHM WITH MEALS BEDTIME SC Last administered on 12/14/18at 21:05; Admin Dose 1 UNIT; Start 12/10/18 at 12:00 Miscellaneous Information 1 ea NOTE XX ; Start 12/10/18 at 10:30 Glucose (Glutose) 15 gm Q15M PRN PO DECREASED GLUCOSE; Start 12/10/18 at 10:30 Glucose (Glutose) 22.5 gm Q15M PRN PO DECREASED GLUCOSE; Start 12/10/18 at 10:30 Dextrose (D50w Syringe) 25 ml Q15M PRN IV DECREASED GLUCOSE; Start 12/10/18 at 10:30 Dextrose (D50w Syringe) 50 ml Q15M PRN IV DECREASED GLUCOSE; Start 12/10/18 at 10:30 Glucagon (Glucagen) 1 mg Q15M PRN IM DECREASED GLUCOSE; Start 12/10/18 at 10:30 Glucose (Glutose) 15 gm Q15M PRN BUCCAL DECREASED GLUCOSE; Start 12/10/18 at 10:30 Atorvastatin Calcium (Lipitor) 80 mg QHS PO Last administered on 12/14/18 20:01; Admin Dose 80 MG; Start 12/10/18 at 21:00 Benazepril HCl (Lotensin) 20 mg BID PO Last administered on 12/14/18 20:00; Admin Dose 20 MG; Start 12/10/18 at 21:00 Carvedilol (Coreg) 3.125 mg BID PO Last administered on 12/14/18 20:00; Admin Dose 3.125 MG; Start 12/10/18 at 21:00 Clonazepam (Klonopin) 1 mg QHS PRN PO SLEEP; Start 12/10/18 at 11:00 Docusate Sodium (Colace) 100 mg DAILY PO Last administered on 12/14/18 08:53; Admin Dose 100 MG; Start 12/11/18 at 09:00 Ferrous Sulfate (Ferrous Sulfate (Ec)) 325 mg DAILY PO Last administered on 12/14/18 08:54; Admin Dose 325 MG; Start 12/11/18 at 09:00 Levothyroxine Sodium (Synthroid) 75 mcg BEFORE BREAKFAST PO Last administered on 12/15/18 06:18; Admin Dose 75 MCG; Start 12/11/18 at 07:00 Ranolazine (Ranexa) 1,000 mg Q12H PO Last administered on 12/14/18 22:43; Admin Dose 1,000 MG; Start 12/10/18 at 11:00 Apixaban (Eliquis) 2.5 mg BID PO Last administered on 12/12/18 09:00; Admin Dose 2.5 MG; Start 12/12/18 at 09:00; Status Hold Amiodarone HCl (Cordarone) 200 mg DAILY PO Last administered on 12/14/18at 0 8:54; Admin Dose 200 MG; Start 12/13/18 at 09:00 Pantoprazole (Protonix Tab) 40 mg DAILY@06 PO Last administered on 12/15/18 06:18; Admin Dose 40 MG; Start 12/13/18 at 13:00 Sucralfate (Carafate Susp) 1 gm QID PO Last administered on 12/14/18at 20:00; Admin Dose 1 GM; Start 12/13/18 at 13:00 Nifedipine (Procardia Xl) 60 mg BID PO Last administered on 12/14/18at 20:01; Admin Dose 60 MG; Start 12/14/18 at 09:00 PEDRO HENAO DO Dec 15, 2018 08:21
--- NOTE | 2018-12-15 08:38 | CONS ---
Assessment/Plan Assessment/Plan Hospital Course 83 yo M c/ multiple comorbidities, who presents for evaluation of bilateral lower limb weakness c/b falls. Notable is renal insufficiency, which could exacerbate gait instability.. Orthostatic vitals ++, a likely contributor.. MRI brain is reassuringly negative for acute ischemia.. UA/UDS neg P: PT/OT as necessary OK to resume eliquis for now; but may need to reconsider if PT is unable to rectify frequent falls.. [place] OK Other management per primary Will follow clinically Consultation Date/Type/Reason Admit Date/Time Dec 11, 2018 at 10:14 Type of Consult Neurology Requesting Provider: ABEBA CASTANEDA Date/Time of Note DATE: 12/15/18 TIME: 08:38 24 HR Interval Summary Free Text/Dictation Continues acute care. Pt is without complaints at this time. Exam Vital Signs Vitals Vital Signs Date Temp Pulse Resp B/P (MAP) Pulse Ox O2 O2 Flow FiO2 Time Delivery Rate 12/15/18 98.3 53 16 133/65 96 Room Air 07:36 (87) Intake and Output 12/14/18 12/14/18 12/15/18 1515:00 23:00 07:00 IntakeIntake Total 100 ml 720 ml 300 ml OutputOutput Total 700 ml 600 ml BalanceBalance 100 ml 20 ml -300 ml Exam PE: Gen Appearance: No Apparent Distress HEENT: Normocephalic Cardiovascular: Regular rate Lungs: Clear bilaterally Abdomen: Soft Extremities: Dry NE: The patient was alert and oriented. Language was normal. Fund of knowledge was normal. Pupils were equal and reactive to light. There was no afferent pupillary defect. Visual murphy were normal. Funduscopic examination was limited. Extra-ocular movements were full. Ptosis was absent. There was no nystagmus. Facial sensation was normal. Face was symmetric with normal strength. Hearing was intact. Palate movements were normal. Neck strength was normal. There was normal tongue bulk and speed of movement. Tone was normal. Muscle bulk was normal. I did not see fasciculations. Arms were strong to confrontation; Hip flexors, BLE flexion/extension, ankle flexion/dorsiflexion was strong and symmetric. Vibration sensation was normal. Temperature and pinprick sensation was normal. Rapid alternating movements were normal. There was no dysmetria. There was no intention tremor. Gait was steady when ambulating with a walker. Arm and leg reflexes were 2+ and symmetric. Saldana's sign was absent. Plantar responses were flexor. KEVIN MATHEWS NP Dec 15, 2018 08:38
[2018-12-15] MEDS: INSULIN ASPART [NOVOLOG] 3 ML PEN SC SCH ×4 (09:20→20:12)
[2018-12-15] MEDS: SUCRALFATE (100 MG/ML) 10ML CUP PO SCH ×4 (09:24→20:08)
[2018-12-15] MEDS: BENAZEPRIL 20 MG TAB PO SCH ×2 (09:25→20:09)
[2018-12-15] MEDS: FERROUS SULFATE (EC) 325 MG TAB PO SCH (09:25)
[2018-12-15] MEDS: AMIODARONE 200 MG TAB PO SCH (09:26)
[2018-12-15] MEDS: NIFEdipine (XL) 30 MG TAB PO SCH ×2 (09:26→20:09)
[2018-12-15] MEDS: DOCUSATE SODIUM 100 MG CAP PO SCH (09:26)
[2018-12-15] MEDS: RANOLAZINE (SR) 500 MG TAB PO SCH ×2 (12:06→22:37)
--- NOTE | 2018-12-15 12:07 | CONS ---
Consult Date/Type/Reason Admit Date/Time Dec 11, 2018 at 10:14 Initial Consult Date Requesting Provider: ABEBA CASTANEDA Date/Time of Note DATE: 12/15/18 TIME: 12:04 Subjective NO acute events - rate better controlled - pt feels better now, nausea resolved. ROS: No fever, no chills, RESOLVED nausea and vomiting, no diarrhea/constipation No recent weight changes No chest pain, no PND, no orthopnea No dizziness, blurred vision No thirst, no heat or cold intolerance Objective Vitals Vital Signs Date Temp Pulse Resp B/P (MAP) Pulse Ox O2 O2 Flow FiO2 Time Delivery Rate 12/15/18 53 117/56 95 11:39 (76) 12/15/18 98.3 18 Room Air 11:35 Intake and Output 12/14/18 12/14/18 12/15/18 1515:00 23:00 07:00 IntakeIntake Total 100 ml 720 ml 300 ml OutputOutput Total 700 ml 600 ml BalanceBalance 100 ml 20 ml -300 ml Exam General: WN/WD/NAD, AOx 3 HEENT: Unicetric/atraumatic/EOMI (follow commands) NECK: JVD elevated, no thyromegaly Lymph: no lymphadenopathy HEART: irregular with no S3, II/ systolic murmur at apex, LUNGS: Coarse sounds ABD: soft, NT, ND, +BS : Intact Neuro: non focal SKIN: chronic changes EXT: trace edema Results/Medications Result Diagram: 12/15/18 0543 12/15/18 0543 Results 24 hrs Laboratory Tests Test 12/14/18 17:39 12/14/18 19:58 12/15/18 02:14 12/15/18 05:43 Bedside Glucose 129 206 113 White Blood Count 7.9 Red Blood Count 3.36 L Hemoglobin 10.3 L Hematocrit 31.7 L Mean Corpuscular 94.3 Volume Mean Corpuscular 30.7 Hemoglobin Mean Corpuscular 32.5 Hemoglobin Concent Red Cell 13.1 Distribution Width Platelet Count 213 Mean Platelet Volume 9.5 Immature 0.400 Granulocytes % Neutrophils % 46.8 Lymphocytes % 41.6 Monocytes % 9.3 Eosinophils % 1.5 Basophils % 0.4 Nucleated Red Blood 0.0 Cells % Immature 0.030 Granulocytes # Neutrophils # 3.7 Lymphocytes # 3.3 H Monocytes # 0.7 Eosinophils # 0.1 Basophils # 0.0 Nucleated Red Blood 0.0 Cells # Sodium Level 138 Potassium Level 4.0 Chloride Level 102 Carbon Dioxide Level 27 Anion Gap 9 Blood Urea Nitrogen 25 H Creatinine 1.66 H Est Glomerular Filtrat Rate mL/min Glucose Level 128 Calcium Level 8.7 Phosphorus Level 3.4 Magnesium Level 1.7 Test 12/15/18 08:04 12/15/18 11:56 Bedside Glucose 129 133 Home Meds Active Scripts Losartan Potassium* (Losartan Potassium*) 50 Mg Tablet, 50 MG PO DAILY for 30 Days, TAB Prov:ANA LAI MD 09/26/16 Reported Medications Carvedilol* (Coreg*) 3.125 Mg Tablet, 3.125 MG PO BID, #60 TAB 12/10/18 Atorvastatin* (Atorvastatin*) 80 Mg Tablet, 80 MG PO QHS, #30 TAB 12/10/18 Ergocalciferol (Vitamin D2) (VITAMIN D2) 50,000 Unit Capsule, 1 CAP ORAL WEEKLY 12/10/18 Amiodarone Hcl* (Amiodarone Hcl*) 200 Mg Tablet, 200 MG PO BID, #60 TAB 12/10/18 Apixaban* (Eliquis*) 2.5 Mg Tablet, 2.5 MG PO BID, TAB 12/10/18 Glimepiride* (Glimepiride*) 1 Mg Tablet, 1 MG PO WITH BREAKFAST DINNE, TAB 12/10/18 Amlodipine Besylate* (Amlodipine Besylate*) 2.5 Mg Tablet, 1 TAB ORAL BID 12/10/18 Benazepril Hcl* (Benazepril Hcl*) 20 Mg Tablet, 1 TAB ORAL BID 12/10/18 Memantine* (Namenda*) 10 Mg Tablet, 1 TAB ORAL DAILY 12/10/18 Ranolazine* (Ranexa*) 1,000 Mg Tab.sr.12h, 1 TAB ORAL Q12H 12/10/18 Levothyroxine Sodium* (Levothyroxine Sodium*) 75 Mcg Tablet, 75 MCG PO BEFORE BREAKFAST, #30 TAB 05/03/18 Hydralazine Hcl* (Hydralazine Hcl*) 25 Mg Tab, 25 MG PO Q6, #120 TAB 05/03/18 Nitroglycerin* (Nitrostat*) 0.4 Mg Tab.subl, 0.4 MG SL Q5MIN PRN for CHEST PAIN, BOTTLE 09/21/16 Clonazepam* (Klonopin*) 1 Mg Tablet, 1 MG PO QHS PRN for SLEEP, TAB 09/21/16 Docusate Sodium* (Docusate Sodium*) 100 Mg Capsule, 100 MG PO DAILY, #60 CAP 06/22/16 Levothyroxine Sodium* (Levoxyl*) 50 Mcg Tablet, 50 MCG PO BEFORE BREAKFAST, #30 TAB 06/22/16 Tamsulosin Hcl* (Tamsulosin Hcl*) 0.4 Mg Cap.er.24h, 0.4 MG PO HS, CAP 06/22/16 Ferrous Sulfate* (Ferrous Sulfate*) 325 Mg Tabec, 325 MG PO DAILY, TAB 06/22/16 Isosorbide Mononitrate* (Isosorbide Mononitrate*) 120 Mg Tab.sr.24h, 120 MG PO DAILY, TAB.SA 06/22/16 Discontinued Reported Medications Sertraline Hcl* (Zoloft*) 25 Mg Tablet, 25 MG PO DAILY, #30 TAB 09/21/16 Albuterol Sulfate* (Ventolin HFA*) 18 Gm Hfa.aer.ad, 2 PUFF INHALATION Q6H, #1 INHALER 09/21/16 Amlodipine Besylate* (Norvasc*) 5 Mg Tablet, 5 MG PO BID, TAB 09/21/16 Carvedilol* (Coreg*) 6.25 Mg Tablet, 6.25 MG PO BID, #60 TAB 09/21/16 Apixaban* (Eliquis*) 5 Mg Tablet, 5 MG PO BID, TAB 06/22/16 Amiodarone Hcl* (Amiodarone Hcl*) 100 Mg Tablet, 100 MG PO BID, #30 TAB 06/22/16 Discontinued Scripts Clonidine Hcl* (Clonidine Hcl*) 0.1 Mg Tab, 1 TAB PO BID, #30 TAB Prov:TOOTIE MORFIN MD 05/06/18 Ascorbic Acid (Vitamin C) 500 Mg Tab, 500 MG PO BID for 30 Days, #60 TAB Prov:ANA LAI MD 09/26/16 Medications Current Medications IV Flush (NS 3 ml) 3 ml PER PROTOCOL IV ; Start 12/10/18 at 10:30 Ondansetron HCl (Zofran Inj) 4 mg Q6H PRN IV NAUSEA/VOMITING Last administered on 12/14/18at 17:52; Admin Dose 4 MG; Start 12/10/18 at 10:30 Acetaminophen (Tylenol Tab) 650 mg Q6H PRN PO .PAIN 1-3 OR TEMP; Start 12/10/18 at 10:30 Acetaminophen/ Hydrocodone Bitart ([place] (5/325)) 1 tab Q6H PRN PO .PAIN 4-6; Start 12/10/18 at 10:30 Hydralazine HCl (Apresoline) 10 mg Q4H PRN IV sbp >160 Last administered on 12/14/18at 06:04; Admin Dose 10 MG; Start 12/10/18 at 10:30 Labetalol HCl (Labetalol) 10 mg Q4H PRN IV sbp >160 Last administered on at 23:58; Admin Dose 10 MG; Start 12/10/18 at 10:30 Diagnostic Test (Pha) (Accu-Chek) 1 ea 02 XX Last administered on 12/15/18at 02:00; Admin Dose 1 EA; Start 12/11/18 at 02:00 Insulin Aspart (Novolog Insulin Pen) NOVOLOG *MILD* ALGORITHM WITH MEALS BEDTIME SC Last administered on 12/14/18at 21:05; Admin Dose 1 UNIT; Start 12/10/18 at 12:00 Miscellaneous Information 1 ea NOTE XX ; Start 12/10/18 at 10:30 Glucose (Glutose) 15 gm Q15M PRN PO DECREASED GLUCOSE; Start 12/10/18 at 10:30 Glucose (Glutose) 22.5 gm Q15M PRN PO DECREASED GLUCOSE; Start 12/10/18 at 10:30 Dextrose (D50w Syringe) 25 ml Q15M PRN IV DECREASED GLUCOSE; Start 12/10/18 at 10:30 Dextrose (D50w Syringe) 50 ml Q15M PRN IV DECREASED GLUCOSE; Start 12/10/18 at 10:30 Glucagon (Glucagen) 1 mg Q15M PRN IM DECREASED GLUCOSE; Start 12/10/18 at 10:30 Glucose (Glutose) 15 gm Q15M PRN BUCCAL DECREASED GLUCOSE; Start 12/10/18 at 10:30 Atorvastatin Calcium (Lipitor) 80 mg QHS PO Last administered on 12/14/18 20:01; Admin Dose 80 MG; Start 12/10/18 at 21:00 Benazepril HCl (Lotensin) 20 mg BID PO Last administered on 12/15/18 09:25; Admin Dose 20 MG; Start 12/10/18 at 21:00 Carvedilol (Coreg) 3.125 mg BID PO Last administered on 12/15/18 09:26; Admin Dose 3.125 MG; Start 12/10/18 at 21:00 Clonazepam (Klonopin) 1 mg QHS PRN PO SLEEP; Start 12/10/18 at 11:00 Docusate Sodium (Colace) 100 mg DAILY PO Last administered on 12/15/18 09:26; Admin Dose 100 MG; Start 12/11/18 at 09:00 Ferrous Sulfate (Ferrous Sulfate (Ec)) 325 mg DAILY PO Last administered on 12/15/18 09:25; Admin Dose 325 MG; Start 12/11/18 at 09:00 Levothyroxine Sodium (Synthroid) 75 mcg BEFORE BREAKFAST PO Last administered on 12/15/18 06:18; Admin Dose 75 MCG; Start 12/11/18 at 07:00 Ranolazine (Ranexa) 1,000 mg Q12H PO Last administered on 12/14/18 22:43; Admin Dose 1,000 MG; Start 12/10/18 at 11:00 Apixaban (Eliquis) 2.5 mg BID PO Last administered on 12/12/18 09:00; Admin Dose 2.5 MG; Start 12/12/18 at 09:00; Status Hold Amiodarone HCl (Cordarone) 200 mg DAILY PO Last administered on 12/15/18 09:26; Admin Dose 200 MG; Start 12/13/18 at 09:00 Pantoprazole (Protonix Tab) 40 mg DAILY@06 PO Last administered on 12/15/18 06:18; Admin Dose 40 MG; Start 12/13/18 at 13:00 Sucralfate (Carafate Susp) 1 gm QID PO Last administered on 12/15/18 09:24; Admin Dose 1 GM; Start 12/13/18 at 13:00 Nifedipine (Procardia Xl) 60 mg BID PO Last administered on 12/15/18 09:26; Admin Dose 60 MG; Start 12/14/18 at 09:00 Assessment/Plan Hospital Course (Demo Recall) 1.Atrial fibrillation-rate controlled - pt feels better now 2. Orthostatic hypotension - improved with therapy now. 3.-mod-sev by echo this admit - stable by exam, consider surgical evaluation. 4.HTN - BP in good range now. 5.s/p fall 6. Renal failure - good urine output. 7. Anemia - H/H stable. 8. Lumbar stenosis BRETT ESTEBAN MD Dec 15, 2018 12:07
--- NOTE | 2018-12-15 12:24 | PN ---
Date/Time of Note Date/Time of Note DATE: 12/15/18 TIME: 12:21 Objective Vitals Vital Signs Date Temp Pulse Resp B/P (MAP) Pulse Ox O2 O2 Flow FiO2 Time Delivery Rate 12/15/18 53 117/56 95 11:39 (76) 12/15/18 98.3 18 Room Air 11:35 Intake and Output 12/14/18 12/14/18 12/15/18 1515:00 23:00 07:00 IntakeIntake Total 100 ml 720 ml 300 ml OutputOutput Total 700 ml 600 ml BalanceBalance 100 ml 20 ml -300 ml Results Result Diagram: 12/15/18 0543 12/15/18 0543 Medications Medications Current Medications IV Flush (NS 3 ml) 3 ml PER PROTOCOL IV ; Start 12/10/18 at 10:30 Ondansetron HCl (Zofran Inj) 4 mg Q6H PRN IV NAUSEA/VOMITING Last administered on 12/14/18at 17:52; Admin Dose 4 MG; Start 12/10/18 at 10:30 Acetaminophen (Tylenol Tab) 650 mg Q6H PRN PO .PAIN 1-3 OR TEMP; Start 12/10/18 at 10:30 Acetaminophen/ Hydrocodone Bitart ([place] (5/325)) 1 tab Q6H PRN PO .PAIN 4-6; Start 12/10/18 at 10:30 Hydralazine HCl (Apresoline) 10 mg Q4H PRN IV sbp >160 Last administered on 12/14/18at 06:04; Admin Dose 10 MG; Start 12/10/18 at 10:30 Labetalol HCl (Labetalol) 10 mg Q4H PRN IV sbp >160 Last administered on 12/13/18at 23:58; Admin Dose 10 MG; Start 12/10/18 at 10:30 Diagnostic Test (Pha) (Accu-Chek) 1 ea 02 XX Last administered on 12/15/18at 02:00; Admin Dose 1 EA; Start 12/11/18 at 02:00 Insulin Aspart (Novolog Insulin Pen) NOVOLOG *MILD* ALGORITHM WITH MEALS BEDTIME SC Last administered on 12/14/18at 21:05; Admin Dose 1 UNIT; Start 12/10/18 at 12:00 Miscellaneous Information 1 ea NOTE XX ; Start 12/10/18 at 10:30 Glucose (Glutose) 15 gm Q15M PRN PO DECREASED GLUCOSE; Start 12/10/18 at 10:30 Glucose (Glutose) 22.5 gm Q15M PRN PO DECREASED GLUCOSE; Start 12/10/18 at 10:30 Dextrose (D50w Syringe) 25 ml Q15M PRN IV DECREASED GLUCOSE; Start 12/10/18 at 10:30 Dextrose (D50w Syringe) 50 ml Q15M PRN IV DECREASED GLUCOSE; Start 12/10/18 at 10:30 Glucagon (Glucagen) 1 mg Q15M PRN IM DECREASED GLUCOSE; Start 12/10/18 at 10:30 Glucose (Glutose) 15 gm Q15M PRN BUCCAL DECREASED GLUCOSE; Start 12/10/18 at 10:30 Atorvastatin Calcium (Lipitor) 80 mg QHS PO Last administered on 12/14/18at 20:01; Admin Dose 80 MG; Start 12/10/18 at 21:00 Benazepril HCl (Lotensin) 20 mg BID PO Last administered on 12/15/18 09:25; Admin Dose 20 MG; Start 12/10/18 at 21:00 Carvedilol (Coreg) 3.125 mg BID PO Last administered on 12/15/18 09:26; Admin Dose 3.125 MG; Start 12/10/18 at 21:00 Clonazepam (Klonopin) 1 mg QHS PRN PO SLEEP; Start 12/10/18 at 11:00 Docusate Sodium (Colace) 100 mg DAILY PO Last administered on 12/15/18 09:26; Admin Dose 100 MG; Start 12/11/18 at 09:00 Ferrous Sulfate (Ferrous Sulfate (Ec)) 325 mg DAILY PO Last administered on 12/15/18 09:25; Admin Dose 325 MG; Start 12/11/18 at 09:00 Levothyroxine Sodium (Synthroid) 75 mcg BEFORE BREAKFAST PO Last administered on 12/15/18 06:18; Admin Dose 75 MCG; Start 12/11/18 at 07:00 Ranolazine (Ranexa) 1,000 mg Q12H PO Last administered on 12/15/18 12:06; Admin Dose 1,000 MG; Start 12/10/18 at 11:00 Apixaban (Eliquis) 2.5 mg BID PO Last administered on 12/12/18 09:00; Admin Dose 2.5 MG; Start 12/12/18 at 09:00; Status Hold Amiodarone HCl (Cordarone) 200 mg DAILY PO Last administered on 12/15/18 09:26; Admin Dose 200 MG; Start 12/13/18 at 09:00 Pantoprazole (Protonix Tab) 40 mg DAILY@06 PO Last administered on 12/15/18 06:18; Admin Dose 40 MG; Start 12/13/18 at 13:00 Sucralfate (Carafate Susp) 1 gm QID PO Last administered on 12/15/18 12:06; Admin Dose 1 GM; Start 12/13/18 at 13:00 Nifedipine (Procardia Xl) 60 mg BID PO Last administered on 12/15/18 09:26; Admin Dose 60 MG; Start 12/14/18 at 09:00 VTE Prophylaxis Risk score (from [facility])>0 risk: 6 SCD applied (from [facility]): Yes Lines/Catheters IV Catheter Type: Hdz in Place: No Assessment/Plan Hospital Course Subjective Patient overall feels significantly better, had a good night sleep, no dizziness, no headache, feels near baseline Objective Physical exam General: Patient is laying in bed and answers questions appropriately Mentation: Patient is alert and oriented 4, Head: Normocephalic atraumatic Eyes: EOMI, pupils reactive to light Neck: Supple, nontender, midline Respiratory: Clear to auscultation bilaterally Cardiovascular: regular rate, no obvious murmurs Gastrointestinal: non-tender to palpation, bowel sounds heard. Neurological: Moves all extremities spontaneously, upper extremity has full sens ation and muscle strength, lower extremity has 4-5 muscle strength, full sensation Skin: No new skin lesions Assessment and plan Hypertensive emergency -Patient has a history of hypertension and hypertensive emergency admission, patient's medications were reviewed at bedside were very confusing as patient has multiple bottles of the same medication as well as medications that were not consistent with the current med reconciliation. After speaking to son it is possible that patient may have been taking too much or too little of his medication leading to this issue -Will need to restart patient's medication that are more appropriate dose and adjust as needed, it will be very important for patient and patient's family to do a proper med reconciliation at discharge in order to make sure he is on the right medications Orthostatic hypotension -This may be related to above hypertensive emergency as patient may have been taking more or less of his medications causing a rebound blood pressure issue. Will need to closely monitor and adjust medications as needed -Cardiology consulted, will stop hydralazine for now as well as Flomax -Neurology also on board, -hopefully this is not a issue of chronic venous issues and resolves as patient was ambulatory before admission -PT to continue working with patient, patient is also very compulsive and is not following directions to take some time between transferring from supine, to sitting, to standing. Nausea vomiting -New onset, very mild may be secondary to new medications or orthostatic hypotension as above -Patient doing well on Carafate and Protonix, nausea and vomiting has subsided significantly, will monitor, however if gets worse we will consult GI. Bilateral mild lower extremity gait deficiency-resolving or nearly resolved. -Appears to be more of a balancing issue more so than weakness, patient diagnosed with hypotensive orthostasis -Neurology consulted, does not appear to be acute CVA after MRI returned -Neurology recommendations appreciated -MRI lumbar spine done, showing some severe stenosis, neurosurgeon has also been consulted, also ordered MRI thoracic spine and cervical, I doubt there is any surgical correction needed however will defer to neurosurgeon recommendations with the multiple findings on the MRI of the spine. -Neurosurgery cannot rule out very small spinal cord injury however will get a flexed xray, unlikely surgery needed, findings relayed to patient and patient's son. -No emergency neurological symptoms of bowel or bladder dysfunction at this time, Head hematoma, stable -Secondary to generalized lower extremity weakness and subsequent fall, CT negative for intracranial hemorrhage, however patient does have a palpable hematoma with no headache at this time. -Per neurology, okay to restart Eliquis, however due to his acute gait instability as well as his orthostatic hypotension, will hold off on Eliquis for now Chronic kidney disease -Likely stable, nephrology consulted, recommendations appreciated, will continue AMANDA inhibitor for now, with close monitoring -Workup for renal issues causing hypertension. Diabetes mellitus -Insulin while in house Hypothyroidism -Patient's medication bottles were duplicated at different doses, upon further deduction it can be assumed patient was on increased dose, restart as able Atrial fibrillation -Continue amiodarone and beta-stefan, adjust doses according to canine deputy -Continue Eliquis once gait instability has been corrected Dyslipidemia -Continue atorvastatin Questionable history of TIA -Spoke to son, patient's may have had a symptoms of TIA versus another hypertensive emergency recently at another hospital, it is not confirmed patient had TIA, however 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 Questionable adrenal nodule -MRI does not show findings of adrenal nodule, just thickening Pancreatic cyst -Follow-up MRI in 6 months, will be conveyed to family patient Questionable nodular liver -Follow-up with your primary care provider to monitor Disposition -workup for orthostatic hypotension and gait imbalances, medication non-complian ce (associated with abrupt restart of some home medications he was taken off may be responsible), patient's unreliable history as he does have some dementia so cannot confirm nor deny appropriate medications. We will need to continue to observe and titrate medications as tolerated. ABEBA CASTANEDA Dec 15, 2018 12:24
[2018-12-15] MEDS ORDERED: POLYETHYLENE GLYCOL 17 GM PACKET PO PRN (17:00)
[2018-12-15] MEDS: ATORVASTATIN 80 MG TAB PO SCH (20:08)
[2018-12-15] MEDS: clonAZEPAM 0.5 MG TAB PO PRN (22:39)
[2018-12-16] VITALS (13 sets, daily range): BP systolic 89–160; BP diastolic 54–76; PULSE 50–68; RESP 18–22
[2018-12-16] MEDS ORDERED: LORAZEPAM 2 MG INJ IV ONE (01:30)
[2018-12-16] MEDS: ACCU-CHEK XX SCH (02:00)
[2018-12-16] MEDS: PANTOPRAZOLE (EC) 40 MG TAB PO SCH (06:09)
[2018-12-16] MEDS: LEVOTHYROXINE 75 MCG TAB PO SCH (06:09)
[2018-12-16] MEDS: INSULIN ASPART [NOVOLOG] 3 ML PEN SC SCH ×4 (07:31→20:41)
--- NOTE | 2018-12-16 08:03 | PN ---
Date/Time of Note Date/Time of Note DATE: 12/16/18 TIME: 08:02 Assessment/Plan VTE Prophylaxis Risk score (from Nsg)>0 risk: 6 SCD applied (from Nsg): Yes Pharmacological prophylaxis: other Lines/Catheters IV Catheter Type (from Nrsg): [place] Urinary Cath still in place: No Assessment/Plan Hospital Course renal follow up SUBJECTIVE: no significant events noted. No hemoptysis, hematemesis or hematochezia. d/w Dr Cifuentes BP is at target with current meds OBJECTIVE: HEENT: Head is normocephalic. HEART: Regular rate. LUNGS: Show diminished breath sounds at the base. ABDOMEN: Soft, nontender to palpation without rebound or guarding. EXTREMITIES: Negative for clubbing, cyanosis, no edema. DERMATOLOGIC: No rashes. MUSCULOSKELETAL: No joint effusion. NEUROLOGIC: No change in exam. MEDICATIONS: The patient's medications have been reviewed. ASSESSMENT AND PLAN: 1. Nonoliguric acute kidney injury with previous baseline creatinine of 1.4 to 1.6 mg/dL. Etiology of acute kidney injury is secondary to hemodynamics, possible AMANDA inhibitor effect. The patient's renal function has been fluctuating, but improved within the previous 24 hours. We would continue current medical management. Continue AMANDA inhibitor. Follow up renal panel. 2. Hypertensive urgency. bp is now at target. meds were reviewed 3. Chronic kidney disease, etiology is multifactorial secondary to hypertensive nephrosclerosis, age-related nephron loss. The patient is currently in acute kidney injury as stated above. Continue disease factor modification. 4. Anemia. Monitor hemoglobin and hematocrit levels. 5. Mineral bone disorder. Monitor calcium and phosphorus levels. 6. Lower extremity weakness. The patient's MRI was reviewed. No evidence of cerebrovascular accident. The patient was seen by neurosurgery for possible lumbar stenosis. No plan for intervention. Continue physical therapy. 7. Diabetes. Continue current insulin regimen. 8. Atrial fibrillation. Continue medical management. 9. Dyslipidemia. Continue statin therapy. Result Diagram: 12/16/1818 12/16/1818 Results 24hrs Laboratory Tests Test 12/15/18 08:04 12/15/18 11:56 12/15/18 17:18 12/15/18 19:59 Bedside Glucose 129 133 144 142 Test 12/16/18 00:40 12/16/18 06:18 12/16/18 07:30 Bedside Glucose 143 128 White Blood Count 7.9 Red Blood Count 3.42 L Hemoglobin 10.4 L Hematocrit 32.3 L Mean Corpuscular 94.4 Volume Mean Corpuscular 30.4 Hemoglobin Mean Corpuscular 32.2 Hemoglobin Concent Red Cell 13.2 Distribution Width Platelet Count 211 Mean Platelet Volume 9.4 Immature 0.300 Granulocytes % Neutrophils % 44.6 Lymphocytes % 43.7 Monocytes % 9.0 Eosinophils % 1.9 Basophils % 0.5 Nucleated Red Blood 0.0 Cells % Immature 0.020 Granulocytes # Neutrophils # 3.5 Lymphocytes # 3.4 H Monocytes # 0.7 Eosinophils # 0.2 Basophils # 0.0 Nucleated Red Blood 0.0 Cells # Sodium Level 138 Potassium Level 3.9 Chloride Level 105 Carbon Dioxide Level 28 Anion Gap 5 Blood Urea Nitrogen 23 H Creatinine 1.57 H Est Glomerular Filtrat Rate mL/min Glucose Level 126 Calcium Level 8.8 Phosphorus Level 3.4 Magnesium Level 1.8 Exam/Review of Systems Exam Vitals Vital Signs Date Temp Pulse Resp B/P (MAP) Pulse Ox O2 O2 Flow FiO2 Time Delivery Rate 12/16/18 98.0 63 20 144/68 96 Room Air 07:45 (93) Intake and Output 12/15/18 12/15/18 12/16/18 1414:59 22:59 06:59 IntakeIntake Total 840 ml 600 ml BalanceBalance 840 ml 600 ml Results Results 24hrs Laboratory Tests Test 12/15/18 08:04 12/15/18 11:56 12/15/18 17:18 12/15/18 19:59 Bedside Glucose 129 133 144 142 Test 12/16/18 00:40 12/16/18 06:18 12/16/18 07:30 Bedside Glucose 143 128 White Blood Count 7.9 Red Blood Count 3.42 L Hemoglobin 10.4 L Hematocrit 32.3 L Mean Corpuscular 94.4 Volume Mean Corpuscular 30.4 Hemoglobin Mean Corpuscular 32.2 Hemoglobin Concent Red Cell 13.2 Distribution Width Platelet Count 211 Mean Platelet Volume 9.4 Immature 0.300 Granulocytes % Neutrophils % 44.6 Lymphocytes % 43.7 Monocytes % 9.0 Eosinophils % 1.9 Basophils % 0.5 Nucleated Red Blood 0.0 Cells % Immature 0.020 Granulocytes # Neutrophils # 3.5 Lymphocytes # 3.4 H Monocytes # 0.7 Eosinophils # 0.2 Basophils # 0.0 Nucleated Red Blood 0.0 Cells # Sodium Level 138 Potassium Level 3.9 Chloride Level 105 Carbon Dioxide Level 28 Anion Gap 5 Blood Urea Nitrogen 23 H Creatinine 1.57 H Est Glomerular Filtrat Rate mL/min Glucose Level 126 Calcium Level 8.8 Phosphorus Level 3.4 Magnesium Level 1.8 Medications Medication Current Medications IV Flush (NS 3 ml) 3 ml PER PROTOCOL IV ; Start 12/10/18 at 10:30 Ondansetron HCl (Zofran Inj) 4 mg Q6H PRN IV NAUSEA/VOMITING Last administered on 12/14/18at 17:52; Admin Dose 4 MG; Start 12/10/18 at 10:30 Acetaminophen (Tylenol Tab) 650 mg Q6H PRN PO .PAIN 1-3 OR TEMP; Start 12/10/18 at 10:30 Acetaminophen/ Hydrocodone Bitart ([place] (5/325)) 1 tab Q6H PRN PO .PAIN 4-6; Start 12/10/18 at 10:30 Hydralazine HCl (Apresoline) 10 mg Q4H PRN IV sbp >160 Last administered on 12/14/18at 06:04; Admin Dose 10 MG; Start 12/10/18 at 10:30 Labetalol HCl (Labetalol) 10 mg Q4H PRN IV sbp >160 Last administered on 12/13/18at 23:58; Admin Dose 10 MG; Start 12/10/18 at 10:30 Diagnostic Test (Pha) (Accu-Chek) 1 ea 02 XX Last administered on 12/15/18at 02:00; Admin Dose 1 EA; Start 12/11/18 at 02:00 Insulin Aspart (Novolog Insulin Pen) NOVOLOG *MILD* ALGORITHM WITH MEALS BEDTIME SC Last administered on 12/14/18at 21:05; Admin Dose 1 UNIT; Start 12/10/18 at 12:00 Miscellaneous Information 1 ea NOTE XX ; Start 12/10/18 at 10:30 Glucose (Glutose) 15 gm Q15M PRN PO DECREASED GLUCOSE; Start 12/10/18 at 10:30 Glucose (Glutose) 22.5 gm Q15M PRN PO DECREASED GLUCOSE; Start 12/10/18 at 10:30 Dextrose (D50w Syringe) 25 ml Q15M PRN IV DECREASED GLUCOSE; Start 12/10/18 at 10:30 Dextrose (D50w Syringe) 50 ml Q15M PRN IV DECREASED GLUCOSE; Start 12/10/18 at 10:30 Glucagon (Glucagen) 1 mg Q15M PRN IM DECREASED GLUCOSE; Start 12/10/18 at 10:30 Glucose (Glutose) 15 gm Q15M PRN BUCCAL DECREASED GLUCOSE; Start 12/10/18 at 10:30 Atorvastatin Calcium (Lipitor) 80 mg QHS PO Last administered on 12/15/18 20:08; Admin Dose 80 MG; Start 12/10/18 at 21:00 Benazepril HCl (Lotensin) 20 mg BID PO Last administered on 12/15/18 20:09; Admin Dose 20 MG; Start 12/10/18 at 21:00 Carvedilol (Coreg) 3.125 mg BID PO Last administered on 12/15/18 09:26; Admin Dose 3.125 MG; Start 12/10/18 at 21:00 Clonazepam (Klonopin) 1 mg QHS PRN PO SLEEP Last administered on 12/15/18 22:39; Admin Dose 1 MG; Start 12/10/18 at 11:00 Docusate Sodium (Colace) 100 mg DAILY PO Last administered on 12/15/18 09:26; Admin Dose 100 MG; Start 12/11/18 at 09:00 Ferrous Sulfate (Ferrous Sulfate (Ec)) 325 mg DAILY PO Last administered on 12/15/18 09:25; Admin Dose 325 MG; Start 12/11/18 at 09:00 Levothyroxine Sodium (Synthroid) 75 mcg BEFORE BREAKFAST PO Last administered on 12/16/18 06:09; Admin Dose 75 MCG; Start 12/11/18 at 07:00 Ranolazine (Ranexa) 1,000 mg Q12H PO Last administered on 12/15/18 22:37; Admin Dose 1,000 MG; Start 12/10/18 at 11:00 Apixaban (Eliquis) 2.5 mg BID PO Last administered on 12/12/18 09:00; Admin Dose 2.5 MG; Start 12/12/18 at 09:00; Status Hold Amiodarone HCl (Cordarone) 200 mg DAILY PO Last administered on 12/15/18 09:26; Admin Dose 200 MG; Start 12/13/18 at 09:00 Pantoprazole (Protonix Tab) 40 mg DAILY@06 PO Last administered on 12/16/18 06:09; Admin Dose 40 MG; Start 12/13/18 at 13:00 Sucralfate (Carafate Susp) 1 gm QID PO Last administered on 12/15/18 20:08; Ad min Dose 1 GM; Start 12/13/18 at 13:00 Nifedipine (Procardia Xl) 60 mg BID PO Last administered on 12/15/18 20:09; Admin Dose 60 MG; Start 12/14/18 at 09:00 Polyethylene Glycol (Miralax) 17 gm DAILY PRN PO CONSTIPATION Last administered on 12/15/18 17:41; Admin Dose 17 GM; Start 12/15/18 at 17:00 PEDRO HENAO DO Dec 16, 2018 08:03
[2018-12-16] MEDS: FERROUS SULFATE (EC) 325 MG TAB PO SCH (08:24)
[2018-12-16] MEDS: BENAZEPRIL 20 MG TAB PO SCH ×2 (08:24→20:38)
[2018-12-16] MEDS: SUCRALFATE (100 MG/ML) 10ML CUP PO SCH ×4 (08:24→20:37)
[2018-12-16] MEDS: NIFEdipine (XL) 30 MG TAB PO SCH ×2 (08:24→20:37)
[2018-12-16] MEDS: AMIODARONE 200 MG TAB PO SCH (08:25)
[2018-12-16] MEDS: DOCUSATE SODIUM 100 MG CAP PO SCH (08:25)
--- NOTE | 2018-12-16 09:46 | CONS ---
Assessment/Plan Assessment/Plan Hospital Course 83 yo M c/ multiple comorbidities, who presents for evaluation of bilateral lower limb weakness c/b falls. Notable is renal insufficiency, which could exacerbate gait instability.. Orthostatic vitals ++, a likely contributor.. MRI brain is reassuringly negative for acute ischemia.. UA/UDS neg P: PT/OT as necessary OK to resume eliquis for now [place] OK Other management per primary Will follow clinically Consultation Date/Type/Reason Admit Date/Time Dec 11, 2018 at 10:14 Type of Consult Neurology Requesting Provider: ABEBA CASTANEDA Date/Time of Note DATE: 12/16/18 TIME: 09:46 24 HR Interval Summary Free Text/Dictation Continues acute care. Exam Vital Signs Vitals Vital Signs Date Temp Pulse Resp B/P (MAP) Pulse Ox O2 O2 Flow FiO2 Time Delivery Rate 12/16/18 59 08:00 12/16/18 98.0 20 144/68 96 Room Air 07:45 (93) Intake and Output 12/15/18 12/15/18 12/16/18 1414:59 22:59 06:59 IntakeIntake Total 840 ml 600 ml BalanceBalance 840 ml 600 ml Exam PE: Gen Appearance: No Apparent Distress HEENT: Normocephalic Cardiovascular: Regular rate Lungs: Clear bilaterally Abdomen: Soft Extremities: Dry NE: The patient was alert and oriented. Language was normal. Fund of knowledge was normal. Pupils were equal and reactive to light. There was no afferent pupillary defect. Visual murphy were normal. Funduscopic examination was limited. Extra-ocular movements were full. Ptosis was absent. There was no nystagmus. Facial sensation was normal. Face was symmetric with normal strength. Hearing was intact. Palate movements were normal. Neck strength was normal. There was normal tongue bulk and speed of movement. Tone was normal. Muscle bulk was normal. I did not see fasciculations. Arms were strong to confrontation; Hip flexors, BLE flexion/extension, ankle flexion/dorsiflexion was strong and symmetric. Vibration sensation was normal. Temperature and pinprick sensation was normal. Rapid alternating movements were normal. There was no dysmetria. There was no intention tremor. Gait was steady when ambulating with a walker. Arm and leg reflexes were 2+ and symmetric. Saldana's sign was absent. Plantar responses were flexor. REID,KEVIN [employer]ESPERSON USED [employer] Dec 16, 2018 09:46
[2018-12-16] MEDS: RANOLAZINE (SR) 500 MG TAB PO SCH ×2 (11:48→22:38)
--- NOTE | 2018-12-16 11:49 | PN ---
Date/Time of Note Date/Time of Note DATE: 12/16/18 TIME: 11:45 Objective Vitals Vital Signs Date Temp Pulse Resp B/P (MAP) Pulse Ox O2 O2 Flow FiO2 Time Delivery Rate 12/16/18 56 140/65 10:55 (90) 65 124/55 (78) 65 89/54 (66) 12/16/18 98.0 20 96 Room Air 07:45 Intake and Output 12/15/18 12/15/18 12/16/18 1515:00 23:00 07:00 IntakeIntake Total 840 ml 600 ml BalanceBalance 840 ml 600 ml Results Result Diagram: 12/16/1861712/16/18617 Medications Medications Current Medications IV Flush (NS 3 ml) 3 ml PER PROTOCOL IV ; Start 12/10/18 at 10:30 Ondansetron HCl (Zofran Inj) 4 mg Q6H PRN IV NAUSEA/VOMITING Last administered on 12/14/18at 17:52; Admin Dose 4 MG; Start 12/10/18 at 10:30 Acetaminophen (Tylenol Tab) 650 mg Q6H PRN PO .PAIN 1-3 OR TEMP; Start 12/10/18 at 10:30 Acetaminophen/ Hydrocodone Bitart ([place] (5/325)) 1 tab Q6H PRN PO .PAIN 4-6; Start 12/10/18 at 10:30 Hydralazine HCl (Apresoline) 10 mg Q4H PRN IV sbp >160 Last administered on 12/14/18at 06:04; Admin Dose 10 MG; Start 12/10/18 at 10:30 Labetalol HCl (Labetalol) 10 mg Q4H PRN IV sbp >160 Last administered on 12/13/18at 23:58; Admin Dose 10 MG; Start 12/10/18 at 10:30 Diagnostic Test (Pha) (Accu-Chek) 1 ea 02 XX Last administered on 12/15/18at 02:00; Admin Dose 1 EA; Start 12/11/18 at 02:00 Insulin Aspart (Novolog Insulin Pen) NOVOLOG *MILD* ALGORITHM WITH MEALS BEDTIME SC Last administered on 12/14/18at 21:05; Admin Dose 1 UNIT; Start 12/10/18 at 12:00 Miscellaneous Information 1 ea NOTE XX ; Start 12/10/18 at 10:30 Glucose (Glutose) 15 gm Q15M PRN PO DECREASED GLUCOSE; Start 12/10/18 at 10:30 Glucose (Glutose) 22.5 gm Q15M PRN PO DECREASED GLUCOSE; Start 12/10/18 at 10:30 Dextrose (D50w Syringe) 25 ml Q15M PRN IV DECREASED GLUCOSE; Start 12/10/18 at 10:30 Dextrose (D50w Syringe) 50 ml Q15M PRN IV DECREASED GLUCOSE; Start 12/10/18 at 10:30 Glucagon (Glucagen) 1 mg Q15M PRN IM DECREASED GLUCOSE; Start 12/10/18 at 10:30 Glucose (Glutose) 15 gm Q15M PRN BUCCAL DECREASED GLUCOSE; Start 12/10/18 at 10:30 Atorvastatin Calcium (Lipitor) 80 mg QHS PO Last administered on 12/15/18 20:08; Admin Dose 80 MG; Start 12/10/18 at 21:00 Benazepril HCl (Lotensin) 20 mg BID PO Last administered on 12/16/18 08:24; Admin Dose 20 MG; Start 12/10/18 at 21:00 Carvedilol (Coreg) 3.125 mg BID PO Last administered on 12/15/18 09:26; Admin Dose 3.125 MG; Start 12/10/18 at 21:00 Clonazepam (Klonopin) 1 mg QHS PRN PO SLEEP Last administered on 12/15/18 22:39; Admin Dose 1 MG; Start 12/10/18 at 11:00 Docusate Sodium (Colace) 100 mg DAILY PO Last administered on 12/16/18 08:25; Admin Dose 100 MG; Start 12/11/18 at 09:00 Ferrous Sulfate (Ferrous Sulfate (Ec)) 325 mg DAILY PO Last administered on 12/16/18 08:24; Admin Dose 325 MG; Start 12/11/18 at 09:00 Levothyroxine Sodium (Synthroid) 75 mcg BEFORE BREAKFAST PO Last administered on 12/16/18 06:09; Admin Dose 75 MCG; Start 12/11/18 at 07:00 Ranolazine (Ranexa) 1,000 mg Q12H PO Last administered on 12/15/18 22:37; Ad min Dose 1,000 MG; Start 12/10/18 at 11:00 Apixaban (Eliquis) 2.5 mg BID PO Last administered on 12/12/18 09:00; Admin Dose 2.5 MG; Start 12/12/18 at 09:00; Status Hold Amiodarone HCl (Cordarone) 200 mg DAILY PO Last administered on 12/16/18 08:25; Admin Dose 200 MG; Start 12/13/18 at 09:00 Pantoprazole (Protonix Tab) 40 mg DAILY@06 PO Last administered on 12/16/18 06:09; Admin Dose 40 MG; Start 12/13/18 at 13:00 Sucralfate (Carafate Susp) 1 gm QID PO Last administered on 12/16/18 08:24; Admin Dose 1 GM; Start 12/13/18 at 13:00 Nifedipine (Procardia Xl) 60 mg BID PO Last administered on 12/16/18 08:24; Admin Dose 60 MG; Start 12/14/18 at 09:00 Polyethylene Glycol (Miralax) 17 gm DAILY PRN PO CONSTIPATION Last administered on 12/15/18 17:41; Admin Dose 17 GM; Start 12/15/18 at 17:00 VTE Prophylaxis Risk score (from Ns)>0 risk: 6 SCD applied (from [facility] [place]): Yes Lines/Catheters IV Catheter Type: Hdz in Place: No Assessment/Plan Hospital Course Subjective Patient had an episode of "not feeling well overnight", patient feels better now, but still with significant orthostatic hypotension when tested. Objective Physical exam General: Patient is laying in bed and answers questions appropriately Mentation: Patient is alert and oriented 4, Head: Normocephalic atraumatic Eyes: EOMI, pupils reactive to light Neck: Supple, nontender, midline Respiratory: Clear to auscultation bilaterally Cardiovascular: regular rate, no obvious murmurs Gastrointestinal: non-tender to palpation, bowel sounds heard. Neurological: Moves all extremities spontaneously, upper extremity has full sensation and muscle strength, lower extremity has 4-5 muscle strength, full sensation Skin: No new skin lesions Assessment and plan Hypertensive emergency -Patient has a history of hypertension and hypertensive emergency admission, patient's medications were reviewed at bedside were very confusing as patient has multiple bottles of the same medication as well as medications that were not consistent with the current med reconciliation. After speaking to son it is po ssible that patient may have been taking too much or too little of his medication leading to this issue -Will need to restart patient's medication that are more appropriate dose and adjust as needed, it will be very important for patient and patient's family to do a proper med reconciliation at discharge in order to make sure he is on the right medications Orthostatic hypotension -This may be related to above hypertensive emergency as patient may have been taking more or less of his medications causing a rebound blood pressure issue. Will need to closely monitor and adjust medications as needed -Cardiology consulted, will stop hydralazine for now as well as Flomax -Neurology also on board, -hopefully this is not a issue of chronic venous issues and resolves as patient was ambulatory before admission -PT to continue working with patient, -After a couple days of improvement, patient's orthostatic hypotension is very severe today, patient not exactly symptomatic bouts of blood pressure dropped over 40 points formed a sitting to standing position, still very curious as why patient is symptomatic, still may be medications including nifedipine however will also consult cardiothoracic surgery, Dr. Grant in order to assess if aortic stenosis may lead to this condition. Nausea vomiting, resolved -New onset, very mild may be secondary to new medications or orthostatic hypotension as above -Patient doing well on Carafate and Protonix, nausea and vomiting has subsided significantly, will monitor, however if gets worse we will consult GI. Bilateral mild lower extremity gait deficiency-resolving or nearly resolved. -Appears to be more of a balancing issue more so than weakness, patient diagnosed with hypotensive orthostasis -Neurology consulted, does not appear to be acute CVA after MRI returned -Neurology recommendations appreciated -MRI lumbar spine done, showing some severe stenosis, neurosurgeon has also been consulted, also ordered MRI thoracic spine and cervical, I doubt there is any surgical correction needed however will defer to neurosurgeon recommendations with the multiple findings on the MRI of the spine. -Neurosurgery cannot rule out very small spinal cord injury however will get a flexed xray, unlikely surgery needed, findings relayed to patient and patient's son. -No emergency neurological symptoms of bowel or bladder dysfunction at this time, Head hematoma, stable -Secondary to generalized lower extremity weakness and subsequent fall, CT negative for intracranial hemorrhage, however patient does have a palpable hematoma with no headache at this time. -Per neurology, okay to restart Eliquis, however due to his acute gait instability as well as his orthostatic hypotension, will hold off on Eliquis for now Chronic kidney disease -Likely stable, nephrology consulted, recommendations appreciated, will continue AMANDA inhibitor for now, with close monitoring -Workup for renal issues causing hypertension. 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 Questionable adrenal nodule -MRI does not show findings of adrenal nodule, just thickening Pancreatic cyst -Follow-up MRI in 6 months, family notified, spoke to patient's son. Questionable nodular liver -Follow-up with your primary care provider to monitor Disposition -Cardiothoracic surgery consulted for moderate to severe aortic stenosis as per cardiology recommendations -Continue to monitor for orthostatic vitals. ABEBA CASTANEDA Dec 16, 2018 11:48
--- NOTE | 2018-12-16 12:37 | CONS ---
Consult Date/Type/Reason Admit Date/Time Dec 11, 2018 at 10:14 Initial Consult Date Requesting Provider: ABEBA CASTANEDA Date/Time of Note DATE: 12/16/18 TIME: 12:35 Subjective Pt better overall- HR controlled - still fatigued with orthostatic hypotension - but better overall -will monitor for now. ROS: No fever, no chills, no nausea, no vomiting, no diarrhea/constipation No recent weight changes No chest pain, no PND, no orthopnea - mild SOB No dizziness, blurred vision No thirst, no heat or cold intolerance Objective Vitals Vital Signs Date Temp Pulse Resp B/P (MAP) Pulse Ox O2 O2 Flow FiO2 Time Delivery Rate 12/16/18 98.6 60 20 160/76 96 Room Air 12:01 (104) Intake and Output 12/15/18 12/15/18 12/16/18 1515:00 23:00 07:00 IntakeIntake Total 840 ml 600 ml BalanceBalance 840 ml 600 ml Exam General: WN/WD/NAD, AOx 2-3 Cambodian speaking HEENT: Unicetric/atraumatic/EOMI (follow commands) NECK: JVD elevated, no thyromegaly Lymph: no lymphadenopathy HEART: ir regular with no S3, II/ systolic murmur at apex LUNGS: Coarse sounds ABD: soft, NT, ND, +BS : Intact Neuro: non focal SKIN: chronic changes EXT: trace edema Results/Medications Result Diagram: 12/16/1818 12/16/1818 Results 24 hrs Laboratory Tests Test 12/15/18 17:18 12/15/18 19:59 12/16/18 00:40 12/16/18 06:18 Bedside Glucose 144 142 143 White Blood Count 7.9 Red Blood Count 3.42 L Hemoglobin 10.4 L Hematocrit 32.3 L Mean Corpuscular 94.4 Volume Mean Corpuscular 30.4 Hemoglobin Mean Corpuscular 32.2 Hemoglobin Concent Red Cell 13.2 Distribution Width Platelet Count 211 Mean Platelet Volume 9.4 Immature 0.300 Granulocytes % Neutrophils % 44.6 Lymphocytes % 43.7 Monocytes % 9.0 Eosinophils % 1.9 Basophils % 0.5 Nucleated Red Blood 0.0 Cells % Immature 0.020 Granulocytes # Neutrophils # 3.5 Lymphocytes # 3.4 H Monocytes # 0.7 Eosinophils # 0.2 Basophils # 0.0 Nucleated Red Blood 0.0 Cells # Sodium Level 138 Potassium Level 3.9 Chloride Level 105 Carbon Dioxide Level 28 Anion Gap 5 Blood Urea Nitrogen 23 H Creatinine 1.57 H Est Glomerular Filtrat Rate mL/min Glucose Level 126 Calcium Level 8.8 Phosphorus Level 3.4 Magnesium Level 1.8 Test 12/16/18 07:30 12/16/18 11:31 Bedside Glucose 128 134 Home Meds Active Scripts Losartan Potassium* (Losartan Potassium*) 50 Mg Tablet, 50 MG PO DAILY for 30 Days, TAB Prov:ANA LAI MD 09/26/16 Reported Medications Carvedilol* (Coreg*) 3.125 Mg Tablet, 3.125 MG PO BID, #60 TAB 12/10/18 Atorvastatin* (Atorvastatin*) 80 Mg Tablet, 80 MG PO QHS, #30 TAB 12/10/18 Ergocalciferol (Vitamin D2) (VITAMIN D2) 50,000 Unit Capsule, 1 CAP ORAL WEEKLY 12/10/18 Amiodarone Hcl* (Amiodarone Hcl*) 200 Mg Tablet, 200 MG PO BID, #60 TAB 12/10/18 Apixaban* (Eliquis*) 2.5 Mg Tablet, 2.5 MG PO BID, TAB 12/10/18 Glimepiride* (Glimepiride*) 1 Mg Tablet, 1 MG PO WITH BREAKFAST DINNE, TAB 12/10/18 Amlodipine Besylate* (Amlodipine Besylate*) 2.5 Mg Tablet, 1 TAB ORAL BID 12/10/18 Benazepril Hcl* (Benazepril Hcl*) 20 Mg Tablet, 1 TAB ORAL BID 12/10/18 Memantine* (Namenda*) 10 Mg Tablet, 1 TAB ORAL DAILY 12/10/18 Ranolazine* (Ranexa*) 1,000 Mg Tab.sr.12h, 1 TAB ORAL Q12H 12/10/18 Levothyroxine Sodium* (Levothyroxine Sodium*) 75 Mcg Tablet, 75 MCG PO BEFORE BREAKFAST, #30 TAB 05/03/18 Hydralazine Hcl* (Hydralazine Hcl*) 25 Mg Tab, 25 MG PO Q6, #120 TAB 05/03/18 Nitroglycerin* (Nitrostat*) 0.4 Mg Tab.subl, 0.4 MG SL Q5MIN PRN for CHEST PAIN, BOTTLE 09/21/16 Clonazepam* (Klonopin*) 1 Mg Tablet, 1 MG PO QHS PRN for SLEEP, TAB 09/21/16 Docusate Sodium* (Docusate Sodium*) 100 Mg Capsule, 100 MG PO DAILY, #60 CAP 06/22/16 Levothyroxine Sodium* (Levoxyl*) 50 Mcg Tablet, 50 MCG PO BEFORE BREAKFAST, #30 TAB 06/22/16 Tamsulosin Hcl* (Tamsulosin Hcl*) 0.4 Mg Cap.er.24h, 0.4 MG PO HS, CAP 06/22/16 Ferrous Sulfate* (Ferrous Sulfate*) 325 Mg Tabec, 325 MG PO DAILY, TAB 06/22/16 Isosorbide Mononitrate* (Isosorbide Mononitrate*) 120 Mg Tab.sr.24h, 120 MG PO DAILY, TAB.SA 06/22/16 Discontinued Reported Medications Sertraline Hcl* (Zoloft*) 25 Mg Tablet, 25 MG PO DAILY, #30 TAB 09/21/16 Albuterol Sulfate* (Ventolin HFA*) 18 Gm Hfa.aer.ad, 2 PUFF INHALATION Q6H, #1 INHALER 09/21/16 Amlodipine Besylate* (Norvasc*) 5 Mg Tablet, 5 MG PO BID, TAB 09/21/16 Carvedilol* (Coreg*) 6.25 Mg Tablet, 6.25 MG PO BID, #60 TAB 09/21/16 Apixaban* (Eliquis*) 5 Mg Tablet, 5 MG PO BID, TAB 06/22/16 Amiodarone Hcl* (Amiodarone Hcl*) 100 Mg Tablet, 100 MG PO BID, #30 TAB 06/22/16 Discontinued Scripts Clonidine Hcl* (Clonidine Hcl*) 0.1 Mg Tab, 1 TAB PO BID, #30 TAB Prov:TOOTIE MORFIN MD 05/06/18 Ascorbic Acid (Vitamin C) 500 Mg Tab, 500 MG PO BID for 30 Days, #60 TAB Prov:ANA LAI MD 09/26/16 Medications Current Medications IV Flush (NS 3 ml) 3 ml PER PROTOCOL IV ; Start 12/10/18 at 10:30 Ondansetron HCl (Zofran Inj) 4 mg Q6H PRN IV NAUSEA/VOMITING Last administered on 12/14/18at 17:52; Admin Dose 4 MG; Start 12/10/18 at 10:30 Acetaminophen (Tylenol Tab) 650 mg Q6H PRN PO .PAIN 1-3 OR TEMP; Start 12/10/18 at 10:30 Acetaminophen/ Hydrocodone Bitart ([place] (5/325)) 1 tab Q6H PRN PO .PAIN 4-6; Start 12/10/18 at 10:30 Hydralazine HCl (Apresoline) 10 mg Q4H PRN IV sbp >160 Last administered on 12/14/18at 06:04; Admin Dose 10 MG; Start 12/10/18 at 10:30 Labetalol HCl (Labetalol) 10 mg Q4H PRN IV sbp >160 Last administered on at 23:58; Admin Dose 10 MG; Start 12/10/18 at 10:30 Diagnostic Test (Pha) (Accu-Chek) 1 ea 02 XX Last administered on 12/15/18at 02:00; Admin Dose 1 EA; Start 12/11/18 at 02:00 Insulin Aspart (Novolog Insulin Pen) NOVOLOG *MILD* ALGORITHM WITH MEALS BEDTIME SC Last administered on 12/14/18at 21:05; Admin Dose 1 UNIT; Start 12/10/18 at 12:00 Miscellaneous Information 1 ea NOTE XX ; Start 12/10/18 at 10:30 Glucose (Glutose) 15 gm Q15M PRN PO DECREASED GLUCOSE; Start 12/10/18 at 10:30 Glucose (Glutose) 22.5 gm Q15M PRN PO DECREASED GLUCOSE; Start 12/10/18 at 10:30 Dextrose (D50w Syringe) 25 ml Q15M PRN IV DECREASED GLUCOSE; Start 12/10/18 at 10:30 Dextrose (D50w Syringe) 50 ml Q15M PRN IV DECREASED GLUCOSE; Start 12/10/18 at 10:30 Glucagon (Glucagen) 1 mg Q15M PRN IM DECREASED GLUCOSE; Start 12/10/18 at 10:30 Glucose (Glutose) 15 gm Q15M PRN BUCCAL DECREASED GLUCOSE; Start 12/10/18 at 10:30 Atorvastatin Calcium (Lipitor) 80 mg QHS PO Last administered on 12/15/18at 20:08; Admin Dose 80 MG; Start 12/10/18 at 21:00 Benazepril HCl (Lotensin) 20 mg BID PO Last administered on 12/16/18 08:24; Admin Dose 20 MG; Start 12/10/18 at 21:00 Carvedilol (Coreg) 3.125 mg BID PO Last administered on 12/15/18 09:26; Admin Dose 3.125 MG; Start 12/10/18 at 21:00 Clonazepam (Klonopin) 1 mg QHS PRN PO SLEEP Last administered on 12/15/18 22:39; Admin Dose 1 MG; Start 12/10/18 at 11:00 Docusate Sodium (Colace) 100 mg DAILY PO Last administered on 12/16/18 08:25; Admin Dose 100 MG; Start 12/11/18 at 09:00 Ferrous Sulfate (Ferrous Sulfate (Ec)) 325 mg DAILY PO Last administered on 12/16/18 08:24; Admin Dose 325 MG; Start 12/11/18 at 09:00 Levothyroxine Sodium (Synthroid) 75 mcg BEFORE BREAKFAST PO Last administered on 12/16/18 06:09; Admin Dose 75 MCG; Start 12/11/18 at 07:00 Ranolazine (Ranexa) 1,000 mg Q12H PO Last administered on 12/16/18 11:48; Admin Dose 1,000 MG; Start 12/10/18 at 11:00 Apixaban (Eliquis) 2.5 mg BID PO Last administered on 12/12/18 09:00; Admin Dose 2.5 MG; Start 12/12/18 at 09:00; Status Hold Amiodarone HCl (Cordarone) 200 mg DAILY PO Last administered on 12/16/18 08:25; Admin Dose 200 MG; Start 12/13/18 at 09:00 Pantoprazole (Protonix Tab) 40 mg DAILY@06 PO Last administered on 12/16/18 06:09; Admin Dose 40 MG; Start 12/13/18 at 13:00 Sucralfate (Carafate Susp) 1 gm QID PO Last administered on 12/16/18 08:24; Admin Dose 1 GM; Start 12/13/18 at 13:00 Nifedipine (Procardia Xl) 60 mg BID PO Last administered on 12/16/18at 08:24; Admin Dose 60 MG; Start 12/14/18 at 09:00 Polyethylene Glycol (Miralax) 17 gm DAILY PRN PO CONSTIPATION Last administered on 12/15/18at 17:41; Admin Dose 17 GM; Start 12/15/18 at 17:00 Assessment/Plan Hospital Course (Demo Recall) 1.Atrial fibrillation-rate controlled - pt feels better now - on Eliquis now. 2. Orthostatic hypotension - improved with therapy now. 3.-mod-sev by echo this admit - stable by exam, consider surgical evaluation. Might be contributing - will discuss with Dr. Watkins is RHC/LHC needed. 4.HTN - BP in good range now. 5.s/p fall 6. Renal failure - good urine output. 7. Anemia - H/H stable. 8. Lumbar stenosis BRETT ESTEBAN MD Dec 16, 2018 12:37
[2018-12-16] MEDS: ATORVASTATIN 80 MG TAB PO SCH (20:37)
[2018-12-16] MEDS: clonAZEPAM 0.5 MG TAB PO PRN (23:39)
[2018-12-17] VITALS (12 sets, daily range): BP systolic 129–158; BP diastolic 68–77; PULSE 59–79; RESP 17–20
[2018-12-17] MEDS: ACCU-CHEK XX SCH (01:52)
[2018-12-17] MEDS: LEVOTHYROXINE 75 MCG TAB PO SCH (06:22)
[2018-12-17] MEDS: PANTOPRAZOLE (EC) 40 MG TAB PO SCH (06:22)
[2018-12-17] MEDS: INSULIN ASPART [NOVOLOG] 3 ML PEN SC SCH ×4 (07:55→21:50)
--- NOTE | 2018-12-17 07:57 | CONS ---
Assessment/Plan Assessment/Plan Assessment/Plan (Daily) Moderate to severe aortic regurgitation Her fibrillation COPD Diabetes Renal failure Hypothyroidism On anticoagulation Patient is a candidate to undergo aortic valve replacement this can be done on an elective basis Patient would also need a cardiac catheterization prior to valve surgery to rule out coronary artery disease Discussed with the referring physicians Consultation Date/Type/Reason Admit Date/Time Dec 11, 2018 at 10:14 Date of Consultation: Dec 17, 2018 Type of Consult Cardiothoracic surgery Reason for Consultation Evaluation for aortic valve replacement Date/Time of Note DATE: 12/17/18 TIME: 07:51 Hx of Present Illness This is an 83-year-old male with a history of chronic kidney disease diabetes hypothyroidism COPD atrial fibrillation patient is currently on anticoagulation with Eliquis Patient was admitted because of sudden onset lower extremity weakness and fall Part of his workup included echocardiogram which showed moderate to severe aortic stenosis Mean PG 29.00 mmHg. Mild aortic valve regurgitation. Patient also has left atrial enlargement No signs of overt congestive heart failure Past Medical History Home Meds Active Scripts Losartan Potassium* (Losartan Potassium*) 50 Mg Tablet, 50 MG PO DAILY for 30 Days, TAB Prov:ANA LAI MD 09/26/16 Reported Medications Carvedilol* (Coreg*) 3.125 Mg Tablet, 3.125 MG PO BID, #60 TAB 12/10/18 Atorvastatin* (Atorvastatin*) 80 Mg Tablet, 80 MG PO QHS, #30 TAB 12/10/18 Ergocalciferol (Vitamin D2) (VITAMIN D2) 50,000 Unit Capsule, 1 CAP ORAL WEEKLY 12/10/18 Amiodarone Hcl* (Amiodarone Hcl*) 200 Mg Tablet, 200 MG PO BID, #60 TAB 12/10/18 Apixaban* (Eliquis*) 2.5 Mg Tablet, 2.5 MG PO BID, TAB 12/10/18 Glimepiride* (Glimepiride*) 1 Mg Tablet, 1 MG PO WITH BREAKFAST DINNE, TAB 12/10/18 Amlodipine Besylate* (Amlodipine Besylate*) 2.5 Mg Tablet, 1 TAB ORAL BID 12/10/18 Benazepril Hcl* (Benazepril Hcl*) 20 Mg Tablet, 1 TAB ORAL BID 12/10/18 Memantine* (Namenda*) 10 Mg Tablet, 1 TAB ORAL DAILY 12/10/18 Ranolazine* (Ranexa*) 1,000 Mg Tab.sr.12h, 1 TAB ORAL Q12H 12/10/18 Levothyroxine Sodium* (Levothyroxine Sodium*) 75 Mcg Tablet, 75 MCG PO BEFORE BREAKFAST, #30 TAB 05/03/18 Hydralazine Hcl* (Hydralazine Hcl*) 25 Mg Tab, 25 MG PO Q6, #120 TAB 05/03/18 Nitroglycerin* (Nitrostat*) 0.4 Mg Tab.subl, 0.4 MG SL Q5MIN PRN for CHEST PAIN, BOTTLE 09/21/16 Clonazepam* (Klonopin*) 1 Mg Tablet, 1 MG PO QHS PRN for SLEEP, TAB 09/21/16 Docusate Sodium* (Docusate Sodium*) 100 Mg Capsule, 100 MG PO DAILY, #60 CAP 06/22/16 Levothyroxine Sodium* (Levoxyl*) 50 Mcg Tablet, 50 MCG PO BEFORE BREAKFAST, #30 TAB 06/22/16 Tamsulosin Hcl* (Tamsulosin Hcl*) 0.4 Mg Cap.er.24h, 0.4 MG PO HS, CAP 06/22/16 Ferrous Sulfate* (Ferrous Sulfate*) 325 Mg Tabec, 325 MG PO DAILY, TAB 06/22/16 Isosorbide Mononitrate* (Isosorbide Mononitrate*) 120 Mg Tab.sr.24h, 120 MG PO DAILY, TAB.SA 06/22/16 Discontinued Reported Medications Sertraline Hcl* (Zoloft*) 25 Mg Tablet, 25 MG PO DAILY, #30 TAB 09/21/16 Albuterol Sulfate* (Ventolin HFA*) 18 Gm Hfa.aer.ad, 2 PUFF INHALATION Q6H, #1 INHALER 09/21/16 Amlodipine Besylate* (Norvasc*) 5 Mg Tablet, 5 MG PO BID, TAB 09/21/16 Carvedilol* (Coreg*) 6.25 Mg Tablet, 6.25 MG PO BID, #60 TAB 09/21/16 Apixaban* (Eliquis*) 5 Mg Tablet, 5 MG PO BID, TAB 06/22/16 Amiodarone Hcl* (Amiodarone Hcl*) 100 Mg Tablet, 100 MG PO BID, #30 TAB 06/22/16 Discontinued Scripts Clonidine Hcl* (Clonidine Hcl*) 0.1 Mg Tab, 1 TAB PO BID, #30 TAB Prov:TOOTIE MORFIN MD 05/06/18 Ascorbic Acid (Vitamin C) 500 Mg Tab, 500 MG PO BID for 30 Days, #60 TAB Prov:ANA LAI MD 09/26/16 Medications Current Medications IV Flush (NS 3 ml) 3 ml PER PROTOCOL IV ; Start 12/10/18 at 10:30 Ondansetron HCl (Zofran Inj) 4 mg Q6H PRN IV NAUSEA/VOMITING Last administered on 12/14/18at 17:52; Admin Dose 4 MG; Start 12/10/18 at 10:30 Acetaminophen (Tylenol Tab) 650 mg Q6H PRN PO .PAIN 1-3 OR TEMP; Start 12/10/18 at 10:30 Acetaminophen/ Hydrocodone Bitart ([place] (5/325)) 1 tab Q6H PRN PO .PAIN 4-6; Start 12/10/18 at 10:30 Hydralazine HCl (Apresoline) 10 mg Q4H PRN IV sbp >160 Last administered on 12/14/18at 06:04; Admin Dose 10 MG; Start 12/10/18 at 10:30 Labetalol HCl (Labetalol) 10 mg Q4H PRN IV sbp >160 Last administered on 12/13/18at 23:58; Admin Dose 10 MG; Start 12/10/18 at 10:30 Diagnostic Test (Pha) (Accu-Chek) 1 ea 02 XX Last administered on 12/15/18at 02:00; Admin Dose 1 EA; Start 12/11/18 at 02:00 Insulin Aspart (Novolog Insulin Pen) NOVOLOG *MILD* ALGORITHM WITH MEALS BEDTIME SC Last administered on 12/14/18at 21:05; Admin Dose 1 UNIT; Start 12/10/18 at 12:00 Miscellaneous Information 1 ea NOTE XX ; Start 12/10/18 at 10:30 Glucose (Glutose) 15 gm Q15M PRN PO DECREASED GLUCOSE; Start 12/10/18 at 10:30 Glucose (Glutose) 22.5 gm Q15M PRN PO DECREASED GLUCOSE; Start 12/10/18 at 10:30 Dextrose (D50w Syringe) 25 ml Q15M PRN IV DECREASED GLUCOSE; Start 12/10/18 at 10:30 Dextrose (D50w Syringe) 50 ml Q15M PRN IV DECREASED GLUCOSE; Start 12/10/18 at 10:30 Glucagon (Glucagen) 1 mg Q15M PRN IM DECREASED GLUCOSE; Start 12/10/18 at 10:30 Glucose (Glutose) 15 gm Q15M PRN BUCCAL DECREASED GLUCOSE; Start 12/10/18 at 10:30 Atorvastatin Calcium (Lipitor) 80 mg QHS PO Last administered on 12/16/18 20:37; Admin Dose 80 MG; Start 12/10/18 at 21:00 Benazepril HCl (Lotensin) 20 mg BID PO Last administered on 12/16/18 20:38; Admin Dose 20 MG; Start 12/10/18 at 21:00 Carvedilol (Coreg) 3.125 mg BID PO Last administered on 12/15/18 09:26; Admin Dose 3.125 MG; Start 12/10/18 at 21:00 Clonazepam (Klonopin) 1 mg QHS PRN PO SLEEP Last administered on 12/16/18 23:39; Admin Dose 1 MG; Start 12/10/18 at 11:00 Docusate Sodium (Colace) 100 mg DAILY PO Last administered on 12/16/18 08:25; Admin Dose 100 MG; Start 12/11/18 at 09:00 Ferrous Sulfate (Ferrous Sulfate (Ec)) 325 mg DAILY PO Last administered on 12/16/18 08:24; Admin Dose 325 MG; Start 12/11/18 at 09:00 Levothyroxine Sodium (Synthroid) 75 mcg BEFORE BREAKFAST PO Last administered on 12/17/18 06:22; Admin Dose 75 MCG; Start 12/11/18 at 07:00 Ranolazine (Ranexa) 1,000 mg Q12H PO Last administered on 12/16/18 22:38; Admi n Dose 1,000 MG; Start 12/10/18 at 11:00 Apixaban (Eliquis) 2.5 mg BID PO Last administered on 12/12/18 09:00; Admin Dose 2.5 MG; Start 12/12/18 at 09:00; Status Hold Amiodarone HCl (Cordarone) 200 mg DAILY PO Last administered on 12/16/18 08:25; Admin Dose 200 MG; Start 12/13/18 at 09:00 Pantoprazole (Protonix Tab) 40 mg DAILY@06 PO Last administered on 12/17/18 06:22; Admin Dose 40 MG; Start 12/13/18 at 13:00 Sucralfate (Carafate Susp) 1 gm QID PO Last administered on 12/16/18 20:37; A dmin Dose 1 GM; Start 12/13/18 at 13:00 Nifedipine (Procardia Xl) 60 mg BID PO Last administered on 12/16/18at 20:37; Admin Dose 60 MG; Start 12/14/18 at 09:00 Polyethylene Glycol (Miralax) 17 gm DAILY PRN PO CONSTIPATION Last administered on 12/15/18 17:41; Admin Dose 17 GM; Start 12/15/18 at 17:00 Allergies: Coded Allergies: No Known Allergy (Unverified , 12/10/18) Past Surgical History Past Surgical Hx: no surgical history Social History Smoking Status: Former smoker Exam/Review of Systems Exam Vitals Vital Signs Date Temp Pulse Resp B/P (MAP) Pulse Ox O2 O2 Flow FiO2 Time Delivery Rate 12/17/18 98.1 69 18 137/70 99 Room Air 07:05 (92) Intake and Output 12/16/18 12/16/18 12/17/18 1515:00 23:00 07:00 IntakeIntake Total 960 ml 300 ml BalanceBalance 960 ml 300 ml Eyes: nl conjunctiva, EOMI, nl lids, nl sclera, PERRL ENMT: nl external ears & nose, nl lips & teeth, nl nasal mucosa & septum Neck: supple, non-tender Respiratory: clear to auscultation, normal air movement Cardiovascular: irregular rhythm, systolic murmur Results Result Diagram: 12/16/1818 12/16/18 0618 Results 24hrs Laboratory Tests Test 12/16/18 11:31 12/16/18 17:01 12/16/18 20:40 Bedside Glucose 134 130 143 Medications Medication Current Medications IV Flush (NS 3 ml) 3 ml PER PROTOCOL IV ; Start 12/10/18 at 10:30 Ondansetron HCl (Zofran Inj) 4 mg Q6H PRN IV NAUSEA/VOMITING Last administered on 12/14/18at 17:52; Admin Dose 4 MG; Start 12/10/18 at 10:30 Acetaminophen (Tylenol Tab) 650 mg Q6H PRN PO .PAIN 1-3 OR TEMP; Start 12/10/18 at 10:30 Acetaminophen/ Hydrocodone Bitart ([place] (5/325)) 1 tab Q6H PRN PO .PAIN 4-6; Start 12/10/18 at 10:30 Hydralazine HCl (Apresoline) 10 mg Q4H PRN IV sbp >160 Last administered on 12/14/18at 06:04; Admin Dose 10 MG; Start 12/10/18 at 10:30 Labetalol HCl (Labetalol) 10 mg Q4H PRN IV sbp >160 Last administered on 12/13/18at 23:58; Admin Dose 10 MG; Start 12/10/18 at 10:30 Diagnostic Test (Pha) (Accu-Chek) 1 ea 02 XX Last administered on 12/15/18at 02:00; Admin Dose 1 EA; Start 12/11/18 at 02:00 Insulin Aspart (Novolog Insulin Pen) NOVOLOG *MILD* ALGORITHM WITH MEALS BEDTIME SC Last administered on 12/14/18at 21:05; Admin Dose 1 UNIT; Start 12/10/18 at 12:00 Miscellaneous Information 1 ea NOTE XX ; Start 12/10/18 at 10:30 Glucose (Glutose) 15 gm Q15M PRN PO DECREASED GLUCOSE; Start 12/10/18 at 10:30 Glucose (Glutose) 22.5 gm Q15M PRN PO DECREASED GLUCOSE; Start 12/10/18 at 10:30 Dextrose (D50w Syringe) 25 ml Q15M PRN IV DECREASED GLUCOSE; Start 12/10/18 at 10:30 Dextrose (D50w Syringe) 50 ml Q15M PRN IV DECREASED GLUCOSE; Start 12/10/18 at 10:30 Glucagon (Glucagen) 1 mg Q15M PRN IM DECREASED GLUCOSE; Start 12/10/18 at 10:30 Glucose (Glutose) 15 gm Q15M PRN BUCCAL DECREASED GLUCOSE; Start 12/10/18 at 10:30 Atorvastatin Calcium (Lipitor) 80 mg QHS PO Last administered on 12/16/18at 20:37; Admin Dose 80 MG; Start 12/10/18 at 21:00 Benazepril HCl (Lotensin) 20 mg BID PO Last administered on 12/16/18 20:38; Ad min Dose 20 MG; Start 12/10/18 at 21:00 Carvedilol (Coreg) 3.125 mg BID PO Last administered on 12/15/18 09:26; Admin Dose 3.125 MG; Start 12/10/18 at 21:00 Clonazepam (Klonopin) 1 mg QHS PRN PO SLEEP Last administered on 12/16/18 23:39; Admin Dose 1 MG; Start 12/10/18 at 11:00 Docusate Sodium (Colace) 100 mg DAILY PO Last administered on 12/16/18 08:25; Admin Dose 100 MG; Start 12/11/18 at 09:00 Ferrous Sulfate (Ferrous Sulfate (Ec)) 325 mg DAILY PO Last administered on 12/16/18 08:24; Admin Dose 325 MG; Start 12/11/18 at 09:00 Levothyroxine Sodium (Synthroid) 75 mcg BEFORE BREAKFAST PO Last administered on 12/17/18 06:22; Admin Dose 75 MCG; Start 12/11/18 at 07:00 Ranolazine (Ranexa) 1,000 mg Q12H PO Last administered on 12/16/18 22:38; Admin Dose 1,000 MG; Start 12/10/18 at 11:00 Apixaban (Eliquis) 2.5 mg BID PO Last administered on 12/12/18 09:00; Admin Dose 2.5 MG; Start 12/12/18 at 09:00; Status Hold Amiodarone HCl (Cordarone) 200 mg DAILY PO Last administered on 12/16/18 08:25; Admin Dose 200 MG; Start 12/13/18 at 09:00 Pantoprazole (Protonix Tab) 40 mg DAILY@06 PO Last administered on 12/17/18 06:22; Admin Dose 40 MG; Start 12/13/18 at 13:00 Sucralfate (Carafate Susp) 1 gm QID PO Last administered on 12/16/18 20:37; Admin Dose 1 GM; Start 12/13/18 at 13:00 Nifedipine (Procardia Xl) 60 mg BID PO Last administered on 12/16/18 20:37; Admin Dose 60 MG; Start 12/14/18 at 09:00 Polyethylene Glycol (Miralax) 17 gm DAILY PRN PO CONSTIPATION Last administered on 12/15/18at 17:41; Admin Dose 17 GM; Start 12/15/18 at 17:00 GANGA OROPEZA MD Dec 17, 2018 07:57
[2018-12-17] MEDS: DOCUSATE SODIUM 100 MG CAP PO SCH (08:01)
[2018-12-17] MEDS: SUCRALFATE (100 MG/ML) 10ML CUP PO SCH ×4 (08:01→21:51)
[2018-12-17] MEDS: FERROUS SULFATE (EC) 325 MG TAB PO SCH (08:01)
[2018-12-17] MEDS: NIFEdipine (XL) 30 MG TAB PO SCH ×2 (08:02→21:51)
[2018-12-17] MEDS: BENAZEPRIL 20 MG TAB PO SCH ×2 (08:02→21:52)
[2018-12-17] MEDS: AMIODARONE 200 MG TAB PO SCH (08:04)
--- NOTE | 2018-12-17 10:01 | PN ---
DATE: 12/17/2018 SUBJECTIVE: The patient is stable. Blood pressures are improved. Patient continues to have orthost atic blood pressures, but has been asymptomatic. No other events noted. OBJECTIVE: VITAL SIGNS: Blood pressure is 137/70, respiration 18, pulse 69, temperature 98.1. HEENT: Head is normocephalic. NECK: Supple. HEART: Regular rate. LUNGS: Show diminished breath sounds at the base. ABDOMEN: Soft, nontender to palpation without rebound or guarding. EXTREMITIES: Negative for clubbing, cyanosis, no edema. DERMATOLOGIC: No rashes. MUSCULOSKELETAL: No joint effusions. NEUROLOGIC: No change in exam. MEDICATIONS: The patient's medications have been reviewed. LABORATORY DATA: 12/17/2018: Has been reviewed. ASSESSMENT AND PLAN: 1. Nonoliguric acute kidney injury to his baseline creatinine of 1.4 to 1.6 mg/dL. Etiology of acut e kidney injury is secondary to hemodynamics. Patient's renal function has been fluctuating but over all is improved. At this point, continue current treatment plan. Continue AMANDA inhibitor. Follow up renal panel. 2. Hypertensive urgency. The patient's blood pressures have improved. Continue current medical man agement. 3. Chronic kidney disease, etiology is multifactorial secondary to hypertensive nephrosclerosis, age -related nephro loss. The patient is in current acute kidney injury as stated above. Continue disea se factor modification. 4. Anemia. Monitor hemoglobin and hematocrit levels. 5. Mineral bone disorder, monitor calcium and phosphorus levels. 6. Lower extremity weakness. The patient's MRI was reviewed. Continue to monitor. 7. Diabetes. Continue current insulin regimen. 8. Atrial fibrillation. Continue medical management. 9. Dyslipidemia. Continue statin therapy. Dictated By: JULIETTE CHEEMA DO NR/NTS Conf#: [id number] DID#: [id number] CC: ABEBA CASTANEDA MD;*EndCC*
[2018-12-17] MEDS: RANOLAZINE (SR) 500 MG TAB PO SCH ×2 (12:27→22:58)
--- NOTE | 2018-12-17 13:27 | CONS ---
Assessment/Plan Assessment/Plan Hospital Course (Demo Recall) IMP: 1.Atrial fibrillation-rate controlled 2.orthostatic hypotension 3.-mod-sev by echo this admit 4.HTN 5.s/p fall 6. Renal failure 7. anemia 8. Lumbar stenosis Recc: -Tele -serial ecg's -Continue procardia/benazepril/coreg at current doses and follow orthostasis closely -Not on syetemic anticoag due to fall risk but would place on asa -PT -Contineu statin -Continue PPI/sucralfate -CT surg eval for possible need for AVR. Will require LHC/RHC prior . Will discuss with renal given renal failure Consultation Date/Type/Reason Admit Date/Time Dec 11, 2018 at 10:14 Initial Consult Date 12/14/18 Type of Consult Cardiology Reason for Consultation AF/AR Requesting Provider: ABEBA CASTANEDA Date/Time of Note DATE: 12/17/18 TIME: 13:24 Exam/Review of Systems Vital Signs Vitals Vital Signs Date Temp Pulse Resp B/P (MAP) Pulse Ox O2 O2 Flow FiO2 Time Delivery Rate 12/17/18 97.9 71 18 129/68 97 Room Air 12:11 (88) Intake and Output 12/16/18 12/16/18 12/17/18 1414:59 22:59 06:59 IntakeIntake Total 960 ml BalanceBalance 960 ml Exam Exam Review of Systems: CONSTITUTIONAL: No fevers, chills. PULMONARY: No sob CARDIOVASCULAR: No chest pain/palpitations GASTROINTESTINAL: No nausea/vomiting. GENITOURINARY: No hematuria/dysuria. MUSCULOSKELETAL: No myagias/arthalgias. PSYCHIATRIC: The patient denies depression. NEUROLOGIC: No weakness Constitutional: alert Psych: no complaints Head: normocephalic ENMT: mucosa pink and moist Neck: supple, jvd (9 cm water) Respiratory: clear to auscultation Cardiovascular: irregular rhythm Gastrointestinal: soft, non-tender Musculoskeletal: muscle tone (normal) Extremities: edema (none) Neurological: other (No focal deficits) Labs Result Diagram: 12/17/18 0710 12/17/18 0710 Results 24hrs Laboratory Tests Test 12/16/18 17:01 12/16/18 20:40 12/17/18 07:10 12/17/18 08:01 Bedside Glucose 130 143 127 White Blood Count 7.2 Red Blood Count 3.38 L Hemoglobin 10.4 L Hematocrit 31.7 L Mean Corpuscular 93.8 Volume Mean Corpuscular 30.8 Hemoglobin Mean Corpuscular 32.8 Hemoglobin Concent Red Cell Distribution 13.1 Width Platelet Count 207 Mean Platelet Volume 9.5 Immature Granulocytes 0.300 % Neutrophils % 44.1 Lymphocytes % 44.1 Monocytes % 9.4 Eosinophils % 1.7 Basophils % 0.4 Nucleated Red Blood 0.0 Cells % Immature Granulocytes 0.020 # Neutrophils # 3.2 Lymphocytes # 3.2 H Monocytes # 0.7 Eosinophils # 0.1 Basophils # 0.0 Nucleated Red Blood 0.0 Cells # Sodium Level 138 Potassium Level 3.9 Chloride Level 102 Carbon Dioxide Level 27 Anion Gap 9 Blood Urea Nitrogen 22 H Creatinine 1.58 H Est Glomerular Filtrat Rate mL/min Glucose Level 117 Calcium Level 8.7 Phosphorus Level 3.0 Magnesium Level 1.7 Test 12/17/18 12:26 Bedside Glucose 152 Medications Medications Current Medications IV Flush (NS 3 ml) 3 ml PER PROTOCOL IV ; Start 12/10/18 at 10:30 Ondansetron HCl (Zofran Inj) 4 mg Q6H PRN IV NAUSEA/VOMITING Last administered on 12/14/18at 17:52; Admin Dose 4 MG; Start 12/10/18 at 10:30 Acetaminophen (Tylenol Tab) 650 mg Q6H PRN PO .PAIN 1-3 OR TEMP; Start 12/10/18 at 10:30 Acetaminophen/ Hydrocodone Bitart ([place] (5/325)) 1 tab Q6H PRN PO .PAIN 4-6; Start 12/10/18 at 10:30 Hydralazine HCl (Apresoline) 10 mg Q4H PRN IV sbp >160 Last administered on 12/14/18at 06:04; Admin Dose 10 MG; Start 12/10/18 at 10:30 Labetalol HCl (Labetalol) 10 mg Q4H PRN IV sbp >160 Last administered on 12/13/18at 23:58; Admin Dose 10 MG; Start 12/10/18 at 10:30 Diagnostic Test (Pha) (Accu-Chek) 1 ea 02 XX Last administered on 12/15/18at 02 :00; Admin Dose 1 EA; Start 12/11/18 at 02:00 Insulin Aspart (Novolog Insulin Pen) NOVOLOG *MILD* ALGORITHM WITH MEALS BEDTIME SC Last administered on 12/17/18at 12:30; Admin Dose 1 UNIT; Start at 12:00 Miscellaneous Information 1 ea NOTE XX ; Start 12/10/18 at 10:30 Glucose (Glutose) 15 gm Q15M PRN PO DECREASED GLUCOSE; Start 12/10/18 at 10:30 Glucose (Glutose) 22.5 gm Q15M PRN PO DECREASED GLUCOSE; Start 12/10/18 at 10:30 Dextrose (D50w Syringe) 25 ml Q15M PRN IV DECREASED GLUCOSE; Start 12/10/18 at 10:30 Dextrose (D50w Syringe) 50 ml Q15M PRN IV DECREASED GLUCOSE; Start 12/10/18 at 10:30 Glucagon (Glucagen) 1 mg Q15M PRN IM DECREASED GLUCOSE; Start 12/10/18 at 10:30 Glucose (Glutose) 15 gm Q15M PRN BUCCAL DECREASED GLUCOSE; Start 12/10/18 at 10:30 Atorvastatin Calcium (Lipitor) 80 mg QHS PO Last administered on 12/16/18at 20:37; Admin Dose 80 MG; Start 12/10/18 at 21:00 Benazepril HCl (Lotensin) 20 mg BID PO Last administered on 12/17/18at 08:02; Admin Dose 20 MG; Start 12/10/18 at 21:00 Carvedilol (Coreg) 3.125 mg BID PO Last administered on 12/17/18at 08:02; Admin D ose 3.125 MG; Start 12/10/18 at 21:00 Clonazepam (Klonopin) 1 mg QHS PRN PO SLEEP Last administered on 12/16/18at 23:39; Admin Dose 1 MG; Start 12/10/18 at 11:00 Docusate Sodium (Colace) 100 mg DAILY PO Last administered on 12/17/18 08:01; Admin Dose 100 MG; Start 12/11/18 at 09:00 Ferrous Sulfate (Ferrous Sulfate (Ec)) 325 mg DAILY PO Last administered on 12/17/18at 08:01; Admin Dose 325 MG; Start 12/11/18 at 09:00 Levothyroxine Sodium (Synthroid) 75 mcg BEFORE BREAKFAST PO Last administered on 12/17/18 06:22; Admin Dose 75 MCG; Start 12/11/18 at 07:00 Ranolazine (Ranexa) 1,000 mg Q12H PO Last administered on 12/17/18 12:27; Admin Dose 1,000 MG; Start 12/10/18 at 11:00 Apixaban (Eliquis) 2.5 mg BID PO Last administered on 12/12/18 09:00; Admin Dose 2.5 MG; Start 12/12/18 at 09:00; Status Hold Amiodarone HCl (Cordarone) 200 mg DAILY PO Last administered on 12/17/18 08:04; Admin Dose 200 MG; Start 12/13/18 at 09:00 Pantoprazole (Protonix Tab) 40 mg DAILY@06 PO Last administered on 12/17/18 06:22; Admin Dose 40 MG; Start 12/13/18 at 13:00 Sucralfate (Carafate Susp) 1 gm QID PO Last administered on 12/17/18 12:27; Admin Dose 1 GM; Start 12/13/18 at 13:00 Nifedipine (Procardia Xl) 60 mg BID PO Last administered on 12/17/18 08:02; Admin Dose 60 MG; Start 12/14/18 at 09:00 Polyethylene Glycol (Miralax) 17 gm DAILY PRN PO CONSTIPATION Last administered on 12/15/18 17:41; Admin Dose 17 GM; Start 12/15/18 at 17:00 XIMENA PATINO Dec 17, 2018 13:27
--- NOTE | 2018-12-17 16:20 | CONS ---
Assessment/Plan Assessment/Plan Hospital Course 83 yo M c/ multiple comorbidities, who presents for evaluation of bilateral lower limb weakness c/b falls. Notable is renal insufficiency, which could exacerbate gait instability.. Orthostatic vitals ++, a likely contributor.. MRI brain is reassuringly negative for acute ischemia.. UA/UDS neg P: PT/OT as necessary OK to continue angus Mota OK Other management per primary Will follow clinically Consultation Date/Type/Reason Admit Date/Time Dec 11, 2018 at 10:14 Type of Consult Neurology Reason for Consultation gait abnl, falls Requesting Provider: ABEBA CASTANEDA Date/Time of Note DATE: 12/17/18 TIME: 16:20 24 HR Interval Summary Free Text/Dictation Continues acute care. Exam Vital Signs Vitals Vital Signs Date Temp Pulse Resp B/P (MAP) Pulse Ox O2 O2 Flow FiO2 Time Delivery Rate 12/17/18 97.5 79 18 158/77 99 15:42 (104) 12/17/18 Room Air 12:11 Intake and Output 12/16/18 12/16/18 12/17/18 1414:59 22:59 06:59 IntakeIntake Total 960 ml BalanceBalance 960 ml Exam PE: Gen Appearance: No Apparent Distress HEENT: Normocephalic Cardiovascular: Regular rate Lungs: Clear bilaterally Abdomen: Soft Extremities: Dry NE: The patient was alert and oriented. Language was normal. Fund of knowledge was normal. Pupils were equal and reactive to light. There was no afferent pupillary defect. Visual murphy were normal. Funduscopic examination was limited. Extra-ocular movements were full. Ptosis was absent. There was no nystagmus. Facial sensation was normal. Face was symmetric with normal strength. Hearing was intact. Palate movements were normal. Neck strength was normal. There was normal tongue bulk and speed of movement. Tone was normal. Muscle bulk was normal. I did not see fasciculations. Arms and legs were strong to confrontation. Vibration sensation was normal. Temperature and pinprick sensation was normal. Rapid alternating movements were normal. There was no dysmetria. There was no intention tremor. Gait was steady when ambulating with a FWW. Arm and leg reflexes were 2+ and symmetric. Saldana's sign was absent. Plantar responses were flexor. KEVIN MATHEWS [employer] BOLTER Dec 17, 2018 16:20 ROMI ISAAC Dec 17, 2018 16:21
--- NOTE | 2018-12-17 17:22 | PN ---
Date/Time of Note Date/Time of Note DATE: 12/17/18 TIME: 17:14 Assessment/Plan VTE Prophylaxis Risk score (from Nsg)>0 risk: 6 SCD applied (from Nsg): Yes Pharmacological prophylaxis: NA/contraindicated Pharm contraindication: low risk/ambulating Lines/Catheters IV Catheter Type (from Nrsg): Saline Lock Urinary Cath still in place: No Assessment/Plan Assessment/Plan 1. Hypertensive emergency- resolved - continue current medications - Cardiology on board and appreciate recommendations - most likely secondary to confusion on which medications to take 2. Orthostatic hypotension - stable today - Cardiology on board and continue monitoring - questionable if related to 3. Bilateral mild lower extremity gait deficiency-resolving - PT on board and appreciate consultation - Neurology consulted, does not appear to be acute CVA after MRI returned - MRI lumbar spine done, showing some severe stenosis, neurosurgeon has also been consulted, also ordered MRI thoracic spine and cervical, I doubt there is any surgical correction needed however will defer to neurosurgeon recommendations with the multiple findings on the MRI of the spine. -Neurosurgery cannot rule out very small spinal cord injury however will get a flexed xray, unlikely surgery needed, findings relayed to patient and patient's son. -No emergency neurological symptoms of bowel or bladder dysfunction at this time, 4. Head hematoma, stable - Secondary to generalized lower extremity weakness and subsequent fall, CT negative for intracranial hemorrhage, however patient does have a palpable hematoma with no headache at this time. - Hold off on Eliquis due to risk of fall. 5. Chronic kidney disease - Nephrology consultation appreciated 6. Diabetes mellitus - Insulin while in house 7. Hypothyroidism - Patient's medication bottles were duplicated at different doses, upon further deduction it can be assumed patient was on increased dose, restart as able 8. Atrial fibrillation - Continue amiodarone and beta-stefan, adjust doses according to cultural anthropology professor - Continue Eliquis once gait instability has been corrected 9. Dyslipidemia - Continue atorvastatin 10. Pancreatic cyst - Follow-up MRI in 6 months, family notified, spoke to patient's son. 11. Questionable nodular liver - Follow-up with your primary care provider to monitor 12. Moderate to severe stenosis - Patient was evaluated at [facility] last year and will request records - Cardiology recommending PCI but in setting of CKD high risk for worsening renal function - CT surgery recommendations appreciated and residential carpet installer replacement can be performed as outpt 13. Disposition - Will request cardiac workup from PCP office - Son requesting SNF placement Result Diagram: 12/17/18 0710 12/17/18 0710 Results 24hrs Laboratory Tests Test 12/16/18 20:40 12/17/18 07:10 12/17/18 08:01 12/17/18 12:26 Bedside Glucose 143 127 152 White Blood Count 7.2 Red Blood Count 3.38 L Hemoglobin 10.4 L Hematocrit 31.7 L Mean Corpuscular Volume 93.8 Mean Corpuscular 30.8 Hemoglobin Mean Corpuscular 32.8 Hemoglobin Concent Red Cell Distribution 13.1 Width Platelet Count 207 Mean Platelet Volume 9.5 Immature Granulocytes % 0.300 Neutrophils % 44.1 Lymphocytes % 44.1 Monocytes % 9.4 Eosinophils % 1.7 Basophils % 0.4 Nucleated Red Blood 0.0 Cells % Immature Granulocytes # 0.020 Neutrophils # 3.2 Lymphocytes # 3.2 H Monocytes # 0.7 Eosinophils # 0.1 Basophils # 0.0 Nucleated Red Blood 0.0 Cells # Sodium Level 138 Potassium Level 3.9 Chloride Level 102 Carbon Dioxide Level 27 Anion Gap 9 Blood Urea Nitrogen 22 H Creatinine 1.58 H Est Glomerular Filtrat Rate mL/min Glucose Level 117 Calcium Level 8.7 Phosphorus Level 3.0 Magnesium Level 1.7 Subjective 24 Hr Interval Summary Free Text/Dictation Patient denies any acute issues and expressed desire to ambulate. Son at bedside and states he had a Cardiac workup last year and to request records from PCP. Exam/Review of Systems Exam Vitals Vital Signs Date Temp Pulse Resp B/P (MAP) Pulse Ox O2 O2 Flow FiO2 Time Delivery Rate 12/17/18 97.5 79 18 158/77 99 15:42 (104) 12/17/18 Room Air 12:11 Intake and Output 12/16/18 12/16/18 12/17/18 1515:00 23:00 07:00 IntakeIntake Total 960 ml 300 ml BalanceBalance 960 ml 300 ml Exam General: Patient is laying in bed and answers questions appropriately Neck: Supple, nontender, midline Respiratory: Clear to auscultation bilaterally. no wheezing or rhonchi Cardiovascular: regular rate and rhythm, no obvious murmurs Gastrointestinal: soft, non-tender to palpation, bowel sounds heard. Neurological: Moves all extremities spontaneously, upper extremity has full sensation and muscle strength, lower extremity has 4-5 muscle strength, full sensation Skin: No new skin lesions Results Results 24hrs Laboratory Tests Test 12/16/18 20:40 12/17/18 07:10 12/17/18 08:01 12/17/18 12:26 Bedside Glucose 143 127 152 White Blood Count 7.2 Red Blood Count 3.38 L Hemoglobin 10.4 L Hematocrit 31.7 L Mean Corpuscular Volume 93.8 Mean Corpuscular 30.8 Hemoglobin Mean Corpuscular 32.8 Hemoglobin Concent Red Cell Distribution 13.1 Width Platelet Count 207 Mean Platelet Volume 9.5 Immature Granulocytes % 0.300 Neutrophils % 44.1 Lymphocytes % 44.1 Monocytes % 9.4 Eosinophils % 1.7 Basophils % 0.4 Nucleated Red Blood 0.0 Cells % Immature Granulocytes # 0.020 Neutrophils # 3.2 Lymphocytes # 3.2 H Monocytes # 0.7 Eosinophils # 0.1 Basophils # 0.0 Nucleated Red Blood 0.0 Cells # Sodium Level 138 Potassium Level 3.9 Chloride Level 102 Carbon Dioxide Level 27 Anion Gap 9 Blood Urea Nitrogen 22 H Creatinine 1.58 H Est Glomerular Filtrat Rate mL/min Glucose Level 117 Calcium Level 8.7 Phosphorus Level 3.0 Magnesium Level 1.7 Medications Medication Current Medications IV Flush (NS 3 ml) 3 ml PER PROTOCOL IV ; Start 12/10/18 at 10:30 Ondansetron HCl (Zofran Inj) 4 mg Q6H PRN IV NAUSEA/VOMITING Last administered on 12/14/18at 17:52; Admin Dose 4 MG; Start 12/10/18 at 10:30 Acetaminophen (Tylenol Tab) 650 mg Q6H PRN PO .PAIN 1-3 OR TEMP; Start 12/10/18 at 10:30 Acetaminophen/ Hydrocodone Bitart ([place] (5/325)) 1 tab Q6H PRN PO .PAIN 4-6; Start 12/10/18 at 10:30 Hydralazine HCl (Apresoline) 10 mg Q4H PRN IV sbp >160 Last administered on 12/14/18at 06:04; Admin Dose 10 MG; Start 12/10/18 at 10:30 Labetalol HCl (Labetalol) 10 mg Q4H PRN IV sbp >160 Last administered on 12/13/18at 23:58; Admin Dose 10 MG; Start 12/10/18 at 10:30 Diagnostic Test (Pha) (Accu-Chek) 1 ea 02 XX Last administered on 12/15/18at 02:00; Admin Dose 1 EA; Start 12/11/18 at 02:00 Insulin Aspart (Novolog Insulin Pen) NOVOLOG *MILD* ALGORITHM WITH MEALS BEDTIME SC Last administered on 12/17/18at 12:30; Admin Dose 1 UNIT; Start 12/10/18 at 12:00 Miscellaneous Information 1 ea NOTE XX ; Start 12/10/18 at 10:30 Glucose (Glutose) 15 gm Q15M PRN PO DECREASED GLUCOSE; Start 12/10/18 at 10:30 Glucose (Glutose) 22.5 gm Q15M PRN PO DECREASED GLUCOSE; Start 12/10/18 at 10:30 Dextrose (D50w Syringe) 25 ml Q15M PRN IV DECREASED GLUCOSE; Start 12/10/18 at 10:30 Dextrose (D50w Syringe) 50 ml Q15M PRN IV DECREASED GLUCOSE; Start 12/10/18 at 10:30 Glucagon (Glucagen) 1 mg Q15M PRN IM DECREASED GLUCOSE; Start 12/10/18 at 10:30 Glucose (Glutose) 15 gm Q15M PRN BUCCAL DECREASED GLUCOSE; Start 12/10/18 at 10:30 Atorvastatin Calcium (Lipitor) 80 mg QHS PO Last administered on 12/16/18at 20:37; Admin Dose 80 MG; Start 12/10/18 at 21:00 Benazepril HCl (Lotensin) 20 mg BID PO Last administered on 12/17/18at 08:02; Admin Dose 20 MG; Start 12/10/18 at 21:00 Carvedilol (Coreg) 3.125 mg BID PO Last administered on 12/17/18 08:02; Admin Dose 3.125 MG; Start 12/10/18 at 21:00 Clonazepam (Klonopin) 1 mg QHS PRN PO SLEEP Last administered on 12/16/18at 23:39; Admin Dose 1 MG; Start 12/10/18 at 11:00 Docusate Sodium (Colace) 100 mg DAILY PO Last administered on 12/17/18at 08:01; Admin Dose 100 MG; Start 12/11/18 at 09:00 Ferrous Sulfate (Ferrous Sulfate (Ec)) 325 mg DAILY PO Last administered on 12/17/18 08:01; Admin Dose 325 MG; Start 12/11/18 at 09:00 Levothyroxine Sodium (Synthroid) 75 mcg BEFORE BREAKFAST PO Last administered on 12/17/18 06:22; Admin Dose 75 MCG; Start 12/11/18 at 07:00 Ranolazine (Ranexa) 1,000 mg Q12H PO Last administered on 12/17/18 12:27; Admin Dose 1,000 MG; Start 12/10/18 at 11:00 Apixaban (Eliquis) 2.5 mg BID PO Last administered on 12/12/18 09:00; Admin Dose 2.5 MG; Start 12/12/18 at 09:00; Status Hold Amiodarone HCl (Cordarone) 200 mg DAILY PO Last administered on 12/17/18 08:04; Admin Dose 200 MG; Start 12/13/18 at 09:00 Pantoprazole (Protonix Tab) 40 mg DAILY@06 PO Last administered on 12/17/18 06:22; Admin Dose 40 MG; Start 12/13/18 at 13:00 Sucralfate (Carafate Susp) 1 gm QID PO Last administered on 12/17/18 12:27; A dmin Dose 1 GM; Start 12/13/18 at 13:00 Nifedipine (Procardia Xl) 60 mg BID PO Last administered on 12/17/18 08:02; Admin Dose 60 MG; Start 12/14/18 at 09:00 Polyethylene Glycol (Miralax) 17 gm DAILY PRN PO CONSTIPATION Last administered on 12/15/18 17:41; Admin Dose 17 GM; Start 12/15/18 at 17:00 Aspirin (Aspirin) 81 mg DAILY PO ; Start 12/18/18 at 09:00 JUNIOR CASTELLANO MD Dec 17, 2018 17:22
[2018-12-17] MEDS: ATORVASTATIN 80 MG TAB PO SCH (21:52)
[2018-12-17] MEDS: clonAZEPAM 0.5 MG TAB PO PRN (23:01)
[2018-12-18] VITALS (12 sets, daily range): BP systolic 125–155; BP diastolic 64–74; PULSE 30–79; RESP 16–20
[2018-12-18] MEDS: ACCU-CHEK XX SCH (02:00)
[2018-12-18] MEDS: LEVOTHYROXINE 75 MCG TAB PO SCH (06:37)
[2018-12-18] MEDS: PANTOPRAZOLE (EC) 40 MG TAB PO SCH (06:37)
[2018-12-18] MEDS: INSULIN ASPART [NOVOLOG] 3 ML PEN SC SCH ×5 (07:55→20:39)
[2018-12-18] MEDS: SUCRALFATE (100 MG/ML) 10ML CUP PO SCH ×4 (08:30→20:35)
[2018-12-18] MEDS: DOCUSATE SODIUM 100 MG CAP PO SCH (08:30)
[2018-12-18] MEDS: FERROUS SULFATE (EC) 325 MG TAB PO SCH (08:31)
[2018-12-18] MEDS: ASPIRIN 81 MG TAB PO SCH (08:31)
[2018-12-18] MEDS: BENAZEPRIL 20 MG TAB PO SCH ×2 (08:31→20:36)
[2018-12-18] MEDS: NIFEdipine (XL) 30 MG TAB PO SCH ×2 (08:31→20:36)
[2018-12-18] MEDS: AMIODARONE 200 MG TAB PO SCH (08:31)
--- NOTE | 2018-12-18 09:43 | PN ---
DATE: 12/18/2018 SUBJECTIVE: The patient is stable. No events overnight. OBJECTIVE: VITAL SIGNS: Blood pressure is 137/72, pulse 68, respirations 20, temperature 98.0. HEENT: Head is normocephalic. NECK: Supple. HEART: Regular rate. LUNGS: Show diminished breath sounds at the base. ABDOMEN: Soft, nontender to palpation. No rebound or guarding. EXTREMITIES: Negative for clubbing, cyanosis, no edema. DERMATOLOGIC: No rashes. MUSCULOSKELETAL: No joint effusion. NEUROLOGIC: No change in exam. MEDICATIONS: Reviewed. LABORATORY DATA: Reviewed. ASSESSMENT AND PLAN: 1. Nonoliguric acute kidney injury with previous baseline creatinine of 1.4 to 1.6 mg/dL. Etiology of acute kidney injury is secondary to hemodynamics. Renal function has been fluctuating, but improv ing. Continue current treatment plans, supportive care, renally dose all medications. 2. Hypertensive urgency, improved. Continue medical management. 3. Chronic kidney disease. 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 The patient's currently in acute kidney injury as stated above. Continue current m edical management. Continue disease factor modification. 4. Anemia. Monitor hemoglobin and hematocrit levels. 5. Mineral bone disorder, monitor calcium and phosphorus levels. 6. Lower extremity weakness. Continue medical management. 7. Diabetes. Continue current insulin regimen. 8. Atrial fibrillation. Continue current treatment plan. 9. Dyslipidemia. Continue statin therapy. 10. Aortic stenosis, severe. The patient was evaluated by CT surgery with recommendation for possib le replacement. The patient may need a cardiac catheterization prior to surgical replacement. We wi ll continue to monitor renal function closely. We would recommend to defer cardiac catheterization u ntil renal function is stabilized. Dictated By: JULIETTE CHEEMA DO NR/NTS Conf#: [id number] DID#: [id number] CC: ABEBA CASTANEDA MD; JUNIOR CASTELLANO MD;*End*
--- NOTE | 2018-12-18 09:53 | CONS ---
Consult Date/Type/Reason Admit Date/Time Dec 11, 2018 at 10:14 Initial Consult Date Requesting Provider: ABEBA CASTANEDA Date/Time of Note DATE: 12/18/18 TIME: 09:50 Subjective NO acute events - pt in a. fib - rate controlled - in consideration of AVR - LHC/RHC is being discussed with Dr. Watkins and renal team. ROS: No fever, no chills, no nausea, no vomiting, no diarrhea/constipation No recent weight changes No chest pain, no PND, no orthopnea - still dizzy at times No dizziness, blurred vision No thirst, no heat or cold intolerance Objective Vitals Vital Signs Date Temp Pulse Resp B/P (MAP) Pulse Ox O2 O2 Flow FiO2 Time Delivery Rate 12/18/18 98.0 68 20 137/72 96 07:46 (93) 12/17/18 Room Air 12:11 Intake and Output 12/17/18 12/17/18 12/18/18 1515:00 23:00 07:00 IntakeIntake Total 600 ml 360 ml OutputOutput Total 800 ml BalanceBalance 600 ml -440 ml Exam General: WN/WD/NAD, AOx 3 HEENT: Unicetric/atraumatic/EOMI (follows commands) NECK: JVD elevated, no thyromegaly Lymph: no lymphadenopathy HEART: irregular with no S3, II/ systolic murmur at apex and 3/6 at base LUNGS: Coarse sounds ABD: soft, NT, ND, +BS : Intact Neuro: non focal SKIN: chronic changes EXT: trace edema Results/Medications Result Diagram: 12/18/18 0706 12/18/18 0706 Results 24 hrs Laboratory Tests Test 12/17/18 12:26 12/17/18 17:22 12/17/18 21:43 12/18/18 02:27 Bedside Glucose 152 114 196 109 Test 12/18/18 07:06 12/18/18 08:02 White Blood Count 8.1 Red Blood Count 3.50 L Hemoglobin 10.6 L Hematocrit 32.7 L Mean Corpuscular Volume 93.4 Mean Corpuscular 30.3 Hemoglobin Mean Corpuscular 32.4 Hemoglobin Concent Red Cell Distribution 13.1 Width Platelet Count 224 Mean Platelet Volume 9.5 Immature Granulocytes % 0.200 Neutrophils % 42.7 Lymphocytes % 45.7 Monocytes % 9.0 Eosinophils % 1.9 Basophils % 0.5 Nucleated Red Blood 0.0 Cells % Immature Granulocytes # 0.020 Neutrophils # 3.5 Lymphocytes # 3.7 H Monocytes # 0.7 Eosinophils # 0.2 Basophils # 0.0 Nucleated Red Blood 0.0 Cells # Sodium Level 138 Potassium Level 4.0 Chloride Level 103 Carbon Dioxide Level 28 Anion Gap 7 Blood Urea Nitrogen 24 H Creatinine 1.67 H Glucose Level 109 Calcium Level 8.7 Phosphorus Level 3.8 Magnesium Level 1.8 Albumin 3.5 Bedside Glucose 124 Home Meds Active Scripts Losartan Potassium* (Losartan Potassium*) 50 Mg Tablet, 50 MG PO DAILY for 30 Days, TAB Prov:ANA LAI MD 09/26/16 Reported Medications Carvedilol* (Coreg*) 3.125 Mg Tablet, 3.125 MG PO BID, #60 TAB 12/10/18 Atorvastatin* (Atorvastatin*) 80 Mg Tablet, 80 MG PO QHS, #30 TAB 12/10/18 Ergocalciferol (Vitamin D2) (VITAMIN D2) 50,000 Unit Capsule, 1 CAP ORAL WEEKLY 12/10/18 Amiodarone Hcl* (Amiodarone Hcl*) 200 Mg Tablet, 200 MG PO BID, #60 TAB 12/10/18 Apixaban* (Eliquis*) 2.5 Mg Tablet, 2.5 MG PO BID, TAB 12/10/18 Glimepiride* (Glimepiride*) 1 Mg Tablet, 1 MG PO WITH BREAKFAST DINNE, TAB 12/10/18 Amlodipine Besylate* (Amlodipine Besylate*) 2.5 Mg Tablet, 1 TAB ORAL BID 12/10/18 Benazepril Hcl* (Benazepril Hcl*) 20 Mg Tablet, 1 TAB ORAL BID 12/10/18 Memantine* (Namenda*) 10 Mg Tablet, 1 TAB ORAL DAILY 12/10/18 Ranolazine* (Ranexa*) 1,000 Mg Tab.sr.12h, 1 TAB ORAL Q12H 12/10/18 Levothyroxine Sodium* (Levothyroxine Sodium*) 75 Mcg Tablet, 75 MCG PO BEFORE BREAKFAST, #30 TAB 05/03/18 Hydralazine Hcl* (Hydralazine Hcl*) 25 Mg Tab, 25 MG PO Q6, #120 TAB 05/03/18 Nitroglycerin* (Nitrostat*) 0.4 Mg Tab.subl, 0.4 MG SL Q5MIN PRN for CHEST PAIN, BOTTLE 09/21/16 Clonazepam* (Klonopin*) 1 Mg Tablet, 1 MG PO QHS PRN for SLEEP, TAB 09/21/16 Docusate Sodium* (Docusate Sodium*) 100 Mg Capsule, 100 MG PO DAILY, #60 CAP 06/22/16 Levothyroxine Sodium* (Levoxyl*) 50 Mcg Tablet, 50 MCG PO BEFORE BREAKFAST, #30 TAB 06/22/16 Tamsulosin Hcl* (Tamsulosin Hcl*) 0.4 Mg Cap.er.24h, 0.4 MG PO HS, CAP 06/22/16 Ferrous Sulfate* (Ferrous Sulfate*) 325 Mg Tabec, 325 MG PO DAILY, TAB 06/22/16 Isosorbide Mononitrate* (Isosorbide Mononitrate*) 120 Mg Tab.sr.24h, 120 MG PO DAILY, TAB.SA 06/22/16 Medications Current Medications IV Flush (NS 3 ml) 3 ml PER PROTOCOL IV ; Start 12/10/18 at 10:30 Ondansetron HCl (Zofran Inj) 4 mg Q6H PRN IV NAUSEA/VOMITING Last administered on 12/14/18at 17:52; Admin Dose 4 MG; Start 12/10/18 at 10:30 Acetaminophen (Tylenol Tab) 650 mg Q6H PRN PO .PAIN 1-3 OR TEMP; Start 12/10/18 at 10:30 Acetaminophen/ Hydrocodone Bitart ([place] (5/325)) 1 tab Q6H PRN PO .PAIN 4-6; Start 12/10/18 at 10:30 Hydralazine HCl (Apresoline) 10 mg Q4H PRN IV sbp >160 Last administered on 12/14/18at 06:04; Admin Dose 10 MG; Start 12/10/18 at 10:30 Labetalol HCl (Labetalol) 10 mg Q4H PRN IV sbp >160 Last administered on 12/13/18at 23:58; Admin Dose 10 MG; Start 12/10/18 at 10:30 Diagnostic Test (Pha) (Accu-Chek) 1 02 XX Last administered on 12/15/18at 02:00; Admin Dose 1 EA; Start 12/11/18 at 02:00 Insulin Aspart (Novolog Insulin Pen) NOVOLOG *MILD* ALGORITHM WITH MEALS BEDTIME SC Last administered on 12/17/18 21:50; Admin Dose 1 UNIT; Start 12/10/18 at 12:00 Miscellaneous Information 1 ea NOTE XX ; Start 12/10/18 at 10:30 Glucose (Glutose) 15 gm Q15M PRN PO DECREASED GLUCOSE; Start 12/10/18 at 10:30 Glucose (Glutose) 22.5 gm Q15M PRN PO DECREASED GLUCOSE; Start 12/10/18 at 10:30 Dextrose (D50w Syringe) 25 ml Q15M PRN IV DECREASED GLUCOSE; Start 12/10/18 at 10:30 Dextrose (D50w Syringe) 50 ml Q15M PRN IV DECREASED GLUCOSE; Start 12/10/18 at 10:30 Glucagon (Glucagen) 1 mg Q15M PRN IM DECREASED GLUCOSE; Start 12/10/18 at 10:30 Glucose (Glutose) 15 gm Q15M PRN BUCCAL DECREASED GLUCOSE; Start 12/10/18 at 10:30 Atorvastatin Calcium (Lipitor) 80 mg QHS PO Last administered on 12/17/18 21:52; Admin Dose 80 MG; Start 12/10/18 at 21:00 Benazepril HCl (Lotensin) 20 mg BID PO Last administered on 12/18/18 08:31; Admin Dose 20 MG; Start 12/10/18 at 21:00 Carvedilol (Coreg) 3.125 mg BID PO Last administered on 12/18/18 08:31; Admin Dose 3.125 MG; Start 12/10/18 at 21:00 Clonazepam (Klonopin) 1 mg QHS PRN PO SLEEP Last administered on 12/17/18 23:01; Admin Dose 1 MG; Start 12/10/18 at 11:00 Docusate Sodium (Colace) 100 mg DAILY PO Last administered on 12/18/18 08:30; Admin Dose 100 MG; Start 12/11/18 at 09:00 Ferrous Sulfate (Ferrous Sulfate (Ec)) 325 mg DAILY PO Last administered on 12/18/18 08:31; Admin Dose 325 MG; Start 12/11/18 at 09:00 Levothyroxine Sodium (Synthroid) 75 mcg BEFORE BREAKFAST PO Last administered on 12/18/18 06:37; Admin Dose 75 MCG; Start 12/11/18 at 07:00 Ranolazine (Ranexa) 1,000 mg Q12H PO Last administered on 12/17/18 22:58; Admin Dose 1,000 MG; Start 12/10/18 at 11:00 Apixaban (Eliquis) 2.5 mg BID PO Last administered on 12/12/18 09:00; Admin Dose 2.5 MG; Start 12/12/18 at 09:00; Status Hold Amiodarone HCl (Cordarone) 200 mg DAILY PO Last administered on 12/18/18 08:31; Admin Dose 200 MG; Start 12/13/18 at 09:00 Pantoprazole (Protonix Tab) 40 mg DAILY@06 PO Last administered on 12/18/18 06:37; Admin Dose 40 MG; Start 12/13/18 at 13:00 Sucralfate (Carafate Susp) 1 gm QID PO Last administered on 12/18/18 08:30; Admin Dose 1 GM; Start 12/13/18 at 13:00 Nifedipine (Procardia Xl) 60 mg BID PO Last administered on 12/18/18 08:31; Admin Dose 60 MG; Start 12/14/18 at 09:00 Polyethylene Glycol (Miralax) 17 gm DAILY PRN PO CONSTIPATION Last administered on 12/15/18 17:41; Admin Dose 17 GM; Start 12/15/18 at 17:00 Aspirin (Aspirin) 81 mg DAILY PO Last administered on 12/18/18 08:31; Admin Dose 81 MG; Start 12/18/18 at 09:00 Assessment/Plan Hospital Course (Demo Recall) 1.Atrial fibrillation-rate controlled - pt feels better now - on ASA. 2. Orthostatic hypotension - improved with therapy now. 3.-mod-sev by echo this admit - stable by exam, consider surgical evaluation. Might be contributing - will discuss with Dr. Watkins is [facility]/C needed. Being evaluted with consensus of renal team. 4.HTN - BP in good range now - stable BP now. 5.s/p fall - Eliquis held. 6. Renal failure - good urine output. 7. Anemia - H/H stable. 8. Lumbar stenosis BRETT ESTEBAN MD Dec 18, 2018 09:53
[2018-12-18] MEDS: RANOLAZINE (SR) 500 MG TAB PO SCH ×2 (11:33→22:00)
--- NOTE | 2018-12-18 13:02 | PN ---
Date/Time of Note Date/Time of Note DATE: 12/18/18 TIME: 13:02 Assessment/Plan Lines/Catheters IV Catheter Type (from Nrsg): Saline Lock Hdz in Place (from Nrsg): No Assessment/Plan Assessment/Plan Moderate to severe aortic regurgitation Her fibrillation COPD Diabetes Renal failure Hypothyroidism On anticoagulation Patient is a candidate to undergo aortic valve replacement this can be done on an elective basis Patient would also need a cardiac catheterization prior to valve surgery to rule out coronary artery disease Discussed with the referring physicians Subjective 24 Hr Interval Summary Constitutional: improved Pain Control: mild Exam/Review of Systems Vital Signs Vitals Vital Signs Date Temp Pulse Resp B/P (MAP) Pulse Ox O2 O2 Flow FiO2 Time Delivery Rate 12/18/18 56 12:01 12/18/18 98.1 20 132/68 96 11:17 (89) 12/17/18 Room Air 12:11 Intake and Output 12/17/18 12/17/18 12/18/18 1515:00 23:00 07:00 IntakeIntake Total 600 ml 360 ml OutputOutput Total 800 ml BalanceBalance 600 ml -440 ml Exam Eyes: nl conjunctiva, EOMI, nl lids, nl sclera ENMT: nl external ears & nose, nl lips & teeth, nl nasal mucosa & septum, muc nanda pink and moist Neck: supple, non-tender Respiratory: clear to auscultation, normal air movement Cardiovascular: gallop, systolic murmur Gastrointestinal: soft, nl liver, spleen, non-tender Extremities: normal pulses Neurological: NURSE TRANSITION II-XII intact, nl mental status, nl speech, nl strength Results Result Diagram: 12/18/18 0706 12/18/18 0706 GANGA OROPEZA MD Dec 18, 2018 13:02
--- NOTE | 2018-12-18 15:51 | CONS ---
Assessment/Plan Assessment/Plan Hospital Course 83 yo M c/ multiple comorbidities, who presents for evaluation of bilateral lower limb weakness c/b falls. Notable is renal insufficiency, which could exacerbate gait instability.. Orthostatic vitals ++, a likely contributor.. MRI brain is reassuringly negative for acute intracranial pathology. UA/UDS negative P: PT/OT as necessary OK to resume eliquis for now Ok to continue Namenda Other management per primary Will follow Consultation Date/Type/Reason Admit Date/Time Dec 11, 2018 at 10:14 Type of Consult Neurology Requesting Provider: ABEBA CASTANEDA Date/Time of Note DATE: 12/18/18 TIME: 15:50 24 HR Interval Summary Free Text/Dictation Continues acute care. Exam Vital Signs Vitals Vital Signs Date Temp Pulse Resp B/P (MAP) Pulse Ox O2 O2 Flow FiO2 Time Delivery Rate 12/18/18 98.0 79 19 155/74 95 15:48 (101) 12/17/18 Room Air 12:11 Intake and Output 12/17/18 12/17/18 12/18/18 1515:00 23:00 07:00 IntakeIntake Total 600 ml 360 ml OutputOutput Total 800 ml BalanceBalance 600 ml -440 ml Exam PE: Gen Appearance: No Apparent Distress HEENT: Normocephalic Cardiovascular: Regular rate Lungs: Clear bilaterally Abdomen: Soft Extremities: Dry NE: The patient was alert and oriented. Language was normal. Fund of knowledge was normal. Pupils were equal and reactive to light. There was no afferent pupillary defect. Visual murphy were normal. Funduscopic examination was limited. Extra-ocular movements were full. Ptosis was absent. There was no nystagmus. Facial sensation was normal. Face was symmetric with normal strength. Hearing was intact. Palate movements were normal. Neck strength was normal. There was normal tongue bulk and speed of movement. Tone was normal. Muscle bulk was normal. I did not see fasciculations. Arms and legs were strong to confrontation. Vibration sensation was normal. Temperature and pinprick sensation was normal. Rapid alternating movements were normal. There was no dysmetria. There was no intention tremor. Gait was steady when ambulating with a FWW. Arm and leg reflexes were 2+ and symmetric. Saldana's sign was absent. Plantar responses were flexor. KEVIN MATHEWS PROTOZOOLOGIST Dec 18, 2018 15:51
--- NOTE | 2018-12-18 16:49 | PN ---
Date/Time of Note Date/Time of Note DATE: 12/18/18 TIME: 16:46 Assessment/Plan VTE Prophylaxis Risk score (from Nsg)>0 risk: 6 SCD applied (from Nsg): Yes Pharmacological prophylaxis: NA/contraindicated Pharm contraindication: low risk/ambulating Lines/Catheters IV Catheter Type (from Nrsg): Saline Lock Urinary Cath still in place: No Assessment/Plan Assessment/Plan 1. Hypertensive emergency- resolved - continue current medications - Cardiology on board and appreciate recommendations - most likely secondary to confusion on which medications to take 2. Orthostatic hypotension- resolving - Cardiology on board and continue monitoring - questionable if related to 3. Bilateral mild lower extremity gait deficiency-resolved - Doing well with PT and too high functioning for ARU. SNF placement evaluations pending - Neurology consulted, does not appear to be acute CVA after MRI returned - MRI lumbar spine done, showing some severe stenosis, neurosurgeon has also been consulted, also ordered MRI thoracic spine and cervical, I doubt there is any surgical correction needed however will defer to neurosurgeon recommendations with the multiple findings on the MRI of the spine. -Neurosurgery cannot rule out very small spinal cord injury however will get a flexed xray, unlikely surgery needed, findings relayed to patient and patient's son. -No emergency neurological symptoms of bowel or bladder dysfunction at this time, 4. Head hematoma, stable - Secondary to generalized lower extremity weakness and subsequent fall, CT negative for intracranial hemorrhage, however patient does have a palpable hematoma with no headache at this time. - Will restart Eliquis prior to discharge 5. Chronic kidney disease - Nephrology consultation appreciated 6. Diabetes mellitus - Insulin while in house 7. Hypothyroidism 8. Atrial fibrillation - Continue amiodarone and beta-stefan, adjust doses according to community organization director - Continue Eliquis once more stable with ambulation given fall risk 9. Dyslipidemia - Continue atorvastatin 10. Pancreatic cyst - Follow-up MRI in 6 months, family notified, spoke to patient's son. 11. Questionable nodular liver - Follow-up with your primary care provider to monitor 12. Moderate to severe stenosis - Patient was evaluated at [facility] last year and records requested - Cardiology recommending PCI but in setting of CKD high risk for worsening renal function - CT surgery recommendations appreciated and valve replacement can be performed as outpt 13. Disposition - SNF placement pending Result Diagram: 4/2/19 0706 4/2/19 0706 Results 24hrs Laboratory Tests Test 12/17/18 17:22 12/17/18 21:43 12/18/18 02:27 12/18/18 07:06 Bedside Glucose 114 196 109 White Blood Count 8.1 Red Blood Count 3.50 L Hemoglobin 10.6 L Hematocrit 32.7 L Mean Corpuscular Volume 93.4 Mean Corpuscular 30.3 Hemoglobin Mean Corpuscular 32.4 Hemoglobin Concent Red Cell Distribution 13.1 Width Platelet Count 224 Mean Platelet Volume 9.5 Immature Granulocytes % 0.200 Neutrophils % 42.7 Lymphocytes % 45.7 Monocytes % 9.0 Eosinophils % 1.9 Basophils % 0.5 Nucleated Red Blood 0.0 Cells % Immature Granulocytes # 0.020 Neutrophils # 3.5 Lymphocytes # 3.7 H Monocytes # 0.7 Eosinophils # 0.2 Basophils # 0.0 Nucleated Red Blood 0.0 Cells # Sodium Level 138 Potassium Level 4.0 Chloride Level 103 Carbon Dioxide Level 28 Anion Gap 7 Blood Urea Nitrogen 24 H Creatinine 1.67 H Glucose Level 109 Calcium Level 8.7 Phosphorus Level 3.8 Magnesium Level 1.8 Albumin 3.5 Test 12/18/18 08:02 12/18/18 11:32 Bedside Glucose 124 180 Subjective 24 Hr Interval Summary Free Text/Dictation Patient doing well and ambulating with no issues. No acute overnight events Exam/Review of Systems Exam Vitals Vital Signs Date Temp Pulse Resp B/P (MAP) Pulse Ox O2 O2 Flow FiO2 Time Delivery Rate 12/18/18 98.0 79 19 155/74 95 15:48 (101) 12/17/18 Room Air 12:11 Intake and Output 12/17/18 12/17/18 12/18/18 1515:00 23:00 07:00 IntakeIntake Total 600 ml 360 ml OutputOutput Total 800 ml BalanceBalance 600 ml -440 ml Exam General: Patient is laying in bed and answers questions appropriately Neck: Supple, nontender, midline Respiratory: Clear to auscultation bilaterally. no wheezing or rhonchi Cardiovascular: regular rate and rhythm, no obvious murmurs Gastrointestinal: soft, non-tender to palpation, bowel sounds heard. Neurological: Moves all extremities spontaneously Skin: No new skin lesions Results Results 24hrs Laboratory Tests Test 12/17/18 17:22 12/17/18 21:43 12/18/18 02:27 12/18/18 07:06 Bedside Glucose 114 196 109 White Blood Count 8.1 Red Blood Count 3.50 L Hemoglobin 10.6 L Hematocrit 32.7 L Mean Corpuscular Volume 93.4 Mean Corpuscular 30.3 Hemoglobin Mean Corpuscular 32.4 Hemoglobin Concent Red Cell Distribution 13.1 Width Platelet Count 224 Mean Platelet Volume 9.5 Immature Granulocytes % 0.200 Neutrophils % 42.7 Lymphocytes % 45.7 Monocytes % 9.0 Eosinophils % 1.9 Basophils % 0.5 Nucleated Red Blood 0.0 Cells % Immature Granulocytes # 0.020 Neutrophils # 3.5 Lymphocytes # 3.7 H Monocytes # 0.7 Eosinophils # 0.2 Basophils # 0.0 Nucleated Red Blood 0.0 Cells # Sodium Level 138 Potassium Level 4.0 Chloride Level 103 Carbon Dioxide Level 28 Anion Gap 7 Blood Urea Nitrogen 24 H Creatinine 1.67 H Glucose Level 109 Calcium Level 8.7 Phosphorus Level 3.8 Magnesium Level 1.8 Albumin 3.5 Test 12/18/18 08:02 12/18/18 11:32 Bedside Glucose 124 180 Medications Medication Current Medications IV Flush (NS 3 ml) 3 ml PER PROTOCOL IV ; Start 12/10/18 at 10:30 Ondansetron HCl (Zofran Inj) 4 mg Q6H PRN IV NAUSEA/VOMITING Last administered on 12/14/18at 17:52; Admin Dose 4 MG; Start 12/10/18 at 10:30 Acetaminophen (Tylenol Tab) 650 mg Q6H PRN PO .PAIN 1-3 OR TEMP; Start 12/10/18 at 10:30 Acetaminophen/ Hydrocodone Bitart ([place] (5/325)) 1 tab Q6H PRN PO .PAIN 4-6; Start 12/10/18 at 10:30 Hydralazine HCl (Apresoline) 10 mg Q4H PRN IV sbp >160 Last administered on 12/14/18at 06:04; Admin Dose 10 MG; Start 12/10/18 at 10:30 Labetalol HCl (Labetalol) 10 mg Q4H PRN IV sbp >160 Last administered on 12/13/18at 23:58; Admin Dose 10 MG; Start 12/10/18 at 10:30 Diagnostic Test (Pha) (Accu-Chek) 1 ea 02 XX Last administered on 12/15/18at 02:00; Admin Dose 1 EA; Start 12/11/18 at 02:00 Insulin Aspart (Novolog Insulin Pen) NOVOLOG *MILD* ALGORITHM WITH MEALS BEDTIME SC Last administered on 12/18/18 11:35; Admin Dose 1 UNIT; Start at 12:00 Miscellaneous Information 1 ea NOTE XX ; Start 12/10/18 at 10:30 Glucose (Glutose) 15 gm Q15M PRN PO DECREASED GLUCOSE; Start 12/10/18 at 10:30 Glucose (Glutose) 22.5 gm Q15M PRN PO DECREASED GLUCOSE; Start 12/10/18 at 10:30 Dextrose (D50w Syringe) 25 ml Q15M PRN IV DECREASED GLUCOSE; Start 12/10/18 at 10:30 Dextrose (D50w Syringe) 50 ml Q15M PRN IV DECREASED GLUCOSE; Start 12/10/18 at 10:30 Glucagon (Glucagen) 1 mg Q15M PRN IM DECREASED GLUCOSE; Start 12/10/18 at 10:30 Glucose (Glutose) 15 gm Q15M PRN BUCCAL DECREASED GLUCOSE; Start 12/10/18 at 10:30 Atorvastatin Calcium (Lipitor) 80 mg QHS PO Last administered on 12/17/18 21:52; Admin Dose 80 MG; Start 12/10/18 at 21:00 Benazepril HCl (Lotensin) 20 mg BID PO Last administered on 12/18/18 08:31; Admin Dose 20 MG; Start 12/10/18 at 21:00 Carvedilol (Coreg) 3.125 mg BID PO Last administered on 12/18/18 08:31; Admin Dose 3.125 MG; Start 12/10/18 at 21:00 Clonazepam (Klonopin) 1 mg QHS PRN PO SLEEP Last administered on 12/17/18 23:01; Admin Dose 1 MG; Start 12/10/18 at 11:00 Docusate Sodium (Colace) 100 mg DAILY PO Last administered on 12/18/18 08:30; Admin Dose 100 MG; Start 12/11/18 at 09:00 Ferrous Sulfate (Ferrous Sulfate (Ec)) 325 mg DAILY PO Last administered on 12/18/18 08:31; Admin Dose 325 MG; Start 12/11/18 at 09:00 Levothyroxine Sodium (Synthroid) 75 mcg BEFORE BREAKFAST PO Last administered on 12/18/18 06:37; Admin Dose 75 MCG; Start 12/11/18 at 07:00 Ranolazine (Ranexa) 1,000 mg Q12H PO Last administered on 12/18/18 11:33; Admin Dose 1,000 MG; Start 12/10/18 at 11:00 Apixaban (Eliquis) 2.5 mg BID PO Last administered on 12/12/18 09:00; Admin Dose 2.5 MG; Start 12/12/18 at 09:00; Status Hold Amiodarone HCl (Cordarone) 200 mg DAILY PO Last administered on 12/18/18 08:31; Admin Dose 200 MG; Start 12/13/18 at 09:00 Pantoprazole (Protonix Tab) 40 mg DAILY@06 PO Last administered on 12/18/18 06:37; Admin Dose 40 MG; Start 12/13/18 at 13:00 Sucralfate (Carafate Susp) 1 gm QID PO Last administered on 12/18/18 13:44; Admin Dose 1 GM; Start 12/13/18 at 13:00 Nifedipine (Procardia Xl) 60 mg BID PO Last administered on 12/18/18 08:31; Admin Dose 60 MG; Start 12/14/18 at 09:00 Polyethylene Glycol (Miralax) 17 gm DAILY PRN PO CONSTIPATION Last administered on 12/15/18 17:41; Admin Dose 17 GM; Start 12/15/18 at 17:00 Aspirin (Aspirin) 81 mg DAILY PO Last administered on 12/18/18 08:31; Admin Dose 81 MG; Start 12/18/18 at 09:00 JUNIOR CASTELLANO MD Dec 18, 2018 16:49
[2018-12-18] MEDS: ATORVASTATIN 80 MG TAB PO SCH (20:35)
[2018-12-18] MEDS: clonAZEPAM 0.5 MG TAB PO PRN (22:00)
[2018-12-19] VITALS (12 sets, daily range): BP systolic 118–182; BP diastolic 60–86; PULSE 64–72; RESP 18–19
[2018-12-19] MEDS: ACCU-CHEK XX SCH (01:57)
[2018-12-19] MEDS: PANTOPRAZOLE (EC) 40 MG TAB PO SCH (06:11)
[2018-12-19] MEDS: LEVOTHYROXINE 75 MCG TAB PO SCH (06:11)
--- NOTE | 2018-12-19 07:22 | CONS ---
Assessment/Plan Assessment/Plan Hospital Course 83 yo M c/ multiple comorbidities, who presents for evaluation of bilateral lower limb weakness c/b falls. Notable is renal insufficiency, which could exacerbate gait instability.. Orthostatic vitals ++, a likely contributor.. MRI brain is reassuringly negative for acute intracranial pathology. UA/UDS negative P: PT/OT as necessary OK to continue Eliquis for now...with ongoing attention to frequency of falls OK to continue Namenda per ops Other management and supportive care per primary Will follow clinically Consultation Date/Type/Reason Admit Date/Time Dec 11, 2018 at 10:14 Type of Consult Neurology Reason for Consultation gait abnl, falls Requesting Provider: ABEBA CASTANEDA Date/Time of Note DATE: 12/19/18 TIME: 07:22 24 HR Interval Summary Free Text/Dictation Continues acute care Exam Vital Signs Vitals Vital Signs Date Temp Pulse Resp B/P (MAP) Pulse Ox O2 O2 Flow FiO2 Time Delivery Rate 12/19/18 98.4 68 18 131/60 94 Room Air 04:35 (83) Intake and Output 12/18/18 12/18/18 12/19/18 1515:00 23:00 07:00 IntakeIntake Total 500 ml OutputOutput Total 800 ml BalanceBalance -300 ml Exam PE: Gen Appearance: No Apparent Distress HEENT: Normocephalic Cardiovascular: Regular rate Abdomen: Soft Extremities: Dry NE: The patient was alert. Language was normal. Fund of knowledge was adequate. Pupils were equal and reactive to light. There was no afferent pupillary defect. Visual murphy were normal. Funduscopic examination was limited. Extra-ocular movements were full. Ptosis was absent. There was no nystagmus. Facial sensation was normal. Face was symmetric with normal strength. Hearing was intact. Palate movements were normal. Neck strength was normal. There was normal tongue bulk and speed of movement. Tone was normal. Muscle bulk was normal. I did not see fasciculations. Arms and legs were symmetric. Vibration sensation was normal. Temperature and pinprick sensation was normal. Rapid alternating movements were normal. There was no dysmetria. There was no intention tremor. Gait was deferred due to bedrest. Arm and leg reflexes were symmetric. Saldana's sign was absent. Plantar responses were flexor. ROMI ISAAC Dec 19, 2018 07:22
[2018-12-19] MEDS: INSULIN ASPART [NOVOLOG] 3 ML PEN SC SCH ×4 (08:00→21:00)
[2018-12-19] MEDS: FERROUS SULFATE (EC) 325 MG TAB PO SCH (08:29)
[2018-12-19] MEDS: BENAZEPRIL 20 MG TAB PO SCH ×2 (08:30→19:35)
[2018-12-19] MEDS: SUCRALFATE (100 MG/ML) 10ML CUP PO SCH ×4 (08:30→21:13)
[2018-12-19] MEDS: ASPIRIN 81 MG TAB PO SCH (08:30)
[2018-12-19] MEDS: DOCUSATE SODIUM 100 MG CAP PO SCH (08:30)
[2018-12-19] MEDS: AMIODARONE 200 MG TAB PO SCH (08:31)
[2018-12-19] MEDS: NIFEdipine (XL) 30 MG TAB PO SCH ×2 (08:32→21:13)
--- NOTE | 2018-12-19 08:58 | PN ---
DATE: 12/19/2018 SUBJECTIVE: The patient is stable, no events overnight. No fevers, chills, nausea, or vomiting. OBJECTIVE: VITAL SIGNS: Blood pressure is 122/63, respirations 19, pulse 72, temperature is 98.0. HEENT: Head is normocephalic. NECK: Supple. HEART: Regular rate. LUNGS: Show diminished breath sounds at the base. ABDOMEN: Soft, nontender to palpation without rebound or guarding. EXTREMITIES: Negative for clubbing, cyanosis, no edema. DERMATOLOGIC: No rashes. MUSCULOSKELETAL: No joint effusion. NEUROLOGIC: No change in exam. MEDICATIONS: The patient's medications have been reviewed. LABORATORY DATA: From 12/19/18 was reviewed. ASSESSMENT AND PLAN: 1. Nonoliguric acute kidney injury on top of chronic kidney disease with previous baseline creatinin e of 1.4 to 1.6 mg/dL. Etiology of acute kidney injury is secondary to hemodynamics. Renal function appears to be stabilizing at baseline creatinine. At this point, continue current treatment plans, supportive care, renally dose all medicines. 2. 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 The patient presented with acute kidney injury as stated above. Renal function is st abilized. He will continue current treatment plan. Continue disease factor modification with good b lood pressure control. 3. Hypertension, improved. Continue current medical management. 4. Anemia. Continue to monitor hemoglobin and hematocrit levels. 5. Mineral bone disorder, monitor calcium and phosphorus levels. 6. Lower extremity weakness. The patient is seen by neurology. MRI was reviewed. Continue to [facility]. 7. Aortic stenosis, severe. The patient has been seen by CT surgery. The patient is a candidate fo r possible valve replacement. We will follow up with CT surgery, cardiology. 8. Atrial fibrillation. Continue medical management. Follow up with cardiology. 9. Dyslipidemia. Continue statin therapy. 10. Diabetes. Continue current insulin regimen. 11. Orthostatic hypotension, resolving. Dictated By: JULIETTE CHEEMA DO NR/NTS Conf#: [id number] DID#: [id number] CC: JUNIOR CASTELLANO MD; ABEBA CASTANEDA MD;*EndCC*
--- NOTE | 2018-12-19 10:18 | PN ---
Date/Time of Note Date/Time of Note DATE: 12/19/18 TIME: 10:16 Assessment/Plan VTE Prophylaxis Risk score (from Nsg)>0 risk: 6 SCD applied (from Nsg): Yes Pharmacological prophylaxis: apixaban Lines/Catheters IV Catheter Type (from Nrsg): Saline Lock Urinary Cath still in place: No Assessment/Plan Assessment/Plan 1. Hypertensive emergency- resolved - continue current medications - Cardiology on board and appreciate recommendations - most likely secondary to confusion on which medications to take 2. Orthostatic hypotension- resolving - Cardiology on board and continue monitoring - questionable if related to 3. Bilateral mild lower extremity gait deficiency-resolved - Doing well with PT and too high functioning for ARU. Placement to SNF - Neurology consulted, does not appear to be acute CVA after MRI returned - MRI lumbar spine done, showing some severe stenosis, neurosurgeon has also been consulted, also ordered MRI thoracic spine and cervical, I doubt there is a ny surgical correction needed however will defer to neurosurgeon recommendations with the multiple findings on the MRI of the spine. - Neurosurgery cannot rule out very small spinal cord injury however will get a flexed xray, unlikely surgery needed, findings relayed to patient and patient's son. - No emergency neurological symptoms of bowel or bladder dysfunction at this time, 4. Head hematoma, stable - Secondary to generalized lower extremity weakness and subsequent fall, CT negative for intracranial hemorrhage, however patient does have a palpable hematoma with no headache at this time. - Will restart Eliquis prior to discharge 5. Chronic kidney disease- at baseline - Nephrology consultation appreciated 6. Diabetes mellitus - Insulin while in house 7. Hypothyroidism 8. Atrial fibrillation - Continue amiodarone and beta-stefan, adjust doses according to utility technician - Continue Eliquis 9. Dyslipidemia - Continue atorvastatin 10. Pancreatic cyst - Follow-up MRI in 6 months, family notified, spoke to patient's son. 11. Questionable nodular liver - Follow-up with your primary care provider to monitor 12. Moderate to severe stenosis - Patient was evaluated at [facility] last year and records requested - Cardiology recommending PCI but in setting of CKD high risk for worsening renal function - CT surgery recommendations appreciated and valve replacement can be performed as outpt 13. Disposition - Medically stable for discharge to SNF Result Diagram: 12/19/18 0607 12/19/18 0607 Results 24hrs Laboratory Tests Test 12/18/18 11:32 4/2/19 16:49 12/18/18 20:38 12/19/18 06:07 Bedside Glucose 180 127 155 White Blood Count 7.9 Red Blood Count 3.46 L Hemoglobin 10.6 L Hematocrit 32.6 L Mean Corpuscular Volume 94.2 Mean Corpuscular 30.6 Hemoglobin Mean Corpuscular 32.5 Hemoglobin Concent Red Cell Distribution 12.9 Width Platelet Count 221 Mean Platelet Volume 9.2 Immature Granulocytes % 0.400 Neutrophils % 47.0 Lymphocytes % 40.4 Monocytes % 9.7 Eosinophils % 2.1 Basophils % 0.4 Nucleated Red Blood 0.0 Cells % Immature Granulocytes # 0.030 Neutrophils # 3.7 Lymphocytes # 3.2 H Monocytes # 0.8 Eosinophils # 0.2 Basophils # 0.0 Nucleated Red Blood 0.0 Cells # Sodium Level 138 Potassium Level 4.2 Chloride Level 100 Carbon Dioxide Level 29 Anion Gap 9 Blood Urea Nitrogen 25 H Creatinine 1.63 H Est Glomerular Filtrat Rate mL/min Glucose Level 127 Calcium Level 8.8 Phosphorus Level 3.4 Magnesium Level 1.8 Test 12/19/18 07:43 Bedside Glucose 131 Subjective 24 Hr Interval Summary Free Text/Dictation Patient didn't sleep last night so tired this am. No acute overnight events. Discussed with son this am that patient is doing too well to qualify for ARU. Agreeable to SNF for short term placement. Exam/Review of Systems Exam Vitals Vital Signs Date Temp Pulse Resp B/P (MAP) Pulse Ox O2 O2 Flow FiO2 Time Delivery Rate 12/19/18 66 08:00 12/19/18 98.0 19 122/63 97 07:29 (82) 12/19/18 Room Air 04:35 Intake and Output 12/18/18 12/18/18 12/19/18 1515:00 23:00 07:00 IntakeIntake Total 500 ml OutputOutput Total 800 ml BalanceBalance -300 ml Exam General: Patient is laying in bed and answers questions appropriately. fatigued Neck: Supple, nontender, midline Respiratory: Clear to auscultation bilaterally. no wheezing or rhonchi Cardiovascular: regular rate and rhythm, no obvious murmurs Gastrointestinal: soft, non-tender to palpation, bowel sounds heard. Neurological: Moves all extremities spontaneously Skin: No new skin lesions Results Results 24hrs Laboratory Tests Test 12/18/18 11:32 12/18/18 16:49 12/18/18 20:38 12/19/18 06:07 Bedside Glucose 180 127 155 White Blood Count 7.9 Red Blood Count 3.46 L Hemoglobin 10.6 L Hematocrit 32.6 L Mean Corpuscular Volume 94.2 Mean Corpuscular 30.6 Hemoglobin Mean Corpuscular 32.5 Hemoglobin Concent Red Cell Distribution 12.9 Width Platelet Count 221 Mean Platelet Volume 9.2 Immature Granulocytes % 0.400 Neutrophils % 47.0 Lymphocytes % 40.4 Monocytes % 9.7 Eosinophils % 2.1 Basophils % 0.4 Nucleated Red Blood 0.0 Cells % Immature Granulocytes # 0.030 Neutrophils # 3.7 Lymphocytes # 3.2 H Monocytes # 0.8 Eosinophils # 0.2 Basophils # 0.0 Nucleated Red Blood 0.0 Cells # Sodium Level 138 Potassium Level 4.2 Chloride Level 100 Carbon Dioxide Level 29 Anion Gap 9 Blood Urea Nitrogen 25 H Creatinine 1.63 H Est Glomerular Filtrat Rate mL/min Glucose Level 127 Calcium Level 8.8 Phosphorus Level 3.4 Magnesium Level 1.8 Test 12/19/18 07:43 Bedside Glucose 131 Medications Medication Current Medications IV Flush (NS 3 ml) 3 ml PER PROTOCOL IV ; Start 12/10/18 at 10:30 Ondansetron HCl (Zofran Inj) 4 mg Q6H PRN IV NAUSEA/VOMITING Last administered on 12/14/18at 17:52; Admin Dose 4 MG; Start 12/10/18 at 10:30 Acetaminophen (Tylenol Tab) 650 mg Q6H PRN PO .PAIN 1-3 OR TEMP; Start 12/10/18 at 10:30 Acetaminophen/ Hydrocodone Bitart ([place] (5/325)) 1 tab Q6H PRN PO .PAIN 4-6; Start 12/10/18 at 10:30 Hydralazine HCl (Apresoline) 10 mg Q4H PRN IV sbp >160 Last administered on 12/14/18at 06:04; Admin Dose 10 MG; Start 12/10/18 at 10:30 Labetalol HCl (Labetalol) 10 mg Q4H PRN IV sbp >160 Last administered on 12/13/18at 23:58; Admin Dose 10 MG; Start 12/10/18 at 10:30 Diagnostic Test (Pha) (Accu-Chek) 1 ea 02 XX Last administered on 12/15/18at 02:00; Admin Dose 1 EA; Start 12/11/18 at 02:00 Insulin Aspart (Novolog Insulin Pen) NOVOLOG *MILD* ALGORITHM WITH MEALS BEDTIME SC Last administered on 12/18/18 11:35; Admin Dose 1 UNIT; Start 12/10/18 at 12:00 Miscellaneous Information 1 ea NOTE XX ; Start 12/10/18 at 10:30 Glucose (Glutose) 15 gm Q15M PRN PO DECREASED GLUCOSE; Start 12/10/18 at 10:30 Glucose (Glutose) 22.5 gm Q15M PRN PO DECREASED GLUCOSE; Start 12/10/18 at 10: 30 Dextrose (D50w Syringe) 25 ml Q15M PRN IV DECREASED GLUCOSE; Start 12/10/18 at 10:30 Dextrose (D50w Syringe) 50 ml Q15M PRN IV DECREASED GLUCOSE; Start 12/10/18 at 10:30 Glucagon (Glucagen) 1 mg Q15M PRN IM DECREASED GLUCOSE; Start 12/10/18 at 10:30 Glucose (Glutose) 15 gm Q15M PRN BUCCAL DECREASED GLUCOSE; Start 12/10/18 at 10:30 Atorvastatin Calcium (Lipitor) 80 mg QHS PO Last administered on 12/18/18 20:35; Admin Dose 80 MG; Start 12/10/18 at 21:00 Benazepril HCl (Lotensin) 20 mg BID PO Last administered on 12/19/18 08:30; Admin Dose 20 MG; Start 12/10/18 at 21:00 Carvedilol (Coreg) 3.125 mg BID PO Last administered on 12/19/18 08:31; Admin Dose 3.125 MG; Start 12/10/18 at 21:00 Clonazepam (Klonopin) 1 mg QHS PRN PO SLEEP Last administered on 12/18/18 22:00; Admin Dose 1 MG; Start 12/10/18 at 11:00 Docusate Sodium (Colace) 100 mg DAILY PO Last administered on 12/19/18 08:30; Admin Dose 100 MG; Start 12/11/18 at 09:00 Ferrous Sulfate (Ferrous Sulfate (Ec)) 325 mg DAILY PO Last administered on 12/19/18 08:29; Admin Dose 325 MG; Start 12/11/18 at 09:00 Levothyroxine Sodium (Synthroid) 75 mcg BEFORE BREAKFAST PO Last administered on 12/19/18 06:11; Admin Dose 75 MCG; Start 12/11/18 at 07:00 Ranolazine (Ranexa) 1,000 mg Q12H PO Last administered on 12/18/18 22:00; Admin Dose 1,000 MG; Start 12/10/18 at 11:00 Apixaban (Eliquis) 2.5 mg BID PO Last administered on 12/12/18 09:00; Admin Dose 2.5 MG; Start 12/12/18 at 09:00; Status Hold Amiodarone HCl (Cordarone) 200 mg DAILY PO Last administered on 12/19/18 08:31; Admin Dose 200 MG; Start 12/13/18 at 09:00 Pantoprazole (Protonix Tab) 40 mg DAILY@06 PO Last administered on 12/19/18 06:11; Admin Dose 40 MG; Start 12/13/18 at 13:00 Sucralfate (Carafate Susp) 1 gm QID PO Last administered on 12/19/18 08:30; Admin Dose 1 GM; Start 12/13/18 at 13:00 Nifedipine (Procardia Xl) 60 mg BID PO Last administered on 12/19/18 08:32; Admin Dose 60 MG; Start 12/14/18 at 09:00 Polyethylene Glycol (Miralax) 17 gm DAILY PRN PO CONSTIPATION Last administered on 12/15/18 17:41; Admin Dose 17 GM; Start 12/15/18 at 17:00 Aspirin (Aspirin) 81 mg DAILY PO Last administered on 12/19/18 08:30; Admin Dose 81 MG; Start 12/18/18 at 09:00 JUNIOR CASTELLANO MD Dec 19, 2018 10:18
[2018-12-19] MEDS ORDERED: AMIO200T4 PO (10:26)
[2018-12-19] MEDS ORDERED: NIFE30TA2 PO (10:26)
--- NOTE | 2018-12-19 10:33 | PDOCDIS ---
Discharge Instructions DIAGNOSIS Discharge Diagnosis 1. Hypertensive emergency- resolved 2. Orthostatic hypotension- resolved 3. Bilateral mild lower extremity gait deficiency-resolved 4. Head hematoma, stable 5. Chronic kidney disease- stable 6. Diabetes mellitus, resolved 7. Hypothyroidism 8. Atrial fibrillation 9. Dyslipidemia 10. Pancreatic cyst- Follow-up MRI in 6 months 11. Questionable nodular liver 12. Moderate to severe stenosis CONDITION [id number] Patient Condition: [id number] Stable HOME CARE INSTRUCTIONS: [id number] Diet Instructions: [id number] Low Fat /Cholesterol FOLLOW UP/APPOINTMENTS Follow-up Plan 1. Follow up with your primary care physician in 1-2 weeks 2. Medication adjustments were made during your hospital stay for better control of your blood pressure. These are the following changes: - Take Amiodarone 200mg daily ( no longer take twice a day) - Stop Hydralazine and Amlodipine - Take Procardia XL 60mg twice a day ( not 120 daily) - Continue Benazepril and Coreg as previously prescribed 3. 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 It is important to follow up with imaging in 6 months. You can discuss with your PCP 4. You were evaluated by Cardiothoracic surgeon, Dr. Grant, who recommended aortic valve replacement. He advised you to have a cardiac catheterization prior to surgical intervention. Please follow up with your [facility] 5. Continue all other medications as prescribed. 6. If experiencing any concerning symptoms, please go to your nearest emergency department JUNIOR CASTELLANO MD Dec 19, 2018 10:33
[2018-12-19] MEDS: RANOLAZINE (SR) 500 MG TAB PO SCH ×2 (11:50→23:05)
--- NOTE | 2018-12-19 13:50 | CONS ---
Assessment/Plan Assessment/Plan Hospital Course (Demo Recall) IMP: 1.Atrial fibrillation-rate controlled 2.orthostatic hypotension 3.-mod-sev by echo this admit 4.HTN 5.s/p fall 6. Renal failure 7. anemia 8. Lumbar stenosis Recc: -Tele -serial ecg's -Continue procardia/benazepril/coreg at current doses and follow orthostasis closely -Not on systemic anticoag due to fall risk but continue asa -PT -Contineu statin -Continue PPI/sucralfate -CT surg eval for possible need for AVR. Will require LHC/RHC prior . Given renal failure nephrology has reccomended to defer Heart cath until normalization of creatnine. Patient will thus be followed up as an outpatient with heart cath when improvement in renal function. Consultation Date/Type/Reason Admit Date/Time Dec 11, 2018 at 10:14 Initial Consult Date 12/14/18 Type of Consult Cardiology Reason for Consultation Requesting Provider: ABEBA CASTANEDA Date/Time of Note DATE: 12/19/18 TIME: 13:46 Exam/Review of Systems Vital Signs Vitals Vital Signs Date Temp Pulse Resp B/P (MAP) Pulse Ox O2 O2 Flow FiO2 Time Delivery Rate 12/19/18 97.6 67 19 118/69 98 11:15 (85) 12/19/18 Room Air 04:35 Intake and Output 12/18/18 12/18/18 12/19/18 1515:00 23:00 07:00 IntakeIntake Total 500 ml OutputOutput Total 800 ml BalanceBalance -300 ml Exam Exam Review of Systems: CONSTITUTIONAL: No fevers, chills. PULMONARY: mild sob CARDIOVASCULAR: No chest pain/palpitations GASTROINTESTINAL: No nausea/vomiting. GENITOURINARY: No hematuria/dysuria. MUSCULOSKELETAL: No myagias/arthalgias. PSYCHIATRIC: The patient denies depression. NEUROLOGIC: No weakness Constitutional: alert, oriented Psych: no complaints Head: normocephalic ENMT: mucosa pink and moist Neck: supple, jvd (9 cm water) Respiratory: diminished breath sounds (at bases/B) Cardiovascular: regular rate and rhythm Gastrointestinal: soft, non-tender Musculoskeletal: muscle tone (normal) Extremities: edema (none) Neurological: other (No focal deficits) Labs Result Diagram: 4/3/19 0607 4/3/19 0607 Results 24hrs Laboratory Tests Test 12/18/18 16:49 12/18/18 20:38 12/19/18 06:07 12/19/18 07:43 Bedside Glucose 127 155 131 White Blood Count 7.9 Red Blood Count 3.46 L Hemoglobin 10.6 L Hematocrit 32.6 L Mean Corpuscular Volume 94.2 Mean Corpuscular 30.6 Hemoglobin Mean Corpuscular 32.5 Hemoglobin Concent Red Cell Distribution 12.9 Width Platelet Count 221 Mean Platelet Volume 9.2 Immature Granulocytes % 0.400 Neutrophils % 47.0 Lymphocytes % 40.4 Monocytes % 9.7 Eosinophils % 2.1 Basophils % 0.4 Nucleated Red Blood 0.0 Cells % Immature Granulocytes # 0.030 Neutrophils # 3.7 Lymphocytes # 3.2 H Monocytes # 0.8 Eosinophils # 0.2 Basophils # 0.0 Nucleated Red Blood 0.0 Cells # Sodium Level 138 Potassium Level 4.2 Chloride Level 100 Carbon Dioxide Level 29 Anion Gap 9 Blood Urea Nitrogen 25 H Creatinine 1.63 H Est Glomerular Filtrat Rate mL/min Glucose Level 127 Calcium Level 8.8 Phosphorus Level 3.4 Magnesium Level 1.8 Test 12/19/18 11:48 Bedside Glucose 115 Medications Medications Current Medications IV Flush (NS 3 ml) 3 ml PER PROTOCOL IV ; Start 12/10/18 at 10:30 Ondansetron HCl (Zofran Inj) 4 mg Q6H PRN IV NAUSEA/VOMITING Last administered on 12/14/18at 17:52; Admin Dose 4 MG; Start 12/10/18 at 10:30 Acetaminophen (Tylenol Tab) 650 mg Q6H PRN PO .PAIN 1-3 OR TEMP; Start 12/10/18 at 10:30 Acetaminophen/ Hydrocodone Bitart ([place] (5/325)) 1 tab Q6H PRN PO .PAIN 4-6; Start 12/10/18 at 10:30 Hydralazine HCl (Apresoline) 10 mg Q4H PRN IV sbp >160 Last administered on 12/14/18at 06:04; Admin Dose 10 MG; Start 12/10/18 at 10:30 Labetalol HCl (Labetalol) 10 mg Q4H PRN IV sbp >160 Last administered on 12/13/18at 23:58; Admin Dose 10 MG; Start 12/10/18 at 10:30 Diagnostic Test (Pha) (Accu-Chek) 1 ea 02 XX Last administered on 12/15/18at 02:00; Admin Dose 1 EA; Start 12/11/18 at 02:00 Insulin Aspart (Novolog Insulin Pen) NOVOLOG *MILD* ALGORITHM WITH MEALS BEDTIME SC Last administered on 12/18/18 11:35; Admin Dose 1 UNIT; Start 12/10/18 at 12:00 Miscellaneous Information 1 ea NOTE XX ; Start 12/10/18 at 10:30 Glucose (Glutose) 15 gm Q15M PRN PO DECREASED GLUCOSE; Start 12/10/18 at 10:30 Glucose (Glutose) 22.5 gm Q15M PRN PO DECREASED GLUCOSE; Start 12/10/18 at 10:30 Dextrose (D50w Syringe) 25 ml Q15M PRN IV DECREASED GLUCOSE; Start 12/10/18 at 10:30 Dextrose (D50w Syringe) 50 ml Q15M PRN IV DECREASED GLUCOSE; Start 12/10/18 at 10:30 Glucagon (Glucagen) 1 mg Q15M PRN IM DECREASED GLUCOSE; Start 12/10/18 at 10:30 Glucose (Glutose) 15 gm Q15M PRN BUCCAL DECREASED GLUCOSE; Start 12/10/18 at 10:30 Atorvastatin Calcium (Lipitor) 80 mg QHS PO Last administered on 12/18/18at 20:35; Admin Dose 80 MG; Start 12/10/18 at 21:00 Benazepril HCl (Lotensin) 20 mg BID PO Last administered on 12/19/18 08:30; Admin Dose 20 MG; Start 12/10/18 at 21:00 Carvedilol (Coreg) 3.125 mg BID PO Last administered on 12/19/18 08:31; Admin Dose 3.125 MG; Start 12/10/18 at 21:00 Clonazepam (Klonopin) 1 mg QHS PRN PO SLEEP Last administered on 12/18/18 22:00; Admin Dose 1 MG; Start 12/10/18 at 11:00 Docusate Sodium (Colace) 100 mg DAILY PO Last administered on 12/19/18 08:30; Admin Dose 100 MG; Start 12/11/18 at 09:00 Ferrous Sulfate (Ferrous Sulfate (Ec)) 325 mg DAILY PO Last administered on 12/19/18 08:29; Admin Dose 325 MG; Start 12/11/18 at 09:00 Levothyroxine Sodium (Synthroid) 75 mcg BEFORE BREAKFAST PO Last administered on 12/19/18 06:11; Admin Dose 75 MCG; Start 12/11/18 at 07:00 Ranolazine (Ranexa) 1,000 mg Q12H PO Last administered on 12/19/18 11:50; Admin Dose 1,000 MG; Start 12/10/18 at 11:00 Apixaban (Eliquis) 2.5 mg BID PO Last administered on 12/12/18 09:00; Admin Dose 2.5 MG; Start 12/12/18 at 09:00; Status Hold Amiodarone HCl (Cordarone) 200 mg DAILY PO Last administered on 12/19/18 08:31; Admin Dose 200 MG; Start 12/13/18 at 09:00 Pantoprazole (Protonix Tab) 40 mg DAILY@06 PO Last administered on 12/19/18 06:11; Admin Dose 40 MG; Start 12/13/18 at 13:00 Sucralfate (Carafate Susp) 1 gm QID PO Last administered on 12/19/18 08:30; Admin Dose 1 GM; Start 12/13/18 at 13:00 Nifedipine (Procardia Xl) 60 mg BID PO Last administered on 12/19/18 08:32; Admin Dose 60 MG; Start 12/14/18 at 09:00 Polyethylene Glycol (Miralax) 17 gm DAILY PRN PO CONSTIPATION Last administered on 12/15/18 17:41; Admin Dose 17 GM; Start 12/15/18 at 17:00 Aspirin (Aspirin) 81 mg DAILY PO Last administered on 12/19/18 08:30; Admin Dose 81 MG; Start 12/18/18 at 09:00 XIMENA PATINO Dec 19, 2018 13:50
--- NOTE | 2018-12-19 16:02 | DS ---
Date/Time of Note Date/Time of Note DATE: 12/19/18 TIME: 15:53 Discharge Summary Admission/Discharge Info Admit Date/Time Dec 11, 2018 at 10:14 Discharge Date/Time 12/19/18 1930 Discharge Diagnosis 1. Hypertensive emergency- resolved 2. Orthostatic hypotension- resolved 3. Bilateral mild lower extremity gait deficiency-resolved 4. Head hematoma, stable 5. Chronic kidney disease- stable 6. Diabetes mellitus, resolved 7. Hypothyroidism 8. Atrial fibrillation 9. Dyslipidemia 10. Pancreatic cyst- Follow-up MRI in 6 months 11. Questionable nodular liver 12. Moderate to severe stenosis Patient Condition: Stable Consults Cardiology- Dr. Waggoner/[place] CT surgery- Dr. Grant Nephrology- Dr. Cifuentes Neurology- Dr. Washburn Neurosurgery- Dr. Hutchinson Procedures PROCEDURE: ULTRASOUND EXTRACRANIAL ARTERIAL NECK CLINICAL INDICATION: 83-year-old male with syncope. TECHNIQUE: Multiple sonographic of the carotid bifurcation region and vertebral arteries were obtained utilizing machado scale, duplex and color-flow imaging. The images were reviewed on a PACS workstation. COMPARISON: None. FINDINGS: Evaluation of the right carotid bifurcation region reveals mild calcific atherosclerotic disease. Evaluation of the left carotid bifurcation region reveals mild calcific atherosclerotic disease. There is antegrade flow within the vertebral arteries bilaterally. RIGHT CAROTID MEASUREMENTS (cm/sec) Common Carotid Artery 50 Internal Carotid Artery - proximal 48 Internal Carotid Artery - mid 65 Internal Carotid Artery - distal 67 Internal Carotid/Common Carotid 1.3 LEFT CAROTID MEASUREMENTS (cm/sec) Common Carotid Artery 46 Internal Carotid Artery - proximal 42 Internal Carotid Artery - mid 50 Internal Carotid Artery - distal 53 Internal Carotid/Common Carotid 1.1 IMPRESSION: 1. There is mild atherosclerotic disease but without sonographic evidence for hemodynamically significant stenosis within the carotid bifurcation regions bilaterally. 2. Antegrade flow within the vertebral arteries bilaterally. Velocity criteria are extrapolated from diameter data as defined by the Society of Radiologists in Ultrasound Consensus Conference Radiology 2003:229,340-346. This study does indirectly reference the measurement of the distal ICA diameter as the denominator for stenosis measurement. .Jared Jiang MD, Date Time Electronically viewed and signed by .Gilsusannah Jiang MD, MD on 12/17/2018 09:23 3 PROCEDURE: XR Cervical Spine. CLINICAL INDICATION: Pain. assess for dynamic subluxation at cerivcothoracic junction TECHNIQUE: Neutral, flexion, extension lateral and swimmers views of the cervical spine were performed. The images were reviewed on a PACS workstation. COMPARISON: MRI 12/12/2018 FINDINGS: There is a normal cervical lordosis. There is a minimal anterolisthesis at C4- C5, measuring 2 mm on flexion and extension views. There is moderate disc space narrowing and minimal posterior osteophytes at C5-C6 and C6-C7. There is no visualized acute fracture. There is no prevertebral soft tissue swelling.. IMPRESSION: 1. Trace anterolisthesis at C4-C5, 2 mm. No evidence for abnormal motion with flexion or extension. 2. Minimal posterior osteophytes at C5-6 and C6-C7. RPTAT: HBST . .Shane Quinonez MD, MD Date Time Electronically viewed and signed by .Shane Quinonez MD, on 12/13/2018 16:13 PROCEDURE: MRI abdomen without contrast CLINICAL INDICATION: Adrenal nodule TECHNIQUE: An MRI of the abdomen was performed utilizing a high field MRI scanner with the following pulsed sequences: Axial T2 fast spin-echo, axial T2 non-fat saturation fast spin-echo, axial T1 gradient echo in-phase and opposed-phase. Noncontrast fat sat T1-weighted images were also obtained. Coronal T2 and fat-saturated T2-weighted images were also obtained. COMPARISON: None, correlated with ultrasound of the kidneys 12/10/2018 FINDINGS: Lack of IV contrast limits evaluation for enhancing masses. The heart is borderline enlarged. There is uniform signal intensity of the liver with no evidence of focal lesion to suggest a mass. There is a faintly nodular contour of the liver. Flow void is present within the portal vein. The gallbladder is unremarkable without evidence of stones, or surrounding inflammation. There is no intrahepatic or extrahepatic biliary ductal dilatation. Multiple pancreatic T2 hyperintense cysts are seen scattered throughout the hepatic parenchyma measuring up to 11 mm at the pancreatic tail with pancreatic atrophy. There is no peripancreatic inflammation. The kidneys are atrophic without hydronephrosis. Bilateral renal cysts are present without inflammation. There is mild bilateral adrenal thickening without evidence of a nodule. There is a normal appearance the spleen without enlargement. There is no evidence of bowel obstruction or mesenteric inflammatory changes. There is a mildly fecal filled colon with diverticulosis. There is no free fluid or lymphadenopathy. Aortic atherosclerosis is present. Degenerative changes are seen in the lumbar spine. There are no enlarged lymph nodes. IMPRESSION: Bilateral mild adrenal thickening is seen without evidence of a nodule. Renal atrophy is present without hydronephrosis. Multiple pancreatic cysts are present with a atrophy of the pancreatic parenchyma. Follow-up MRI is recommended after 6 months. Mildly nodular contour of the liver could indicate liver disease. Borderline cardiomegaly. Atherosclerotic disease. Mildly fecal filled colon with diverticulosis. RPTAT: AA .Quan Downs MD, MD Date Time Electronically viewed and signed by .Quan Downs MD, on 12/15/2018 12:12 PROCEDURE: MRI OF THE CERVICAL SPINE. CLINICAL INDICATION: Lower extremity weakness status post fall. TECHNIQUE: Multiple MRI images were obtained utilizing multiple sequences in multiple planes, including localizers, sagittal T1, sagittal T2, sagittal STIR, axial T2 and gradient echo. Images were interpreted on a high-resolution PACS system. Multiple sequences are degraded by motion, limiting evaluation. COMPARISON: None. FINDINGS: Cervical lordosis is maintained. No acute fracture. Vertebral body heights are maintained. Small amount of paravertebral muscle edema at the level of C4 and C5, partially evaluated due to motion. Marrow signal is mildly heterogeneous. Sub centimeter hemangioma in the C5 v ertebral body. There is faint T2 signal hyperintensity within the cord at the level of C7-T1. Atlanto-occipital and atlanto-odontoid articulations are intact. Visualized portions of the posterior fossa are intact. Findings at specific disc levels: C2-3: Mild disc height loss posteriorly. Anterior osteophyte formation. Mild to moderate left and moderate right facet hypertrophy and small right facet joint effusion. Borderline mild right neural foraminal narrowing. Small disc osteophyte complex effacing the ventral thecal sac. Mild prominence of the ligamentum flavum. No significant spinal canal stenosis. C3-4: Mild disc height loss posteriorly. Anterior osteophyte formation. Moderate bilateral facet hypertrophy with right facet edema and joint effusion and faint betsy facet edema. Uncovertebral joint spurring greater on the left. At least moderate left neural foraminal narrowing. Borderline mild right neural narrowing. Small disc osteophyte complex effacing the ventral thecal sac. AP diameter of the central spinal canal at midline: 10.5 mm.. C4-5: Mild disc height loss posteriorly. Mild to moderate right and moderate left facet hypertrophy with small left facet joint effusion. Uncovertebral joint spurring. Mild right and moderate left neural foraminal narrowing. Small disc osteophyte complex mildly effacing the ventral thecal sac. AP diameter of the central spinal canal at midline: 11 mm. C5-6: Moderate disc height loss and anterior osteophyte formation. Moderate facet hypertrophy. Uncovertebral joint spurring. Mild prominence of the ligamentum flavum. Disc osteophyte complex effacing the ventral thecal sac and flattening the ventral cord. At least moderate left and mild to moderate right neural foraminal narrowing. AP diameter of the central spinal canal at midline: 7.8 mm. C6-7: Moderate disc height loss and anterior osteophyte formation. Moderate facet hypertrophy. Prominence of the ligamentum flavum. Uncovertebral joint spurring greater on the left. Moderate left neural foraminal narrowing. Disc os teophyte complex effacing the ventral thecal sac and flattening the ventral cord. AP diameter of the central spinal canal at midline: 8 mm. C7-T1: Mild disc height loss and anterior osteophyte formation. Moderate left and moderate to severe right facet arthropathy with small right facet joint effusion and subchondral edema. 2 mm anterolisthesis. Uncovering of the disc/broad-based disc bulge as well as prominence of the ligamentum flavum with flattening of the ventral cord. Focal mild right neural foraminal narrowing. AP diameter of the central spinal canal and midline: 7.8 mm. IMPRESSION: Multiple sequences are degraded by motion, limiting evaluation, especially of the cord. 1. Faint T2 signal hyperintensity within the cord at the level of C7-T1, not well evaluated due to motion. Findings may represent focal myelomalacia/edema in the setting of moderate spinal canal stenosis and grade 1 anterolisthesis at this level, or may represent contusion/edema in the setting of trauma and underlying degenerative disease with possible exaggeration of findings due to artifact. This can be further evaluated with repeat/ follow-up MRI. 2. No acute fracture. Multilevel degenerative disc and facet disease including grade 1 anterolisthesis at C7-T1, and degenerative joint effusion and subchondral edema within the right C7-T1 joint as well as joint effusion and subchondral edema in the right C3-C4 facet joint with faint betsy facet edema. 2. Moderate spinal canal stenosis at C7-T1, C6-C7 and C5-C6 due to disc osteophyte complex and prominence of the ligamentum flavum. 3. Multilevel neural foraminal narrowing as detailed above level by level. RPTAT: BBDD Physician Naun Date Time Electronically viewed and signed by Physician Naun on 12/12/2018 10:26 PROCEDURE: MRI OF THE THORACIC SPINE. CLINICAL INDICATION: Bilateral lower extremity weakness. Status post fall. TECHNIQUE: Multi sequence multi planar MR imaging of the thoracic spine was obtained. Obtained sequences include sagittal T1, sagittal T2, sagittal STIR, axial T2, localizes, axial gradient echo and coronal T2 without IV contrast. Images were interpreted on a high-resolution PACS system. Multiple sequences are mildly degraded by motion. COMPARISON: None available. FINDINGS: Right convex curvature of the thoracic spine. Exaggerated thoracic kyphosis. Faint focal T2 signal hyperintensity in the cord at the level of C7-T1. No acute fracture identified. mild anterior wedging of the T7 vertebral body. T2 signal hyperintense fibular focus superior to the left supraspinatus. 1 cm right humeral head neck junction marrow lesion. 3.5 mm exophytic presumed right renal cyst, partially imaged. 2.3 cm focal asymmetrically enlarged left adrenal limb versus nodule. T2 signal hypointensity throughout the visualized spleen and mildly of the liver. Anterior angulation at the site of process. 1.3 cm T11 vertebral body hemangioma. Findings at specific disc levels: T1-T2: Less than 2 mm anterolisthesis. Mild disc height loss. Mild facet hypertrophy. Small annular bulge. No significant spinal canal stenosis or neural foraminal narrowing. T2-T3: Mild disc height loss. Mild facet hypertrophy. Small annular bulge without significant spinal canal stenosis or definite neural foraminal narrowing. T3-T4: Mild disc height loss anteriorly. Anterior osteophyte formation. Mild facet hypertrophy. Minimal annular bulge without significant spinal canal stenosis or neural foraminal narrowing. T4-T5: Minimal disc height loss anteriorly. Minimal anterior osteophyte formation. Mild facet hypertrophy. No significant spinal canal stenosis or neural foraminal narrowing. T5-T6: Borderline mild disc height loss. Anterior osteophyte formation. Mild facet hypertrophy. Mild right neural foraminal narrowing. Small disc bulge without significant spinal canal stenosis. T6-T7: Mild disc height loss anteriorly. Minimal anterior osteophyte formation. Minimal Schmorl's node formation. Minimal facet hypertrophy. Small annular bulge without significant spinal canal stenosis or neural foraminal narrowing. T7-T8: Mild to moderate disc height loss and anterior osteophyte formation. Mild facet hypertrophy. Small annular bulge without significant spinal canal stenosis or neural foraminal narrowing. T8-T9: Mild disc height loss and Schmorl's node formation. Anterior osteophyte formation. Mild facet hypertrophy. No significant spinal canal stenosis or neural foraminal narrowing. T9-T10: Mild anterior osteophyte formation. Mild facet hypertrophy. No significant spinal canal stenosis. Borderline mild right neural foraminal narrowing. T10-T11: Schmorl's node formation. Mild disc height loss. Anterior osteophyte formation. Mild to moderate facet hypertrophy. Mild right neural foraminal narrowing. No significant spinal canal stenosis. T11-T12: Schmorl's node formation. Mild facet hypertrophy. Minimal annular bulge without significant spinal canal stenosis. No significant neural foraminal narrowing. IMPRESSION: Multiple sequences are degraded by motion. 1. No acute fracture identified. No epidural hematoma identified. 2. Faint cord signal hyperintensity at the level of C7-T1. Please see cervical spine MRI of the same day for more information. No cord signal abnormality identified within the remainder of the thoracic spine. 3. Dextroscoliosis and multilevel degenerative disc and facet disease as detailed above level by level, with multilevel mild disc bulging and no significant spinal canal stenosis. Scattered borderline to mild neural foraminal narrowing as detailed above level by level. 4. Tubular fluid signal focus superior to the left supraspinatus not fully evaluated. In severe left shoulder MRI for further evaluation if clinically indicated. 5. 1 cm right humeral head/neck marrow lesion may represent a cartilaginous lesion without aggressive features such as enchondroma, not fully evaluated on this study, and can be further evaluated on follow-up shoulder radiographs. 6. Hypointense signal within the visualized portions of the spleen and mildly within the liver may be seen with prior overload. Correlate clinically. Dedicated imaging of the abdomen may be obtained for further evaluation. 7. Asymmetric limb hypertrophy or nodule in the left adrenal gland measuring approximately 2.3 cm. Recommend correlation with prior imaging if available. If not available are follow-up adrenal mass protocol CT. RPTAT: VV Physician Naun Date Time Electronically viewed and signed by Physician Naun on 12/12/2018 11:01 PROCEDURE: CT Brain without contrast. CLINICAL INDICATION: Fall, weakness, injury. TECHNIQUE: A CT of the brain without contrast was performed utilizing axial sections from the skull base through the vertex. One or more the following does reduction techniques were utilized: Automated exposure control, adjustment of the mA/ or kV according to patient's size, or use of iterative reconstruction technique. Total exam CTDIvol is 39 MGy and DLP is 555 mGy-cm. DICOM images are available. COMPARISON: Brain CT 05/24/2018. Brain MRI 05/25/2018. FINDINGS: The ventricles and sulci are mildly prominent indicative of volume loss. There is no intracranial hemorrhage, mass effect or midline shift. No abnormal intra- axial or extra-axial fluid collections are seen. The machado/white matter d ifferentiation is preserved. 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 There are mild foci of hypoattenuation in the white matter, which are nonspecific in etiology but likely reflect chronic small vessel ischemic changes. There are mild intracranial vascular calcifications consistent with atherosclerosis. The visualized paranasal sinuses are essentially clear. IMPRESSION: 1. No acute intracranial hemorrhage, transcortical infarction or mass effect. 2. Mild intracranial atherosclerosis and chronic small vessel ischemic changes. 3. 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 4. Mild generalized cerebral volume loss. RPTAT: HFN .Augusto Archuleta MD, Date Time Electronically viewed and signed by .Augusto Archuleta MD, MD on 12/10/2018 08:53 PROCEDURE: XR Chest CLINICAL INDICATION: Weakness . TECHNIQUE: Frontal view of the chest COMPARISON: CR CHEST 05/24/2018; CR CHEST 09/21/2016; CR CHEST 06/22/2016 FINDINGS: There are low lung volumes, which accentuates the cardiac silhouette and crowding of the pulmonary vascular markings. The cardiomediastinal silhouette remains enlarged. There are atherosclerotic calcifications of the aorta. Mild increased opacity in the medial right lung base. There is no evidence of significant pleural effusion or pneumothorax. There are degenerative changes of the spine. IMPRESSION: Right lung base opacity may represent atelectasis versus pulmonary infiltrate. RPTAT: JJ Physician Perfecto Date Time Electronically viewed and signed by Physician Perfecto on 12/10/2018 08:54 PROCEDURE: MRI Brain without contrast. CLINICAL INDICATION: Weakness and dizziness TECHNIQUE: An MRI of the brain was performed on a high resolution hi- definition MRI scanner utilizing the following sequences: Sagittal and axial T1 weighted, axial T2 weighted, coronal GRE, axial diffusion weighted with ADC mapping, coronal GRE, and axial FLAIR. COMPARISON: Brain MRI 05/25/2018 FINDINGS: The scalp and calvarium are normal. The paranasal sinuses demonstrate a left maxillary sinus greater than right maxillary sinus mucous retention cysts are noted. The bilateral mastoid air cells and middle ear cavities are clear. No diffusion weighted abnormalities are seen to suggest the presence of acute ischemia or recent infarct. No hypointense signal abnormalities are seen on the GRE images to suggest the presence of blood degradation products. no extra- axial fluid collections or acute hemorrhage is noted. The ventricles sulci and cisterns are age appropriate compatible with mild diffuse volume loss. On the FLAIR and T2-weighted sequences, multiple punctate foci of hyperintensity are noted in the bilateral subcortical white matter, bilateral centrum semiovale and bilateral periventricular white matter compatible with mild chronic microvascular ischemic disease. Normal flow voids are visible in the proximal intracranial arteries and dural sinuses, indicating patency. IMPRESSION: 1. No MR evidence for acute infarcts, hemorrhage or acute intracranial pathology. 2. No significant interval change in the mild chronic bilateral microvascular ischemic disease and diffuse volume loss. 3. No significant interval change in the bilateral left greater than right maxillary sinus mucous retention cysts. RPTAT: HDC .Tiffanie Monteiro MD, MD Date Time Electronically viewed and signed by .Tiffanie Monteiro MD, MD on 12/11/2018 08:26 PROCEDURE: MRI lumbar spine CLINICAL INDICATION: Lower extremity weakness TECHNIQUE: An MRI of the lumbar spine was performed on a high resolution high definition, 3.0 Christy MRI scanner utilizing the following sequences: Sagittal T1 weighted, sagittal and dual echo axial T2 weighted, and sagittal T2 weighted with fat saturation. COMPARISON: None available FINDINGS: There is a normal lordosis of the lumbar spine. 2 mm degenerative anterior spondylolisthesis of L3 on L4, 6 mm degenerative anterior spondylolisthesis of L4 on L5 and 3 mm degenerative retrolisthesis of L5 on S1. The vertebral body heights are normal. Degenerative enthesopathy is present from the T12-L1 through to the L5-S1 levels. Modic type 2 degenerative endplate changes are present at the L3-4 through L5-S1 levels. Prominent Schmorl's node is noted at the inferior endplate of L3. The intervertebral discs demonstrate diffuse disc desiccation throughout the lumbar spine with severe disc space height loss at L4-5 and L5- S1. The conus terminates normally at the L1 level. The posterior elements are intact and well aligned. The bilateral paravertebral soft tissues are normal. The specific axial levels are as follows: T12 - L1: Disc desiccation is present. The central canal, subarticular recess and neural foramen are patent. Mild bilateral facet arthropathy is present. L1 - L2: Disc desiccation is present without disc space height loss. The central canal, bilateral subarticular recesses and neural foramen are patent. Mild bilateral facet arthropathy is present. L2 - L3: Disc desiccation is present. A mild 2 mm broad-based bulge is present. AP canal dimension is 9.7 mm. Mild bilateral facet arthropathy ligamentum flavum hypertrophy and facet effusions are present. This results in a mild central canal stenosis, bilateral subarticular recess stenosis and mild bilateral neural foraminal stenosis. L3 - L4: Disc desiccation is present with a 2 mm anterior spondylolisthesis and mild disc space height. A mild 3 mm broad-based bulge is present. Mild bilateral facet arthropathy and ligamentum hypertrophy is present with facet effusions. AP canal dimension is 9.9 mm. This results in a mild central canal stenosis, bilateral subarticular recess stenosis and moderate left and mild right neural foraminal stenosis. L4 - L5: Disc desiccation with degenerative endplate changes and severe disc space height loss is noted. A large 8 mm broad-based bulge is present. Moderate bilateral facet arthropathy facet effusions and ligamentum flavum hypertrophy is present. AP canal dimension is 6.8 mm. This results in a moderate to severe central canal stenosis, bilateral subarticular recess stenosis and severe right greater than mild left neural foraminal stenosis. L5 - S1: Disc desiccation with severe disc space height loss is noted. A moderate 4 mm broad-based bulge is present. Moderate bilateral facet arthropathy is present. The central canal, subarticular recess are patent. Moderate bilateral neural foraminal stenosis is present . IMPRESSION: 1. No acute fractures or traumatic subluxations 2. 2 mm degenerative anterior spondylolisthesis of L3-4, 6 mm at L4-5 and 3 mm degenerative retrolisthesis of L5 on S1 3. Multilevel broad-based disc osteophyte complexes at the L2-3 through L5-S1 levels with moderate to severe central canal stenosis at L4-5 and mild at L2-3 and L3-4 4. Multilevel neural foraminal stenosis at the L2-3 through L5-S1 levels as indicated above. 5. Multilevel facet ligamentum flavum osteoarthropathy RPTAT: HDC .Tiffanie Chooljian, MD, Date Time Electronically viewed and signed by .Tiffanie Monteiro MD, MD on 12/11/2018 08:42 PROCEDURE: Renal US. CLINICAL INDICATION: Abnormal renal function TECHNIQUE: Multiple sonographic images of the kidneys were obtained. The images were reviewed on a PACS workstation. COMPARISON: 05/05/2018 FINDINGS: Both kidneys are increased in echogenicity. There is bilateral renal cortical thinning. No solid renal masses are identified. There is no evidence of renal calculi or obstructive uropathy. 8-0.7 cm simple right upper pole renal cyst is identified. The right kidney measures 9.8 cm, and the left kidney measures 9.9 cm. Spot images of the pelvis demonstrating normally distended bladder with smooth contours. IMPRESSION: 1. No renal calculi or obstructive uropathy. 2. Increased bilateral renal cortical echogenicity suggest medical renal disease. 3. Mild bilateral renal cortical thinning. 4. Stable right renal cyst RPTAT: HH .Georges Evans MD, Date Time Electronically viewed and signed by .Georges Evans MD, on 12/10/2018 19:31 Hx of Present Illness Patient is a elderly male with past medical history significant for hypertens ion, COPD, anxiety, CKD, diabetes mellitus, hypothyroidism, A. fib on Eliquis who presents to [facility] for sudden onset lower extremity weakness subsequently having a fall on his head. Currently patient has minimal to no complaints except for inability to stand and ambulate well. Patient denies any chest pain, shortness of breath, headache, abdominal pain, issues with bowel or bladder. He also denies any nausea, vomiting, leg pain, denies any sensory or muscle disturbances in his upper extremity and also denies any sensory disturbances in his lower extremity. Patient states that he has some mild discomfort in the area of his head where he hit his head but denies headache. Patient has a history of cataract surgery and neck surgery with no metal implanted per patient and patient's son. Hospital Course Patient was admitted for evaluation of acute onset weakness and Neurology was consulted for further recommendations given history of TIA in the past. Imaging studies were obtain with no acute intracranial abnormalities noted. Given degenerative findings on MRI of lumbar and sacral spine, neurosurgery was consulted for recommendations and did not recommend any emergent surgical intervention. Patient was found with renal disease and nephrology was consulted for further recommendations. Patient renal function improved and returned to his baseline of CKD with Cr 1.6-1.8. He was noted to have elevated blood pressure and Cardiology was consulted with changes made to antihypertensive medication. Patient was experiencing orthostatic hypotension as well which was monitored and improved during hospitalization. ECHO results noted moderate to severe and CT surgery was consulted with recommendations to undergo elevated AVR. Discussion was held with son and he mentioned father seeing specialist at [facility] and also obtaining a second opinion. Records were requested from PCP but no cardiac reports were sent. Patient progressed well with physical therapy, however, son did not feel comfortable with father going home directly from hospital. ARU evaluation was placed but patient was too high functioning. Son agreed on SNF placement and CM made arrangements. Patients presenting symptoms improved significantly and BP remained stable. Patient was discharged to SNF in good condition. Home Meds Active Scripts Nifedipine (Procardia Xl) 30 Mg Tab.er.24, 60 MG PO BID for 30 Days, #60 TAB Prov:JUNIOR CASTELLANO MD 12/19/18 Amiodarone Hcl* (Amiodarone Hcl*) 200 Mg Tablet, 200 MG PO DAILY for 30 Days, #30 TAB Prov:JUNIOR CASTELLANO MD 12/19/18 Reported Medications Carvedilol* (Coreg*) 3.125 Mg Tablet, 3.125 MG PO BID, #60 TAB 12/10/18 Atorvastatin* (Atorvastatin*) 80 Mg Tablet, 80 MG PO QHS, #30 TAB 12/10/18 Ergocalciferol (Vitamin D2) (VITAMIN D2) 50,000 Unit Capsule, 1 CAP ORAL WEEKLY 12/10/18 Apixaban* (Eliquis*) 2.5 Mg Tablet, 2.5 MG PO BID, TAB 12/10/18 Glimepiride* (Glimepiride*) 1 Mg Tablet, 1 MG PO WITH BREAKFAST DINNE, TAB 12/10/18 Benazepril Hcl* (Benazepril Hcl*) 20 Mg Tablet, 1 TAB ORAL BID 12/10/18 Memantine* (Namenda*) 10 Mg Tablet, 1 TAB ORAL DAILY 3/25/19 Ranolazine* (Ranexa*) 1,000 Mg Tab.sr.12h, 1 TAB ORAL Q12H 12/10/18 Levothyroxine Sodium* (Levothyroxine Sodium*) 75 Mcg Tablet, 75 MCG PO BEFORE BREAKFAST, #30 TAB 05/03/18 Nitroglycerin* (Nitrostat*) 0.4 Mg Tab.subl, 0.4 MG SL Q5MIN PRN for CHEST PAIN, BOTTLE 09/21/16 Clonazepam* (Klonopin*) 1 Mg Tablet, 1 MG PO QHS PRN for SLEEP, TAB 09/21/16 Docusate Sodium* (Docusate Sodium*) 100 Mg Capsule, 100 MG PO DAILY, #60 CAP 06/22/16 Ferrous Sulfate* (Ferrous Sulfate*) 325 Mg Tabec, 325 MG PO DAILY, TAB 06/22/16 Discontinued Reported Medications Amiodarone Hcl* (Amiodarone Hcl*) 200 Mg Tablet, 200 MG PO BID, #60 TAB 12/10/18 Amlodipine Besylate* (Amlodipine Besylate*) 2.5 Mg Tablet, 1 TAB ORAL BID 12/10/18 Hydralazine Hcl* (Hydralazine Hcl*) 25 Mg Tab, 25 MG PO Q6, #120 TAB 05/03/18 Levothyroxine Sodium* (Levoxyl*) 50 Mcg Tablet, 50 MCG PO BEFORE BREAKFAST, #30 TAB 06/22/16 Tamsulosin Hcl* (Tamsulosin Hcl*) 0.4 Mg Cap.er.24h, 0.4 MG PO HS, CAP 06/22/16 Isosorbide Mononitrate* (Isosorbide Mononitrate*) 120 Mg Tab.sr.24h, 120 MG PO DAILY, TAB.SA 06/22/16 Discontinued Scripts Losartan Potassium* (Losartan Potassium*) 50 Mg Tablet, 50 MG PO DAILY for 30 Days, TAB Prov:ANA LAI MD 09/26/16 Follow-up Plan 1. Follow up with your primary care physician in 1-2 weeks 2. Medication adjustments were made during your hospital stay for better control of your blood pressure. These are the following changes: - Take Amiodarone 200mg daily ( no longer take twice a day) - Stop Hydralazine and Amlodipine - Take Procardia XL 60mg twice a day ( not 120 daily) - Continue Benazepril and Coreg as previously prescribed 3. 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 It is important to follow up with imaging in 6 months. You can discuss with your PCP 4. You were evaluated by Cardiothoracic surgeon, Dr. Grant, who recommended aortic valve replacement. He advised you to have a cardiac catheterization prior to surgical intervention. Please follow up with your [facility] at [facility] 5. Continue all other medications as prescribed. 6. If experiencing any concerning symptoms, please go to your nearest emergency department Primary Care Provider Not On Staff Doctor Time spent on discharge: > 30 minutes Pending Labs Laboratory Tests Test 12/18/18 16:49 12/18/18 20:38 12/19/18 06:07 12/19/18 07:43 Bedside 127 155 131 Glucose mg/dL (70-220) mg/dL (70-220) mg/dL (70-220) White Blood 7.9 Count 10^3/ul (4.8-1 0.8) Red Blood 3.46 Count 10^6/ul (4.70- 6.10) Hemoglobin 10.6 g/dl (14.0-18. 0) Hematocrit 32.6 % (42.0-52.0) Mean 94.2 Corpuscular fl (82.0-101.0 Volume ) Mean 30.6 Corpuscular pg (29.0-33.0) Hemoglobin Mean 32.5 Corpuscular g/dl (32.0-37. Hemoglobin Conc 0) ent Red Cell 12.9 Distribution % (11.5-14.5) Width Platelet Count 221 10^3/UL (140-4 15) Mean Platelet 9.2 Volume fl (7.4-10.4) Immature 0.400 Granulocytes % % (0.001-0.429 ) Neutrophils % 47.0 % (39.0-77.0) Lymphocytes % 40.4 % (15.0-51.0) Monocytes % 9.7 % (0.0-11.0) Eosinophils % 2.1 % (0.0-7.0) Basophils % 0.4 % (0.0-2.0) Nucleated Red 0.0 Blood Cells % /100WBC (0.0-0 .0) Immature 0.030 Granulocytes # 10^3/ul (0.0-0 .031) Neutrophils # 3.7 10^3/ul (1.6-7 .5) Lymphocytes # 3.2 10^3/ul (0.8-2 .9) Monocytes # 0.8 10^3/ul (0.3-0 .9) Eosinophils # 0.2 10^3/ul (0.0-0 .5) Basophils # 0.0 10^3/ul (0.0-0 .1) Nucleated Red 0.0 Blood Cells # 10^3/ul (0.0-0 .0) Sodium Level 138 mmol/L (135-14 4) Potassium 4.2 Level mmol/L (3.5-5. 1) Chloride Level 100 mmol/L (97-110 ) Carbon Dioxide 29 Level mmol/L (21-31) Anion Gap 9 (5-13) Blood Urea 25 Nitrogen mg/dl (7-20) Creatinine 1.63 mg/dl (0.61-1. 24) Est Glomerular mL/min (>60) Filtrat Rate mL/min Glucose Level 127 mg/dl (70-220) Calcium Level 8.8 mg/dl (8.4-10. 2) Phosphorus 3.4 Level mg/dl (2.5-4.9 ) Magnesium 1.8 Level mg/dl (1.7-2.5 ) Test 12/19/18 11:48 Bedside 115 Glucose mg/dL (70-220) JUNIOR CASTELLANO MD Dec 19, 2018 16:02
[2018-12-19] MEDS: ATORVASTATIN 80 MG TAB PO SCH (21:12)
[2018-12-20] VITALS (11 sets, daily range): BP systolic 124–163; BP diastolic 64–84; PULSE 59–99; RESP 18–20
[2018-12-20] MEDS: clonAZEPAM 0.5 MG TAB PO PRN (01:38)
[2018-12-20] MEDS: ACCU-CHEK XX SCH (02:00)
[2018-12-20] MEDS: PANTOPRAZOLE (EC) 40 MG TAB PO SCH (06:34)
[2018-12-20] MEDS: LEVOTHYROXINE 75 MCG TAB PO SCH (06:34)
--- NOTE | 2018-12-20 07:09 | CONS ---
Assessment/Plan Assessment/Plan Hospital Course 83 yo M c/ multiple comorbidities, who presents for evaluation of bilateral lower limb weakness c/b falls. Notable is renal insufficiency, which could exacerbate gait instability.. Orthostatic vitals ++, a likely contributor.. MRI brain is reassuringly negative for acute intracranial pathology. UA/UDS negative P: PT/OT as necessary OK to continue Eliquis for now...with ongoing attention to frequency of falls OK to continue Namenda per ops Other management and supportive care per primary Will follow clinically Consultation Date/Type/Reason Admit Date/Time Dec 11, 2018 at 10:14 Type of Consult Neurology Reason for Consultation gait abnl, falls Requesting Provider: ABEBA CASTANEDA Date/Time of Note DATE: 12/20/18 TIME: 07:09 24 HR Interval Summary Free Text/Dictation Continues acute care Exam Vital Signs Vitals Vital Signs Date Temp Pulse Resp B/P (MAP) Pulse Ox O2 O2 Flow FiO2 Time Delivery Rate 12/20/18 98.2 88 19 124/71 98 07:07 (88) 12/19/18 Room Air 04:35 Intake and Output 12/19/18 12/19/18 12/20/18 1515:00 23:00 07:00 IntakeIntake Total 600 ml 400 ml OutputOutput Total 600 ml BalanceBalance 600 ml -200 ml Exam PE: Gen Appearance: No Apparent Distress HEENT: Normocephalic Cardiovascular: Regular rate Abdomen: Soft Extremities: Dry NE: The patient was alert. Language was normal. Fund of knowledge was adequate. Pupils were equal and reactive to light. There was no afferent pupillary defect. Visual murphy were normal. Funduscopic examination was limited. Extra-ocular movements were full. Ptosis was absent. There was no nystagmus. Facial sensation was normal. Face was symmetric with normal strength. Hearing was intact. Palate movements were normal. Neck strength was normal. There was normal tongue bulk and speed of movement. Tone was normal. Muscle bulk was normal. I did not see fasciculations. Arms and legs were symmetric. Vibration sensation was normal. Temperature and pinprick sensation was normal. Rapid alternating movements were normal. There was no dysmetria. There was no intention tremor. Gait was deferred due to bedrest. Arm and leg reflexes were symmetric. Saldana's sign was absent. Plantar responses were flexor. ROMI ISAAC Dec 20, 2018 07:09 KEVIN MATHEWS NP Dec 20, 2018 15:04
[2018-12-20] MEDS: INSULIN ASPART [NOVOLOG] 3 ML PEN SC SCH ×2 (08:00→11:41)
[2018-12-20] MEDS: AMIODARONE 200 MG TAB PO SCH (08:33)
[2018-12-20] MEDS: FERROUS SULFATE (EC) 325 MG TAB PO SCH (08:33)
[2018-12-20] MEDS: NIFEdipine (XL) 30 MG TAB PO SCH (08:33)
[2018-12-20] MEDS: BENAZEPRIL 20 MG TAB PO SCH (08:33)
[2018-12-20] MEDS: DOCUSATE SODIUM 100 MG CAP PO SCH (08:33)
[2018-12-20] MEDS: ASPIRIN 81 MG TAB PO SCH (08:33)
[2018-12-20] MEDS: SUCRALFATE (100 MG/ML) 10ML CUP PO SCH ×2 (08:34→12:14)
--- NOTE | 2018-12-20 08:42 | PN ---
DATE: 12/20/2018 SUBJECTIVE: The patient remains stable. No events overnight. OBJECTIVE: VITAL SIGNS: Blood pressure is 124/71, pulse 88, respiration 19, temperature 98.2. HEENT: Head is normocephalic. NECK: Supple. HEART: Regular rate. LUNGS: Show diminished breath sounds at the base. ABDOMEN: Soft, nontender to palpation without rebound or guarding. EXTREMITIES: Negative for clubbing, cyanosis, no edema. DERMATOLOGIC: No rashes. MUSCULOSKELETAL: No joint effusion. NEUROLOGIC: No change in exam. MEDICATIONS: Reviewed. LABORATORY DATA: Has been reviewed. ASSESSMENT AND PLAN: 1. Nonoliguric acute kidney injury on top of chronic kidney disease with previous baseline creatinin e of 1.4 to 1.6 mg/dL. Etiology of acute kidney injury is secondary to hemodynamics. Renal function stabilized. Continue current treatment plan, supportive care, renally dose all meds. 2. 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 The patient is in current acute kidney injury as stated above. Continue current medical management. Otherwise, continue disease factor modification, good glycemic and blood pressure control. 3. Hypertension. Blood pressure improved. Continue current medical management. 4. Anemia. Continue to monitor hemoglobin and hematocrit levels. 5. Mineral bone disorder, monitor calcium and phosphorus levels. 6. Lower extremity weakness. Continue current treatment plan. Continue physical therapy. 7. Severe aortic stenosis. The patient is seen by CT surgery. Possible valve replacement in outpat ient setting. 8. Atrial fibrillation. Continue medical management. 9. Dyslipidemia. Continue statin therapy. 10. Diabetes. Continue current insulin regimen. 11. Orthostatic hypotension, improving. Dictated By: JULIETTE CHEEMA DO NR/NTS Conf#: [id number] DID#: [id number] CC: ABEBA CASTANEDA MD;*EndCC*
--- NOTE | 2018-12-20 09:07 | PN ---
Date/Time of Note Date/Time of Note DATE: 12/20/18 TIME: 09:07 Assessment/Plan VTE Prophylaxis Risk score (from Nsg)>0 risk: 5 SCD applied (from Nsg): Yes Pharmacological prophylaxis: apixaban Lines/Catheters IV Catheter Type (from Nrsg): Saline Lock Urinary Cath still in place: No Assessment/Plan Assessment/Plan 1. Hypertensive emergency- resolved - Patient had a BP in 180s last night and discharge was held. This am patient has been 120s - continue current medications - Cardiology on board and appreciate recommendations 2. Orthostatic hypotension- resolving - Cardiology on board and continue monitoring - questionable if related to 3. Bilateral mild lower extremity gait deficiency-resolved - Doing well with PT and too high functioning for ARU. Placement to SNF - Neurology consulted, does not appear to be acute CVA after MRI returned - MRI lumbar spine done, showing some severe stenosis, neurosurgeon has also been consulted, also ordered MRI thoracic spine and cervical, I doubt there is any surgical correction needed however will defer to neurosurgeon recommen dations with the multiple findings on the MRI of the spine. - Neurosurgery consultation appreciated and no emergent surgery needed at this time 4. Head hematoma, stable - Secondary to generalized lower extremity weakness and subsequent fall, CT negative for intracranial hemorrhage, however patient does have a palpable hematoma with no headache at this time. - Will restart Eliquis upon discharge 5. Chronic kidney disease- at baseline - Nephrology consultation appreciated 6. Diabetes mellitus - Insulin while in house 7. Hypothyroidism 8. Atrial fibrillation - Continue amiodarone and beta-stefan, adjust doses according to ground wirer - Continue Eliquis 9. Dyslipidemia - Continue atorvastatin 10. Pancreatic cyst - Follow-up MRI in 6 months, family notified, spoke to patient's son. 11. Questionable nodular liver - Follow-up with your primary care provider to monitor 12. Moderate to severe stenosis - Patient was evaluated at [facility] last year and records requested - Cardiology recommending PCI but in setting of CKD high risk for worsening renal function - CT surgery recommendations appreciated and valve replacement can be performed as outpt 13. Disposition - Medically stable for discharge to SNF Result Diagram: 12/19/18 0607 12/20/18 0508 Results 24hrs Laboratory Tests Test 12/19/18 11:48 12/19/18 17:24 12/19/18 20:04 12/20/18 05:08 Bedside Glucose 115 134 131 Sodium Level 138 Potassium Level 4.4 Chloride Level 101 Carbon Dioxide Level 28 Anion Gap 9 Blood Urea Nitrogen 30 H Creatinine 1.79 H Est Glomerular Filtrat Rate mL/min Glucose Level 126 Calcium Level 9.0 Phosphorus Level 3.7 Magnesium Level 1.9 Test 12/20/18 07:50 12/20/18 08:21 Bedside Glucose 121 Lab Scanned Report REFERENCE LAB Subjective 24 Hr Interval Summary Free Text/Dictation Patient resting comfortably with no acute issues. Was hypertensive last night due to anxiety and discharge was held. No acute overnight events. Exam/Review of Systems Exam Vitals Vital Signs Date Temp Pulse Resp B/P (MAP) Pulse Ox O2 O2 Flow FiO2 Time Delivery Rate 12/20/18 75 08:36 12/20/18 98.2 19 124/71 98 07:07 (88) 12/19/18 Room Air 04:35 Intake and Output 12/19/18 12/19/18 12/20/18 1414:59 22:59 06:59 IntakeIntake Total 600 ml 400 ml OutputOutput Total 600 ml BalanceBalance 600 ml -200 ml Exam General: Patient is laying in bed. no acute distress Neck: Supple, nontender, midline Respiratory: Clear to auscultation bilaterally. no wheezing or rhonchi Cardiovascular: regular rate and rhythm, no obvious murmurs Gastrointestinal: soft, non-tender to palpation, bowel sounds heard. Neurological: Moves all extremities spontaneously Skin: No new skin lesions Results Results 24hrs Laboratory Tests Test 12/19/18 11:48 12/19/18 17:24 12/19/18 20:04 12/20/18 05:08 Bedside Glucose 115 134 131 Sodium Level 138 Potassium Level 4.4 Chloride Level 101 Carbon Dioxide Level 28 Anion Gap 9 Blood Urea Nitrogen 30 H Creatinine 1.79 H Est Glomerular Filtrat Rate mL/min Glucose Level 126 Calcium Level 9.0 Phosphorus Level 3.7 Magnesium Level 1.9 Test 12/20/18 07:50 12/20/18 08:21 Bedside Glucose 121 Lab Scanned Report REFERENCE LAB Medications Medication Current Medications IV Flush (NS 3 ml) 3 ml PER PROTOCOL IV ; Start 12/10/18 at 10:30 Ondansetron HCl (Zofran Inj) 4 mg Q6H PRN IV NAUSEA/VOMITING Last administered on 12/14/18at 17:52; Admin Dose 4 MG; Start 12/10/18 at 10:30 Acetaminophen (Tylenol Tab) 650 mg Q6H PRN PO .PAIN 1-3 OR TEMP; Start 12/10/18 at 10:30 Acetaminophen/ Hydrocodone Bitart ([place] (5/325)) 1 tab Q6H PRN PO .PAIN 4-6; Start 12/10/18 at 10:30 Hydralazine HCl (Apresoline) 10 mg Q4H PRN IV sbp >160 Last administered on 12/14/18at 06:04; Admin Dose 10 MG; Start 12/10/18 at 10:30 Labetalol HCl (Labetalol) 10 mg Q4H PRN IV sbp >160 Last administered on 12/13/18at 23:58; Admin Dose 10 MG; Start 12/10/18 at 10:30 Diagnostic Test (Pha) (Accu-Chek) 1 ea 02 XX Last administered on 12/15/18at 02:00; Admin Dose 1 EA; Start 12/11/18 at 02:00 Insulin Aspart (Novolog Insulin Pen) NOVOLOG *MILD* ALGORITHM WITH MEALS BEDTIME SC Last administered on 12/18/18at 11:35; Admin Dose 1 UNIT; Start 12/10/18 at 12:00 Miscellaneous Information 1 ea NOTE XX ; Start 12/10/18 at 10:30 Glucose (Glutose) 15 gm Q15M PRN PO DECREASED GLUCOSE; Start 12/10/18 at 10:30 Glucose (Glutose) 22.5 gm Q15M PRN PO DECREASED GLUCOSE; Start 12/10/18 at 10:30 Dextrose (D50w Syringe) 25 ml Q15M PRN IV DECREASED GLUCOSE; Start 12/10/18 at 10:30 Dextrose (D50w Syringe) 50 ml Q15M PRN IV DECREASED GLUCOSE; Start 12/10/18 at 10:30 Glucagon (Glucagen) 1 mg Q15M PRN IM DECREASED GLUCOSE; Start 12/10/18 at 10:30 Glucose (Glutose) 15 gm Q15M PRN BUCCAL DECREASED GLUCOSE; Start 12/10/18 at 10:30 Atorvastatin Calcium (Lipitor) 80 mg QHS PO Last administered on 12/19/18at 21:12; Admin Dose 80 MG; Start 12/10/18 at 21:00 Benazepril HCl (Lotensin) 20 mg BID PO Last administered on 12/20/18 08:33; Admin Dose 20 MG; Start 12/10/18 at 21:00 Carvedilol (Coreg) 3.125 mg BID PO Last administered on 12/20/18 08:34; Admin Dose 3.125 MG; Start 12/10/18 at 21:00 Clonazepam (Klonopin) 1 mg QHS PRN PO SLEEP Last administered on 12/20/18 01:38; Admin Dose 1 MG; Start 12/10/18 at 11:00 Docusate Sodium (Colace) 100 mg DAILY PO Last administered on 12/20/18 08:33; Admin Dose 100 MG; Start 12/11/18 at 09:00 Ferrous Sulfate (Ferrous Sulfate (Ec)) 325 mg DAILY PO Last administered on 12/20/18 08:33; Admin Dose 325 MG; Start 12/11/18 at 09:00 Levothyroxine Sodium (Synthroid) 75 mcg BEFORE BREAKFAST PO Last administered on 12/20/18 06:34; Admin Dose 75 MCG; Start 12/11/18 at 07:00 Ranolazine (Ranexa) 1,000 mg Q12H PO Last administered on 12/19/18 23:05; Admin Dose 1,000 MG; Start 12/10/18 at 11:00 Apixaban (Eliquis) 2.5 mg BID PO Last administered on 12/12/18 09:00; Admin Dose 2.5 MG; Start 12/12/18 at 09:00; Status Hold Amiodarone HCl (Cordarone) 200 mg DAILY PO Last administered on 12/20/18 08:33; Admin Dose 200 MG; Start 12/13/18 at 09:00 Pantoprazole (Protonix Tab) 40 mg DAILY@06 PO Last administered on 12/20/18 06:34; Admin Dose 40 MG; Start 12/13/18 at 13:00 Sucralfate (Carafate Susp) 1 gm QID PO Last administered on 12/19/18 21:13; Admin Dose 1 GM; Start 12/13/18 at 13:00 Nifedipine (Procardia Xl) 60 mg BID PO Last administered on 12/20/18 08:33; Admin Dose 60 MG; Start 12/14/18 at 09:00 Polyethylene Glycol (Miralax) 17 gm DAILY PRN PO CONSTIPATION Last administered on 12/15/18at 17:41; Admin Dose 17 GM; Start 12/15/18 at 17:00 Aspirin (Aspirin) 81 mg DAILY PO Last administered on 12/20/18at 08:33; Admin Dose 81 MG; Start 12/18/18 at 09:00 JUNIOR CASTELLANO MD Dec 20, 2018 09:07
[2018-12-20] MEDS: RANOLAZINE (SR) 500 MG TAB PO SCH (11:40)
--- NOTE | 2018-12-20 13:39 | CONS ---
Assessment/Plan Assessment/Plan Hospital Course (Demo Recall) IMP: 1.Atrial fibrillation-rate controlled 2.orthostatic hypotension 3.-mod-sev by echo this admit 4.HTN 5.s/p fall 6. Renal failure 7. anemia 8. Lumbar stenosis Recc: -Tele -serial ecg's -Continue procardia/benazepril/coreg at current doses and follow orthostasis closely -PT -Contineu statin -Continue PPI/sucralfate -CT surg eval for possible need for AVR. Will require LHC/RHC prior . Given renal failure nephrology has reccomended to defer Heart cath until normalization of creatnine. Patient will thus be followed up as an outpatient with heart cath when improvement in renal function. -will resume eliquis and follow gait/stability clsoely -d/c asa Consultation Date/Type/Reason Admit Date/Time Dec 11, 2018 at 10:14 Initial Consult Date 12/14/18 Type of Consult Cardiology Reason for Consultation AF Requesting Provider: ABEBA CASTANEDA Date/Time of Note DATE: 12/20/18 TIME: 13:37 Exam/Review of Systems Vital Signs Vitals Vital Signs Date Temp Pulse Resp B/P (MAP) Pulse Ox O2 O2 Flow FiO2 Time Delivery Rate 12/20/18 61 12:54 12/20/18 98.2 18 128/73 97 11:19 (91) 12/19/18 Room Air 04:35 Intake and Output 12/19/18 12/19/18 12/20/18 1515:00 23:00 07:00 IntakeIntake Total 600 ml 400 ml OutputOutput Total 600 ml BalanceBalance 600 ml -200 ml Exam Exam Review of Systems: CONSTITUTIONAL: No fevers, chills. PULMONARY: No sob CARDIOVASCULAR: No chest pain/palpitations GASTROINTESTINAL: No nausea/vomiting. GENITOURINARY: No hematuria/dysuria. MUSCULOSKELETAL: No myagias/arthalgias. PSYCHIATRIC: The patient denies depression. NEUROLOGIC: No weakness Constitutional: alert, oriented Psych: no complaints Head: normocephalic ENMT: mucosa pink and moist Neck: supple, jvd (9 cm water) Respiratory: diminished breath sounds Cardiovascular: regular rate and rhythm Gastrointestinal: soft, non-tender Musculoskeletal: muscle tone (normal) Extremities: edema (none) Neurological: other (No focal deficits) Labs Result Diagram: 12/19/18 0607 12/20/18 0508 Results 24hrs Laboratory Tests Test 12/19/18 17:24 12/19/18 20:04 12/20/18 05:08 12/20/18 07:50 Bedside Glucose 134 131 121 Sodium Level 138 Potassium Level 4.4 Chloride Level 101 Carbon Dioxide Level 28 Anion Gap 9 Blood Urea Nitrogen 30 H Creatinine 1.79 H Est Glomerular Filtrat Rate mL/min Glucose Level 126 Calcium Level 9.0 Phosphorus Level 3.7 Magnesium Level 1.9 Test 12/20/18 08:21 12/20/18 11:40 Lab Scanned Report REFERENCE LAB Bedside Glucose 145 Medications Medications Current Medications IV Flush (NS 3 ml) 3 ml PER PROTOCOL IV ; Start 12/10/18 at 10:30 Ondansetron HCl (Zofran Inj) 4 mg Q6H PRN IV NAUSEA/VOMITING Last administered on 12/14/18at 17:52; Admin Dose 4 MG; Start 12/10/18 at 10:30 Acetaminophen (Tylenol Tab) 650 mg Q6H PRN PO .PAIN 1-3 OR TEMP; Start 12/10/18 at 10:30 Acetaminophen/ Hydrocodone Bitart ([place] (5/325)) 1 tab Q6H PRN PO .PAIN 4-6; Start 12/10/18 at 10:30 Hydralazine HCl (Apresoline) 10 mg Q4H PRN IV sbp >160 Last administered on 12/14/18at 06:04; Admin Dose 10 MG; Start 12/10/18 at 10:30 Labetalol HCl (Labetalol) 10 mg Q4H PRN IV sbp >160 Last administered on 12/13/18at 23:58; Admin Dose 10 MG; Start 12/10/18 at 10:30 Diagnostic Test (Pha) (Accu-Chek) 1 ea 02 XX Last administered on 12/15/18at 02:00; Admin Dose 1 EA; Start 12/11/18 at 02:00 Insulin Aspart (Novolog Insulin Pen) NOVOLOG *MILD* ALGORITHM WITH MEALS BEDTI ME SC Last administered on 12/18/18at 11:35; Admin Dose 1 UNIT; Start 12/10/18 at 12:00 Miscellaneous Information 1 ea NOTE XX ; Start 12/10/18 at 10:30 Glucose (Glutose) 15 gm Q15M PRN PO DECREASED GLUCOSE; Start 12/10/18 at 10:30 Glucose (Glutose) 22.5 gm Q15M PRN PO DECREASED GLUCOSE; Start 12/10/18 at 10:30 Dextrose (D50w Syringe) 25 ml Q15M PRN IV DECREASED GLUCOSE; Start 12/10/18 at 10:30 Dextrose (D50w Syringe) 50 ml Q15M PRN IV DECREASED GLUCOSE; Start 12/10/18 at 10:30 Glucagon (Glucagen) 1 mg Q15M PRN IM DECREASED GLUCOSE; Start 12/10/18 at 10:30 Glucose (Glutose) 15 gm Q15M PRN BUCCAL DECREASED GLUCOSE; Start 12/10/18 at 10:30 Atorvastatin Calcium (Lipitor) 80 mg QHS PO Last administered on 12/19/18 21:12; Admin Dose 80 MG; Start 12/10/18 at 21:00 Benazepril HCl (Lotensin) 20 mg BID PO Last administered on 12/20/18 08:33; Admin Dose 20 MG; Start 12/10/18 at 21:00 Carvedilol (Coreg) 3.125 mg BID PO Last administered on 12/20/18 08:34; Admin Dose 3.125 MG; Start 12/10/18 at 21:00 Clonazepam (Klonopin) 1 mg QHS PRN PO SLEEP Last administered on 12/20/18 01:38; Admin Dose 1 MG; Start 12/10/18 at 11:00 Docusate Sodium (Colace) 100 mg DAILY PO Last administered on 12/20/18 08:33; Admin Dose 100 MG; Start 12/11/18 at 09:00 Ferrous Sulfate (Ferrous Sulfate (Ec)) 325 mg DAILY PO Last administered on 12/20/18 08:33; Admin Dose 325 MG; Start 12/11/18 at 09:00 Levothyroxine Sodium (Synthroid) 75 mcg BEFORE BREAKFAST PO Last administered on 12/20/18 06:34; Admin Dose 75 MCG; Start 12/11/18 at 07:00 Ranolazine (Ranexa) 1,000 mg Q12H PO Last administered on 12/20/18 11:40; Admin Dose 1,000 MG; Start 12/10/18 at 11:00 Apixaban (Eliquis) 2.5 mg BID PO Last administered on 12/12/18 09:00; Admin Dose 2.5 MG; Start 12/12/18 at 09:00; Status Hold Amiodarone HCl (Cordarone) 200 mg DAILY PO Last administered on 12/20/18 08:33; Admin Dose 200 MG; Start 12/13/18 at 09:00 Pantoprazole (Protonix Tab) 40 mg DAILY@06 PO Last administered on 12/20/18 06:34; Admin Dose 40 MG; Start 12/13/18 at 13:00 Sucralfate (Carafate Susp) 1 gm QID PO Last administered on 12/19/18 21:13; Admin Dose 1 GM; Start 12/13/18 at 13:00 Nifedipine (Procardia Xl) 60 mg BID PO Last administered on 12/20/18 08:33; Admin Dose 60 MG; Start 12/14/18 at 09:00 Polyethylene Glycol (Miralax) 17 gm DAILY PRN PO CONSTIPATION Last administered on 12/15/18 17:41; Admin Dose 17 GM; Start 12/15/18 at 17:00 Aspirin (Aspirin) 81 mg DAILY PO Last administered on 12/20/18 08:33; Admin Dose 81 MG; Start 12/18/18 at 09:00 XIMENA PATINO Dec 20, 2018 13:39
--- NOTE | 2018-12-20 16:06 | DS ---
Date/Time of Note Date/Time of Note DATE: 12/20/18 TIME: 16:04 Discharge Summary Admission/Discharge Info Admit Date/Time Dec 11, 2018 at 10:14 Discharge Date/Time 12/20/18 1600 Discharge Diagnosis 1. Hypertensive emergency- resolved 2. Orthostatic hypotension- resolved 3. Bilateral mild lower extremity gait deficiency-resolved 4. Head hematoma, stable 5. Chronic kidney disease- stable 6. Diabetes mellitus, resolved 7. Hypothyroidism 8. Atrial fibrillation 9. Dyslipidemia 10. Pancreatic cyst- Follow-up MRI in 6 months 11. Questionable nodular liver 12. Moderate to severe stenosis Patient Condition: Stable Consults Cardiology- Dr. Waggoner/[place] CT surgery- Dr. Grant Nephrology- Dr. Cifuentes Neurology- Dr. Washburn Neurosurgery- Dr. Hutchinson Procedures PROCEDURE: ULTRASOUND EXTRACRANIAL ARTERIAL NECK CLINICAL INDICATION: 83-year-old male with syncope. TECHNIQUE: Multiple sonographic of the carotid bifurcation region and vertebral arteries were obtained utilizing machado scale, duplex and color-flow imaging. The images were reviewed on a PACS workstation. COMPARISON: None. FINDINGS: Evaluation of the right carotid bifurcation region reveals mild calcific atherosclerotic disease. Evaluation of the left carotid bifurcation region reveals mild calcific atherosclerotic disease. There is antegrade flow within the vertebral arteries bilaterally. RIGHT CAROTID MEASUREMENTS (cm/sec) Common Carotid Artery 50 Internal Carotid Artery - proximal 48 Internal Carotid Artery - mid 65 Internal Carotid Artery - distal 67 Internal Carotid/Common Carotid 1.3 LEFT CAROTID MEASUREMENTS (cm/sec) Common Carotid Artery 46 Internal Carotid Artery - proximal 42 Internal Carotid Artery - mid 50 Internal Carotid Artery - distal 53 Internal Carotid/Common Carotid 1.1 IMPRESSION: 1. There is mild atherosclerotic disease but without sonographic evidence for hemodynamically significant stenosis within the carotid bifurcation regions bilaterally. 2. Antegrade flow within the vertebral arteries bilaterally. Velocity criteria are extrapolated from diameter data as defined by the Society of Radiologists in Ultrasound Consensus Conference Radiology 2003:229,340-346. This study does indirectly reference the measurement of the distal ICA diameter as the denominator for stenosis measurement. .Jared Jiang MD, Date Time Electronically viewed and signed by .Jared Jiang MD, on 12/17/2018 09:23 3 PROCEDURE: XR Cervical Spine. CLINICAL INDICATION: Pain. assess for dynamic subluxation at cerivcothoracic junction TECHNIQUE: Neutral, flexion, extension lateral and swimmers views of the cervical spine were performed. The images were reviewed on a PACS workstation. COMPARISON: MRI 12/12/2018 FINDINGS: There is a normal cervical lordosis. There is a minimal anterolisthesis at C4- C5, measuring 2 mm on flexion and extension views. There is moderate disc space narrowing and minimal posterior osteophytes at C5-C6 and C6-C7. There is no visualized acute fracture. There is no prevertebral soft tissue swelling.. IMPRESSION: 1. Trace anterolisthesis at C4-C5, 2 mm. No evidence for abnormal motion with flexion or extension. 2. Minimal posterior osteophytes at C5-6 and C6-C7. RPTAT: HBST . .Shane Quinonez MD, MD Date Time Electronically viewed and signed by .Shane Quinonez MD, on 12/13/2018 16:13 PROCEDURE: MRI abdomen without contrast CLINICAL INDICATION: Adrenal nodule TECHNIQUE: An MRI of the abdomen was performed utilizing a high field MRI scanner with the following pulsed sequences: Axial T2 fast spin-echo, axial T2 non-fat saturation fast spin-echo, axial T1 gradient echo in-phase and opposed-phase. Noncontrast fat sat T1-weighted images were also obtained. Coronal T2 and fat-saturated T2-weighted images were also obtained. COMPARISON: None, correlated with ultrasound of the kidneys 12/10/2018 FINDINGS: Lack of IV contrast limits evaluation for enhancing masses. The heart is borderline enlarged. There is uniform signal intensity of the liver with no evidence of focal lesion to suggest a mass. There is a faintly nodular contour of the liver. Flow void is present within the portal vein. The gallbladder is unremarkable without evidence of stones, or surrounding inflammation. There is no intrahepatic or extrahepatic biliary ductal dilatation. Multiple pancreatic T2 hyperintense cysts are seen scattered throughout the hepatic parenchyma measuring up to 11 mm at the pancreatic tail with pancreatic atrophy. There is no peripancreatic inflammation. The kidneys are atrophic without hydronephrosis. Bilateral renal cysts are present without inflammation. There is mild bilateral adrenal thickening without evidence of a nodule. There is a normal appearance the spleen without enlargement. There is no evidence of bowel obstruction or mesenteric inflammatory changes. There is a mildly fecal filled colon with diverticulosis. There is no free fluid or lymphadenopathy. Aortic atherosclerosis is present. Degenerative changes are seen in the lumbar spine. There are no enlarged lymph nodes. IMPRESSION: Bilateral mild adrenal thickening is seen without evidence of a nodule. Renal atrophy is present without hydronephrosis. Multiple pancreatic cysts are present with a atrophy of the pancreatic parenchyma. Follow-up MRI is recommended after 6 months. Mildly nodular contour of the liver could indicate liver disease. Borderline cardiomegaly. Atherosclerotic disease. Mildly fecal filled colon with diverticulosis. RPTAT: AA .Quan Downs MD, MD Date Time Electronically viewed and signed by .Quan Downs MD, on 12/15/2018 12:12 PROCEDURE: MRI OF THE CERVICAL SPINE. CLINICAL INDICATION: Lower extremity weakness status post fall. TECHNIQUE: Multiple MRI images were obtained utilizing multiple sequences in multiple planes, including localizers, sagittal T1, sagittal T2, sagittal STIR, axial T2 and gradient echo. Images were interpreted on a high-resolution PACS system. Multiple sequences are degraded by motion, limiting evaluation. COMPARISON: None. FINDINGS: Cervical lordosis is maintained. No acute fracture. Vertebral body heights are maintained. Small amount of paravertebral muscle edema at the level of C4 and C5, partially evaluated due to motion. Marrow signal is mildly heterogeneous. Sub centimeter hemangioma in the C5 v ertebral body. There is faint T2 signal hyperintensity within the cord at the level of C7-T1. Atlanto-occipital and atlanto-odontoid articulations are intact. Visualized portions of the posterior fossa are intact. Findings at specific disc levels: C2-3: Mild disc height loss posteriorly. Anterior osteophyte formation. Mild to moderate left and moderate right facet hypertrophy and small right facet joint effusion. Borderline mild right neural foraminal narrowing. Small disc osteophyte complex effacing the ventral thecal sac. Mild prominence of the ligamentum flavum. No significant spinal canal stenosis. C3-4: Mild disc height loss posteriorly. Anterior osteophyte formation. Moderate bilateral facet hypertrophy with right facet edema and joint effusion and faint betsy facet edema. Uncovertebral joint spurring greater on the left. At least moderate left neural foraminal narrowing. Borderline mild right neural narrowing. Small disc osteophyte complex effacing the ventral thecal sac. AP diameter of the central spinal canal at midline: 10.5 mm.. C4-5: Mild disc height loss posteriorly. Mild to moderate right and moderate left facet hypertrophy with small left facet joint effusion. Uncovertebral joint spurring. Mild right and moderate left neural foraminal narrowing. Small disc osteophyte complex mildly effacing the ventral thecal sac. AP diameter of the central spinal canal at midline: 11 mm. C5-6: Moderate disc height loss and anterior osteophyte formation. Moderate facet hypertrophy. Uncovertebral joint spurring. Mild prominence of the ligamentum flavum. Disc osteophyte complex effacing the ventral thecal sac and flattening the ventral cord. At least moderate left and mild to moderate right neural foraminal narrowing. AP diameter of the central spinal canal at midline: 7.8 mm. C6-7: Moderate disc height loss and anterior osteophyte formation. Moderate facet hypertrophy. Prominence of the ligamentum flavum. Uncovertebral joint spurring greater on the left. Moderate left neural foraminal narrowing. Disc os teophyte complex effacing the ventral thecal sac and flattening the ventral cord. AP diameter of the central spinal canal at midline: 8 mm. C7-T1: Mild disc height loss and anterior osteophyte formation. Moderate left and moderate to severe right facet arthropathy with small right facet joint effusion and subchondral edema. 2 mm anterolisthesis. Uncovering of the disc/broad-based disc bulge as well as prominence of the ligamentum flavum with flattening of the ventral cord. Focal mild right neural foraminal narrowing. AP diameter of the central spinal canal and midline: 7.8 mm. IMPRESSION: Multiple sequences are degraded by motion, limiting evaluation, especially of the cord. 1. Faint T2 signal hyperintensity within the cord at the level of C7-T1, not well evaluated due to motion. Findings may represent focal myelomalacia/edema in the setting of moderate spinal canal stenosis and grade 1 anterolisthesis at this level, or may represent contusion/edema in the setting of trauma and underlying degenerative disease with possible exaggeration of findings due to artifact. This can be further evaluated with repeat/ follow-up MRI. 2. No acute fracture. Multilevel degenerative disc and facet disease including grade 1 anterolisthesis at C7-T1, and degenerative joint effusion and subchondral edema within the right C7-T1 joint as well as joint effusion and subchondral edema in the right C3-C4 facet joint with faint betsy facet edema. 2. Moderate spinal canal stenosis at C7-T1, C6-C7 and C5-C6 due to disc osteophyte complex and prominence of the ligamentum flavum. 3. Multilevel neural foraminal narrowing as detailed above level by level. RPTAT: BBDD Physician Naun Date Time Electronically viewed and signed by Physician Naun on 12/12/2018 10:26 PROCEDURE: MRI OF THE THORACIC SPINE. CLINICAL INDICATION: Bilateral lower extremity weakness. Status post fall. TECHNIQUE: Multi sequence multi planar MR imaging of the thoracic spine was obtained. Obtained sequences include sagittal T1, sagittal T2, sagittal STIR, axial T2, localizes, axial gradient echo and coronal T2 without IV contrast. Images were interpreted on a high-resolution PACS system. Multiple sequences are mildly degraded by motion. COMPARISON: None available. FINDINGS: Right convex curvature of the thoracic spine. Exaggerated thoracic kyphosis. Faint focal T2 signal hyperintensity in the cord at the level of C7-T1. No acute fracture identified. mild anterior wedging of the T7 vertebral body. T2 signal hyperintense fibular focus superior to the left supraspinatus. 1 cm right humeral head neck junction marrow lesion. 3.5 mm exophytic presumed right renal cyst, partially imaged. 2.3 cm focal asymmetrically enlarged left adrenal limb versus nodule. T2 signal hypointensity throughout the visualized spleen and mildly of the liver. Anterior angulation at the site of process. 1.3 cm T11 vertebral body hemangioma. Findings at specific disc levels: T1-T2: Less than 2 mm anterolisthesis. Mild disc height loss. Mild facet hypertrophy. Small annular bulge. No significant spinal canal stenosis or neural foraminal narrowing. T2-T3: Mild disc height loss. Mild facet hypertrophy. Small annular bulge without significant spinal canal stenosis or definite neural foraminal narrowing. T3-T4: Mild disc height loss anteriorly. Anterior osteophyte formation. Mild facet hypertrophy. Minimal annular bulge without significant spinal canal stenosis or neural foraminal narrowing. T4-T5: Minimal disc height loss anteriorly. Minimal anterior osteophyte formation. Mild facet hypertrophy. No significant spinal canal stenosis or neural foraminal narrowing. T5-T6: Borderline mild disc height loss. Anterior osteophyte formation. Mild facet hypertrophy. Mild right neural foraminal narrowing. Small disc bulge without significant spinal canal stenosis. T6-T7: Mild disc height loss anteriorly. Minimal anterior osteophyte formation. Minimal Schmorl's node formation. Minimal facet hypertrophy. Small annular bulge without significant spinal canal stenosis or neural foraminal narrowing. T7-T8: Mild to moderate disc height loss and anterior osteophyte formation. Mild facet hypertrophy. Small annular bulge without significant spinal canal stenosis or neural foraminal narrowing. T8-T9: Mild disc height loss and Schmorl's node formation. Anterior osteophyte formation. Mild facet hypertrophy. No significant spinal canal stenosis or neural foraminal narrowing. T9-T10: Mild anterior osteophyte formation. Mild facet hypertrophy. No significant spinal canal stenosis. Borderline mild right neural foraminal narrowing. T10-T11: Schmorl's node formation. Mild disc height loss. Anterior osteophyte formation. Mild to moderate facet hypertrophy. Mild right neural foraminal narrowing. No significant spinal canal stenosis. T11-T12: Schmorl's node formation. Mild facet hypertrophy. Minimal annular bulge without significant spinal canal stenosis. No significant neural foraminal narrowing. IMPRESSION: Multiple sequences are degraded by motion. 1. No acute fracture identified. No epidural hematoma identified. 2. Faint cord signal hyperintensity at the level of C7-T1. Please see cervical spine MRI of the same day for more information. No cord signal abnormality identified within the remainder of the thoracic spine. 3. Dextroscoliosis and multilevel degenerative disc and facet disease as detailed above level by level, with multilevel mild disc bulging and no significant spinal canal stenosis. Scattered borderline to mild neural foraminal narrowing as detailed above level by level. 4. Tubular fluid signal focus superior to the left supraspinatus not fully evaluated. In severe left shoulder MRI for further evaluation if clinically indicated. 5. 1 cm right humeral head/neck marrow lesion may represent a cartilaginous lesion without aggressive features such as enchondroma, not fully evaluated on this study, and can be further evaluated on follow-up shoulder radiographs. 6. Hypointense signal within the visualized portions of the spleen and mildly within the liver may be seen with prior overload. Correlate clinically. Dedicated imaging of the abdomen may be obtained for further evaluation. 7. Asymmetric limb hypertrophy or nodule in the left adrenal gland measuring approximately 2.3 cm. Recommend correlation with prior imaging if available. If not available are follow-up adrenal mass protocol CT. RPTAT: VV Physician Naun Date Time Electronically viewed and signed by Physician Naun on 12/12/2018 11:01 PROCEDURE: CT Brain without contrast. CLINICAL INDICATION: Fall, weakness, injury. TECHNIQUE: A CT of the brain without contrast was performed utilizing axial sections from the skull base through the vertex. One or more the following does reduction techniques were utilized: Automated exposure control, adjustment of the mA/ or kV according to patient's size, or use of iterative reconstruction technique. Total exam CTDIvol is 39 MGy and DLP is 555 mGy-cm. DICOM images are available. COMPARISON: Brain CT 05/24/2018. Brain MRI 05/25/2018. FINDINGS: The ventricles and sulci are mildly prominent indicative of volume loss. There is no intracranial hemorrhage, mass effect or midline shift. No abnormal intra- axial or extra-axial fluid collections are seen. The machado/white matter d ifferentiation is preserved. 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 There are mild foci of hypoattenuation in the white matter, which are nonspecific in etiology but likely reflect chronic small vessel ischemic changes. There are mild intracranial vascular calcifications consistent with atherosclerosis. The visualized paranasal sinuses are essentially clear. IMPRESSION: 1. No acute intracranial hemorrhage, transcortical infarction or mass effect. 2. Mild intracranial atherosclerosis and chronic small vessel ischemic changes. 3. 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 4. Mild generalized cerebral volume loss. RPTAT: HFN .Augusto Archuleta MD, Date Time Electronically viewed and signed by .Augusto Archuleta MD, MD on 12/10/2018 08:53 PROCEDURE: XR Chest CLINICAL INDICATION: Weakness . TECHNIQUE: Frontal view of the chest COMPARISON: CR CHEST 05/24/2018; CR CHEST 09/21/2016; CR CHEST 06/22/2016 FINDINGS: There are low lung volumes, which accentuates the cardiac silhouette and crowding of the pulmonary vascular markings. The cardiomediastinal silhouette remains enlarged. There are atherosclerotic calcifications of the aorta. Mild increased opacity in the medial right lung base. There is no evidence of significant pleural effusion or pneumothorax. There are degenerative changes of the spine. IMPRESSION: Right lung base opacity may represent atelectasis versus pulmonary infiltrate. RPTAT: JJ Physician Perfecto Date Time Electronically viewed and signed by Physician Perfecto on 12/10/2018 08:54 PROCEDURE: MRI Brain without contrast. CLINICAL INDICATION: Weakness and dizziness TECHNIQUE: An MRI of the brain was performed on a high resolution hi- definition MRI scanner utilizing the following sequences: Sagittal and axial T1 weighted, axial T2 weighted, coronal GRE, axial diffusion weighted with ADC mapping, coronal GRE, and axial FLAIR. COMPARISON: Brain MRI 05/25/2018 FINDINGS: The scalp and calvarium are normal. The paranasal sinuses demonstrate a left maxillary sinus greater than right maxillary sinus mucous retention cysts are noted. The bilateral mastoid air cells and middle ear cavities are clear. No diffusion weighted abnormalities are seen to suggest the presence of acute ischemia or recent infarct. No hypointense signal abnormalities are seen on the GRE images to suggest the presence of blood degradation products. no extra- axial fluid collections or acute hemorrhage is noted. The ventricles sulci and cisterns are age appropriate compatible with mild diffuse volume loss. On the FLAIR and T2-weighted sequences, multiple punctate foci of hyperintensity are noted in the bilateral subcortical white matter, bilateral centrum semiovale and bilateral periventricular white matter compatible with mild chronic microvascular ischemic disease. Normal flow voids are visible in the proximal intracranial arteries and dural sinuses, indicating patency. IMPRESSION: 1. No MR evidence for acute infarcts, hemorrhage or acute intracranial pathology. 2. No significant interval change in the mild chronic bilateral microvascular ischemic disease and diffuse volume loss. 3. No significant interval change in the bilateral left greater than right maxillary sinus mucous retention cysts. RPTAT: HDC .Tiffanie Monteiro MD, MD Date Time Electronically viewed and signed by .Tiffanie Monteiro MD, MD on 12/11/2018 08:26 PROCEDURE: MRI lumbar spine CLINICAL INDICATION: Lower extremity weakness TECHNIQUE: An MRI of the lumbar spine was performed on a high resolution high definition, 3.0 Christy MRI scanner utilizing the following sequences: Sagittal T1 weighted, sagittal and dual echo axial T2 weighted, and sagittal T2 weighted with fat saturation. COMPARISON: None available FINDINGS: There is a normal lordosis of the lumbar spine. 2 mm degenerative anterior spondylolisthesis of L3 on L4, 6 mm degenerative anterior spondylolisthesis of L4 on L5 and 3 mm degenerative retrolisthesis of L5 on S1. The vertebral body heights are normal. Degenerative enthesopathy is present from the T12-L1 through to the L5-S1 levels. Modic type 2 degenerative endplate changes are present at the L3-4 through L5-S1 levels. Prominent Schmorl's node is noted at the inferior endplate of L3. The intervertebral discs demonstrate diffuse disc desiccation throughout the lumbar spine with severe disc space height loss at L4-5 and L5- S1. The conus terminates normally at the L1 level. The posterior elements are intact and well aligned. The bilateral paravertebral soft tissues are normal. The specific axial levels are as follows: T12 - L1: Disc desiccation is present. The central canal, subarticular recess and neural foramen are patent. Mild bilateral facet arthropathy is present. L1 - L2: Disc desiccation is present without disc space height loss. The central canal, bilateral subarticular recesses and neural foramen are patent. Mild bilateral facet arthropathy is present. L2 - L3: Disc desiccation is present. A mild 2 mm broad-based bulge is present. AP canal dimension is 9.7 mm. Mild bilateral facet arthropathy ligamentum flavum hypertrophy and facet effusions are present. This results in a mild central canal stenosis, bilateral subarticular recess stenosis and mild bilateral neural foraminal stenosis. L3 - L4: Disc desiccation is present with a 2 mm anterior spondylolisthesis and mild disc space height. A mild 3 mm broad-based bulge is present. Mild bilateral facet arthropathy and ligamentum hypertrophy is present with facet effusions. AP canal dimension is 9.9 mm. This results in a mild central canal stenosis, bilateral subarticular recess stenosis and moderate left and mild right neural foraminal stenosis. L4 - L5: Disc desiccation with degenerative endplate changes and severe disc space height loss is noted. A large 8 mm broad-based bulge is present. Moderate bilateral facet arthropathy facet effusions and ligamentum flavum hypertrophy is present. AP canal dimension is 6.8 mm. This results in a moderate to severe central canal stenosis, bilateral subarticular recess stenosis and severe right greater than mild left neural foraminal stenosis. L5 - S1: Disc desiccation with severe disc space height loss is noted. A moderate 4 mm broad-based bulge is present. Moderate bilateral facet arthropathy is present. The central canal, subarticular recess are patent. Moderate bilateral neural foraminal stenosis is present . IMPRESSION: 1. No acute fractures or traumatic subluxations 2. 2 mm degenerative anterior spondylolisthesis of L3-4, 6 mm at L4-5 and 3 mm degenerative retrolisthesis of L5 on S1 3. Multilevel broad-based disc osteophyte complexes at the L2-3 through L5-S1 levels with moderate to severe central canal stenosis at L4-5 and mild at L2-3 and L3-4 4. Multilevel neural foraminal stenosis at the L2-3 through L5-S1 levels as indicated above. 5. Multilevel facet ligamentum flavum osteoarthropathy RPTAT: HDC .Tiffanie Chooljian, MD, Date Time Electronically viewed and signed by .Tiffanie Monteiro MD, MD on 12/11/2018 08:42 PROCEDURE: Renal US. CLINICAL INDICATION: Abnormal renal function TECHNIQUE: Multiple sonographic images of the kidneys were obtained. The images were reviewed on a PACS workstation. COMPARISON: 05/05/2018 FINDINGS: Both kidneys are increased in echogenicity. There is bilateral renal cortical thinning. No solid renal masses are identified. There is no evidence of renal calculi or obstructive uropathy. 8-0.7 cm simple right upper pole renal cyst is identified. The right kidney measures 9.8 cm, and the left kidney measures 9.9 cm. Spot images of the pelvis demonstrating normally distended bladder with smooth contours. IMPRESSION: 1. No renal calculi or obstructive uropathy. 2. Increased bilateral renal cortical echogenicity suggest medical renal disease. 3. Mild bilateral renal cortical thinning. 4. Stable right renal cyst RPTAT: HH .Georges Evans MD, MD Date Time Electronically viewed and signed by .Georges Evans MD, on 12/10/2018 19:31 Hx of Present Illness Patient is a elderly male with past medical history significant for hypertens ion, COPD, anxiety, CKD, diabetes mellitus, hypothyroidism, A. fib on Eliquis who presents to [facility] for sudden onset lower extremity weakness subsequently having a fall on his head. Currently patient has minimal to no complaints except for inability to stand and ambulate well. Patient denies any chest pain, shortness of breath, headache, abdominal pain, issues with bowel or bladder. He also denies any nausea, vomiting, leg pain, denies any sensory or muscle disturbances in his upper extremity and also denies any sensory disturbances in his lower extremity. Patient states that he has some mild discomfort in the area of his head where he hit his head but denies headache. Patient has a history of cataract surgery and neck surgery with no metal implanted per patient and patient's son. Hospital Course Patient was admitted for evaluation of acute onset weakness and Neurology was consulted for further recommendations given history of TIA in the past. Imaging studies were obtain with no acute intracranial abnormalities noted. Given degenerative findings on MRI of lumbar and sacral spine, neurosurgery was consulted for recommendations and did not recommend any emergent surgical intervention. Patient was found with renal disease and nephrology was consulted for further recommendations. Patient renal function improved and returned to his baseline of CKD with Cr 1.6-1.8. He was noted to have elevated blood pressure and Cardiology was consulted with changes made to antihypertensive medication. Patient was experiencing orthostatic hypotension as well which was monitored and improved during hospitalization. ECHO results noted moderate to severe and CT surgery was consulted with recommendations to undergo elevated AVR. Discussion was held with son and he mentioned father seeing specialist at [facility] and also obtaining a second opinion. Records were requested from PCP but no cardiac reports were sent. Patient progressed well with physical therapy, however, son did not feel comfortable with father going home directly from hospital. ARU evaluation was placed but patient was too high functioning. Son agreed on SNF placement and CM made arrangements. Patients presenting symptoms improved significantly and BP remained stable. Discharge to SNF was delayed a day given patient had a late pickup time and BP was elevated due to anxiety. Patients pressure remained stable during the night and day of discharge. Patient was discharged to SNF in good condition. Home Meds Active Scripts Nifedipine (Procardia Xl) 30 Mg Tab.er.24, 60 MG PO BID for 30 Days, #60 TAB Prov:JUNIOR CASTELLANO MD 12/19/18 Amiodarone Hcl* (Amiodarone Hcl*) 200 Mg Tablet, 200 MG PO DAILY for 30 Days, #30 TAB Prov:JUNIOR CASTELLANO MD 12/19/18 Reported Medications Carvedilol* (Coreg*) 3.125 Mg Tablet, 3.125 MG PO BID, #60 TAB 12/10/18 Atorvastatin* (Atorvastatin*) 80 Mg Tablet, 80 MG PO QHS, #30 TAB 12/10/18 Ergocalciferol (Vitamin D2) (VITAMIN D2) 50,000 Unit Capsule, 1 CAP ORAL WEEKLY 12/10/18 Apixaban* (Eliquis*) 2.5 Mg Tablet, 2.5 MG PO BID, TAB 12/10/18 Glimepiride* (Glimepiride*) 1 Mg Tablet, 1 MG PO WITH BREAKFAST DINNE, TAB 12/10/18 Benazepril Hcl* (Benazepril Hcl*) 20 Mg Tablet, 1 TAB ORAL BID 12/10/18 Memantine* (Namenda*) 10 Mg Tablet, 1 TAB ORAL DAILY 12/10/18 Ranolazine* (Ranexa*) 1,000 Mg Tab.sr.12h, 1 TAB ORAL Q12H 12/10/18 Levothyroxine Sodium* (Levothyroxine Sodium*) 75 Mcg Tablet, 75 MCG PO BEFORE BREAKFAST, #30 TAB 05/03/18 Nitroglycerin* (Nitrostat*) 0.4 Mg Tab.subl, 0.4 MG SL Q5MIN PRN for CHEST PAIN, BOTTLE 09/21/16 Clonazepam* (Klonopin*) 1 Mg Tablet, 1 MG PO QHS PRN for SLEEP, TAB 09/21/16 Docusate Sodium* (Docusate Sodium*) 100 Mg Capsule, 100 MG PO DAILY, #60 CAP 06/22/16 Ferrous Sulfate* (Ferrous Sulfate*) 325 Mg Tabec, 325 MG PO DAILY, TAB 06/22/16 Discontinued Reported Medications Amiodarone Hcl* (Amiodarone Hcl*) 200 Mg Tablet, 200 MG PO BID, #60 TAB 12/10/18 Amlodipine Besylate* (Amlodipine Besylate*) 2.5 Mg Tablet, 1 TAB ORAL BID 12/10/18 Hydralazine Hcl* (Hydralazine Hcl*) 25 Mg Tab, 25 MG PO Q6, #120 TAB 05/03/18 Levothyroxine Sodium* (Levoxyl*) 50 Mcg Tablet, 50 MCG PO BEFORE BREAKFAST, #30 TAB 06/22/16 Tamsulosin Hcl* (Tamsulosin Hcl*) 0.4 Mg Cap.er.24h, 0.4 MG PO HS, CAP 06/22/16 Isosorbide Mononitrate* (Isosorbide Mononitrate*) 120 Mg Tab.sr.24h, 120 MG PO DAILY, TAB.SA 06/22/16 Discontinued Scripts Losartan Potassium* (Losartan Potassium*) 50 Mg Tablet, 50 MG PO DAILY for 30 Days, TAB Prov:ANA LAI MD 09/26/16 Follow-up Plan 1. Follow up with your primary care physician in 1-2 weeks 2. Medication adjustments were made during your hospital stay for better control of your blood pressure. These are the following changes: - Take Amiodarone 200mg daily ( no longer take twice a day) - Stop Hydralazine and Amlodipine - Take Procardia XL 60mg twice a day ( not 120 daily) - Continue Benazepril and Coreg as previously prescribed 3. 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 It is important to follow up with imaging in 6 months. You can discuss with your PCP 4. You were evaluated by Cardiothoracic surgeon, Dr. Grant, who recommended aortic valve replacement. He advised you to have a cardiac catheterization prior to surgical intervention. Please follow up with your Food And Beverage Assistant at [facility] 5. Continue all other medications as prescribed. 6. If experiencing any concerning symptoms, please go to your nearest emergency department Primary Care Provider Not On Staff Doctor Time spent on discharge: > 30 minutes Pending Labs Laboratory Tests Test 12/19/18 17:24 12/19/18 20:04 12/20/18 05:08 12/20/18 07:50 Bedside 134 131 121 Glucose mg/dL (70-220) mg/dL (70-220) mg/dL (70-220) Sodium Level 138 mmol/L (135-14 4) Potassium 4.4 Level mmol/L (3.5-5. 1) Chloride Level 101 mmol/L (97-110 ) Carbon Dioxide 28 Level mmol/L (21-31) Anion Gap 9 (5-13) Blood Urea 30 Nitrogen mg/dl (7-20) Creatinine 1.79 mg/dl (0.61-1. 24) Est Glomerular mL/min (>60) Filtrat Rate mL/min Glucose Level 126 mg/dl (70-220) Calcium Level 9.0 mg/dl (8.4-10. 2) Phosphorus 3.7 Level mg/dl (2.5-4.9 ) Magnesium 1.9 Level mg/dl (1.7-2.5 ) Test 12/20/18 08:21 12/20/18 11:40 Lab Scanned REFERENCE Report LAB [id number] Bedside 145 Glucose mg/dL (70-220) JUNIOR CASTELLANO MD Dec 20, 2018 16:06
== END 2018-12-20 16:10 | DRG 305 ==
LOC: E/R 07:44 → TEL 10:13 → OBSVTOIN 12-11 10:14 → TEL 12-16 14:03 → 6WM 12-18 17:54
PROVIDERS: ADMIT Internal Medicine; ATTEND Internal Medicine
DX: I16.1 Hypertensive emergency (principal); N17.9 Acute kidney failure, unspecified; I95.1 Orthostatic hypotension; R26.9 Unspecified abnormalities of gait and mobility; I48.91 Unspecified atrial fibrillation; E03.9 Hypothyroidism, unspecified; N40.0 Benign prostatic hyperplasia without lower urinary tract symptoms; J44.9 Chronic obstructive pulmonary disease, unspecified; I12.9 Hypertensive chronic kidney disease with stage 1 through stage 4 chronic kidney disease, or unspecified chronic kidney disease; E11.22 Type 2 diabetes mellitus with diabetic chronic kidney disease; N18.9 Chronic kidney disease, unspecified; F41.9 Anxiety disorder, unspecified; Z86.73 Personal history of transient ischemic attack (TIA), and cerebral infarction without residual deficits; E78.5 Hyperlipidemia, unspecified; W19.XXXA Unspecified fall, initial encounter; S00.93XA Contusion of unspecified part of head, initial encounter; D63.1 Anemia in chronic kidney disease; M48.061 Spinal stenosis, lumbar region without neurogenic claudication; I35.0 Nonrheumatic aortic (valve) stenosis; S09.90XA Unspecified injury of head, initial encounter; Z79.02 Long term (current) use of antithrombotics/antiplatelets; S00.03XA Contusion of scalp, initial encounter; M50.33 Other cervical disc degeneration, cervicothoracic region; M48.03 Spinal stenosis, cervicothoracic region; R11.2 Nausea with vomiting, unspecified
CPT/HCPCS: 36415; 70450; 70551; 71045; 72052; 72141; 72146; 72148; 74181; 76775; 80048; 80053; 80061; 80069; 80307; 81003; 82043; 82088; 82962; 83036; 83735; 83835; 84100; 84155; 84244; 84300; 84436; 84443; 84479; 84484; 85025; 85610; 85730; 93005; 93306; 93880; 93976; 97116; 97161; 97530; G0378; J0360; J1815; J2060; J2405; J7030

== ENCOUNTER 2019-01-23 21:32 | Inpatient (IN) | payer MEDICARE, OTHER ==
[~2019-01-23] VITALS: Ht 170.2 cm; Wt 83.0 kg
[~2019-01-23 21:32] MED LIST changes: -ALBU18HF INHALATION; -AMIO100T4 PO; +AMIO200T4 PO; -AMLO5TAB4 PO; +APIX2.5T PO; -APIX5TAB PO; -ASC500 PO; +ATOR-2 PO; +BENA20TA4 ORAL; +CARV3.12 PO; -CARV6.25 PO; -CLON-379 PO; +ERGO500013 ORAL; +GLIM1TAB2 PO; -HYDR-3671 PO; -ISOS120T15 PO; -LEVO50TA71 PO; -LOSA50TA14 PO; +MEMA10TA ORAL; +NIFE30TA2 PO; +RANO10002 ORAL; -SERT25TA PO; -TAMS0.4C2 PO
[2019-01-23] MEDS ORDERED: ONDANSETRON 4 MG INJ IV STA (21:37)
[2019-01-23] MEDS ORDERED: OMEG1CAP2 PO (22:54)
[2019-01-23] MEDS ORDERED: AMIO100T4 PO (22:54)
[2019-01-23] MEDS ORDERED: TAMS-14 PO (22:54)
[2019-01-23] MEDS ORDERED: LEVO50TA7 PO (22:54)
[2019-01-23] MEDS ORDERED: HYDR-3671 PO (23:07)
[2019-01-23] MEDS ORDERED: niCARdipine-NS 0.1MG/ML DRIP 200 ML IV STA (23:24)
[2019-01-23] MEDS ORDERED: METOCLOPRAMIDE 10 MG INJ IV ONE (23:30)
[2019-01-24] MEDS ORDERED: ACETAMINOPHEN 650MG/20.3ML CUP PO PRN (01:30)
[2019-01-24] MEDS ORDERED: DOCUSATE SODIUM 100 MG CAP PO PRN (01:30)
[2019-01-24] MEDS ORDERED: clonAZEPAM 0.5 MG TAB PO PRN (01:30)
[2019-01-24] MEDS ORDERED: ALBUTEROL/IPRATROPIUM (NEB) 3 ML AMP NEB PRN (01:30)
[2019-01-24] MEDS ORDERED: NITROGLYCERIN (SL) 0.4 MG TAB SL PRN (01:30)
[2019-01-24] MEDS ORDERED: ONDANSETRON 4 MG INJ IV PRN ×2 (01:30→15:00)
[2019-01-24] MEDS ORDERED: BENAZEPRIL 20 MG TAB PO ONE (01:30)
[2019-01-24] MEDS ORDERED: BENAZEPRIL 20 MG TAB PO SCH (01:30)
--- NOTE | 2019-01-24 06:14 | HP ---
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 Antiemetics as needed -Continue home meds, adjust as needed -PT eval Result Diagram: 01/24/19 0436 01/24/19 0436 Results 24hrs Laboratory Tests Test 01/23/19 21:50 01/24/19 04:36 White Blood Count 7.0 8.3 Red Blood Count 3.54 L 3.41 L Hemoglobin 10.9 L 10.5 L Hematocrit 32.9 L 31.6 L Mean Corpuscular Volume 92.9 92.7 Mean Corpuscular Hemoglobin 30.8 30.8 Mean Corpuscular Hemoglobin Concent 33.1 33.2 Red Cell Distribution Width 13.2 13.2 Platelet Count 194 197 Mean Platelet Volume 8.8 9.3 Immature Granulocytes % 0.700 H 0.200 Neutrophils % 53.8 57.0 Lymphocytes % 35.3 33.2 Monocytes % 8.3 8.8 Eosinophils % 1.6 0.6 Basophils % 0.3 0.2 Nucleated Red Blood Cells % 0.0 0.0 Immature Granulocytes # 0.050 H 0.020 Neutrophils # 3.7 4.8 Lymphocytes # 2.5 2.8 Monocytes # 0.6 0.7 Eosinophils # 0.1 0.1 Basophils # 0.0 0.0 Nucleated Red Blood Cells # 0.0 0.0 Sodium Level 142 142 Potassium Level 3.9 3.7 Chloride Level 107 106 Carbon Dioxide Level 25 27 Anion Gap 10 9 Blood Urea Nitrogen 31 H 30 H Creatinine 1.61 H 1.40 H Est Glomerular Filtrat Rate mL/min Glucose Level 133 126 Calcium Level 9.1 9.0 Total Bilirubin 0.4 0.4 Direct Bilirubin 0.00 0.00 Indirect Bilirubin 0.4 0.4 Aspartate Amino Transf (AST/SGOT) 23 21 Alanine Aminotransferase (ALT/SGPT) 25 25 Alkaline Phosphatase 54 42 Troponin I 0.013 Total Protein 7.5 6.7 Albumin 4.1 3.7 Globulin 3.40 H 3.00 Albumin/Globulin Ratio 1.20 1.23 Lipase 47 HPI/ROS Admit Date/Time Admit Date/Time Hx of Present Illness This is an 83-year-old male with a history of hypertension, diabetes, CKD, COPD, hypothyroidism, BPH, 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 Patient was admitted here a month ago after he presented with sudden onset lower extremity weakness subsequently having a fall on his head. Brain imaging without acute findings. He was evaluated by neurology. His blood pressure was severely elevated and also orthostatic was positive. He was also found with a severe aortic stenosis. He was evaluated by CT surgery, but family wanted a second opinion at [facility]. Degenerative finding on the MRI for which he was evaluated by neurosurgery, no surgical intervention. Patient now brought back for generalized weakness nausea/vomiting and dizziness. In the ER he was found to have a blood pressure of 229/96. Head CT was negative for acute findings.CT abdomen/pelvis demonstrates no acute intra-abdominal intrapelvic process. Head CT without acute findings as well PMH/Family/Social Past Medical History Constitutional: other (No acute distress) Head: normocephalic, atraumatic Eyes: EOMI, PERRL Respiratory: other (no wheezing or Rhonchi) Cardiovascular: normal pulse Gastrointestinal: soft, non-tender Extremities: normal pulses Medical History: other (see hpi) Medications Current Medications Ondansetron HCl (Zofran Inj) 4 mg Q6H PRN IV NAUSEA AND/OR VOMITING; Start 01/24/19 at 01:30 Albuterol/ Ipratropium (Duoneb) 3 ml Q2H RESP THERAPY PRN NEB SHORTNESS OF BREATH; Start 01/24/19 at 01:30 Acetaminophen (Tylenol Liquid) 650 mg Q6H PRN PO PAIN LEVEL 1-3 OR FEVER; Start 01/24/19 at 01:30 Famotidine (Pepcid Iv) 20 mg Q12 IV ; Start 01/24/19 at 09:00 Apixaban (Eliquis) 2.5 mg BID PO ; Start 01/24/19 at 09:00 Atorvastatin Calcium (Lipitor) 80 mg QHS PO ; Start 01/24/19 at 21:00 Clonazepam (Klonopin) 1 mg QHS PRN PO SLEEP; Start 01/24/19 at 01:30 Docusate Sodium (Colace) 100 mg BID PRN PO CONSTIPATION; Start 01/24/19 at 01:30 Ferrous Sulfate (Ferrous Sulfate (Ec)) 325 mg BID PO ; Start 01/24/19 at 09:00 Nitroglycerin (Nitroglycerin (Sl Tab) 0.4 Mg) 0.5 tab Q5M PRN SL CHEST PAIN; Start 01/24/19 at 01:30 Tamsulosin HCl (Flomax) 0.4 mg HS PO ; Start 01/24/19 at 21:00 Benazepril HCl (Lotensin) 20 mg BID PO ; Start 01/24/19 at 09:00 Amiodarone HCl (Cordarone) 100 mg BID PO ; Start 01/24/19 at 06:01 Carvedilol (Coreg) 3.125 mg BID PO ; Start 01/24/19 at 06:01 Nifedipine (Procardia Xl) 60 mg BID PO ; Start 01/24/19 at 06:01 Coded Allergies: No Known Allergy (Unverified , 01/23/19) Past Surgical History Past Surgical Hx: other (see hpi) Family History Significant Family History: no pertinent family hx Social History Alcohol Use: none Smoking Status: Never smoker Drug Use: none Exam/Review of Systems Vital Signs Vitals Vital Signs Date Temp Pulse Resp B/P (MAP) Pulse Ox O2 O2 Flow FiO2 Time Delivery Rate 01/24/19 97.9 59 17 191/84 95 Room Air 05:00 (119) Intake and Output 01/23/19 01/23/19 01/24/19 1515:00 23:00 07:00 IntakeIntake Total 200 ml OutputOutput Total 500 ml BalanceBalance -300 ml Exam Exam Constitutional: other (No acute distress) Head: normocephalic, atraumatic Eyes: EOMI, PERRL Respiratory: other (no wheezing or Rhonchi) Cardiovascular: normal pulse Gastrointestinal: soft, non-tender Extremities: normal pulses SILVA MIRELES MD January 24, 2019 06:14
[2019-01-24] MEDS: AMIODARONE 200 MG TAB PO SCH ×2 (06:51→20:34)
[2019-01-24] MEDS: NIFEdipine (XL) 30 MG TAB PO SCH ×2 (08:39→20:35)
[2019-01-24] MEDS: APIXABAN 5 MG TABLET PO SCH ×2 (08:57→20:33)
[2019-01-24] MEDS: BENAZEPRIL 20 MG TAB PO SCH ×2 (08:58→20:34)
[2019-01-24] MEDS ORDERED: FAMOTIDINE 20 MG INJ IV SCH (09:00)
[2019-01-24] MEDS ORDERED: NIFEdipine (XL) 30 MG TAB PO SCH (09:00)
[2019-01-24] MEDS ORDERED: FERROUS SULFATE (EC) 325 MG TAB PO SCH (09:00)
[2019-01-24] MEDS ORDERED: AMIODARONE 200 MG TAB PO SCH (09:00)
--- NOTE | 2019-01-24 09:25 | ERD ---
ER Documentation Chief Complaint Chief Complaint BIB RA FOR EVAL NAUSEA. HPI This is an 83-year-old male with history of hypertension who was brought in by ambulance for evaluation of nausea and vomiting. Patient has no fever, no hi story of trauma, he denies any abdominal pain, he presents with his son, who provided majority of the history, he feels generally weak, to the point that he cannot ambulate, there is no area of focal weakness, the patient describes this as weakness over his entire body. He has not had any numbness or speech changes. ROS All systems reviewed and are negative except as per history of present illness. Medications Home Meds Active Scripts Nifedipine (Procardia Xl) 30 Mg Tab.er.24, 60 MG PO BID for 30 Days, #60 TAB Prov:JUNIOR CASTELLANO MD 12/19/18 Reported Medications Hydralazine Hcl* (Hydralazine Hcl*) 25 Mg Tab, 25 MG PO Q6H PRN for HTN, #60 TAB 01/23/19 [place]-3 Acid Ethyl Esters (Lovaza) 1 Gm Capsule, 2 GM PO BID, CAP 01/23/19 Tamsulosin Hcl* (Flomax*) 0.4 Mg Cap.er.24h, 0.4 MG PO HS, CAP 01/23/19 Levothyroxine Sodium* (Levothyroxine Sodium*) 50 Mcg Tablet, 50 MCG PO EVERY OTHER DAY, #30 TAB ALTERNATE WITH OTHER 75MCG PO BEFORE BREAKFAST 01/23/19 Amiodarone Hcl* (Amiodarone Hcl*) 100 Mg Tablet, 100 MG PO BID, #30 TAB 01/23/19 Carvedilol* (Coreg*) 3.125 Mg Tablet, 3.125 MG PO BID, #60 TAB 12/10/18 Atorvastatin* (Atorvastatin*) 80 Mg Tablet, 80 MG PO QHS, #30 TAB 12/10/18 Ergocalciferol (Vitamin D2) (VITAMIN D2) 50,000 Unit Capsule, 1 CAP ORAL Q7D for QMONDAY 12/10/18 Apixaban* (Eliquis*) 2.5 Mg Tablet, 2.5 MG PO BID, TAB 12/10/18 Glimepiride* (Glimepiride*) 1 Mg Tablet, 1 MG PO WITH BREAKFAST DINNE, TAB 12/10/18 Benazepril Hcl* (Benazepril Hcl*) 20 Mg Tablet, 1 TAB ORAL TID 12/10/18 Memantine* (Namenda*) 10 Mg Tablet, 1 TAB ORAL DAILY 12/10/18 Ranolazine* (Ranexa*) 1,000 Mg Tab.sr.12h, 1 TAB ORAL Q12H for 30 Days 12/10/18 Levothyroxine Sodium* (Levothyroxine Sodium*) 75 Mcg Tablet, 75 MCG PO EVERY OTHER DAY, #30 TAB 05/03/18 Nitroglycerin* (Nitrostat*) 0.4 Mg Tab.subl, 0.4 MG SL Q5MIN PRN for CHEST PAIN, BOTTLE 09/21/16 Clonazepam* (Klonopin*) 1 Mg Tablet, 1 MG PO QHS PRN for SLEEP, TAB 09/21/16 Docusate Sodium* (Docusate Sodium*) 100 Mg Capsule, 100 MG PO BID PRN for CONSTIPATION, #60 CAP 06/22/16 Ferrous Sulfate* (Ferrous Sulfate*) 325 Mg Tabec, 325 MG PO BID, TAB 06/22/16 Discontinued Scripts Amiodarone Hcl* (Amiodarone Hcl*) 200 Mg Tablet, 200 MG PO DAILY for 30 Days, #30 TAB Prov:JUNIOR CASTELLANO MD 12/19/18 Allergies Allergies: Coded Allergies: No Known Allergy (Unverified , 01/23/19) PMhx/Soc History of Surgery: Yes (Cataract Extraction,Neck Surgery) Anesthesia Reaction: No Hx Neurological Disorder: Yes (Cranial Hematoma) Hx Respiratory Disorders: Yes (COPD) Hx Cardiac Disorders: Yes (AFib,HTN) Hx Psychiatric Problems: No Hx Miscellaneous Medical Probl: Yes (Thyroidism,BPH) Hx Alcohol Use: No Hx Substance Use: No Hx Tobacco Use: No Smoking Status: Never smoker Physical Exam Vitals Vital Signs Date Temp Pulse Resp B/P (MAP) Pulse Ox O2 O2 Flow FiO2 Time Delivery Rate 01/23/19 96.9 97 18 229/96 99 21:34 (140) Physical Exam Const: Uncomfortable appearing 83-year-old male, holding an emesis bag, who appears stated age Head: Atraumatic Eyes: Normal Conjunctiva ENT: Normal External Ears, Nose and Mouth. Neck: Full range of motion. No meningismus. Resp: Clear to auscultation bilaterally Cardio: Regular rate and rhythm, no murmurs Abd: Soft, non tender, non distended. Normal bowel sounds Skin: No petechiae or rashes Back: No midline or flank tenderness Ext: No cyanosis, or edema Neur: Awake and alert, cranial nerves II through XII intact, normal [id number], normal rapid hand movement Psych: Normal Mood and Affect Result Diagram: 01/24/19 0436 01/24/19 0436 Results 24 hrs Laboratory Tests Test 01/23/19 21:50 White Blood Count 7.0 10^3/ul Red Blood Count 3.54 10^6/ul Hemoglobin 10.9 g/dl Hematocrit 32.9 % Mean Corpuscular Volume 92.9 fl Mean Corpuscular Hemoglobin 30.8 pg Mean Corpuscular Hemoglobin Concent 33.1 g/dl Red Cell Distribution Width 13.2 % Platelet Count 194 10^3/UL Mean Platelet Volume 8.8 fl Immature Granulocytes % 0.700 % Neutrophils % 53.8 % Lymphocytes % 35.3 % Monocytes % 8.3 % Eosinophils % 1.6 % Basophils % 0.3 % Nucleated Red Blood Cells % 0.0 /100WBC Immature Granulocytes # 0.050 10^3/ul Neutrophils # 3.7 10^3/ul Lymphocytes # 2.5 10^3/ul Monocytes # 0.6 10^3/ul Eosinophils # 0.1 10^3/ul Basophils # 0.0 10^3/ul Nucleated Red Blood Cells # 0.0 10^3/ul Sodium Level 142 mmol/L Potassium Level 3.9 mmol/L Chloride Level 107 mmol/L Carbon Dioxide Level 25 mmol/L Anion Gap 10 Blood Urea Nitrogen 31 mg/dl Creatinine 1.61 mg/dl Est Glomerular Filtrat Rate mL/min mL/min Glucose Level 133 mg/dl Calcium Level 9.1 mg/dl Total Bilirubin 0.4 mg/dl Direct Bilirubin 0.00 mg/dl Indirect Bilirubin 0.4 mg/dl Aspartate Amino Transf (AST/SGOT) 23 IU/L Alanine Aminotransferase (ALT/SGPT) 25 IU/L Alkaline Phosphatase 54 IU/L Troponin I 0.013 ng/ml Total Protein 7.5 g/dl Albumin 4.1 g/dl Globulin 3.40 g/dl Albumin/Globulin Ratio 1.20 Lipase 47 U/L Current Medications Medications Dose Sig/Carole Start Time Status Last (Trade) Ordered Route PRN Stop Time Admin Dose Reason Admin Ondansetron 4 mg ONCE STAT 01/23/19 DC 01/23/19 HCl (Zofran IV 21:37 01/23/19 21:45 Inj) 21:39 10 mg ONCE ONCE 01/23/19 DC 01/23/19 Metoclopramid IV 23:30 01/23/19 23:31 e HCl 23:31 (Reglan) Nicardipine 200 ml @ ONCE STAT 01/23/19 DC 01/23/19 HCl 50 mls/hr IV 23:24 01/24/19 23:31 03:23 Procedures/MDM This is a 83-year-old male who presents for relation of nausea vomiting, as well as hypertension. Patient also feels generally weak, he is not altered, however my primary concern is for hypertensive emergency, resulting in possible encephalopathy in the setting of symptoms of weakness, nausea and vomiting. CT brain did not show any acute findings, CT abdomen pelvis was also negative, but given his significantly elevated blood pressures, he was started on a nicardipine drip, he will be admitted to the ICU in the setting of elevated blood pressure Accepting Care Team: Current data and ongoing care discussed. Primary: Kulwant Consulting: None Outstanding Data: none Critical Care Time: 35 minutes Treatments/Evaluations: Close monitoring and treatment of unstable vital signs, cardiorespiratory, and neurologic status, while maintaining tight balance of fluid, respiratory, and cardiac interventions. This time includes discussing the case with the patient and the patient's family. This time does not include all procedures stated elsewhere in this record. This time also includes reviewing old records, labs and radiological studies. This time includes examining and re- examining the patient. Additionally, this time also includes arranging care with admitting and consulting physicians. EKG: Rate/Rhythm: Normal Sinus Rhythm QRS, ST, T-waves: No changes consistent w/ acute ischemia Impression: No evidence of ischemia or arrhythmia Departure Diagnosis: Primary Impression: Hypertensive emergency Additional Impression: Vomiting Vomiting type: unspecified Vomiting Intractability: unspecified Nausea presence: unspecified Qualified Codes: R11.10 - Vomiting, unspecified Condition: Serious THOMPSONABEBA MD January 24, 2019 09:25
[2019-01-24] MEDS ORDERED: LABETALOL HCL 20MG INJ IV ONE (11:00)
[2019-01-24] MEDS ORDERED: LABETALOL HCL 20MG INJ IV PRN (11:00)
--- NOTE | 2019-01-24 15:04 | PN ---
Date/Time of Note Date/Time of Note DATE: 01/24/19 TIME: 14:59 Assessment/Plan VTE Prophylaxis SCD contraindicated: low risk/ambulating Pharmacological prophylaxis: LMWH Assessment/Plan Hospital Course A/P 1. Ftt; orthostatic hypotension again? 2. Labile htn; due to ? 3. 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 +++; AR+/ MR+; sp 2nd opinion at [facility]? 5. DM 6. CKD 7. Dyslipidemia 8. Bph 9. Anemia; asymptomatic 10. DJD 11. Diverticulosis 12. Ing hernia 13. Benzo dependence? 14. COPD? 15. Hypothyroidism 16. 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 Metabolic Syndrome S: weak. cough. denies any medication changes O: sr; labile htn PE no pallor/ jvd reg s1s2 +SM; no r/g ctab bs+ nt nd; no r r g no edema Result Diagram: 01/24/19 0436 01/24/19 0436 Results 24hrs Laboratory Tests Test 01/23/19 21:50 01/24/19 04:36 White Blood Count 7.0 8.3 Red Blood Count 3.54 L 3.41 L Hemoglobin 10.9 L 10.5 L Hematocrit 32.9 L 31.6 L Mean Corpuscular Volume 92.9 92.7 Mean Corpuscular Hemoglobin 30.8 30.8 Mean Corpuscular Hemoglobin Concent 33.1 33.2 Red Cell Distribution Width 13.2 13.2 Platelet Count 194 197 Mean Platelet Volume 8.8 9.3 Immature Granulocytes % 0.700 H 0.200 Neutrophils % 53.8 57.0 Lymphocytes % 35.3 33.2 Monocytes % 8.3 8.8 Eosinophils % 1.6 0.6 Basophils % 0.3 0.2 Nucleated Red Blood Cells % 0.0 0.0 Immature Granulocytes # 0.050 H 0.020 Neutrophils # 3.7 4.8 Lymphocytes # 2.5 2.8 Monocytes # 0.6 0.7 Eosinophils # 0.1 0.1 Basophils # 0.0 0.0 Nucleated Red Blood Cells # 0.0 0.0 Sodium Level 142 142 Potassium Level 3.9 3.7 Chloride Level 107 106 Carbon Dioxide Level 25 27 Anion Gap 10 9 Blood Urea Nitrogen 31 H 30 H Creatinine 1.61 H 1.40 H Est Glomerular Filtrat Rate mL/min Glucose Level 133 126 Calcium Level 9.1 9.0 Total Bilirubin 0.4 0.4 Direct Bilirubin 0.00 0.00 Indirect Bilirubin 0.4 0.4 Aspartate Amino Transf (AST/SGOT) 23 21 Alanine Aminotransferase (ALT/SGPT) 25 25 Alkaline Phosphatase 54 42 Troponin I 0.013 Total Protein 7.5 6.7 Albumin 4.1 3.7 Globulin 3.40 H 3.00 Albumin/Globulin Ratio 1.20 1.23 Lipase 47 Exam/Review of Systems Exam Vitals Vital Signs Date Temp Pulse Resp B/P (MAP) Pulse Ox O2 O2 Flow FiO2 Time Delivery Rate 01/24/19 54 136/67 14:40 (90) 01/24/19 98.3 12 96 Room Air 13:30 Intake and Output 01/23/19 01/23/19 01/24/19 1515:00 23:00 07:00 IntakeIntake Total 200 ml OutputOutput Total 500 ml BalanceBalance -300 ml Results Results 24hrs Laboratory Tests Test 01/23/19 21:50 01/24/19 04:36 White Blood Count 7.0 8.3 Red Blood Count 3.54 L 3.41 L Hemoglobin 10.9 L 10.5 L Hematocrit 32.9 L 31.6 L Mean Corpuscular Volume 92.9 92.7 Mean Corpuscular Hemoglobin 30.8 30.8 Mean Corpuscular Hemoglobin Concent 33.1 33.2 Red Cell Distribution Width 13.2 13.2 Platelet Count 194 197 Mean Platelet Volume 8.8 9.3 Immature Granulocytes % 0.700 H 0.200 Neutrophils % 53.8 57.0 Lymphocytes % 35.3 33.2 Monocytes % 8.3 8.8 Eosinophils % 1.6 0.6 Basophils % 0.3 0.2 Nucleated Red Blood Cells % 0.0 0.0 Immature Granulocytes # 0.050 H 0.020 Neutrophils # 3.7 4.8 Lymphocytes # 2.5 2.8 Monocytes # 0.6 0.7 Eosinophils # 0.1 0.1 Basophils # 0.0 0.0 Nucleated Red Blood Cells # 0.0 0.0 Sodium Level 142 142 Potassium Level 3.9 3.7 Chloride Level 107 106 Carbon Dioxide Level 25 27 Anion Gap 10 9 Blood Urea Nitrogen 31 H 30 H Creatinine 1.61 H 1.40 H Est Glomerular Filtrat Rate mL/min Glucose Level 133 126 Calcium Level 9.1 9.0 Total Bilirubin 0.4 0.4 Direct Bilirubin 0.00 0.00 Indirect Bilirubin 0.4 0.4 Aspartate Amino Transf (AST/SGOT) 23 21 Alanine Aminotransferase (ALT/SGPT) 25 25 Alkaline Phosphatase 54 42 Troponin I 0.013 Total Protein 7.5 6.7 Albumin 4.1 3.7 Globulin 3.40 H 3.00 Albumin/Globulin Ratio 1.20 1.23 Lipase 47 Medications Medication Current Medications Ondansetron HCl (Zofran Inj) 4 mg Q6H PRN IV NAUSEA AND/OR VOMITING; Start 01/24/19 at 01:30 Albuterol/ Ipratropium (Duoneb) 3 ml Q2H RESP THERAPY PRN NEB SHORTNESS OF BREATH; Start 01/24/19 at 01:30 Acetaminophen (Tylenol Liquid) 650 mg Q6H PRN PO PAIN LEVEL 1-3 OR FEVER; Start 01/24/19 at 01:30 Famotidine (Pepcid Iv) 20 mg Q12 IV Last administered on 01/24/19at 09:01; Admin Dose 20 MG; Start 01/24/19 at 09:00 Apixaban (Eliquis) 2.5 mg BID PO Last administered on 01/24/19at 08:57; Admin Dose 2.5 MG; Start 01/24/19 at 09:00 Atorvastatin Calcium (Lipitor) 80 mg QHS PO ; Start 01/24/19 at 21:00 Clonazepam (Klonopin) 1 mg QHS PRN PO SLEEP; Start 01/24/19 at 01:30 Docusate Sodium (Colace) 100 mg BID PRN PO CONSTIPATION; Start 01/24/19 at 01:30 Ferrous Sulfate (Ferrous Sulfate (Ec)) 325 mg BID PO Last administered on 01/24/19at 08:57; Admin Dose 325 MG; Start 01/24/19 at 09:00 Nitroglycerin (Nitroglycerin (Sl Tab) 0.4 Mg) 0.5 tab Q5M PRN SL CHEST PAIN; Start 01/24/19 at 01:30 Tamsulosin HCl (Flomax) 0.4 mg HS PO ; Start 01/24/19 at 21:00 Benazepril HCl (Lotensin) 20 mg BID PO Last administered on 01/24/19 08:58; Admin Dose 20 MG; Start 01/24/19 at 09:00 Amiodarone HCl (Cordarone) 100 mg BID PO Last administered on 01/24/19 06:51; Admin Dose 100 MG; Start 01/24/19 at 06:01 Carvedilol (Coreg) 3.125 mg BID PO Last administered on 01/24/19at 06:52; Admin Dose 3.125 MG; Start 01/24/19 at 06:01 Nifedipine (Procardia Xl) 60 mg BID PO Last administered on 01/24/19at 08:39; Admin Dose 60 MG; Start 01/24/19 at 06:01 Labetalol HCl (Labetalol) 10 mg Q3H PRN IV SYSTOLIC > 160; Start 01/24/19 at 11:00 VANDANA ESPAÑA MD January 24, 2019 15:04
[2019-01-24 16:26] VITALS: BP 146/66; PULSE 59; RESP 18
[2019-01-24 16:28] VITALS: PULSE 58; RESP 17
[2019-01-24 16:30] VITALS: Ht 170.2 cm; Wt 83.0 kg
[2019-01-24 16:41] VITALS: PULSE 58
[2019-01-24] MEDS ORDERED: GLUCOSE GEL 15 GRAM TUBE BUCCAL PRN (19:00)
[2019-01-24] MEDS ORDERED: DEXTROSE 50% 50 ML SYRINGE IV PRN ×2 (19:00)
[2019-01-24] MEDS ORDERED: GLUCAGON 1 MG INJ IM PRN (19:00)
[2019-01-24] MEDS ORDERED: GLUCOSE GEL 15 GRAM TUBE PO PRN ×2 (19:00)
[2019-01-24 20:00] VITALS: BP_SYST 145; BP_SYST 162; BP_SYST 181; BP_DIAS 55; BP_DIAS 82; PULSE 58; PULSE 59; PULSE 60; PULSE 64; RESP 18
[2019-01-24] MEDS: ATORVASTATIN 80 MG TAB PO SCH (20:33)
[2019-01-24] MEDS: TAMSULOSIN (SR) 0.4 MG CAP PO SCH (20:33)
[2019-01-24] MEDS: INSULIN ASPART [NOVOLOG] 3 ML PEN SC SCH (20:33)
--- NOTE | 2019-01-24 21:56 | CONS ---
DATE OF ADMISSION: 01/23/2019 DATE OF CONSULTATION: 01/24/2019 REASON FOR CONSULTATION: Hypertension and history of aortic stenosis. REQUESTING PHYSICIAN: Dr. Jef España from the hospitalist service. HISTORY OF PRESENT ILLNESS: Mr. Santillan is an 83-year-old male with a history of orthostatic hypoten atul, atrial fibrillation, aortic stenosis, moderate to severe by echo 12/2018 revealing EF 65% with moderate to severe stenosis, mean gradient 29, hypertension, falls, anemia, lumbar stenosis who prese nted with vomiting, weakness, hypertension to be discharged in December and was to followup as an outpat ient for left heart catheterization which was deferred due to renal failure. [facility] temperature 96.9, blood pressure markedly elevated 229/96, pulse 97, resp iratory rate 18, satting 99%. The patient's labs, white cells 7, hemoglobin 10.9, platelet count of 194. Sodium of 142, potassium 3.9, creatinine 0.61, BUN 31, AST 23, ALT 25. The patient underwent a head CT revealing motion artifact limiting evaluation. However, no gross evidence of intracranial a bnormality. Abdominal pelvic CT revealing no acute intraabdominal and intrapelvic process, bilateral inguinal hernias containing fat only, mild diverticulosis and a chest x-ray revealed moderate cardio megaly but clear lungs. The patient's electrocardiogram revealed sinus bradycardia at 58 with normal axis and borderline anterior progression, inferior T-wave inversion. The patient subsequently admit michaela to the floor and since admit to the floor, denies chest pain, shortness of breath. Monitored tel emetry revealing sinus bradycardia in the 50s with a prolonged first degree AV block. PAST MEDICAL HISTORY: As above in HPI. MEDICATIONS CURRENTLY IN HOSPITAL: 1. Ferrous sulfate. 2. Pepcid. 3. Lipitor 80 mg at bedtime. 4. Flomax. 5. Insulin. 6. Eliquis 2.5 mg p.o. b.i.d. 7. Benazepril 20 mg b.i.d. 8. Amiodarone 100 mg b.i.d. 9. Carvedilol 3.125 mg p.o. b.i.d. 10. Procardia 60 mg b.i.d. 11. DuoNeb. 12. Tylenol p.r.n. 13. Clonidine p.r.n. 14. Colace. 15. Nitroglycerin. ALLERGIES: NO KNOWN DRUG ALLERGIES. SOCIAL HISTORY: No tobacco, ETOH or illicit drug use. FAMILY HISTORY: No sudden cardiac or early CAD. REVIEW OF SYSTEMS: As above in HPI. CONSTITUTIONAL: No fevers, chills. PULMONARY: No current shortness of breath. CARDIOVASCULAR: No current chest pain. GASTROINTESTINAL: No vomiting. GENITOURINARY: No hematuria. MUSCULOSKELETAL: Degenerative joint disease. PSYCHIATRIC: No documented psych history. PHYSICAL EXAMINATION: VITAL SIGNS: Temperature of 97.6, blood pressure most recently 146/66, pulse 59, respiratory rate 18 satting 98%. GENERAL: The patient is alert, awake, easily arousable in no acute distress. NECK: JVP approximately 8 to 9 cm of water. CHEST: Fair air movement throughout. HEART: Bradycardic, regular rhythm, normal S1, S2,1/6 systolic murmur. Nondisplaced PMI. ABDOMEN: Positive bowel sounds, soft. EXTREMITIES: No significant pitting edema, 1+ pulses bilateral posterior tibial. LABORATORIES: Most recently from today, sodium 142, potassium 4.7, creatinine 1.4, down from 1.61, B UN 30, AST 23, ALT 25. Troponin negative. White blood count 8.3, hemoglobin 10.5, platelet 197. IMAGING STUDIES: As above in HPI. No further imaging studies for review at this time. ECG: As above in HPI. No further electrocardiograms for my review at this time. IMPRESSION: 1. Hypertension. Continue significantly improving on oral antihypertensives. 2. Dizziness, possibly in the setting of uncontrolled hypertension, also has history of bradyarrhyth mias, heart rates have been stable in the 50s, continue to follow. 3. History of paroxysmal atrial fibrillation, currently sinus steve with prolonged first degree AV b lock on low dose carvedilol and amiodarone. Continue to follow. 4. Weakness, improving. Complete the patient's rule out for myocardial infarction. 5. Dyslipidemia. 6. History of aortic stenosis, moderate to severe by echo 11/2018 with preserved EF. 7. Anemia. 8. Renal failure. RECOMMENDATIONS: 1. At this time, would maintain the patient on telemetry monitoring to follow rhythm and rate contro l closely. 2. Continue the patient's current low dose carvedilol and amiodarone in an attempt to maintain sinus rhythm and heart rate. Continue the patient's benazepril, follow blood pressure closely, with possi ble need to further up titrate. 3. Continue patient's Procardia-XL. 4. Follow the patient's volume status closely. Consider gentle hydration. 5. Continue the patient's statin therapy and adjust it according to a fasting lipid panel to be chec ked. 5. Complete the patient's rule out for myocardial infarction to ensure the patient's constellation o f symptoms are not result in acute coronary syndromes or acute myocardial infarction. 6. Would check serial EKGs, assess for any significant ongoing changes. Repeat EKG in morning, EKG for any complaints of chest pain or change in rhythm. 7. The patient is still follow up with outpatient for left heart catheterization and creatinine have been optimized. Thank you for allowing me to take part in the care of this patient. I will continue to follow him ve ry closely with you, with recommendations to be made as the patient progresses through his inpatient hospital clinical course. Dictated By: XIMENA BARNES/JOCELINE Conf#: [id number] DID#: [id number] CC: JEF ESPAÑA MD; SILVA MIRELES MD;*End*
[2019-01-25] VITALS (12 sets, daily range): BP systolic 121–137; BP diastolic 56–64; PULSE 55–77; RESP 18–20
[2019-01-25] MEDS: BENAZEPRIL 20 MG TAB PO SCH ×2 (08:12→21:43)
[2019-01-25] MEDS: APIXABAN 5 MG TABLET PO SCH ×2 (08:13→21:43)
[2019-01-25] MEDS: AMIODARONE 200 MG TAB PO SCH ×2 (08:14→21:00)
[2019-01-25] MEDS: NIFEdipine (XL) 30 MG TAB PO SCH ×2 (08:15→21:44)
[2019-01-25] MEDS: INSULIN ASPART [NOVOLOG] 3 ML PEN SC SCH ×4 (08:25→21:00)
[2019-01-25] MEDS ORDERED: FAMOTIDINE 20 MG INJ IV SCH (09:00)
--- NOTE | 2019-01-25 09:56 | CONS ---
Consult Date/Type/Reason Admit Date/Time January 23, 2019 at 23:57 Initial Consult Date Date/Time of Note DATE: 01/25/19 TIME: 09:52 Subjective No acute events - pt comfortable - feels weak. Sinus now - on low amio dose now. Jeramy follow - 1 deg AVB - chronic. ROS: No fever, no chills, no nausea, no vomiting, no diarrhea/constipation + fatigue No recent weight changes No chest pain, no PND, no orthopnea No dizziness, blurred vision No thirst, no heat or cold intolerance Objective Vitals Vital Signs Date Temp Pulse Resp B/P (MAP) Pulse Ox O2 O2 Flow FiO2 Time Delivery Rate 01/25/19 64 08:52 01/25/19 97.9 18 126/60 94 07:28 (82) 01/25/19 Room Air 05:43 Intake and Output 01/24/19 01/24/19 01/25/19 1515:00 23:00 07:00 IntakeIntake Total 240 ml OutputOutput Total 400 ml BalanceBalance -160 ml Exam General: WN/WD/NAD, AOx 3 HEENT: Unicetric/atraumatic/EOMI (follows commands) NECK: JVD elevated, no thyromegaly Lymph: no lymphadenopathy HEART: regular with no S3, II/ systolic murmur at apex, PMI L LUNGS: Coarse sounds ABD: soft, NT, ND, +BS : Intact Neuro: non focal SKIN: chronic changes EXT: trace edema Results/Medications Result Diagram: 01/25/1931 01/25/1931 Results 24 hrs Laboratory Tests Test 01/24/19 17:07 01/24/19 20:31 01/25/19 00:58 01/25/19 05:31 Bedside Glucose 170 113 Creatine Kinase 57 59 Creatine Kinase Index 1.5 1.6 Creatinine Kinase MB 0.88 0.95 (Mass) Troponin I 0.018 0.021 White Blood Count 6.4 # Red Blood Count 3.49 L Hemoglobin 10.7 L Hematocrit 32.2 L Mean Corpuscular 92.3 Volume Mean Corpuscular 30.7 Hemoglobin Mean Corpuscular 33.2 Hemoglobin Concent Red Cell Distribution 13.1 Width Platelet Count 214 Mean Platelet Volume 9.4 Immature Granulocytes 0.300 % Neutrophils % 42.9 Lymphocytes % 42.8 Monocytes % 10.4 Eosinophils % 3.0 Basophils % 0.6 Nucleated Red Blood 0.0 Cells % Immature Granulocytes 0.020 # Neutrophils # 2.7 Lymphocytes # 2.7 Monocytes # 0.7 Eosinophils # 0.2 Basophils # 0.0 Nucleated Red Blood 0.0 Cells # Prothrombin Time 14.8 Prothrombin Time 1.2 Ratio INR International 1.15 Normalized Ratio Sodium Level 142 Potassium Level 4.0 Chloride Level 106 Carbon Dioxide Level 29 Anion Gap 7 Blood Urea Nitrogen 26 H Creatinine 1.56 H Est Glomerular Filtrat Rate mL/min Glucose Level 138 Hemoglobin A1c 5.9 Calcium Level 9.1 Phosphorus Level 3.8 Magnesium Level 1.8 Triglycerides Level 193 H Cholesterol Level 220 H LDL Cholesterol, 149 Calculated HDL Cholesterol 32 Cholesterol/HDL Ratio 6.8 Thyroid Stimulating 5.080 H Hormone (TSH) Test 01/25/19 07:51 Bedside Glucose 163 Home Meds Active Scripts Nifedipine (Procardia Xl) 30 Mg Tab.er.24, 60 MG PO BID for 30 Days, #60 TAB Prov:JUNIOR CASTELLANO MD 12/19/18 Reported Medications Hydralazine Hcl* (Hydralazine Hcl*) 25 Mg Tab, 25 MG PO Q6H PRN for HTN, #60 TAB 01/23/19 [place]-3 Acid Ethyl Esters (Lovaza) 1 Gm Capsule, 2 GM PO BID, CAP 01/23/19 Tamsulosin Hcl* (Flomax*) 0.4 Mg Cap.er.24h, 0.4 MG PO HS, CAP 01/23/19 Levothyroxine Sodium* (Levothyroxine Sodium*) 50 Mcg Tablet, 50 MCG PO EVERY OTHER DAY, #30 TAB ALTERNATE WITH OTHER 75MCG PO BEFORE BREAKFAST 01/23/19 Amiodarone Hcl* (Amiodarone Hcl*) 100 Mg Tablet, 100 MG PO BID, #30 TAB 01/23/19 Carvedilol* (Coreg*) 3.125 Mg Tablet, 3.125 MG PO BID, #60 TAB 12/10/18 Atorvastatin* (Atorvastatin*) 80 Mg Tablet, 80 MG PO QHS, #30 TAB 12/10/18 Ergocalciferol (Vitamin D2) (VITAMIN D2) 50,000 Unit Capsule, 1 CAP ORAL Q7D for QMONDAY 12/10/18 Apixaban* (Eliquis*) 2.5 Mg Tablet, 2.5 MG PO BID, TAB 12/10/18 Glimepiride* (Glimepiride*) 1 Mg Tablet, 1 MG PO WITH BREAKFAST DINNE, TAB 12/10/18 Benazepril Hcl* (Benazepril Hcl*) 20 Mg Tablet, 1 TAB ORAL TID 12/10/18 Memantine* (Namenda*) 10 Mg Tablet, 1 TAB ORAL DAILY 12/10/18 Ranolazine* (Ranexa*) 1,000 Mg Tab.sr.12h, 1 TAB ORAL Q12H for 30 Days 12/10/18 Levothyroxine Sodium* (Levothyroxine Sodium*) 75 Mcg Tablet, 75 MCG PO EVERY OTHER DAY, #30 TAB 05/03/18 Nitroglycerin* (Nitrostat*) 0.4 Mg Tab.subl, 0.4 MG SL Q5MIN PRN for CHEST PAIN, BOTTLE 09/21/16 Clonazepam* (Klonopin*) 1 Mg Tablet, 1 MG PO QHS PRN for SLEEP, TAB 09/21/16 Docusate Sodium* (Docusate Sodium*) 100 Mg Capsule, 100 MG PO BID PRN for CON STIPATION, #60 CAP 06/22/16 Ferrous Sulfate* (Ferrous Sulfate*) 325 Mg Tabec, 325 MG PO BID, TAB 06/22/16 Discontinued Scripts Amiodarone Hcl* (Amiodarone Hcl*) 200 Mg Tablet, 200 MG PO DAILY for 30 Days, #30 TAB Prov:JUNIOR CASTELLANO MD 12/19/18 Medications Current Medications Albuterol/ Ipratropium (Duoneb) 3 ml Q2H RESP THERAPY PRN NEB SHORTNESS OF BREATH; Start 01/24/19 at 01:30 Acetaminophen (Tylenol Liquid) 650 mg Q6H PRN PO PAIN LEVEL 1-3 OR FEVER; Start 01/24/19 at 01:30 Apixaban (Eliquis) 2.5 mg BID PO Last administered on 01/25/19at 08:13; Admin Dose 2.5 MG; Start 01/24/19 at 09:00 Atorvastatin Calcium (Lipitor) 80 mg QHS PO Last administered on 01/24/19at 20:33; Admin Dose 80 MG; Start 01/24/19 at 21:00 Clonazepam (Klonopin) 1 mg QHS PRN PO SLEEP; Start 01/24/19 at 01:30 Docusate Sodium (Colace) 100 mg BID PRN PO CONSTIPATION; Start 01/24/19 at 01:30 Nitroglycerin (Nitroglycerin (Sl Tab) 0.4 Mg) 0.5 tab Q5M PRN SL CHEST PAIN; Start 01/24/19 at 01:30 Tamsulosin HCl (Flomax) 0.4 mg HS PO Last administered on 01/24/19at 20:33; Admin Dose 0.4 MG; Start 01/24/19 at 21:00 Benazepril HCl (Lotensin) 20 mg BID PO Last administered on 01/25/19 08:12; Admin Dose 20 MG; Start 01/24/19 at 09:00 Amiodarone HCl (Cordarone) 100 mg BID PO Last administered on 01/25/19at 08:14; Admin Dose 100 MG; Start 01/24/19 at 06:01 Carvedilol (Coreg) 3.125 mg BID PO Last administered on 01/24/19at 20:34; Admin Dose 3.125 MG; Start 01/24/19 at 06:01 Nifedipine (Procardia Xl) 60 mg BID PO Last administered on 01/25/19at 08:15; Admin Dose 60 MG; Start 01/24/19 at 06:01 Labetalol HCl (Labetalol) 10 mg Q3H PRN IV SYSTOLIC > 160; Start 01/24/19 at 11:00 Famotidine (Pepcid Iv) 20 mg DAILY IV Last administered on 01/25/19at 08:12; Admin Dose 20 MG; Start 01/25/19 at 09:00 Ferrous Sulfate (Ferrous Sulfate (Ec)) 325 mg BID PO ; Start 01/27/19 at 09:00 Ondansetron HCl (Zofran Inj) 4 mg Q4 PRN IV NAUSEA AND/OR VOMITING; Start 01/24/19 at 15:00 Insulin Aspart (Novolog Insulin Pen) NOVOLOG *MODERATE* ALGORITHM WITH MEALS BE DTIME SC Last administered on 01/25/19at 08:25; Admin Dose 2 UNIT; Start 01/24/19 at 21:00 Miscellaneous Information 1 ea NOTE XX ; Start 01/24/19 at 19:00 Glucose (Glutose) 15 gm Q15M PRN PO DECREASED GLUCOSE; Start 01/24/19 at 19:00 Glucose (Glutose) 22.5 gm Q15M PRN PO DECREASED GLUCOSE; Start 01/24/19 at 19:00 Dextrose (D50w Syringe) 25 ml Q15M PRN IV DECREASED GLUCOSE; Start 01/24/19 at 19:00 Dextrose (D50w Syringe) 50 ml Q15M PRN IV DECREASED GLUCOSE; Start 01/24/19 at 19:00 Glucagon (Glucagen) 1 mg Q15M PRN IM DECREASED GLUCOSE; Start 01/24/19 at 19:00 Glucose (Glutose) 15 gm Q15M PRN BUCCAL DECREASED GLUCOSE; Start 01/24/19 at 19:00 Assessment/Plan Hospital Course (Demo Recall) 1. Hypertension. Continue Rx - significantly improving on oral antihyper tensives. Mighth be contrinuting to fatigue. 2. Dizziness, possibly in the setting of uncontrolled hypertension, also has history of bradyarrhythmias, heart rates have been stable in the 50s, continue to follow. Improved. 3. History of paroxysmal atrial fibrillation, currently sinus steve with p rolonged first degree AV block on low dose carvedilol and amiodarone. Continue to follow. Sinus now - on low dose amio 100 bid and Eliquis. 4. Weakness, improving. Complete the patient's rule out for myocardial infarction. Treated. 5. Dyslipidemia. 6. History of aortic stenosis, moderate to severe by echo 11/2018 with preserved EF. Jeramy monitor clinically. 7. Anemia. 8. Renal failure- Cr 1.56 - will monitor and ajust Eliquis as needed. BRETT ESTEBAN MD January 25, 2019 09:56
--- NOTE | 2019-01-25 14:03 | RADRPT ---
Vent Rate: 57 bpm RR Interval: 1060 msec ND Interval: 363 msec QRS Duration: 103 msec QT Interval: 571 msec QTC Interval: 555 msec P-R-T [place]: -56 - 43 - 59 degrees Sinus or ectopic atrial rhythm...P axis (-45,135) Prolonged ND interval...ND >220, V-rate 50- 90 Anterior infarct, old...Q >40mS, abnormal ST-T, V2-V5 Prolonged QT interval...QTc >500mS Electronically Signed By: Kody Morillo
--- NOTE | 2019-01-25 18:42 | PN ---
Date/Time of Note Date/Time of Note DATE: 01/25/19 TIME: 18:39 Assessment/Plan VTE Prophylaxis Risk score (from Nsg)>0 risk: 3 SCD applied (from Nsg): Yes SCD contraindicated: low risk/ambulating Pharmacological prophylaxis: LMWH Lines/Catheters IV Catheter Type (from Nrsg): Saline Lock Assessment/Plan Hospital Course A/P 1. Ftt; orthostatic hypotension again? 2. Labile htn; due to ? 3. 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 +++; AR+/ MR+; sp 2nd opinion at [facility]? 5. DM 6. CKD 7. Dyslipidemia 8. Bph 9. Anemia; asymptomatic 10. DJD 11. Diverticulosis 12. Ing hernia 13. Benzo dependence? 14. COPD? 15. Hypothyroidism 16. 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 Metabolic Syndrome 19. 1st degree avb; tolerating bb/ amio S: 01/24 weak. cough. denies any medication changes 01/25: weak. no pain, cough. ambulated w pt. still orthostatic. didnt go to [facility] O: sr/ 1avb; labile htn PE no pallor/ jvd reg s1s2 +SM; no r/g ctab bs+ nt nd; no r r g no edema Result Diagram: 01/25/1953001/25/19530 Results 24hrs Laboratory Tests Test 01/24/19 20:31 01/25/19 00:58 01/25/19 05:31 01/25/19 07:51 Bedside Glucose 113 163 Creatine Kinase 57 59 Creatine Kinase 1.5 1.6 Index Creatinine Kinase MB 0.88 0.95 (Mass) Troponin I 0.018 0.021 White Blood Count 6.4 # Red Blood Count 3.49 L Hemoglobin 10.7 L Hematocrit 32.2 L Mean Corpuscular 92.3 Volume Mean Corpuscular 30.7 Hemoglobin Mean Corpuscular 33.2 Hemoglobin Concent Red Cell 13.1 Distribution Width Platelet Count 214 Mean Platelet Volume 9.4 Immature 0.300 Granulocytes % Neutrophils % 42.9 Lymphocytes % 42.8 Monocytes % 10.4 Eosinophils % 3.0 Basophils % 0.6 Nucleated Red Blood 0.0 Cells % Immature 0.020 Granulocytes # Neutrophils # 2.7 Lymphocytes # 2.7 Monocytes # 0.7 Eosinophils # 0.2 Basophils # 0.0 Nucleated Red Blood 0.0 Cells # Prothrombin Time 14.8 Prothrombin Time 1.2 Ratio INR International 1.15 Normalized Ratio Sodium Level 142 Potassium Level 4.0 Chloride Level 106 Carbon Dioxide Level 29 Anion Gap 7 Blood Urea Nitrogen 26 H Creatinine 1.56 H Est Glomerular Filtrat Rate mL/min Glucose Level 138 Hemoglobin A1c 5.9 Calcium Level 9.1 Phosphorus Level 3.8 Magnesium Level 1.8 Triglycerides Level 193 H Cholesterol Level 220 H LDL Cholesterol, 149 Calculated HDL Cholesterol 32 Cholesterol/HDL 6.8 Ratio Thyroid Stimulating 5.080 H Hormone (TSH) Test 01/25/19 11:39 01/25/19 12:04 01/25/19 17:21 Creatine Kinase 67 Creatine Kinase 1.5 Index Creatinine Kinase MB 1.02 (Mass) Troponin I 0.020 Bedside Glucose 137 142 Exam/Review of Systems Exam Vitals Vital Signs Date Temp Pulse Resp B/P (MAP) Pulse Ox O2 O2 Flow FiO2 Time Delivery Rate 01/25/19 62 16:23 01/25/19 97.3 18 123/60 93 15:42 (81) 01/25/19 Room Air 05:43 Intake and Output 01/24/19 01/24/19 01/25/19 1414:59 22:59 06:59 IntakeIntake Total 240 ml OutputOutput Total 400 ml BalanceBalance -160 ml Results Results 24hrs Laboratory Tests Test 01/24/19 20:31 01/25/19 00:58 01/25/19 05:31 01/25/19 07:51 Bedside Glucose 113 163 Creatine Kinase 57 59 Creatine Kinase 1.5 1.6 Index Creatinine Kinase MB 0.88 0.95 (Mass) Troponin I 0.018 0.021 White Blood Count 6.4 # Red Blood Count 3.49 L Hemoglobin 10.7 L Hematocrit 32.2 L Mean Corpuscular 92.3 Volume Mean Corpuscular 30.7 Hemoglobin Mean Corpuscular 33.2 Hemoglobin Concent Red Cell 13.1 Distribution Width Platelet Count 214 Mean Platelet Volume 9.4 Immature 0.300 Granulocytes % Neutrophils % 42.9 Lymphocytes % 42.8 Monocytes % 10.4 Eosinophils % 3.0 Basophils % 0.6 Nucleated Red Blood 0.0 Cells % Immature 0.020 Granulocytes # Neutrophils # 2.7 Lymphocytes # 2.7 Monocytes # 0.7 Eosinophils # 0.2 Basophils # 0.0 Nucleated Red Blood 0.0 Cells # Prothrombin Time 14.8 Prothrombin Time 1.2 Ratio INR International 1.15 Normalized Ratio Sodium Level 142 Potassium Level 4.0 Chloride Level 106 Carbon Dioxide Level 29 Anion Gap 7 Blood Urea Nitrogen 26 H Creatinine 1.56 H Est Glomerular Filtrat Rate mL/min Glucose Level 138 Hemoglobin A1c 5.9 Calcium Level 9.1 Phosphorus Level 3.8 Magnesium Level 1.8 Triglycerides Level 193 H Cholesterol Level 220 H LDL Cholesterol, 149 Calculated HDL Cholesterol 32 Cholesterol/HDL 6.8 Ratio Thyroid Stimulating 5.080 H Hormone (TSH) Test 01/25/19 11:39 01/25/19 12:04 01/25/19 17:21 Creatine Kinase 67 Creatine Kinase 1.5 Index Creatinine Kinase MB 1.02 (Mass) Troponin I 0.020 Bedside Glucose 137 142 Medications Medication Current Medications Albuterol/ Ipratropium (Duoneb) 3 ml Q2H RESP THERAPY PRN NEB SHORTNESS OF BREATH; Start 01/24/19 at 01:30 Acetaminophen (Tylenol Liquid) 650 mg Q6H PRN PO PAIN LEVEL 1-3 OR FEVER; Start 01/24/19 at 01:30 Apixaban (Eliquis) 2.5 mg BID PO Last administered on 01/25/19at 08:13; Admin Dose 2.5 MG; Start 01/24/19 at 09:00 Atorvastatin Calcium (Lipitor) 80 mg QHS PO Last administered on 01/24/19at 20:33; Admin Dose 80 MG; Start 01/24/19 at 21:00 Clonazepam (Klonopin) 1 mg QHS PRN PO SLEEP; Start 01/24/19 at 01:30 Docusate Sodium (Colace) 100 mg BID PRN PO CONSTIPATION; Start 01/24/19 at 01:30 Nitroglycerin (Nitroglycerin (Sl Tab) 0.4 Mg) 0.5 tab Q5M PRN SL CHEST PAIN; Start 01/24/19 at 01:30 Tamsulosin HCl (Flomax) 0.4 mg HS PO Last administered on 01/24/19at 20:33; Admin Dose 0.4 MG; Start 01/24/19 at 21:00 Benazepril HCl (Lotensin) 20 mg BID PO Last administered on 01/25/19at 08:12; Admin Dose 20 MG; Start 01/24/19 at 09:00 Amiodarone HCl (Cordarone) 100 mg BID PO Last administered on 01/25/19at 08:14; Admin Dose 100 MG; Start 01/24/19 at 06:01 Carvedilol (Coreg) 3.125 mg BID PO Last administered on 01/24/19at 20:34; Admin Dose 3.125 MG; Start 01/24/19 at 06:01 Nifedipine (Procardia Xl) 60 mg BID PO Last administered on 01/25/19at 08:15; Admin Dose 60 MG; Start 01/24/19 at 06:01 Labetalol HCl (Labetalol) 10 mg Q3H PRN IV SYSTOLIC > 160; Start 01/24/19 at 11:00 Ferrous Sulfate (Ferrous Sulfate (Ec)) 325 mg BID PO ; Start 01/27/19 at 09:00 Ondansetron HCl (Zofran Inj) 4 mg Q4 PRN IV NAUSEA AND/OR VOMITING; Start 01/24/19 at 15:00 Insulin Aspart (Novolog Insulin Pen) NOVOLOG *MODERATE* ALGORITHM WITH MEALS BEDTIME SC Last administered on 01/25/19at 17:29; Admin Dose 2 UNIT; Start 01/24/19 at 21:00 Miscellaneous Information 1 ea NOTE XX ; Start 01/24/19 at 19:00 Glucose (Glutose) 15 gm Q15M PRN PO DECREASED GLUCOSE; Start 01/24/19 at 19:00 Glucose (Glutose) 22.5 gm Q15M PRN PO DECREASED GLUCOSE; Start 01/24/19 at 19:00 Dextrose (D50w Syringe) 25 ml Q15M PRN IV DECREASED GLUCOSE; Start 01/24/19 at 19:00 Dextrose (D50w Syringe) 50 ml Q15M PRN IV DECREASED GLUCOSE; Start 01/24/19 at 19:00 Glucagon (Glucagen) 1 mg Q15M PRN IM DECREASED GLUCOSE; Start 01/24/19 at 19:00 Glucose (Glutose) 15 gm Q15M PRN BUCCAL DECREASED GLUCOSE; Start 01/24/19 at 19:00 Famotidine (Pepcid) 20 mg DAILY PO ; Start 01/26/19 at 09:00 VANDANA ESPAÑA MD January 25, 2019 18:42
[2019-01-25] MEDS: RANOLAZINE (SR) 500 MG TAB PO SCH (21:41)
[2019-01-25] MEDS: TAMSULOSIN (SR) 0.4 MG CAP PO SCH (21:42)
[2019-01-25] MEDS: FISH OIL 1,000 MG CAP PO SCH (21:42)
[2019-01-25] MEDS: ATORVASTATIN 80 MG TAB PO SCH (21:45)
[2019-01-26] VITALS (13 sets, daily range): BP systolic 104–150; BP diastolic 58–74; PULSE 59–79; RESP 19–20
[2019-01-26] MEDS: LEVOTHYROXINE 75 MCG TAB PO SCH (06:16)
[2019-01-26] MEDS: INSULIN ASPART [NOVOLOG] 3 ML PEN SC SCH ×4 (07:53→20:36)
[2019-01-26] MEDS: RANOLAZINE (SR) 500 MG TAB PO SCH ×2 (08:29→20:30)
[2019-01-26] MEDS: FAMOTIDINE 20 MG TAB PO SCH (08:29)
[2019-01-26] MEDS: BENAZEPRIL 20 MG TAB PO SCH (08:29)
[2019-01-26] MEDS: FISH OIL 1,000 MG CAP PO SCH ×2 (08:29→20:30)
[2019-01-26] MEDS: APIXABAN 5 MG TABLET PO SCH ×2 (08:30→20:31)
[2019-01-26] MEDS: NIFEdipine (XL) 30 MG TAB PO SCH ×2 (08:31→20:30)
[2019-01-26] MEDS: AMIODARONE 200 MG TAB PO SCH ×2 (08:31→21:00)
--- NOTE | 2019-01-26 13:27 | CONS ---
Consult Date/Type/Reason Admit Date/Time January 23, 2019 at 23:57 Initial Consult Date Date/Time of Note DATE: 01/26/19 TIME: 13:23 Subjective NO acute events - pt still feels weak - but a little better today - no focal ectopy on tele now. ROS: No fever, no chills, no nausea, no vomiting, no diarrhea/constipation No recent weight changes No chest pain, no PND, no orthopnea - mild SOB, + fatigue No dizziness, blurred vision No thirst, no heat or cold intolerance Objective Vitals Vital Signs Date Temp Pulse Resp B/P (MAP) Pulse Ox O2 O2 Flow FiO2 Time Delivery Rate 01/26/19 98.1 59 19 104/74 97 11:14 (84) 01/26/19 Room Air 00:10 Intake and Output 01/25/19 01/25/19 01/26/19 1515:00 23:00 07:00 IntakeIntake Total 400 ml OutputOutput Total 300 ml BalanceBalance 100 ml Exam General: WN/WD/NAD, AOx 3 HEENT: Unicetric/atraumatic/EOMI (follows commands) NECK: JVD elevated, no thyromegaly Lymph: no lymphadenopathy HEART: regular with no S3, II/ systolic murmur at apex, PMI L LUNGS: Coarse sounds ABD: soft, NT, ND, +BS : Intact Neuro: non focal SKIN: chronic changes EXT: trace edema Results/Medications Result Diagram: 01/25/19 0531 01/26/19 0523 Results 24 hrs Laboratory Tests Test 01/25/19 17:21 01/25/19 21:46 01/26/19 05:23 01/26/19 07:52 Bedside Glucose 142 127 138 Sodium Level 140 Potassium Level 3.8 Chloride Level 105 Carbon Dioxide Level 28 Anion Gap 7 Blood Urea Nitrogen 28 H Creatinine 1.74 H Est Glomerular Filtrat Rate mL/min Glucose Level 139 Calcium Level 8.8 Magnesium Level 1.9 Test 01/26/19 11:58 Bedside Glucose 130 Home Meds Active Scripts Nifedipine (Procardia Xl) 30 Mg Tab.er.24, 60 MG PO BID for 30 Days, #60 TAB Prov:JUNIOR CASTELLANO MD 12/19/18 Reported Medications Hydralazine Hcl* (Hydralazine Hcl*) 25 Mg Tab, 25 MG PO Q6H PRN for HTN, #60 TAB 01/23/19 [place]-3 Acid Ethyl Esters (Lovaza) 1 Gm Capsule, 2 GM PO BID, CAP 01/23/19 Tamsulosin Hcl* (Flomax*) 0.4 Mg Cap.er.24h, 0.4 MG PO HS, CAP 01/23/19 Levothyroxine Sodium* (Levothyroxine Sodium*) 50 Mcg Tablet, 50 MCG PO EVERY OTHER DAY, #30 TAB ALTERNATE WITH OTHER 75MCG PO BEFORE BREAKFAST 01/23/19 Amiodarone Hcl* (Amiodarone Hcl*) 100 Mg Tablet, 100 MG PO BID, #30 TAB 01/23/19 Carvedilol* (Coreg*) 3.125 Mg Tablet, 3.125 MG PO BID, #60 TAB 12/10/18 Atorvastatin* (Atorvastatin*) 80 Mg Tablet, 80 MG PO QHS, #30 TAB 12/10/18 Ergocalciferol (Vitamin D2) (VITAMIN D2) 50,000 Unit Capsule, 1 CAP ORAL Q7D for QMONDAY 12/10/18 Apixaban* (Eliquis*) 2.5 Mg Tablet, 2.5 MG PO BID, TAB 12/10/18 Glimepiride* (Glimepiride*) 1 Mg Tablet, 1 MG PO WITH BREAKFAST DINNE, TAB 12/10/18 Benazepril Hcl* (Benazepril Hcl*) 20 Mg Tablet, 1 TAB ORAL TID 12/10/18 Memantine* (Namenda*) 10 Mg Tablet, 1 TAB ORAL DAILY 12/10/18 Ranolazine* (Ranexa*) 1,000 Mg Tab.sr.12h, 1 TAB ORAL Q12H for 30 Days 12/10/18 Levothyroxine Sodium* (Levothyroxine Sodium*) 75 Mcg Tablet, 75 MCG PO EVERY OTHER DAY, #30 TAB 05/03/18 Nitroglycerin* (Nitrostat*) 0.4 Mg Tab.subl, 0.4 MG SL Q5MIN PRN for CHEST PAIN, BOTTLE 09/21/16 Clonazepam* (Klonopin*) 1 Mg Tablet, 1 MG PO QHS PRN for SLEEP, TAB 09/21/16 Docusate Sodium* (Docusate Sodium*) 100 Mg Capsule, 100 MG PO BID PRN for CONSTIPATION, #60 CAP 06/22/16 Ferrous Sulfate* (Ferrous Sulfate*) 325 Mg Tabec, 325 MG PO BID, TAB 06/22/16 Discontinued Scripts Amiodarone Hcl* (Amiodarone Hcl*) 200 Mg Tablet, 200 MG PO DAILY for 30 Days, #30 TAB Prov:JUNIOR CASTELLANO MD 12/19/18 Medications Current Medications Albuterol/ Ipratropium (Duoneb) 3 ml Q2H RESP THERAPY PRN NEB SHORTNESS OF BREATH; Start 01/24/19 at 01:30 Acetaminophen (Tylenol Liquid) 650 mg Q6H PRN PO PAIN LEVEL 1-3 OR FEVER; Start 01/24/19 at 01:30 Apixaban (Eliquis) 2.5 mg BID PO Last administered on 01/26/19 08:30; Admin Dose 2.5 MG; Start 01/24/19 at 09:00 Atorvastatin Calcium (Lipitor) 80 mg QHS PO Last administered on 01/25/19 21:45; Admin Dose 80 MG; Start 01/24/19 at 21:00 Clonazepam (Klonopin) 1 mg QHS PRN PO SLEEP; Start 01/24/19 at 01:30 Docusate Sodium (Colace) 100 mg BID PRN PO CONSTIPATION; Start 01/24/19 at 01:30 Nitroglycerin (Nitroglycerin (Sl Tab) 0.4 Mg) 0.5 tab Q5M PRN SL CHEST PAIN; Start 01/24/19 at 01:30 Tamsulosin HCl (Flomax) 0.4 mg HS PO Last administered on 01/25/19at 21:42; Admin Dose 0.4 MG; Start 01/24/19 at 21:00 Benazepril HCl (Lotensin) 20 mg BID PO Last administered on 01/26/19 08:29; Admin Dose 20 MG; Start 01/24/19 at 09:00 Amiodarone HCl (Cordarone) 100 mg BID PO Last administered on 01/26/19 08:31; Admin Dose 100 MG; Start 01/24/19 at 06:01 Carvedilol (Coreg) 3.125 mg BID PO Last administered on 01/26/19 08:30; Admin Dose 3.125 MG; Start 01/24/19 at 06:01 Nifedipine (Procardia Xl) 60 mg BID PO Last administered on 01/26/19 08:31; Admin Dose 60 MG; Start 01/24/19 at 06:01 Labetalol HCl (Labetalol) 10 mg Q3H PRN IV SYSTOLIC > 160; Start 01/24/19 at 11:00 Ferrous Sulfate (Ferrous Sulfate (Ec)) 325 mg BID PO ; Start 01/27/19 at 09:00 Ondansetron HCl (Zofran Inj) 4 mg Q4 PRN IV NAUSEA AND/OR VOMITING; Start 01/24/19 at 15:00 Insulin Aspart (Novolog Insulin Pen) NOVOLOG *MODERATE* ALGORITHM WITH MEALS BEDTIME SC Last administered on 01/25/19 17:29; Admin Dose 2 UNIT; Start 01/24/19 at 21:00 Miscellaneous Information 1 ea NOTE XX ; Start 01/24/19 at 19:00 Glucose (Glutose) 15 gm Q15M PRN PO DECREASED GLUCOSE; Start 01/24/19 at 19:00 Glucose (Glutose) 22.5 gm Q15M PRN PO DECREASED GLUCOSE; Start 01/24/19 at 19:00 Dextrose (D50w Syringe) 25 ml Q15M PRN IV DECREASED GLUCOSE; Start 01/24/19 at 1 9:00 Dextrose (D50w Syringe) 50 ml Q15M PRN IV DECREASED GLUCOSE; Start 01/24/19 at 19:00 Glucagon (Glucagen) 1 mg Q15M PRN IM DECREASED GLUCOSE; Start 01/24/19 at 19:00 Glucose (Glutose) 15 gm Q15M PRN BUCCAL DECREASED GLUCOSE; Start 01/24/19 at 19:00 Famotidine (Pepcid) 20 mg DAILY PO Last administered on 01/26/19at 08:29; Admin Dose 20 MG; Start 01/26/19 at 09:00 Levothyroxine Sodium (Synthroid) 75 mcg DAILY@0600 PO Last administered on 01/26/19at 06:16; Admin Dose 75 MCG; Start 01/26/19 at 06:00 Ranolazine (Ranexa) 1,000 mg Q12H PO Last administered on 01/26/19 08:29; Admin Dose 1,000 MG; Start 01/25/19 at 20:00 Fish Oil (Fish Oil) 2,000 mg BID PO Last administered on 5/11/19at 08:29; Admin Dose 2,000 MG; Start 01/25/19 at 21:00 Assessment/Plan Hospital Course (Demo Recall) 1. Hypertension. Continue Rx - significantly improving on oral antihypert ensives. Might be contributing to fatigue. Feels better today. 2. Dizziness, possibly in the setting of uncontrolled hypertension, also has history of bradyarrhythmias, heart rates have been stable in the 50s, continue to follow. Improved. 3. 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 Continue to follow. Sinus now - on low dose amio 100 bid and Eliquis. 4. Weakness, improving. Complete the patient's rule out for myocardial infarction. Treated. 5. Dyslipidemia. 6. History of aortic stenosis, moderate to severe by echo 11/2018 with preserved EF. Jeramy monitor clinically. 7. Anemia. 8. Renal failure- Cr 1.74 - will monitor and adjust Eliquis as needed. Consider renal eval. BRETT ESTEBAN MD January 26, 2019 13:27
--- NOTE | 2019-01-26 15:44 | PN ---
Date/Time of Note Date/Time of Note DATE: 01/26/19 TIME: 15:43 Assessment/Plan VTE Prophylaxis Risk score (from Nsg)>0 risk: 3 SCD applied (from Ns): No SCD contraindicated: low risk/ambulating Pharmacological prophylaxis: LMWH Lines/Catheters IV Catheter Type (from Nrsg): Saline Lock Assessment/Plan Hospital Course A/P 1. Ftt; orthostatic hypotension again? There is more stable. 2. Labile htn; due to ? 3. 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 +++; AR+/ MR+; sp 2nd opinion at [facility]? Requested he visit [facility] SALO 5. DM 6. CKD, some fluctuation consult nephrology 7. Dyslipidemia 8. Bph 9. Anemia; asymptomatic 10. DJD 11. Diverticulosis 12. Ing hernia 13. Benzo dependence? 14. COPD? 15. Hypothyroidism 16. 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 Metabolic Syndrome 19. 1st degree avb; tolerating bb/ amio S: 01/24 weak. cough. denies any medication changes 01/25: weak. no pain, cough. ambulated w pt. still orthostatic. didnt go to [facility] 01/26: Participated with PT. Less orthostatic changes. O: sr/ 1avb; labile htn PE no pallor/ jvd reg s1s2 +SM; no r/g ctab bs+ nt nd; no r r g no edema Result Diagram: 01/25/19 0531 01/26/19 0523 Results 24hrs Laboratory Tests Test 01/25/19 17:21 01/25/19 21:46 01/26/19 05:23 01/26/19 07:52 Bedside Glucose 142 127 138 Sodium Level 140 Potassium Level 3.8 Chloride Level 105 Carbon Dioxide Level 28 Anion Gap 7 Blood Urea Nitrogen 28 H Creatinine 1.74 H Est Glomerular Filtrat Rate mL/min Glucose Level 139 Calcium Level 8.8 Magnesium Level 1.9 Test 01/26/19 11:58 Bedside Glucose 130 Exam/Review of Systems Exam Vitals Vital Signs Date Temp Pulse Resp B/P (MAP) Pulse Ox O2 O2 Flow FiO2 Time Delivery Rate 01/26/19 98.7 79 19 114/58 96 15:07 (76) 01/26/19 Room Air 00:10 Intake and Output 501/25/19 01/26/19 1515:00 23:00 07:00 IntakeIntake Total 400 ml OutputOutput Total 300 ml BalanceBalance 100 ml Results Results 24hrs Laboratory Tests Test 01/25/19 17:21 01/25/19 21:46 01/26/19 05:23 01/26/19 07:52 Bedside Glucose 142 127 138 Sodium Level 140 Potassium Level 3.8 Chloride Level 105 Carbon Dioxide Level 28 Anion Gap 7 Blood Urea Nitrogen 28 H Creatinine 1.74 H Est Glomerular Filtrat Rate mL/min Glucose Level 139 Calcium Level 8.8 Magnesium Level 1.9 Test 01/26/19 11:58 Bedside Glucose 130 Medications Medication Current Medications Albuterol/ Ipratropium (Duoneb) 3 ml Q2H RESP THERAPY PRN NEB SHORTNESS OF BREATH; Start 01/24/19 at 01:30 Acetaminophen (Tylenol Liquid) 650 mg Q6H PRN PO PAIN LEVEL 1-3 OR FEVER; Start 01/24/19 at 01:30 Apixaban (Eliquis) 2.5 mg BID PO Last administered on 01/26/19at 08:30; Admin Dose 2.5 MG; Start 01/24/19 at 09:00 Atorvastatin Calcium (Lipitor) 80 mg QHS PO Last administered on 01/25/19at 21:45; Admin Dose 80 MG; Start 01/24/19 at 21:00 Clonazepam (Klonopin) 1 mg QHS PRN PO SLEEP; Start 01/24/19 at 01:30 Docusate Sodium (Colace) 100 mg BID PRN PO CONSTIPATION; Start 01/24/19 at 01:30 Nitroglycerin (Nitroglycerin (Sl Tab) 0.4 Mg) 0.5 tab Q5M PRN SL CHEST PAIN; Start 01/24/19 at 01:30 Tamsulosin HCl (Flomax) 0.4 mg HS PO Last administered on 01/25/19at 21:42; A dmin Dose 0.4 MG; Start 01/24/19 at 21:00 Benazepril HCl (Lotensin) 20 mg BID PO Last administered on 01/26/19 08:29; Admin Dose 20 MG; Start 01/24/19 at 09:00 Amiodarone HCl (Cordarone) 100 mg BID PO Last administered on 5/11/19at 08:31; Admin Dose 100 MG; Start 01/24/19 at 06:01 Carvedilol (Coreg) 3.125 mg BID PO Last administered on 01/26/19at 08:30; Admin Dose 3.125 MG; Start 01/24/19 at 06:01 Nifedipine (Procardia Xl) 60 mg BID PO Last administered on 01/26/19 08:31; Admin Dose 60 MG; Start 01/24/19 at 06:01 Labetalol HCl (Labetalol) 10 mg Q3H PRN IV SYSTOLIC > 160; Start 01/24/19 at 11:00 Ferrous Sulfate (Ferrous Sulfate (Ec)) 325 mg BID PO ; Start 01/27/19 at 09:00 Ondansetron HCl (Zofran Inj) 4 mg Q4 PRN IV NAUSEA AND/OR VOMITING; Start 01/24/19 at 15:00 Insulin Aspart (Novolog Insulin Pen) NOVOLOG *MODERATE* ALGORITHM WITH MEALS BEDTIME SC Last administered on 01/25/19at 17:29; Admin Dose 2 UNIT; Start 01/24/19 at 21:00 Miscellaneous Information 1 ea NOTE XX ; Start 01/24/19 at 19:00 Glucose (Glutose) 15 gm Q15M PRN PO DECREASED GLUCOSE; Start 01/24/19 at 19:00 Glucose (Glutose) 22.5 gm Q15M PRN PO DECREASED GLUCOSE; Start 01/24/19 at 19:00 Dextrose (D50w Syringe) 25 ml Q15M PRN IV DECREASED GLUCOSE; Start 01/24/19 at 19:00 Dextrose (D50w Syringe) 50 ml Q15M PRN IV DECREASED GLUCOSE; Start 01/24/19 at 19:00 Glucagon (Glucagen) 1 mg Q15M PRN IM DECREASED GLUCOSE; Start 01/24/19 at 19:00 Glucose (Glutose) 15 gm Q15M PRN BUCCAL DECREASED GLUCOSE; Start 01/24/19 at 19:00 Famotidine (Pepcid) 20 mg DAILY PO Last administered on 01/26/19at 08:29; Admin Dose 20 MG; Start 01/26/19 at 09:00 Levothyroxine Sodium (Synthroid) 75 mcg DAILY@0600 PO Last administered on 01/26/19at 06:16; Admin Dose 75 MCG; Start 01/26/19 at 06:00 Ranolazine (Ranexa) 1,000 mg Q12H PO Last administered on 01/26/19at 08:29; Admin Dose 1,000 MG; Start 01/25/19 at 20:00 Fish Oil (Fish Oil) 2,000 mg BID PO Last administered on 01/26/19 08:29; Admin Dose 2,000 MG; Start 01/25/19 at 21:00 VANDANA ESPAÑA MD January 26, 2019 15:44
[2019-01-26] MEDS: ATORVASTATIN 80 MG TAB PO SCH (20:30)
[2019-01-26] MEDS: TAMSULOSIN (SR) 0.4 MG CAP PO SCH (20:31)
--- NOTE | 2019-01-26 22:13 | CONS ---
Assessment/Plan Assessment/Plan Assessment/Plan (Daily) 1. acute kidney injury on CKD III 2. Severe aortic stenosis with preserved EF 3. 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 h/o HTN 5. H/o COPD 6. H/o Pancreatic cyst 7. H/O BPH Plan: pt is on amiodarone for rate control, BP in systolic 100s today- will decrease Nifdipine Xl to 60mg po daily Benazepril 20mg po daily- monitor K and Cr, if continues to rise then we will decrease dose to 5 mg po daily Renal US Flomax for BPH Eliquis for anticoagulatin for atrial fibrillation Thanks for consultation, I will continue to follow up Consultation Date/Type/Reason Admit Date/Time January 23, 2019 at 23:57 Date of Consultation: January 26, 2019 Type of Consult NEPHROLOGY Reason for Consultation Acute kidney injury on CKD Requesting Provider: VANDANA ESPAÑA MD Date/Time of Note DATE: 01/26/19 TIME: 22:13 Hx of Present Illness 83-year-old male with a history of hypertension, diabetes, CKD, COPD, hypothyroidism, BPH, questionable pancreatic cyst, nodular liver, severe aortic stenosis who was brought to the ER for generalized weakness, nausea/vomiting and dizziness likely secondary to severely elevated blood pressure and multiple comorbidities. pt was noted to have BUN/Cr 31/1.61 on admisison, pt continues to have Elevated Cr despite getting IVF, pt has been followed up by Cardiology and currently on Eliquis for Paroxysmal atrial fibrillaiton Renal has been consulted for Acute kidney injury on CKD III. no h/o Kidney stone, no h/o kidney cyst as per family No family h/o CKD Constitutional: poor po, other (dizziness, weakness ) Respiratory: shortness of breath Cardiovascular: lightheadedness, palpitations Gastrointestinal: no complaints Genitourinary: no complaints Musculoskeletal: back pain Skin: no complaints Neurologic: no complaints Endocrine: no complaints Lymphatic: no complaints Psychological: no complaints Immunologic: no complaints Past Medical History Medical History: other (hypertension, diabetes, CKD, COPD, hypothyroidism, BPH, questionable pancreatic cyst, nodular liver, severe aortic stenosis) Home Meds Active Scripts Nifedipine (Procardia Xl) 30 Mg Tab.er.24, 60 MG PO BID for 30 Days, #60 TAB Prov:JUNIOR CASTELLANO MD 12/19/18 Reported Medications Hydralazine Hcl* (Hydralazine Hcl*) 25 Mg Tab, 25 MG PO Q6H PRN for HTN, #60 TAB 01/23/19 [place]-3 Acid Ethyl Esters (Lovaza) 1 Gm Capsule, 2 GM PO BID, CAP 01/23/19 Tamsulosin Hcl* (Flomax*) 0.4 Mg Cap.er.24h, 0.4 MG PO HS, CAP 01/23/19 Levothyroxine Sodium* (Levothyroxine Sodium*) 50 Mcg Tablet, 50 MCG PO EVERY OTHER DAY, #30 TAB ALTERNATE WITH OTHER 75MCG PO BEFORE BREAKFAST 01/23/19 Amiodarone Hcl* (Amiodarone Hcl*) 100 Mg Tablet, 100 MG PO BID, #30 TAB 01/23/19 Carvedilol* (Coreg*) 3.125 Mg Tablet, 3.125 MG PO BID, #60 TAB 12/10/18 Atorvastatin* (Atorvastatin*) 80 Mg Tablet, 80 MG PO QHS, #30 TAB 12/10/18 Ergocalciferol (Vitamin D2) (VITAMIN D2) 50,000 Unit Capsule, 1 CAP ORAL Q7D for QMONDAY 12/10/18 Apixaban* (Eliquis*) 2.5 Mg Tablet, 2.5 MG PO BID, TAB 12/10/18 Glimepiride* (Glimepiride*) 1 Mg Tablet, 1 MG PO WITH BREAKFAST DINNE, TAB 12/10/18 Benazepril Hcl* (Benazepril Hcl*) 20 Mg Tablet, 1 TAB ORAL TID 12/10/18 Memantine* (Namenda*) 10 Mg Tablet, 1 TAB ORAL DAILY 12/10/18 Ranolazine* (Ranexa*) 1,000 Mg Tab.sr.12h, 1 TAB ORAL Q12H for 30 Days 12/10/18 Levothyroxine Sodium* (Levothyroxine Sodium*) 75 Mcg Tablet, 75 MCG PO EVERY OTHER DAY, #30 TAB 05/03/18 Nitroglycerin* (Nitrostat*) 0.4 Mg Tab.subl, 0.4 MG SL Q5MIN PRN for CHEST PAIN, BOTTLE 09/21/16 Clonazepam* (Klonopin*) 1 Mg Tablet, 1 MG PO QHS PRN for SLEEP, TAB 09/21/16 Docusate Sodium* (Docusate Sodium*) 100 Mg Capsule, 100 MG PO BID PRN for CONSTIPATION, #60 CAP 06/22/16 Ferrous Sulfate* (Ferrous Sulfate*) 325 Mg Tabec, 325 MG PO BID, TAB 06/22/16 Discontinued Scripts Amiodarone Hcl* (Amiodarone Hcl*) 200 Mg Tablet, 200 MG PO DAILY for 30 Days, #30 TAB Prov:JUNIOR CASTELLANO MD 12/19/18 Medications Current Medications Albuterol/ Ipratropium (Duoneb) 3 ml Q2H RESP THERAPY PRN NEB SHORTNESS OF BREATH; Start 01/24/19 at 01:30 Acetaminophen (Tylenol Liquid) 650 mg Q6H PRN PO PAIN LEVEL 1-3 OR FEVER; Start 01/24/19 at 01:30 Apixaban (Eliquis) 2.5 mg BID PO Last administered on 01/26/19 20:31; Admin Dose 2.5 MG; Start 01/24/19 at 09:00 Atorvastatin Calcium (Lipitor) 80 mg QHS PO Last administered on 01/26/19 20:30; Admin Dose 80 MG; Start 01/24/19 at 21:00 Clonazepam (Klonopin) 1 mg QHS PRN PO SLEEP; Start 01/24/19 at 01:30 Docusate Sodium (Colace) 100 mg BID PRN PO CONSTIPATION Last administered on 01/26/19 20:30; Admin Dose 100 MG; Start 01/24/19 at 01:30 Nitroglycerin (Nitroglycerin (Sl Tab) 0.4 Mg) 0.5 tab Q5M PRN SL CHEST PAIN; Start 01/24/19 at 01:30 Tamsulosin HCl (Flomax) 0.4 mg HS PO Last administered on 01/26/19 20:31; Admin Dose 0.4 MG; Start 01/24/19 at 21:00 Amiodarone HCl (Cordarone) 100 mg BID PO Last administered on 01/26/19 08:31; Admin Dose 100 MG; Start 01/24/19 at 06:01 Carvedilol (Coreg) 3.125 mg BID PO Last administered on 01/26/19 08:30; Admin Dose 3.125 MG; Start 01/24/19 at 06:01 Nifedipine (Procardia Xl) 60 mg BID PO Last administered on 01/26/19at 20:30; Admin Dose 60 MG; Start 01/24/19 at 06:01 Labetalol HCl (Labetalol) 10 mg Q3H PRN IV SYSTOLIC > 160; Start 01/24/19 at 11:00 Ferrous Sulfate (Ferrous Sulfate (Ec)) 325 mg BID PO ; Start 01/27/19 at 09:00 Ondansetron HCl (Zofran Inj) 4 mg Q4 PRN IV NAUSEA AND/OR VOMITING; Start 01/24 at 15:00 Insulin Aspart (Novolog Insulin Pen) NOVOLOG *MODERATE* ALGORITHM WITH MEALS BEDTIME SC Last administered on 01/26/19at 20:36; Admin Dose 1 UNIT; Start 01/24/19 at 21:00 Miscellaneous Information 1 ea NOTE XX ; Start 01/24/19 at 19:00 Glucose (Glutose) 15 gm Q15M PRN PO DECREASED GLUCOSE; Start 01/24/19 at 19:00 Glucose (Glutose) 22.5 gm Q15M PRN PO DECREASED GLUCOSE; Start 01/24/19 at 19:00 Dextrose (D50w Syringe) 25 ml Q15M PRN IV DECREASED GLUCOSE; Start 01/24/19 at 19:00 Dextrose (D50w Syringe) 50 ml Q15M PRN IV DECREASED GLUCOSE; Start 01/24/19 at 19:00 Glucagon (Glucagen) 1 mg Q15M PRN IM DECREASED GLUCOSE; Start 01/24/19 at 19:00 Glucose (Glutose) 15 gm Q15M PRN BUCCAL DECREASED GLUCOSE; Start 01/24/19 at 19:00 Famotidine (Pepcid) 20 mg DAILY PO Last administered on 01/26/19at 08:29; Admin Dose 20 MG; Start 01/26/19 at 09:00 Levothyroxine Sodium (Synthroid) 75 mcg DAILY@0600 PO Last administered on 01/26/19at 06:16; Admin Dose 75 MCG; Start 01/26/19 at 06:00 Ranolazine (Ranexa) 1,000 mg Q12H PO Last administered on 01/26/19 20:30; Admin Dose 1,000 MG; Start 01/25/19 at 20:00 Fish Oil (Fish Oil) 2,000 mg BID PO Last administered on 5/11/19at 20:30; Admin Dose 2,000 MG; Start 01/25/19 at 21:00 Benazepril HCl (Lotensin) 20 mg DAILY PO ; Start 01/28/19 at 09:00 Allergies: Coded Allergies: No Known Allergy (Unverified , 01/23/19) Past Surgical History Past Surgical Hx: no surgical history Family History Significant Family History: no pertinent family hx Social History Alcohol Use: none Smoking Status: Never smoker Drug Use: none Exam/Review of Systems Exam Vitals Vital Signs Date Temp Pulse Resp B/P (MAP) Pulse Ox O2 O2 Flow FiO2 Time Delivery Rate 01/26/19 98.5 61 19 138/65 97 20:24 (89) 01/26/19 Room Air 00:10 Intake and Output 01/25/19 01/25/19 01/26/19 1515:00 23:00 07:00 IntakeIntake Total 400 ml OutputOutput Total 300 ml BalanceBalance 100 ml Constitutional: distress Psych: no complaints Head: normocephalic Eyes: nl conjunctiva ENMT: nl external ears & nose Neck: supple, non-tender Respiratory: clear to auscultation, diminished breath sounds Cardiovascular: regular rate and rhythm, nl pulses Gastrointestinal: soft, non-tender Musculoskeletal: nl extremities to inspection Extremities: normal pulses Neurological: [employer] D[employer]LL[employer] II-XII intact, nl mental status Results Result Diagram: 01/25/19 0531 01/26/19 0523 Results 24hrs Laboratory Tests Test 01/26/19 05:23 01/26/19 07:52 01/26/19 11:58 01/26/19 17:15 Sodium Level 140 Potassium Level 3.8 Chloride Level 105 Carbon Dioxide Level 28 Anion Gap 7 Blood Urea Nitrogen 28 H Creatinine 1.74 H Est Glomerular Filtrat Rate mL/min Glucose Level 139 Calcium Level 8.8 Magnesium Level 1.9 Bedside Glucose 138 130 134 Test 01/26/19 20:28 Bedside Glucose 184 Medications Medication Current Medications Albuterol/ Ipratropium (Duoneb) 3 ml Q2H RESP THERAPY PRN NEB SHORTNESS OF BREATH; Start 01/24/19 at 01:30 Acetaminophen (Tylenol Liquid) 650 mg Q6H PRN PO PAIN LEVEL 1-3 OR FEVER; Start 01/24/19 at 01:30 Apixaban (Eliquis) 2.5 mg BID PO Last administered on 01/26/19 20:31; Admin Dose 2.5 MG; Start 01/24/19 at 09:00 Atorvastatin Calcium (Lipitor) 80 mg QHS PO Last administered on 01/26/19 20:30; Admin Dose 80 MG; Start 01/24/19 at 21:00 Clonazepam (Klonopin) 1 mg QHS PRN PO SLEEP; Start 01/24/19 at 01:30 Docusate Sodium (Colace) 100 mg BID PRN PO CONSTIPATION Last administered on 01/26/19 20:30; Admin Dose 100 MG; Start 01/24/19 at 01:30 Nitroglycerin (Nitroglycerin (Sl Tab) 0.4 Mg) 0.5 tab Q5M PRN SL CHEST PAIN; Start 01/24/19 at 01:30 Tamsulosin HCl (Flomax) 0.4 mg HS PO Last administered on 01/26/19 20:31; Admin Dose 0.4 MG; Start 01/24/19 at 21:00 Amiodarone HCl (Cordarone) 100 mg BID PO Last administered on 01/26/19 08:31; Admin Dose 100 MG; Start 01/24/19 at 06:01 Carvedilol (Coreg) 3.125 mg BID PO Last administered on 01/26/19 08:30; Admin Dose 3.125 MG; Start 01/24/19 at 06:01 Nifedipine (Procardia Xl) 60 mg BID PO Last administered on 01/26/19 20:30; Admin Dose 60 MG; Start 01/24/19 at 06:01 Labetalol HCl (Labetalol) 10 mg Q3H PRN IV SYSTOLIC > 160; Start 01/24/19 at 11:00 Ferrous Sulfate (Ferrous Sulfate (Ec)) 325 mg BID PO ; Start 01/27/19 at 09:00 Ondansetron HCl (Zofran Inj) 4 mg Q4 PRN IV NAUSEA AND/OR VOMITING; Start 01/24/19 at 15:00 Insulin Aspart (Novolog Insulin Pen) NOVOLOG *MODERATE* ALGORITHM WITH MEALS BEDTIME SC Last administered on 01/26/19 20:36; Admin Dose 1 UNIT; Start at 21:00 Miscellaneous Information 1 ea NOTE XX ; Start 01/24/19 at 19:00 Glucose (Glutose) 15 gm Q15M PRN PO DECREASED GLUCOSE; Start 01/24/19 at 19:00 Glucose (Glutose) 22.5 gm Q15M PRN PO DECREASED GLUCOSE; Start 01/24/19 at 19:00 Dextrose (D50w Syringe) 25 ml Q15M PRN IV DECREASED GLUCOSE; Start 01/24/19 at 19:00 Dextrose (D50w Syringe) 50 ml Q15M PRN IV DECREASED GLUCOSE; Start 01/24/19 at 19:00 Glucagon (Glucagen) 1 mg Q15M PRN IM DECREASED GLUCOSE; Start 01/24/19 at 19:00 Glucose (Glutose) 15 gm Q15M PRN BUCCAL DECREASED GLUCOSE; Start 01/24/19 at 19:00 Famotidine (Pepcid) 20 mg DAILY PO Last administered on 01/26/19at 08:29; Admin Dose 20 MG; Start 01/26/19 at 09:00 Levothyroxine Sodium (Synthroid) 75 mcg DAILY@0600 PO Last administered on 01/26/19at 06:16; Admin Dose 75 MCG; Start 01/26/19 at 06:00 Ranolazine (Ranexa) 1,000 mg Q12H PO Last administered on 01/26/19at 20:30; Admin Dose 1,000 MG; Start 01/25/19 at 20:00 Fish Oil (Fish Oil) 2,000 mg BID PO Last administered on 01/26/19at 20:30; Admin Dose 2,000 MG; Start 01/25/19 at 21:00 Benazepril HCl (Lotensin) 20 mg DAILY PO ; Start 01/28/19 at 09:00 ELAINE TORRES MD January 26, 2019 22:13
[2019-01-27] VITALS (9 sets, daily range): BP systolic 106–133; BP diastolic 57–63; PULSE 57–63; RESP 18–20
[2019-01-27] MEDS: LEVOTHYROXINE 75 MCG TAB PO SCH (06:15)
[2019-01-27] MEDS: INSULIN ASPART [NOVOLOG] 3 ML PEN SC SCH ×3 (08:06→17:15)
[2019-01-27] MEDS: FISH OIL 1,000 MG CAP PO SCH (08:06)
[2019-01-27] MEDS: RANOLAZINE (SR) 500 MG TAB PO SCH (08:07)
[2019-01-27] MEDS: AMIODARONE 200 MG TAB PO SCH (08:07)
--- NOTE | 2019-01-27 08:08 | CONS ---
Assessment/Plan Assessment/Plan Assessment/Plan (Daily) 1. acute kidney injury on CKD III 2. Severe aortic stenosis with preserved EF 3. 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 h/o HTN 5. H/o COPD 6. H/o Pancreatic cyst 7. H/O BPH Plan: pt is on amiodarone for rate control, BP Controlled with Nifdipine Xl to 60mg po daily Benazepril 20mg po daily Renal US c/w medical renal disease, The right kidney measures 10.9 cm. The left kidney measures 10.4 cm. There is increased echogenicity of the kidneys. There is thinning of the cortex of the left kidney. There is a 3.4 cm simple cyst in the upper pole of the right kidney. Flomax for BPH Eliquis for anticoagulatin for atrial fibrillation Follow up eleno junior in renal clinic in 1-2 week upon discharge will follow up Consultation Date/Type/Reason Admit Date/Time January 23, 2019 at 23:57 Initial Consult Date 01/26/19 Type of Consult NEPHROLOGY Requesting Provider: VANDANA ESPAÑA MD Date/Time of Note DATE: 01/27/19 TIME: 08:08 Exam/Review of Systems Exam Vitals Vital Signs Date Temp Pulse Resp B/P (MAP) Pulse Ox O2 O2 Flow FiO2 Time Delivery Rate 01/27/19 97.9 58 18 122/60 98 Room Air 07:27 (80) Intake and Output 01/26/19 01/26/19 01/27/19 1515:00 23:00 07:00 IntakeIntake Total 200 ml 600 ml 250 ml OutputOutput Total 200 ml BalanceBalance 0 ml 600 ml 250 ml Exam Constitutional: awake, alert, no acute distress Respiratory: clear to auscultation, diminished breath sounds Cardiovascular: regular rate and rhythm, nl pulses Gastrointestinal: soft, non-tender Musculoskeletal: nl extremities to inspection Extremities: normal pulses 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, nl mental status Results Result Diagram: 01/25/19 0531 01/27/19 0539 Results 24hrs Laboratory Tests Test 01/26/19 11:58 01/26/19 17:15 01/26/19 20:28 01/27/19 02:04 Bedside Glucose 130 134 184 139 Test 01/27/19 05:39 01/27/19 07:43 Sodium Level 139 Potassium Level 4.0 Chloride Level 105 Carbon Dioxide Level 26 Anion Gap 8 Blood Urea Nitrogen 31 H Creatinine 1.68 H Est Glomerular Filtrat Rate mL/min Glucose Level 140 Calcium Level 8.7 Magnesium Level 1.9 Bedside Glucose 151 Medications Medication Current Medications Albuterol/ Ipratropium (Duoneb) 3 ml Q2H RESP THERAPY PRN NEB SHORTNESS OF BREATH; Start 01/24/19 at 01:30 Acetaminophen (Tylenol Liquid) 650 mg Q6H PRN PO PAIN LEVEL 1-3 OR FEVER; Start 01/24/19 at 01:30 Apixaban (Eliquis) 2.5 mg BID PO Last administered on 01/26/19 20:31; Admin Dose 2.5 MG; Start 01/24/19 at 09:00 Atorvastatin Calcium (Lipitor) 80 mg QHS PO Last administered on 01/26/19 20:30; Admin Dose 80 MG; Start 01/24/19 at 21:00 Clonazepam (Klonopin) 1 mg QHS PRN PO SLEEP; Start 01/24/19 at 01:30 Docusate Sodium (Colace) 100 mg BID PRN PO CONSTIPATION Last administered on 01/26/19 20:30; Admin Dose 100 MG; Start 01/24/19 at 01:30 Nitroglycerin (Nitroglycerin (Sl Tab) 0.4 Mg) 0.5 tab Q5M PRN SL CHEST PAIN; Start 01/24/19 at 01:30 Tamsulosin HCl (Flomax) 0.4 mg HS PO Last administered on 01/26/19 20:31; Admin Dose 0.4 MG; Start 01/24/19 at 21:00 Amiodarone HCl (Cordarone) 100 mg BID PO Last administered on 01/26/19 08:31; Admin Dose 100 MG; Start 01/24/19 at 06:01 Carvedilol (Coreg) 3.125 mg BID PO Last administered on 01/26/19 08:30; Admin Dose 3.125 MG; Start 01/24/19 at 06:01 Labetalol HCl (Labetalol) 10 mg Q3H PRN IV SYSTOLIC > 160; Start 01/24/19 at 11:00 Ferrous Sulfate (Ferrous Sulfate (Ec)) 325 mg BID PO ; Start 01/27/19 at 09:00 Ondansetron HCl (Zofran Inj) 4 mg Q4 PRN IV NAUSEA AND/OR VOMITING; Start 01/24/19 at 15:00 Insulin Aspart (Novolog Insulin Pen) NOVOLOG *MODERATE* ALGORITHM WITH MEALS BEDTIME SC Last administered on 01/26/19at 20:36; Admin Dose 1 UNIT; Start 01/24/19 at 21:00 Miscellaneous Information 1 ea NOTE XX ; Start 01/24/19 at 19:00 Glucose (Glutose) 15 gm Q15M PRN PO DECREASED GLUCOSE; Start 01/24/19 at 19:00 Glucose (Glutose) 22.5 gm Q15M PRN PO DECREASED GLUCOSE; Start 01/24/19 at 19:00 Dextrose (D50w Syringe) 25 ml Q15M PRN IV DECREASED GLUCOSE; Start 01/24/19 at 19:00 Dextrose (D50w Syringe) 50 ml Q15M PRN IV DECREASED GLUCOSE; Start 01/24/19 at 19:00 Glucagon (Glucagen) 1 mg Q15M PRN IM DECREASED GLUCOSE; Start 01/24/19 at 19:00 Glucose (Glutose) 15 gm Q15M PRN BUCCAL DECREASED GLUCOSE; Start 01/24/19 at 19:00 Famotidine (Pepcid) 20 mg DAILY PO Last administered on 01/26/19at 08:29; Admin Dose 20 MG; Start 01/26/19 at 09:00 Levothyroxine Sodium (Synthroid) 75 mcg DAILY@0600 PO Last administered on 01/27/19at 06:15; Admin Dose 75 MCG; Start 01/26/19 at 06:00 Ranolazine (Ranexa) 1,000 mg Q12H PO Last administered on 01/26/19at 20:30; Admin Dose 1,000 MG; Start 01/25/19 at 20:00 Fish Oil (Fish Oil) 2,000 mg BID PO Last administered on 01/26/19at 20:30; Admin Dose 2,000 MG; Start 01/25/19 at 21:00 Benazepril HCl (Lotensin) 20 mg DAILY PO ; Start 01/28/19 at 09:00 Nifedipine (Procardia Xl) 60 mg DAILY PO ; Start 01/27/19 at 09:00 ELAINE TORRES MD January 27, 2019 08:08
[2019-01-27] MEDS: FAMOTIDINE 20 MG TAB PO SCH (08:09)
[2019-01-27] MEDS: APIXABAN 5 MG TABLET PO SCH (08:09)
[2019-01-27] MEDS ORDERED: FERROUS SULFATE (EC) 325 MG TAB PO SCH (09:00)
[2019-01-27] MEDS ORDERED: NIFEdipine (XL) 30 MG TAB PO SCH (09:00)
--- NOTE | 2019-01-27 11:15 | PDOCDIS ---
Discharge Instructions CONDITION [id number] Patient Condition: [id number] Fair HOME CARE INSTRUCTIONS: [id number] Diet Instructions: [id number] Low Fat /Cholesterol ACTIVITY: [id number] Activity Restrictions: Oxhum6z Slowly Increase Activity Avoid heavy lifting Do not Drive FOLLOW UP/APPOINTMENTS Follow-up Plan appt primary 1wk; cardio @ [facility] 1wk VANDANA ESPAÑA MD January 27, 2019 11:15
[2019-01-27] MEDS ORDERED: NIFE30TA2 PO (11:17)
[2019-01-27] MEDS ORDERED: BENA20TA4 PO (11:17)
[2019-01-27] MEDS ORDERED: ACET650S25 PO (11:17)
--- NOTE | 2019-01-27 13:58 | PN ---
Date/Time of Note Date/Time of Note DATE: 01/27/19 TIME: 13:57 Assessment/Plan VTE Prophylaxis Risk score (from Nsg)>0 risk: 3 SCD applied (from Nsg): No SCD contraindicated: low risk/ambulating Pharmacological prophylaxis: LMWH Lines/Catheters IV Catheter Type (from Nrsg): [place] Assessment/Plan Hospital Course A/P 1. Ftt; orthostatic hypotension again? There is more stable. 2. Labile htn; due to ? 3. 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 +++; AR+/ MR+; sp 2nd opinion at [facility]? Requested he visit [facility]O 5. DM 6. CKD, some fluctuation, consulted nephrology. usg ok 7. Dyslipidemia 8. Bph 9. Anemia; asymptomatic 10. DJD 11. Diverticulosis 12. Ing hernia 13. Benzo dependence? 14. COPD? 15. Hypothyroidism 16. 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 Metabolic Syndrome 19. 1st degree avb; tolerating bb/ amio S: 01/24 weak. cough. denies any medication changes 01/25: weak. no pain, cough. ambulated w pt. still orthostatic. didnt go to [facility] 01/26: Participated with PT. Less orthostatic changes. 01/27: no events O: sr/ 1avb; labile htn, somewhat more stable PE no pallor/ jvd reg s1s2 +SM; no r/g ctab bs+ nt nd; no r r g no edema Result Diagram: 01/25/19 0531 01/27/19 0539 Results 24hrs Laboratory Tests Test 01/26/19 17:15 01/26/19 20:28 01/27/19 02:04 01/27/19 05:39 Bedside Glucose 134 184 139 Sodium Level 139 Potassium Level 4.0 Chloride Level 105 Carbon Dioxide Level 26 Anion Gap 8 Blood Urea Nitrogen 31 H Creatinine 1.68 H Est Glomerular Filtrat Rate mL/min Glucose Level 140 Calcium Level 8.7 Magnesium Level 1.9 Test 01/27/19 07:43 01/27/19 11:53 Bedside Glucose 151 169 Exam/Review of Systems Exam Vitals Vital Signs Date Temp Pulse Resp B/P (MAP) Pulse Ox O2 O2 Flow FiO2 Time Delivery Rate 01/27/19 97.7 58 20 106/57 96 Room Air 12:09 (73) Intake and Output 01/26/19 01/26/19 01/27/19 1515:00 23:00 07:00 IntakeIntake Total 200 ml 600 ml 250 ml OutputOutput Total 200 ml BalanceBalance 0 ml 600 ml 250 ml Results Results 24hrs Laboratory Tests Test 01/26/19 17:15 01/26/19 20:28 01/27/19 02:04 01/27/19 05:39 Bedside Glucose 134 184 139 Sodium Level 139 Potassium Level 4.0 Chloride Level 105 Carbon Dioxide Level 26 Anion Gap 8 Blood Urea Nitrogen 31 H Creatinine 1.68 H Est Glomerular Filtrat Rate mL/min Glucose Level 140 Calcium Level 8.7 Magnesium Level 1.9 Test 01/27/19 07:43 01/27/19 11:53 Bedside Glucose 151 169 Medications Medication Current Medications Albuterol/ Ipratropium (Duoneb) 3 ml Q2H RESP THERAPY PRN NEB SHORTNESS OF BREATH; Start 01/24/19 at 01:30 Acetaminophen (Tylenol Liquid) 650 mg Q6H PRN PO PAIN LEVEL 1-3 OR FEVER; Start 01/24/19 at 01:30 Apixaban (Eliquis) 2.5 mg BID PO Last administered on 01/27/19at 08:09; Admin Dose 2.5 MG; Start 01/24/19 at 09:00 Atorvastatin Calcium (Lipitor) 80 mg QHS PO Last administered on 01/26/19at 20:30; Admin Dose 80 MG; Start 01/24/19 at 21:00 Clonazepam (Klonopin) 1 mg QHS PRN PO SLEEP; Start 01/24/19 at 01:30 Docusate Sodium (Colace) 100 mg BID PRN PO CONSTIPATION Last administered on 01/26/19 20:30; Admin Dose 100 MG; Start 01/24/19 at 01:30 Nitroglycerin (Nitroglycerin (Sl Tab) 0.4 Mg) 0.5 tab Q5M PRN SL CHEST PAIN; Start 01/24/19 at 01:30 Tamsulosin HCl (Flomax) 0.4 mg HS PO Last administered on 01/26/19at 20:31; Admin Dose 0.4 MG; Start 01/24/19 at 21:00 Amiodarone HCl (Cordarone) 100 mg BID PO Last administered on 01/27/19 08:07; Admin Dose 100 MG; Start 01/24/19 at 06:01 Carvedilol (Coreg) 3.125 mg BID PO Last administered on 01/27/19 08:09; Admin Dose 3.125 MG; Start 01/24/19 at 06:01 Labetalol HCl (Labetalol) 10 mg Q3H PRN IV SYSTOLIC > 160; Start 01/24/19 at 11:00 Ferrous Sulfate (Ferrous Sulfate (Ec)) 325 mg BID PO Last administered on 01/27/19at 08:10; Admin Dose 325 MG; Start 01/27/19 at 09:00 Ondansetron HCl (Zofran Inj) 4 mg Q4 PRN IV NAUSEA AND/OR VOMITING; Start 01/24/19 at 15:00 Insulin Aspart (Novolog Insulin Pen) NOVOLOG *MODERATE* ALGORITHM WITH MEALS BEDTIME SC Last administered on 01/27/19at 11:58; Admin Dose 2 UNIT; Start 01/24/19 at 21:00 Miscellaneous Information 1 ea NOTE XX ; Start 01/24/19 at 19:00 Glucose (Glutose) 15 gm Q15M PRN PO DECREASED GLUCOSE; Start 01/24/19 at 19:00 Glucose (Glutose) 22.5 gm Q15M PRN PO DECREASED GLUCOSE; Start 01/24/19 at 19:00 Dextrose (D50w Syringe) 25 ml Q15M PRN IV DECREASED GLUCOSE; Start 01/24/19 at 19:00 Dextrose (D50w Syringe) 50 ml Q15M PRN IV DECREASED GLUCOSE; Start 01/24/19 at 19:00 Glucagon (Glucagen) 1 mg Q15M PRN IM DECREASED GLUCOSE; Start 01/24/19 at 19:00 Glucose (Glutose) 15 gm Q15M PRN BUCCAL DECREASED GLUCOSE; Start 01/24/19 at 19:00 Famotidine (Pepcid) 20 mg DAILY PO Last administered on 01/27/19at 08:09; Admin Dose 20 MG; Start 01/26/19 at 09:00 Levothyroxine Sodium (Synthroid) 75 mcg DAILY@0600 PO Last administered on 01/27/19at 06:15; Admin Dose 75 MCG; Start 01/26/19 at 06:00 Ranolazine (Ranexa) 1,000 mg Q12H PO Last administered on 01/27/19at 08:07; Admin Dose 1,000 MG; Start 01/25/19 at 20:00 Fish Oil (Fish Oil) 2,000 mg BID PO Last administered on 01/27/19at 08:06; Admin Dose 2,000 MG; Start 01/25/19 at 21:00 Benazepril HCl (Lotensin) 20 mg DAILY PO ; Start 01/28/19 at 09:00 Nifedipine (Procardia Xl) 60 mg DAILY PO Last administered on 01/27/19at 08:08; Admin Dose 60 MG; Start 01/27/19 at 09:00 VANDANA ESPAÑA MD January 27, 2019 13:58
--- NOTE | 2019-01-27 14:38 | PDOCDIS ---
Discharge Instructions CONDITION [id number] Patient Condition: [id number] Stable HOME CARE INSTRUCTIONS: [id number] Diet Instructions: [id number] Low Fat /Cholesterol ACTIVITY: [id number] Activity Restrictions: [id number] Slowly Increase Activity Avoid heavy lifting Do not Drive FOLLOW UP/APPOINTMENTS Follow-up Plan appt primary 1wk; cardio @ [facility] [address] Dr Rajinder Chapa, Nephrology 2wks. VANDANA ESPAÑA MD January 27, 2019 14:38
--- NOTE | 2019-01-27 14:48 | CONS ---
Consult Date/Type/Reason Admit Date/Time January 23, 2019 at 23:57 Initial Consult Date Requesting Provider: VANDANA ESPAÑA MD Date/Time of Note DATE: 01/27/19 TIME: 14:46 Subjective A little better today - BP improved - CR better as well - dispo planned. ROS: No fever, no chills, no nausea, no vomiting, no diarrhea/constipation + fatigue, better now No recent weight changes No chest pain, no PND, no orthopnea No dizziness, blurred vision No thirst, no heat or cold intolerance Objective Vitals Vital Signs Date Temp Pulse Resp B/P (MAP) Pulse Ox O2 O2 Flow FiO2 Time Delivery Rate 01/27/19 97.7 58 20 106/57 96 Room Air 12:09 (73) Intake and Output 01/26/19 01/26/19 01/27/19 1515:00 23:00 07:00 IntakeIntake Total 200 ml 600 ml 250 ml OutputOutput Total 200 ml BalanceBalance 0 ml 600 ml 250 ml Exam General: WN/WD/NAD, AOx 3 HEENT: Unicetric/atraumatic/EOMI (follow commands) NECK: JVD elevated, no thyromegaly Lymph: no lymphadenopathy HEART: regular with no S3, II/ systolic murmur at apex, PMI L LUNGS: Coarse sounds ABD: soft, NT, ND, +BS : Intact Neuro: non focal SKIN: chronic changes EXT: trace edema Results/Medications Result Diagram: 01/25/19 0531 01/27/19 0539 Results 24 hrs Laboratory Tests Test 01/26/19 17:15 01/26/19 20:28 01/27/19 02:04 01/27/19 05:39 Bedside Glucose 134 184 139 Sodium Level 139 Potassium Level 4.0 Chloride Level 105 Carbon Dioxide Level 26 Anion Gap 8 Blood Urea Nitrogen 31 H Creatinine 1.68 H Est Glomerular Filtrat Rate mL/min Glucose Level 140 Calcium Level 8.7 Magnesium Level 1.9 Test 01/27/19 07:43 01/27/19 11:53 Bedside Glucose 151 169 Home Meds Active Scripts Acetaminophen (Acetaminophen) 650 Mg/20.3 Ml Solution, 650 MG PO Q6H PRN for PAIN LEVEL 1-3 OR FEVER for 1 Day Prov:VANDANA ESPAÑA MD 01/27/19 Nifedipine (Procardia Xl) 30 Mg Tab.er.24, 60 MG PO DAILY for 14 Days, #14 TAB Prov:VANDANA ESPAÑA MD 01/27/19 Benazepril Hcl* (Benazepril Hcl*) 20 Mg Tablet, 20 MG PO DAILY for 14 Days, #14 TAB Prov:VANDANA ESPAÑA MD 01/27/19 Reported Medications [place]-3 Acid Ethyl Esters (Lovaza) 1 Gm Capsule, 2 GM PO BID, CAP 01/23/19 Tamsulosin Hcl* (Flomax*) 0.4 Mg Cap.er.24h, 0.4 MG PO HS, CAP 01/23/19 Levothyroxine Sodium* (Levothyroxine Sodium*) 50 Mcg Tablet, 50 MCG PO EVERY OTHER DAY, #30 TAB ALTERNATE WITH OTHER 75MCG PO BEFORE BREAKFAST 01/23/19 Amiodarone Hcl* (Amiodarone Hcl*) 100 Mg Tablet, 100 MG PO BID, #30 TAB 01/23/19 Carvedilol* (Coreg*) 3.125 Mg Tablet, 3.125 MG PO BID, #60 TAB 12/10/18 Atorvastatin* (Atorvastatin*) 80 Mg Tablet, 80 MG PO QHS, #30 TAB 12/10/18 Ergocalciferol (Vitamin D2) (VITAMIN D2) 50,000 Unit Capsule, 1 CAP ORAL Q7D for QMONDAY 12/10/18 Apixaban* (Eliquis*) 2.5 Mg Tablet, 2.5 MG PO BID, TAB 12/10/18 Glimepiride* (Glimepiride*) 1 Mg Tablet, 1 MG PO WITH BREAKFAST DINNE, TAB 12/10/18 Memantine* (Namenda*) 10 Mg Tablet, 1 TAB ORAL DAILY 12/10/18 Ranolazine* (Ranexa*) 1,000 Mg Tab.sr.12h, 1 TAB ORAL Q12H for 30 Days 12/10/18 Levothyroxine Sodium* (Levothyroxine Sodium*) 75 Mcg Tablet, 75 MCG PO EVERY OTHER DAY, #30 TAB 05/03/18 Nitroglycerin* (Nitrostat*) 0.4 Mg Tab.subl, 0.4 MG SL Q5MIN PRN for CHEST PAIN, BOTTLE 09/21/16 Docusate Sodium* (Docusate Sodium*) 100 Mg Capsule, 100 MG PO BID PRN for CONSTIPATION, #60 CAP 06/22/16 Ferrous Sulfate* (Ferrous Sulfate*) 325 Mg Tabec, 325 MG PO BID, TAB 06/22/16 Discontinued Reported Medications Hydralazine Hcl* (Hydralazine Hcl*) 25 Mg Tab, 25 MG PO Q6H PRN for HTN, #60 TAB 01/23/19 Benazepril Hcl* (Benazepril Hcl*) 20 Mg Tablet, 1 TAB ORAL TID 12/10/18 Clonazepam* (Klonopin*) 1 Mg Tablet, 1 MG PO QHS PRN for SLEEP, TAB 09/21/16 Discontinued Scripts Nifedipine (Procardia Xl) 30 Mg Tab.er.24, 60 MG PO BID for 30 Days, #60 TAB Prov:JUNIOR CASTELLANO MD 12/19/18 Amiodarone Hcl* (Amiodarone Hcl*) 200 Mg Tablet, 200 MG PO DAILY for 30 Days, #30 TAB Prov:JUNIOR CASTELLANO MD 12/19/18 Medications Current Medications Albuterol/ Ipratropium (Duoneb) 3 ml Q2H RESP THERAPY PRN NEB SHORTNESS OF BREATH; Start 01/24/19 at 01:30 Acetaminophen (Tylenol Liquid) 650 mg Q6H PRN PO PAIN LEVEL 1-3 OR FEVER; Start 01/24/19 at 01:30 Apixaban (Eliquis) 2.5 mg BID PO Last administered on 01/27/19at 08:09; Admin Dose 2.5 MG; Start 01/24/19 at 09:00 Atorvastatin Calcium (Lipitor) 80 mg QHS PO Last administered on 01/26/19at 20:30; Admin Dose 80 MG; Start 01/24/19 at 21:00 Docusate Sodium (Colace) 100 mg BID PRN PO CONSTIPATION Last administered on 01/26/19at 20:30; Admin Dose 100 MG; Start 01/24/19 at 01:30 Nitroglycerin (Nitroglycerin (Sl Tab) 0.4 Mg) 0.5 tab Q5M PRN SL CHEST PAIN; Start 01/24/19 at 01:30 Tamsulosin HCl (Flomax) 0.4 mg HS PO Last administered on 01/26/19at 20:31; Admin Dose 0.4 MG; Start 01/24/19 at 21:00 Amiodarone HCl (Cordarone) 100 mg BID PO Last administered on 01/27/19 08:07; Admin Dose 100 MG; Start 01/24/19 at 06:01 Carvedilol (Coreg) 3.125 mg BID PO Last administered on 01/27/19 08:09; Admin Dose 3.125 MG; Start 01/24/19 at 06:01 Labetalol HCl (Labetalol) 10 mg Q3H PRN IV SYSTOLIC > 160; Start 01/24/19 at 11:00 Ferrous Sulfate (Ferrous Sulfate (Ec)) 325 mg BID PO Last administered on 01/27/19 08:10; Admin Dose 325 MG; Start 01/27/19 at 09:00 Ondansetron HCl (Zofran Inj) 4 mg Q4 PRN IV NAUSEA AND/OR VOMITING; Start 01/24/19 at 15:00 Insulin Aspart (Novolog Insulin Pen) NOVOLOG *MODERATE* ALGORITHM WITH MEALS BEDTIME SC Last administered on 01/27/19at 11:58; Admin Dose 2 UNIT; Start 01/24/19 at 21:00 Miscellaneous Information 1 ea NOTE XX ; Start 01/24/19 at 19:00 Glucose (Glutose) 15 gm Q15M PRN PO DECREASED GLUCOSE; Start 01/24/19 at 19:00 Glucose (Glutose) 22.5 gm Q15M PRN PO DECREASED GLUCOSE; Start 01/24/19 at 19:00 Dextrose (D50w Syringe) 25 ml Q15M PRN IV DECREASED GLUCOSE; Start 01/24/19 at 19:00 Dextrose (D50w Syringe) 50 ml Q15M PRN IV DECREASED GLUCOSE; Start 01/24/19 at 19:00 Glucagon (Glucagen) 1 mg Q15M PRN IM DECREASED GLUCOSE; Start 01/24/19 at 19:00 Glucose (Glutose) 15 gm Q15M PRN BUCCAL DECREASED GLUCOSE; Start 01/24/19 at 19:00 Famotidine (Pepcid) 20 mg DAILY PO Last administered on 01/27/19 08:09; Admin Dose 20 MG; Start 01/26/19 at 09:00 Levothyroxine Sodium (Synthroid) 75 mcg DAILY@0600 PO Last administered on 01/27/19at 06:15; Admin Dose 75 MCG; Start 01/26/19 at 06:00 Ranolazine (Ranexa) 1,000 mg Q12H PO Last administered on 01/27/19at 08:07; Admin Dose 1,000 MG; Start 01/25/19 at 20:00 Fish Oil (Fish Oil) 2,000 mg BID PO Last administered on 01/27/19at 08:06; Admin Dose 2,000 MG; Start 01/25/19 at 21:00 Benazepril HCl (Lotensin) 20 mg DAILY PO ; Start 01/28/19 at 09:00 Nifedipine (Procardia Xl) 60 mg DAILY PO Last administered on 01/27/19at 08:08; Admin Dose 60 MG; Start 01/27/19 at 09:00 Assessment/Plan Hospital Course (Demo Recall) 1. Hypertension. Continue Rx - significantly improving on oral antihypertensives. Might be contributing to fatigue. Feels better today. Much better now. 2. Dizziness, possibly in the setting of uncontrolled hypertension, also has history of bradyarrhythmias, heart rates have been stable in the 50s, continue to follow. Improved. 3. 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 Continue to follow. Sinus now - on low dose amio 100 bid and Eliquis. 4. Weakness, improving. Complete the patient's rule out for myocardial infarction. Treated. Improved. 5. Dyslipidemia. 6. History of aortic stenosis, moderate to severe by echo 11/2018 with preserved EF. Jeramy monitor clinically. Out pt f/up. 7. Anemia. 8. Renal failure- Cr 1.74 to 1.6 - better adjust Eliquis as needed. REnal recs noted. BRETT ESTEBAN MD January 27, 2019 14:48
[2019-01-28] MEDS ORDERED: BENAZEPRIL 20 MG TAB PO SCH (09:00)
== END 2019-01-27 17:47 | disposition home or self-care (01) | DRG 683 ==
LOC: E/R 21:32 → 6WM 23:57 → CANRESERV 01-24 00:46 → EDBEDREQSVC 01-24 01:26
PROVIDERS: ADMIT Internal Medicine; ATTEND Internal Medicine
DX: I12.9 Hypertensive chronic kidney disease with stage 1 through stage 4 chronic kidney disease, or unspecified chronic kidney disease (principal); N17.9 Acute kidney failure, unspecified; I16.1 Hypertensive emergency; E88.81 Metabolic syndrome and other insulin resistance; M48.02 Spinal stenosis, cervical region; R62.7 Adult failure to thrive; E78.5 Hyperlipidemia, unspecified; N40.0 Benign prostatic hyperplasia without lower urinary tract symptoms; J44.9 Chronic obstructive pulmonary disease, unspecified; E11.22 Type 2 diabetes mellitus with diabetic chronic kidney disease; E03.9 Hypothyroidism, unspecified; I35.0 Nonrheumatic aortic (valve) stenosis; D64.9 Anemia, unspecified; N18.3 Chronic kidney disease, stage 3 (moderate); E11.21 Type 2 diabetes mellitus with diabetic nephropathy; R00.1 Bradycardia, unspecified
CPT/HCPCS: 36415; 70450; 71045; 74176; 76775; 80048; 80053; 80061; 82550; 82553; 82962; 83036; 83690; 83735; 84100; 84443; 84484; 85025; 85610; 93005; 96365; 96375; 97110; 97116; 97162; 97530; J1815; J2405; J2765

== ENCOUNTER 2019-07-11 06:33 | Inpatient (IN) | payer MEDICARE, OTHER ==
[~2019-07-11] VITALS: Ht 167.6 cm; Wt 84.0 kg
[~2019-07-11 06:33] MED LIST changes: +ACET650S25 PO; +AMIO100T4 PO; +AMIO200T4 ORAL; -AMIO200T4 PO; +ATOR40TA68 ORAL; +ATOR40TA68 PO; -BENA20TA4 ORAL; +BENA20TA4 PO; -CLON-412 PO; +CLON1TAB13 PO; +ESOM40CA51 ORAL; +FURO-110 PO; -GLIM1TAB2 PO; +GLIM1TAB3 PO; +GLIP5TAB13 PO; +HYDR-3671 ORAL; +HYDR-3672 PO; +ISOS120T15 ORAL; +LEVO50TA7 PO; +LEVO75TA84 PO; +LISI-471 ORAL; +MEMA10TA20 ORAL; +METO-448 PO; +NITR0.4T32 ORAL; +OMEG1CAP2 PO; +SERT25TA83 ORAL; +TAMS-14 PO
[2019-07-11] MEDS ORDERED: SOD CHLORIDE 0.9% 100 ML ONE (06:59)
[2019-07-11] MEDS ORDERED: IODIXANOL LOCM 100 ML BTL ONE (06:59)
[2019-07-11] MEDS ORDERED: ONDANSETRON 4 MG INJ IV STA (07:15)
[2019-07-11] MEDS ORDERED: hydrALAzine 20 MG INJ IV ONE ×3 (07:30→15:30)
[2019-07-11] MEDS ORDERED: ASPIRIN 81 MG TAB PO ONE (08:00)
[2019-07-11] MEDS ORDERED: ONDANSETRON 4 MG INJ IV PRN (09:00)
[2019-07-11] MEDS ORDERED: ACETAMINOPHEN 325 MG TAB PO PRN (09:00)
[2019-07-11] MEDS ORDERED: hydrALAzine 20 MG INJ IV PRN (13:30)
[2019-07-11] MEDS ORDERED: clonAZEPAM 0.5 MG TAB PO PRN (13:30)
[2019-07-11] MEDS ORDERED: ACETAMINOPHEN 650MG/20.3ML CUP PO PRN (13:30)
[2019-07-11] MEDS ORDERED: LABETALOL HCL 20MG INJ IV ONE (15:30)
[2019-07-11 18:25] VITALS: BP 208/84; PULSE 79; RESP 20
[2019-07-11 19:18] VITALS: BP 171/81; PULSE 79; RESP 20
[2019-07-11 19:46] VITALS: Ht 167.6 cm; Wt 84.0 kg
[2019-07-11 21:05] VITALS: BP 212/100
[2019-07-11] MEDS: hydrALAzine 20 MG INJ IV PRN (21:16)
[2019-07-11] MEDS: DOCUSATE SODIUM 100 MG CAP PO SCH (21:17)
[2019-07-11] MEDS: ATORVASTATIN 40 MG TAB PO SCH (21:17)
[2019-07-11] MEDS: TAMSULOSIN (SR) 0.4 MG CAP PO SCH (21:17)
[2019-07-11] MEDS: APIXABAN 5 MG TABLET PO SCH (21:21)
[2019-07-11 22:36] VITALS: BP 146/65
[2019-07-11 23:16] VITALS: BP 166/72; PULSE 82; RESP 22
[2019-07-12] VITALS (7 sets, daily range): BP systolic 144–185; BP diastolic 65–84; PULSE 64–83; RESP 18–22
[2019-07-12] MEDS: PANTOPRAZOLE (EC) 40 MG TAB PO SCH (06:09)
[2019-07-12] MEDS: LEVOTHYROXINE 50 MCG TAB PO SCH (06:09)
[2019-07-12] MEDS: hydrALAzine 20 MG INJ IV PRN (07:33)
[2019-07-12] MEDS: DOCUSATE SODIUM 100 MG CAP PO SCH ×2 (08:35→21:14)
[2019-07-12] MEDS: AMIODARONE 200 MG TAB PO SCH (08:35)
[2019-07-12] MEDS: APIXABAN 5 MG TABLET PO SCH ×2 (08:35→21:14)
[2019-07-12] MEDS ORDERED: ESOMEPRAZOLE MAGNESIUM ORAL SCH (09:00)
[2019-07-12] MEDS: RANOLAZINE (SR) 500 MG TAB PO SCH (17:47)
[2019-07-12] MEDS ORDERED: NIFEdipine (XL) 30 MG TAB PO SCH (21:00)
[2019-07-12] MEDS: TAMSULOSIN (SR) 0.4 MG CAP PO SCH (21:14)
[2019-07-12] MEDS: ATORVASTATIN 40 MG TAB PO SCH (21:14)
[2019-07-12] MEDS: METOPROLOL 25 MG TAB PO SCH (21:17)
[2019-07-13 04:44] VITALS: BP 129/62; PULSE 68; RESP 21
[2019-07-13] MEDS: RANOLAZINE (SR) 500 MG TAB PO SCH ×2 (06:38→14:58)
[2019-07-13] MEDS: PANTOPRAZOLE (EC) 40 MG TAB PO SCH (06:39)
[2019-07-13] MEDS: LEVOTHYROXINE 50 MCG TAB PO SCH (06:39)
[2019-07-13 06:59] VITALS: BP 146/73; PULSE 64; RESP 20
[2019-07-13] MEDS ORDERED: DEXTROSE 50% 50 ML SYRINGE IV PRN ×2 (08:30)
[2019-07-13] MEDS ORDERED: GLUCAGON 1 MG INJ IM PRN (08:30)
[2019-07-13] MEDS ORDERED: GLUCOSE GEL 15 GRAM TUBE PO PRN ×2 (08:30)
[2019-07-13] MEDS ORDERED: GLUCOSE GEL 15 GRAM TUBE BUCCAL PRN (08:30)
[2019-07-13] MEDS: DOCUSATE SODIUM 100 MG CAP PO SCH (08:45)
[2019-07-13] MEDS: AMIODARONE 200 MG TAB PO SCH (08:45)
[2019-07-13] MEDS: APIXABAN 5 MG TABLET PO SCH (08:46)
[2019-07-13] MEDS: METOPROLOL 25 MG TAB PO SCH (08:46)
[2019-07-13] MEDS ORDERED: SERTRALINE 50 MG TAB PO SCH (09:00)
[2019-07-13] MEDS ORDERED: NIFEdipine (XL) 30 MG TAB PO SCH (10:30)
[2019-07-13 11:31] VITALS: BP 142/68; PULSE 59; RESP 20
[2019-07-13] MEDS: INSULIN ASPART [NOVOLOG] 3 ML PEN SC SCH ×2 (12:00→17:32)
[2019-07-13 14:54] VITALS: BP 164/78; PULSE 63; RESP 20
[2019-07-13] MEDS ORDERED: FUROSEMIDE 40 MG INJ IV ONE (16:00)
[2019-07-13 16:40] VITALS: BP 161/74; PULSE 69
[2019-07-13 16:42] VITALS: BP 161/74
[2019-07-14] MEDS ORDERED: ACCU-CHEK XX SCH (02:00)
== END 2019-07-13 18:20 | disposition home or self-care (01) | DRG 69 ==
LOC: E/R 06:33 → 6WM 08:42 → SUATTDRO 13:05
PROVIDERS: ADMIT Family Medicine; ATTEND Family Medicine
DX: G45.9 Transient cerebral ischemic attack, unspecified (principal); I16.1 Hypertensive emergency; R47.01 Aphasia; N17.9 Acute kidney failure, unspecified; I48.20 Chronic atrial fibrillation, unspecified; I48.0 Paroxysmal atrial fibrillation; E11.22 Type 2 diabetes mellitus with diabetic chronic kidney disease; E03.9 Hypothyroidism, unspecified; Z95.1 Presence of aortocoronary bypass graft; R53.1 Weakness; R47.1 Dysarthria and anarthria; I25.10 Atherosclerotic heart disease of native coronary artery without angina pectoris; I16.0 Hypertensive urgency; N40.0 Benign prostatic hyperplasia without lower urinary tract symptoms; I12.9 Hypertensive chronic kidney disease with stage 1 through stage 4 chronic kidney disease, or unspecified chronic kidney disease; N18.9 Chronic kidney disease, unspecified; F32.9 Major depressive disorder, single episode, unspecified; Z79.4 Long term (current) use of insulin; Z79.01 Long term (current) use of anticoagulants
CPT/HCPCS: 36415; 70450; 70496; 70498; 70551; 71045; 80048; 80061; 80307; 81003; 82550; 82553; 82962; 83036; 83735; 84443; 84484; 85025; 85610; 85730; 86850; 86900; 86901; 92523; 92610; 93005; 93306; 93976; 96374; 96375; J0360; J1815; J1940; J2405; Q9967